=== PATIENT | male | born 1945 | race Caucasian/White ===

== ENCOUNTER 2020-11-03 07:19 | Inpatient (IN) | payer OTHER ==
[2020-11-03] MEDS ORDERED: METHYLPREDNISOLONE 125 MG INJ ONE (08:02)
[2020-11-03 08:14] LABS: Basophils % 0.7 % (0-1.3); Hematocrit 48.8 % (39.6-49.0); Lymphocytes % 7.2 % (15.3-44.8); MPV 7.4 fL (7.6-11.3); RBC Red Blood Cell Count 5.32 M/uL (4.33-5.43)
[2020-11-03 08:21] LABS: Protime INR 1.08
--- NOTE | 2020-11-03 08:34 | RAD REPORT ---
EXAM DESCRIPTION: RAD - Chest Single View - 11/03/2020 8:26 am CLINICAL HISTORY: DYSPNEA Chest pain. COMPARISON: <Comparisons> FINDINGS: Portable technique limits examination quality. Iale-cr-txctvodg bilateral interstitial lung opacities are present, greater on the right. These likel y are related viral infection/ bronchitis. The heart is normal in size. No displaced fractures.
[2020-11-03 08:37] LABS: ALT/SGPT 36 U/L (12-78); AST/SGOT 28 U/L (15-37); Albumin 2.9 g/dL (3.4-5.0); Alkaline Phosphatase 65 U/L (45-117); BUN Blood Urea Nitrogen 15 mg/dL (7-18); Bicarbonate 21 mmol/L (21-32); Bilirubin Direct 0.3 mg/dL (0-0.2); Bilirubin Total 1.2 mg/dL (0.2-1.0); C-Reactive Protein < 2.90 mg/L (<3.00); Ferritin 780.9 ng/mL (26-388); Glucose Level 136 mg/dL (74-106); Potassium 3.3 mmol/L (3.5-5.1); Protein, Total 7.1 g/dL (6.4-8.2); Sodium Level 134 mmol/L (136-145); Troponin (Emerg Dept Use Only) < 0.02 ng/mL (0.0-0.045)
[2020-11-03 08:55] LABS: SARS-COV-2 RT PCR POSITIVE (NEGATIVE)
[2020-11-03 09:35] LABS: Blood Morphology Comment NOT SEEN (NOT SEEN); Platelet Estimate ADEQ; White Blood Cell Scan OK (OK)
--- NOTE | 2020-11-03 09:35 | EDPHYS ---
Physician Documentation [facility] Name: Jonatan Yen Jr Age: 75 yrs Sex: Male : 1945 Arrival Date: 11/03/2020 Time: 07:21 Bed 17 Private MD: ED Physician Stefan Giang HPI: 11/03 08:24 This 75 yrs old Male presents to ER via EMS with complaints of Shortness Of jr8 Breath. 08:24 The patient has shortness of breath at rest. Onset: The symptoms/episode began/occurred jr8 gradually, 1 week(s) ago, and became worse and became persistent. Duration: The symptoms are continuous. The patient's shortness of breath is aggravated by light activity, walking. Associated signs and symptoms: Pertinent positives: non-productive cough. Severity of symptoms: At their worst the symptoms were moderate in the emergency department the symptoms are unchanged. The patient has not experienced similar symptoms in the past. The patient has not recently seen a physician. This is a 75-year-old male that came in via EMS for increased shortness of breath. Stated his granddaughter had tested positive for coronavirus a little over a week ago. Patient became symptomatic soon after that and has had increased shortness of breath since then. No official test for him by medical provider. Has been trying to treat symptomatically at home but has become too worse.. Historical: - Allergies: 07:25 PENICILLINS; iw - Home Meds: 07:26 telmisartan 80 mg oral tab 1 tab once daily [Active]; hydralazine 25 mg Oral tab three iw times a day [Active]; carvedilol 25 mg oral tab 1 tab 2 times per day [Active]; furosemide 20 mg Oral tab 1 tab once daily [Active]; - PMHx: 07:25 Hypertensive disorder; iw - Immunization history:: Client reports having NOT received the Covid vaccine. - Social history:: Smoking status: Patient denies any tobacco usage or history of. ROS: 08:24 Eyes: Negative for injury, pain, redness, and discharge, ENT: Negative for injury, jr8 pain, and discharge, Neck: Negative for injury, pain, and swelling, Cardiovascular: Negative for chest pain, palpitations, and edema, Abdomen/GI: Negative for abdominal pain, nausea, vomiting, diarrhea, and constipation, Back: Negative for injury and pain, MS/Extremity: Negative for injury and deformity, Skin: Negative for injury, rash, and discoloration, Neuro: Negative for headache, weakness, numbness, tingling, and seizure. 08:24 Respiratory: Positive for cough, dyspnea on exertion, shortness of breath. Exam: 08:24 Constitutional: This is a well developed, well nourished patient who is awake, alert, jr8 and in no acute distress. Eyes: Pupils equal round and reactive to light, extra-ocular motions intact. Lids and lashes normal. Conjunctiva and sclera are non-icteric and not injected. Cornea within normal limits. Periorbital areas with no swelling, redness, or edema. ENT: Nares patent. No nasal discharge, no septal abnormalities noted. Tympanic membranes are normal and external auditory canals are clear. Oropharynx with no redness, swelling, or masses, exudates, or evidence of obstruction, uvula midline. Mucous membranes moist. Neck: Trachea midline, no thyromegaly or masses palpated, and no cervical lymphadenopathy. Supple, full range of motion without nuchal rigidity, or vertebral point tenderness. No Meningismus. Cardiovascular: Regular rate and rhythm with a normal S1 and S2. No gallops, murmurs, or rubs. Normal PMI, no JVD. No pulse deficits. Abdomen/GI: Soft, non-tender, with normal bowel sounds. No distension or tympany. No guarding or rebound. No evidence of tenderness throughout. Back: No spinal tenderness. No costovertebral tenderness. Full range of motion. Skin: Warm, dry with normal turgor. Normal color with no rashes, no lesions, and no evidence of cellulitis. MS/ Extremity: Pulses equal, no cyanosis. Neurovascular intact. Full, normal range of motion. Neuro: Awake and alert, GCS 15, oriented to person, place, time, and situation. Cranial nerves II-XII grossly intact. Motor strength 5/5 in all extremities. Sensory grossly intact 08:24 Respiratory: the patient does not display signs of respiratory distress, Respirations: tachypnea, that is mild, Breath sounds: are clear throughout. Vital Signs: 07:21 BP 148 / 84; Pulse 73; Resp 24 S; Temp 97.7; Pulse Ox 86% on R/A; Weight 88.45 kg; iw Height 5 ft. 11 in. (180.34 cm); Pain 0/10; 08:02 BP 156 / 88; Pulse 72; Resp 25; Pulse Ox 92% ; Pain 0/10; jl7 09:19 BP 127 / 69; Pulse 74; Resp 23; Pulse Ox 90% on 6 lpm NC; jl7 10:15 BP 137 / 80; Pulse 72; Resp 22; Pulse Ox 92% on 11 lpm NC; jl7 11:00 BP 145 / 81; Pulse 73; Resp 22; Pulse Ox 91% ; jl7 11:45 BP 153 / 85; Pulse 75; Resp 21; Pulse Ox 93% on 11 lpm NC; jl7 12:30 BP 142 / 78; Pulse 73; Resp 15; Pulse Ox 95% on 11 lpm NC; jl7 13:15 BP 155 / 83; Pulse 76; Resp 20; Pulse Ox 95% 11 lpm ; jl7 14:45 BP 119 / 72; Pulse 86; Resp 18; Pulse Ox 94% on 11 lpm NC; jl7 07:21 Body Mass Index 27.20 (88.45 kg, 180.34 cm) iw 10:15 Bubbler jl7 MDM: 07:26 Patient medically screened. 8 09:34 Data reviewed: vital signs, nurses notes, lab test result(s), EKG, radiologic studies, [facility] CT scan, plain films. Data interpreted: Pulse oximetry: on room air is 85 %. Interpretation: hypoxia. Counseling: I had a detailed discussion with the patient and/or guardian regarding: the historical points, exam findings, and any diagnostic results supporting the discharge/admit diagnosis, lab results, radiology results, the need for further work-up and treatment in the hospital. 11/03 07:34 Order name: BMP 8 11/03 07:34 Order name: Blood Culture Adult (2) 11/03 07:34 Order name: C-Reactive Protein 11/03 07:34 Order name: CBC with Diff; Complete Time: 09:36 11/03 07:34 Order name: D-Dimer; Complete Time: 08:24 11/03 07:34 Order name: Ferritin; Complete Time: 08:39 11/03 07:34 Order name: LFT's; Complete Time: 08:39 11/03 07:34 Order name: Lactate; Complete Time: 14:35 8 11/03 07:34 Order name: PT-INR; Complete Time: 08:24 8 11/03 07:34 Order name: Procalcitonin; Complete Time: 10:03 8 11/03 07:34 Order name: Ptt, Activated; Complete Time: 08:24 8 11/03 07:34 Order name: Troponin (emerg Dept Use Only); Complete Time: 08:39 8 11/03 07:34 Order name: CXR XRAY; Complete Time: 08:39 8 11/03 07:35 Order name: Basic Metabolic Panel; Complete Time: 08:39 EDMS 11/03 07:35 Order name: Blood Culture EDMS 11/03 07:35 Order name: C-Reactive Protein; Complete Time: 08:39 EDMS 11/03 08:56 Order name: COVID-19/FLU A+B; Complete Time: 09:35 EDMS 11/03 09:35 Order name: CBC Smear Scan; Complete Time: 09:36 EDMS 11/03 12:22 Order name: C-Reactive Protein EDMS 11/03 12:22 Order name: C-Reactive Protein EDMS 11/03 12:22 Order name: CBC with Automated Diff EDMS 11/03 12:22 Order name: CBC with Automated Diff EDMS 11/03 12:22 Order name: Ferritin EDMS 11/03 12:22 Order name: Ferritin EDMS 11/03 14:44 Order name: Troponin I; Complete Time: 14:54 EDMS 11/03 14:44 Order name: NT PRO-BNP; Complete Time: 14:54 EDMS 11/03 14:44 Order name: T4 Free; Complete Time: 14:54 EDMS 11/03 14:44 Order name: Thyroid Stimulating Hormone; Complete Time: 14:54 EDMS 11/03 07:34 Order name: EKG; Complete Time: 07:35 8 11/03 07:34 Order name: Cardiac monitoring; Complete Time: 07:56 8 11/03 07:34 Order name: Droplet/Contact Precautions; Complete Time: 07:57 8 11/03 07:34 Order name: EKG - Nurse/Tech; Complete Time: 07:56 8 11/03 07:34 Order name: IV Start; Complete Time: 07:56 11/03 07:34 Order name: Labs collected and sent; Complete Time: 07:56 11/03 07:34 Order name: O2 Per Protocol; Complete Time: 07:56 11/03 07:34 Order name: O2 Sat Monitoring; Complete Time: 07:56 11/03 07:34 Order name: Urine Dipstick-Ancillary (obtain specimen); Complete Time: 16:19 11/03 08:39 Order name: CT Chest For PE Angio; Complete Time: 10:03 jr8 Administered Medications: 07:40 Drug: SOLU-Medrol (methylPrednisoLONE) 125 mg Route: IVP; Site: right antecubital; jl7 09:44 Follow up: Response: No adverse reaction jl7 10:41 Drug: Potassium Chloride 40 mEq Route: PO; jl7 10:41 Follow up: Response: No adverse reaction jl7 Disposition: 11/04 06:41 Co-signature as Attending Physician, Stefan Giang MD I agree with the assessment and bushra plan of care. Disposition Summary: 11/03/20 13:58 Transfer Ordered Transfer Location: [facility] jr8 Reason: Higher level of care jr8 Condition: Fair(11/03/20 13:58) jr8 Problem: new(11/03/20 13:58) jr8 Symptoms: have improved(11/03/20 13:58) jr8 Accepting Physician: Dr. Kebede(11/03/20 16:28) jl7 Diagnosis - SARS-associated coronavirus as the cause of diseases classified elsewhere(11/03/20 jr8 13:58) - Pneumonia due to SARS-associated coronavirus(11/03/20 13:58) jr8 - Acute respiratory failure with hypoxia(11/03/20 13:58) jr8 Forms: - Medication Reconciliation Form jr8 - SBAR form jr8 Signatures: Dispatcher [employer] Stefan Comer MD MD cha Williams, Irene, RN RN iw Roszak, Josh, PA PA jr8 Celso Rodrigues RN RN jl7 Corrections: (The following items were deleted from the chart) 11/03 08:03 07:35 CORONAVIRUS+MR.LAB.BRZ ordered. [facility] 08:04 07:35 Influenza Screen (A \T\ B)+BA.LAB.BRZ ordered. EDMS EDMS 13:44 09:35 Inpatient Admission jr8 jr8 13:44 09:35 MurrayJacob jr8 jr8 13:44 09:35 Telemetry/MedSurg (Inpatient) jr8 jr8 13:44 09:35 Fair jr8 jr8 13:44 09:35 new jr8 jr8 : 09:35 have improved jr8 jr8 : 09:35 Standard 8 jr8 13:44 09:35 jr8 jr8 13:44 09:35 Pneumonia due to SARS-associated coronavirus 8 jr8 :44 09:35 SARS-associated coronavirus as the cause of diseases classified elsewhere 8 jr8 09:35 Acute respiratory failure with hypoxia 8 8 15:18 13:58 [facility] jr8 jr8 16:28 15:18 Dr. Kebede jr8 jl7
--- NOTE | 2020-11-03 09:35 | ER ---
Nurse's Notes [facility] Name: Jonatan Yen Jr Age: 75 yrs Sex: Male : 1945 Arrival Date: 11/03/2020 Time: 07:21 Bed 17 Private MD: Diagnosis: SARS-associated coronavirus as the cause of diseases classified elsewhere;Pneumonia due to SARS-associated coronavirus;Acute respiratory failure with hypoxia Presentation: 11/03 07:21 Chief complaint: EMS states: was exposed to COVID a couple weeks ago, has had symptoms iw X 15 days, SOB has gotten worse over past 2 days, was 75% on RA, placed on 4L NC up to 92%, no fever, has been on Zpack , has had congestion. Coronavirus screen: difficulty breathing, fatigue. Ebola Screen: Patient negative for fever greater than or equal to 101.5 degrees Fahrenheit, and additional compatible Ebola Virus Disease symptoms Patient denies exposure to infectious person. Patient denies travel to an Ebola-affected area in the 21 days before illness onset. No symptoms or risks identified at this time. Initial Sepsis Screen: Does the patient meet any 2 criteria? Yes Does the patient have a suspected source of infection? No. Patient's initial sepsis screen is negative. Risk Assessment: Do you want to hurt yourself or someone else? Patient reports no desire to harm self or others. Onset of symptoms was November 03, 2020. 07:21 Method Of Arrival: EMS: [facility] iw 07:21 Acuity: TOÑO 3 iw Historical: - Allergies: 07:25 PENICILLINS; iw - Home Meds: 07:26 telmisartan 80 mg oral tab 1 tab once daily [Active]; hydralazine 25 mg Oral tab three iw times a day [Active]; carvedilol 25 mg oral tab 1 tab 2 times per day [Active]; furosemide 20 mg Oral tab 1 tab once daily [Active]; - PMHx: 07:25 Hypertensive disorder; iw - Immunization history:: Client reports having NOT received the Covid vaccine. - Social history:: Smoking status: Patient denies any tobacco usage or history of. Screenin:02 Abuse screen: Denies threats or abuse. Denies injuries from another. Nutritional jl7 screening: No deficits noted. Tuberculosis screening: No symptoms or risk factors identified. Fall Risk IV access (20 points). Total Acharya Fall Scale indicates No Risk (0-24 pts). Assessment: 08:02 General: Appears in no apparent distress. uncomfortable, Behavior is calm, cooperative, jl7 appropriate for age. Pain: Denies pain. Neuro: Level of Consciousness is awake, alert, obeys commands, Oriented to person, place, time, situation. Cardiovascular: Heart tones present Patient's skin is warm and dry. Rhythm is sinus rhythm Chest pain is denied. Respiratory: Airway is patent Respiratory effort is even, labored, Respiratory pattern is symmetrical, tachypnea Breath sounds are clear. Derm: Skin is pink, warm \T\ dry. 09:19 Reassessment: Patient appears in no apparent distress at this time. No changes from jl7 previously documented assessment. Patient and/or family updated on plan of care and expected duration. Pain level reassessed. Patient is alert, oriented x 3, equal unlabored respirations, skin warm/dry/pink. 10:00 Reassessment: Pt moved from stretcher to chair in room and desated to 77%, placed pt on jl7 non-rebreather and requested RT to bedside to assess. Pt placed on bubbler at 11 lpm via NC with good results, 95% on 11 lpm on bubbler. 11:00 Reassessment: Patient appears in no apparent distress at this time. No changes from jl7 previously documented assessment. Patient and/or family updated on plan of care and expected duration. Pain level reassessed. Patient is alert, oriented x 3, equal unlabored respirations, skin warm/dry/pink. 12:00 Reassessment: Patient appears in no apparent distress at this time. No changes from jl7 previously documented assessment. Patient and/or family updated on plan of care and expected duration. Pain level reassessed. Patient is alert, oriented x 3, equal unlabored respirations, skin warm/dry/pink. 13:00 Reassessment: Patient appears in no apparent distress at this time. No changes from jl7 previously documented assessment. Patient and/or family updated on plan of care and expected duration. Pain level reassessed. Patient is alert, oriented x 3, equal unlabored respirations, skin warm/dry/pink. 14:00 Reassessment: Patient appears in no apparent distress at this time. No changes from jl7 previously documented assessment. Patient and/or family updated on plan of care and expected duration. Pain level reassessed. Patient is alert, oriented x 3, equal unlabored respirations, skin warm/dry/pink. 15:00 Reassessment: Patient appears in no apparent distress at this time. No changes from jl7 previously documented assessment. Patient and/or family updated on plan of care and expected duration. Pain level reassessed. Patient is alert, oriented x 3, equal unlabored respirations, skin warm/dry/pink. 16:27 Reassessment: [facility] at bedside to transport pt. jl7 Vital Signs: 07:21 BP 148 / 84; Pulse 73; Resp 24 S; Temp 97.7; Pulse Ox 86% on R/A; Weight 88.45 kg; iw Height 5 ft. 11 in. (180.34 cm); Pain 0/10; 08:02 BP 156 / 88; Pulse 72; Resp 25; Pulse Ox 92% ; Pain 0/10; jl7 09:19 BP 127 / 69; Pulse 74; Resp 23; Pulse Ox 90% on 6 lpm NC; jl7 10:15 BP 137 / 80; Pulse 72; Resp 22; Pulse Ox 92% on 11 lpm NC; jl7 11:00 BP 145 / 81; Pulse 73; Resp 22; Pulse Ox 91% ; jl7 11:45 BP 153 / 85; Pulse 75; Resp 21; Pulse Ox 93% on 11 lpm NC; jl7 12:30 BP 142 / 78; Pulse 73; Resp 15; Pulse Ox 95% on 11 lpm NC; jl7 13:15 BP 155 / 83; Pulse 76; Resp 20; Pulse Ox 95% 11 lpm ; jl7 14:45 BP 119 / 72; Pulse 86; Resp 18; Pulse Ox 94% on 11 lpm NC; jl7 07:21 Body Mass Index 27.20 (88.45 kg, 180.34 cm) iw 10:15 Bubbler jl7 ED Course: 07:21 Patient arrived in ED. iw 07:25 Triage completed. iw 07:25 Jeff Berger PA is PHCP. jr8 07:26 Stefan Giang MD is Attending Physician. jr8 07:27 Celso Rodrigues RN is Primary Nurse. jl7 07:27 Arm band placed on. iw 07:30 Initial lab(s) drawn, by me, sent to lab. Inserted saline lock: 20 gauge in right kj1 antecubital area, using aseptic technique. Blood collected. 07:30 First set of blood cultures drawn by me. kj1 07:45 Second set of blood cultures drawn by me. kj1 08:02 Patient has correct armband on for positive identification. Placed in gown. Bed in low jl7 position. Call light in reach. Side rails up X 1. monitor tech on. Pulse ox on. NIBP on. 08:02 COVID swab sent to lab. Flu and/or RSV swab sent to lab. jl7 08:26 CXR XRAY In Process Unspecified. EDMS 09:05 CT Chest For PE Angio In Process Unspecified. EDMS 09:34 Jacob Gao is Hospitalizing Provider. jr8 10:38 initiated transfer to [facility]. bd 15:41 No provider procedures requiring assistance completed. Patient transferred, IV remains jl7 in place. intact, No redness/swelling at site. Administered Medications: 07:40 Drug: SOLU-Medrol (methylPrednisoLONE) 125 mg Route: IVP; Site: right antecubital; jl7 09:44 Follow up: Response: No adverse reaction jl7 10:41 Drug: Potassium Chloride 40 mEq Route: PO; jl7 10:41 Follow up: Response: No adverse reaction jl7 Outcome: 09:35 Decision to Hospitalize by Provider. jr8 13:58 ER care complete, transfer ordered by . jr8 16:27 Transferred by ground EMS to [facility], Transfer form completed. jl7 X-rays sent w/ patient. 16:27 Condition: stable 16:27 Discharge instructions given to patient, family, Instructed on the need for transfer, Demonstrated understanding of instructions. 16:28 Patient left the ED. jl7 Signatures: Dispatcher [employer] EDMS Ольга Nelson bd Sue Simons RN RN iw Jeff Berger PA PA jr8 Celso Rodrigues RN RN martina7 Aviva Yu kj1 Corrections: (The following items were deleted from the chart) 07:35 07:21 BP 148 / 84; Resp 24bpm; Spontaneous; Pulse Ox 86% RA; Temp 97.7F; 88.45 kg; iw Height 5 ft. 11 in.; BMI: 27.2; Pain 0/10; iw
--- NOTE | 2020-11-03 10:00 | RAD REPORT ---
EXAM DESCRIPTION: CT - Chest For Pe Angio - 11/03/2020 9:05 am CLINICAL HISTORY: Chest pain. DYSPNEA COMPARISON: CTANGIO CHEST FOR PE dated 03/25/2011 TECHNIQUE: CT angiogram of the pulmonary arteries was performed with MIP. All CT scans are performed using dose optimization technique as appropriate and may include automated exposure control or mA/KV adjustment according to patient size. FINDINGS: No evidence of pulmonary thromboembolism. No acute aortic finding demonstrated. Emphysema with moderate ground-glass opacities bilaterally compatible with COVID-19 infection. No significant pericardial or pleural fluid. No concerning bony finding. IMPRESSION: No evidence of pulmonary thromboembolism. Emphysema with moderate ground-glass lung opacities seen suggesting COVID-19 infection.
[2020-11-03] MEDS ORDERED: POTASSIUM CL SA 10 MEQ TAB PO ONE ×2 (10:10→14:44)
[2020-11-03] MEDS ORDERED: LABETALOL 20 MG/4ML SYRINGE IV PRN (12:15)
[2020-11-03] MEDS ORDERED: ACETAMINOPHEN 500 MG TAB PO PRN (12:25)
[2020-11-03] MEDS ORDERED: ONDANSETRON 4 MG/2 ML VIAL IV PRN (12:25)
[2020-11-03] MEDS ORDERED: GUAIFENESIN/CODEINE 5ML UCUP PO PRN (12:33)
--- NOTE | 2020-11-03 12:52 | P.HP ---
Certification for Inpatient Patient admitted to: Inpatient With expected LOS: >2 Midnights Patient will require the following post-hospital care: None Practitioner: I am a practitioner with admitting privileges, knowledge of patient current condition, hospital course, and medical plan of care. Services: Services provided to patient in accordance with Admission requirements found in Title 42 Section 412.3 of the Code of Federal Regulations <Nathan Loja - Last Filed: 11/03/20 14:47> Patient admitted to: Inpatient <Dangelo Watts - Last Filed: 11/03/20 15:06> Patient History Date of Service: 11/03/20 Reason for admission: SOB History of Present Illness: Patient is a 75-year-old male with a past medical history significant for hypertension who presents with complaint of shortness of breath that started 1 week ago but has become increasingly worse over time. Patient reports associated signs and symptoms of cough, loss of appetite\smell\taste, weakness, fatigue, chills, dizziness, chest tightness and generalized body pains. Patient denies any other signs and symptoms. Symptoms are aggravated or relieved by nothing. Patient decided to present to the hospital due to worsening symptoms. Home medications list reviewed: Yes - Past Medical/Surgical History Diabetic: No -: HTN Past Surgical History: Reviewed- Non-Contributory - Family History Father -: Heart disease Mother -: Heart disease - Social History Smoking Status: Unknown if ever smoked Alcohol use: No CD- Drugs: No Caffeine use: Yes Place of Residence: Home <Nathan Loja - Last Filed: 11/03/20 14:47> Date of Service: 11/03/20 Primary Care Provider: unknown - Past Medical/Surgical History Psychosocial/ Personal History: Patient lives at home <Dangelo Watts - Last Filed: 11/03/20 15:06> Allergies No Known Allergies Allergy (Unverified 03/25/11 06:16) Home Medications: Carvedilol [Coreg] 3.125 mg PO BID #0 tablet 03/29/11 Furosemide [Lasix] 40 mg PO DAILY #0 tablet 03/29/11 Lisinopril 10 mg PO DAILY #0 tablet 03/29/11 Potassium Chloride [Micro-K] 10 meq PO DAILY #0 capsule.er 03/29/11 Review of Systems General: Fever, Chills, Weakness, Malaise, As per HPI Eyes: Unremarkable ENT: Unremarkable Respiratory: Cough, Shortness of Breath, SOB with Excertion Cardiovascular: Unremarkable Gastrointestinal: Unremarkable Genitourinary: Unremarkable Musculoskeletal: Unremarkable Integumentary: Unremarkable Neurological: Unremarkable Lymphatics: Unremarkable <PurviShahidmichaeljoseluis E - Last Filed: 11/03/20 14:47> Physical Examination - Physical Exam General: Alert, In no apparent distress, Oriented x3, Mild distress HEENT: Atraumatic, PERRLA, Mucous membr. moist/pink, EOMI, Sclerae nonicteric Neck: Supple, 2+ carotid pulse no bruit, No LAD, Without JVD or thyroid abnormality Respiratory: Diminished Cardiovascular: Regular rate/rhythm, Normal S1 S2 Capillary refill: <2 Seconds Gastrointestinal: Normal bowel sounds, No tenderness Musculoskeletal: No clubbing, No tenderness Integumentary: No rashes, No significant lesion Neurological: Normal gait, Normal speech, Normal tone, Normal affect Lymphatics: No axilla or inguinal lymphadenopathy External genitalia: Deferred - Studies Laboratory Data (last 24 hrs) 11/03/20 07:28: PT 12.4, INR 1.08, APTT 24.0 L 11/03/20 07:28: WBC 13.80 H, Hgb 16.8, Hct 48.8, Plt Count 350 11/03/20 07:28: Sodium 134 L, Potassium 3.3 L, BUN 15, Creatinine 0.95, Glucose 136 H, Total Bilirubin 1.2 H, AST 28, ALT 36, Alkaline Phosphatase 65 <Nathan Loja E - Last Filed: 11/03/20 14:47> - Studies Laboratory Data (last 24 hrs) 11/03/20 07:28: PT 12.4, INR 1.08, APTT 24.0 L 11/03/20 07:28: WBC 13.80 H, Hgb 16.8, Hct 48.8, Plt Count 350 11/03/20 07:28: Sodium 134 L, Potassium 3.3 L, BUN 15, Creatinine 0.95, Glucose 136 H, Total Bilirubin 1.2 H, AST 28, ALT 36, Alkaline Phosphatase 65 <Dangelo Watts - Last Filed: 11/03/20 15:06> Assessment and Plan - Plan --COVID-19 pneumonia. Web Applications Administrator consulted. Patient placed on steroids, o2 therapy and oral supplements. Inflammatory markers elevated. Will await further recommendation from room service runner. --COVID-19 infection. Continue current treatment regimen. Continue contact and airborne precautions. --Hypertension. Poorly controlled. Continue home medications and labetalol. --Leukocytosis. Blood cultures pending. Web Applications Administrator wants to review this patient's profile before deciding on antibiotics. --Hypokalemia. Replete as needed. --Elevated D-dimer. CT angiogram negative for PE. Continue supportive care. --CKD 2. Stable. We will continue to monitor renal functions. --DVT prophylaxis with heparin subQ I have had discussion about advanced directives with the patient during this hospital admission. Addressed code status and goals of care. Spent more than 15 minutes. Case discussed withpatient and nurse. The following document was completed using voice recognition software. This can produce medical records director errors that can at times significantly distort words and phrases. Please interpret any aspect of the note that is nonsensical in light of this fact. Discharge Plan: Home Plan to discharge in: 48 Hours - Advance Directives Does patient have a Living Will: No Does patient have a Durable POA for Healthcare: No - Code Status/Comfort Care Code Status Assessed: Yes Code Status: Full Code Physician Review: Patient Assessed, Agree with Above Assessment and Plan Critical Care: No <Nathan Loja - Last Filed: 11/03/20 14:47> - Plan Patient seen and evaluated. Agree with evaluation and plan of care by nurse practitioner. Case discussed with ER physician. Patient was initially transferred due to lack of beds and support here. There were no beds available in [place]. ER physician updated me and reported that patient may be able to be transferred with now available bed to [place]. Patient agreeable for transfer. Patient stable for transfer. Currently on oxygen at this time. Continue with treatment for COVID-19 pneumonia. Await to see if patient is to be transferred if not patient will continue care here. Time Spent Managing Pts Care (In Minutes): 55 <Dangelo Watts - Last Filed: 11/03/20 15:06>
[2020-11-03 14:44] LABS: NT PRO-BNP 10217 pg/mL (<450); Thyroid Stimulating Hormone 0.357 uIU/mL (0.360-3.740); Troponin I < 0.02 ng/mL (0.0-0.045)
[2020-11-03 16:55] VITALS: TEMP 97.7
[2020-11-03] MEDS ORDERED: HEPARIN 5000 UNIT/ML 1 ML VIAL SQ SCH (17:00)
[2020-11-03 17:06] VITALS: BP 119/72; O2SAT 94
[2020-11-03] MEDS ORDERED: METHYLPREDNISOLONE 125 MG INJ IV SCH (21:00)
[2020-11-03] MEDS ORDERED: ASCORBIC ACID 500 MG TABLET PO SCH (21:00)
[2020-11-03] MEDS ORDERED: MELATONIN 5 MG TABLET PO SCH (21:00)
[2020-11-03] MEDS ORDERED: FAMOTIDINE 20 MG TAB PO SCH (21:00)
[2020-11-03] MEDS ORDERED: FAMOTIDINE 20 MG/2 ML VIAL IV SCH (21:00)
[2020-11-03] MEDS ORDERED: ZINC SULFATE 220 MG CAP PO SCH (21:00)
--- NOTE | 2020-11-04 08:17 | EKG ---
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: YVONNE MEASUREMENT RESULTS: Intervals: Rate: 80 NV: 146 QRSD: 128 QT: 438 QTc: 505 [place]: P: 23 NV: 146 QRS: -56 T: -8 INTERPRETIVE STATEMENTS: Sinus rhythm with occasional premature ventricular complexes Right bundle branch block Left anterior fascicular block Bifascicular block Abnormal ECG Compared to ECG 03/26/2011 07:03:58 Ventricular premature complex(es) now present Right bundle-branch block now present Left anterior fascicular block now present Bifascicular block now present Sinus tachycardia no longer present T-wave abnormality no longer present Electronically Signed On 11-04-20 08:14:27 CDT by Amanuel Toro
[2020-11-04] MEDS ORDERED: THIAMINE HCL 100 MG TABLET PO SCH (09:00)
[2020-11-04] MEDS ORDERED: ASPIRIN 81 MG CHEWABLE TABLET PO SCH (09:00)
[2020-11-04] MEDS ORDERED: VITAMIN D 5,000 UNIT CAP PO SCH (09:00)
== END 2020-11-03 16:30 | disposition short-term general hospital (02) | DRG 177 ==
LOC: ER 07:19 → ERHOLD 12:11
PROVIDERS: ADMIT Family Medicine; ATTEND Family Medicine
DX: U07.1 COVID-19 (principal); J12.82 Pneumonia due to coronavirus disease 2019; D72.829 Elevated white blood cell count, unspecified; E87.6 Hypokalemia; I12.9 Hypertensive chronic kidney disease with stage 1 through stage 4 chronic kidney disease, or unspecified chronic kidney disease; N18.2 Chronic kidney disease, stage 2 (mild); Z88.0 Allergy status to penicillin
CPT/HCPCS: 0240U; 36415; 71045; 71275; 80048; 80076; 82728; 83605; 83880; 84145; 84439; 84443; 84484; 85025; 85379; 85610; 85730; 86140; 87040; 93005; 94760; 96374; 99285; J2930; Q9967

== ENCOUNTER 2020-12-04 09:58 | Inpatient (IN) | payer OTHER ==
[2020-12-04 10:57] LABS: Absolute Lymphocytes (CBC) 1.5 K/uL (0.7-4.9); Basophils % 0.6 % (0-1.3); Hematocrit 42.1 % (39.6-49.0); Lymphocytes % 8.5 % (15.3-44.8); MPV 7.6 fL (7.6-11.3); RBC Red Blood Cell Count 4.44 M/uL (4.33-5.43)
[2020-12-04 11:01] LABS: Protime INR 1.76
[2020-12-04] MEDS ORDERED: MIDAZOLAM HCL 2 MG/2 ML INJ ONE (11:13)
[2020-12-04] MEDS ORDERED: NA CHLORIDE 0.9% 1,000 ML ONE ×2 (11:14→18:14)
[2020-12-04] MEDS ORDERED: FENTANYL CITR 100 MCG/2 ML ONE (11:14)
[2020-12-04 11:17] LABS: CKMB Creatine Kinase MB 2.6 ng/mL (1.0-3.6); Potassium 4.4 mmol/L (3.5-5.1); Troponin (Emerg Dept Use Only) 0.09 ng/mL (0.0-0.045)
[2020-12-04] MEDS ORDERED: AMIODARONE IN DEXTROSE,ISO-OSM 360 MG/200 ML BAG IV ONE (11:24)
[2020-12-04] MEDS ORDERED: AMIODARONE HCL 150 MG/3 ML INJ IV ONE (11:24)
[2020-12-04] MEDS ORDERED: NOREPINEPHRINE 4mg/D5W 250mL 4 MG/250 ML BAG IV ONE (11:53)
[2020-12-04] MEDS ORDERED: VANCOMYCIN/NS 1 gm 1 GM/250 ML BAG IV ONE (12:15)
[2020-12-04] MEDS ORDERED: CEFEPIME 1 GM/100 ML BAG IV ONE (12:15)
[2020-12-04] MEDS ORDERED: VANCOMYCIN 1 GM/VIAL ONE (12:17)
[2020-12-04] MEDS ORDERED: CEFEPIME 1 GM/VIAL ONE (12:17)
[2020-12-04] MEDS ORDERED: NA CHLORIDE 0.9% 0 ML ONE ×2 (12:18)
[2020-12-04] MEDS ORDERED: NA CHLORIDE 0.9% 500 ML ONE (12:26)
[2020-12-04 12:54] LABS: Urine Blood Negative (Negative); Urine Glucose Negative (Negative); Urine Protein 1+ (Negative); Urine Specific Gravity >=1.030 (1.005-1.030)
[2020-12-04 13:08] LABS: Arterial Blood Carboxyhemoglob 1.2 % (0-1.5); Blood Gas Oxyhemoglobin 96.6 % (94-97); Blood O2 Saturation 98.6 % (92-98.5)
[2020-12-04] MEDS ORDERED: LORazepam 2 MG/ML VIAL IV PRN (13:09)
--- NOTE | 2020-12-04 13:13 | P.HP ---
Certification for Inpatient Patient admitted to: Inpatient With expected LOS: >2 Midnights Patient will require the following post-hospital care: Home Health Services Practitioner: I am a practitioner with admitting privileges, knowledge of patient current condition, hospital course, and medical plan of care. Services: Services provided to patient in accordance with Admission requirements found in Title 42 Section 412.3 of the Code of Federal Regulations Patient History Date of Service: 12/04/20 Primary Care Provider: Dr. Torres Reason for admission: Atrial Fibrillation RVR and A. Flutter History of Present Illness: A 75-year-old white male who was released from [facility] on November 09 following Covid. Since his discharge he has been consistently short of breath. Over the past few weeks he is his appetite has declined and he is eating very little. Last night he was talking in his sleep and his was concerned that he looked poorly. He came to the emergency room this morning at approximately 10:00. At that time though the patient's vital signs were relatively stable he continued to be short of breath. Shortly after being admitted to the ER he developed a rapid heart rate and his blood pressure dropped. He was found to be in atrial fibrillation with RVR and then atrial flutter. He was cardioverted 3 times unsuccessfully. He was then placed on an amiodarone drip. Following that time his blood pressure dropped and he was also put on a norepinephrine drip. Since the initial event his heart rate has slowed to the high 120s low 130s. His blood pressure stabilized with a systolic in the area of 106. The patient is weak but states that he feels well. He will be admitted to the ICU due to his amiodarone and his norepinephrine drips. Cardiology has been consulted and is aware. Labs are remarkable for a sodium of 132, BUN of 34, and a creatinine of 2.02 which is markedly higher than the last labs he had in October. White blood count is 17.7 platelets are 532. Troponin was 0.09 his lactate was 5.5. Procalcitonin is pending. Allergies No Known Allergies Allergy (Unverified 03/25/11 06:16) Home medications list reviewed: Yes Home Medications: Carvedilol [Coreg] 3.125 mg PO BID #0 tablet 03/29/11 Furosemide [Lasix] 40 mg PO DAILY #0 tablet 03/29/11 Lisinopril 10 mg PO DAILY #0 tablet 03/29/11 Potassium Chloride [Micro-K] 10 meq PO DAILY #0 capsule.er 03/29/11 - Past Medical/Surgical History Diabetic: No -: HTN -: Small biopsy on neck "lum" Psychosocial/ Personal History: Retired. Patient lives at home with . - Family History Father -: Heart disease Mother -: Heart disease - Social History Smoking Status: Never smoker Alcohol use: No CD- Drugs: No Caffeine use: Yes Place of Residence: Home Review of Systems 10-point ROS is otherwise unremarkable General: Weakness Eyes: Unremarkable ENT: Unremarkable Respiratory: Shortness of Breath Cardiovascular: Unremarkable Gastrointestinal: Other (Complete loss of appetite. Barely eating) Genitourinary: Unremarkable Musculoskeletal: Unremarkable Integumentary: Unremarkable Neurological: Unremarkable Physical Examination - Physical Exam General: Alert, Oriented x3 HEENT: Normocephalic, PERRLA Neck: Supple, JVD not distended Respiratory: Normal air movement, Crackles/rales Cardiovascular: Other (Significant Tachycardia), Irregular heart rate/rhythm Capillary refill: <2 Seconds Gastrointestinal: Soft and benign, Non-distended Musculoskeletal: No swelling, No contractures, No erythema Integumentary: No breakdown, No significant lesion Neurological: Normal tone, Sensation intact, Normal affect Urinary: Martins catheter External genitalia: Deferred Rectal: Deferred - Studies Laboratory Data (last 24 hrs) 12/04/20 10:34: PT 20.4 H, INR 1.76, APTT 29.1 12/04/20 10:34: WBC 17.70 H, Hgb 14.2, Hct 42.1, Plt Count 532 H 12/04/20 10:34: Sodium 132 L, Potassium 4.4, BUN 34 H, Creatinine 2.02 H, Glucose 165 H, Amylase 58 Assessment and Plan - Plan Assessment: Atrial Fib/Flutter with RVR Dyspnea Hx Htn Plan: Atrial Fib/Flutter with RVR: Admit to ICU, monitor, O2 as needed, Amniodorone protocol, Norepinephrine protocol, Consulted Dr. Bates, full diet, nutritional consult. Monitor I&O. Martins Dyspnea: O2 as needed, Consulted Dr. Cisneros. CXR pending. Vancomycin and Cefipime for suspected infection. Check RA O2 Sat daily. Hx Htn: Non contributory. DVT PPX: Lovenox 40mg Code status:Full Code Discharge Plan: Home Plan to discharge in: Unknown - Advance Directives Does patient have a Living Will: No Does patient have a Durable POA for Healthcare: No - Code Status/Comfort Care Code Status Assessed: Yes Code Status: Full Code Critical Care: No Time Spent Managing Pts Care (In Minutes): 70
[2020-12-04] MEDS ORDERED: DIGOXIN 0.25 MG/ML AMP ONE ×2 (13:43→20:28)
--- NOTE | 2020-12-04 14:03 | RAD REPORT ---
EXAM DESCRIPTION: RAD - Chest Single View - 12/04/2020 1:54 pm CLINICAL HISTORY: DYSPNEA COMPARISON: Chest Pa And Lat (2 Views) dated 12/02/2020; Chest Single View dated 11/03/2020; CHEST SI NGLE VIEW dated 03/26/2011; CHEST SINGLE VIEW dated 03/25/2011; Chest For Pe Angio dated 11/03/2020 FINDINGS: Lines: None. Lungs: Moderate multifocal bilateral airspace disease which is similar to prior. Pleural: No effusions or pneumothorax . Cardiac: The heart size is within normal limits. Bones: No acute fractures. Other: IMPRESSION: Moderate multifocal bilateral airspace disease consistent with sequela of recent pneumon ia. The patient may be a candidate for annual low dose lung cancer screening CT.
[2020-12-04] MEDS ORDERED: NOREPINEPHRINE 4 MG in D5W 250 ML IV PRN ×2 (16:00→17:37)
--- NOTE | 2020-12-04 16:23 | EDPHYS ---
Physician Documentation [facility] Name: Jonatan Yen Jr Age: 75 yrs Sex: Male : 1945 Arrival Date: 12/04/2020 Time: 10:00 Bed 6 Private MD: ED Physician Dave Nicole HPI: 12/04 18:35 This 75 yrs old Male presents to ER via Wheelchair with complaints of kdr Shortness Of Breath. 18:35 Patient states he has been feeling short of breath for the past 3 to 4 weeks. He was kdr recently diagnosed with Covid. He was admitted for several weeks while ill. He was discharged on November 09 of this year. Patient is also reported by his to not be eating normally. Patient self states he feels tired but otherwise has no focal complaint. Historical: - Allergies: 10:14 PENICILLINS; jl7 12/06 19:05 Ciprofloxacin; tw2 19:05 Lotrel; tw2 19:05 Bactrim; tw2 19:05 Sulfa (Sulfonamide Antibiotics); tw2 - PMHx: 12/04 10:14 Hypertensive disorder; jl7 - Immunization history:: Client reports having NOT received the Covid vaccine. - Social history:: Smoking status: Patient denies any tobacco usage or history of. ROS: 19:41 Constitutional: Negative for fever, chills, and weight loss, Eyes: Negative for injury, kdr pain, redness, and discharge, ENT: Negative for injury, pain, and discharge, Neck: Negative for injury, pain, and swelling, Abdomen/GI: Negative for abdominal pain, nausea, vomiting, diarrhea, and constipation, Back: Negative for injury and pain, : Negative for injury, bleeding, discharge, and swelling, MS/Extremity: Negative for injury and deformity, Skin: Negative for injury, rash, and discoloration, Neuro: Negative for headache, weakness, numbness, tingling, and seizure activity. Psych: Negative for depression, anxiety, suicide ideation, homicidal ideation, and hallucinations, Allergy/Immunology: Negative for hives, rash, and allergies, Endocrine: Negative for neck swelling, polydipsia, polyuria, polyphagia, and marked weight changes, Hematologic/Lymphatic: Negative for swollen nodes, abnormal bleeding, and unusual bruising. 19:41 Cardiovascular: Positive for palpitations, Negative for chest pain, edema. Exam: 12:08 ECG was reviewed by the Attending Physician. kdr 19:42 Constitutional: This is a well developed, well nourished patient who is awake, alert, kdr and in no acute distress. Head/Face: Normocephalic, atraumatic. Eyes: Pupils equal round and reactive to light, extra-ocular motions intact. Lids and lashes normal. Conjunctiva and sclera are non-icteric and not injected. Cornea within normal limits. Periorbital areas with no swelling, redness, or edema. Neck: Trachea midline, no thyromegaly or masses palpated, and no cervical lymphadenopathy. Supple, full range of motion without nuchal rigidity, or vertebral point tenderness. No Meningismus. Chest/axilla: Normal chest wall appearance and motion. Nontender with no deformity. No lesions are appreciated. Respiratory: Lungs have equal breath sounds bilaterally, clear to auscultation and percussion. No rales, rhonchi or wheezes noted. No increased work of breathing, no retractions or nasal flaring. Abdomen/GI: Soft, non-tender, with normal bowel sounds. No distension or tympany. No guarding or rebound. No evidence of tenderness throughout. Back: No spinal tenderness. No costovertebral tenderness. Full range of motion. Skin: Warm, dry with normal turgor. Normal color with no rashes, no lesions, and no evidence of cellulitis. MS/ Extremity: Pulses equal, no cyanosis. Neurovascular intact. Full, normal range of motion. Neuro: Awake and alert, GCS 15, oriented to person, place, time, and situation. Cranial nerves II-XII grossly intact. Motor strength 5/5 in all extremities. Sensory grossly intact. Cerebellar exam normal. Normal gait. Psych: Awake, alert, with orientation to person, place and time. Behavior, mood, and affect are within normal limits. 19:42 Cardiovascular: Rate: tachycardic, actual rate is 190 bpm, Rhythm: irregularly irregular, Pulses: pulse deficits are appreciated, Edema: is not appreciated. Vital Signs: 10:09 BP 110 / 84; Pulse 96; Resp 23; Temp 96.7; Pulse Ox 100% on R/A; jl7 10:28 BP 121 / 84; Pulse 176; Resp 35; Temp 97.7; Pulse Ox 100% on R/A; Pain 0/10; tw5 11:16 BP 70 / 61; Pulse 137; Resp 14; Temp 97.7; Pulse Ox 98% on 15% Non-rebreather mask; tw5 12:25 BP 96 / 57; Pulse 133; Resp 27 S; Pulse Ox 94% on 4 lpm NC; tw5 12:50 BP 143 / 111; tw5 12:50 BP 143 / 111; tw5 13:03 BP 88 / 39; Pulse 138; Resp 28; Temp 97.1(O); Pulse Ox 92% on 5% Mask: Simple Mask; tw5 13:34 BP 123 / 100; Pulse 117; Resp 33; Pulse Ox 96% on Simple Mask; Pain 0/10; tw5 14:29 BP 114 / 95; Pulse 123; Resp 28; Pulse Ox 100% on 2 lpm NC; Pain 0/10; tw5 14:29 BP 114 / 95; tw5 11:16 Fluid bolus, Patient placed in trendelenburg tw5 12:25 Non rebreather removed. NC replaced tw5 Procedures: 19:42 Cardioversion: (synchronized) for treatment of A fib, with a rate of 190 beats/min, kdr with 150 joules X 3. Post procedure rhythm is unchanged, the patient tolerated the procedure well, Patient was given 300 mg low dose of amiodarone. Patient is rate responded well to that dosing. Heart rate dropped down to around 130. Patient was then started on amiodarone drip.. MDM: 10:15 Patient medically screened. kb 19:42 Data reviewed: vital signs, nurses notes, lab test result(s), EKG, radiologic studies. kdr Counseling: I had a detailed discussion with the patient and/or guardian regarding: the historical points, exam findings, and any diagnostic results supporting the discharge/admit diagnosis, lab results, radiology results, the need for further work-up and treatment in the hospital. ED course: After initially establishing better control the patient's rate with amiodarone. The patient became hypotensive. Patient was given fluid boluses and started on Levophed. Central line was placed in the right groin without complication. Patient steadily improved with those interventions.. 12/04 10:16 Order name: Amylase, Serum; Complete Time: 09:10 kb 12/04 10:16 Order name: Basic Metabolic Panel; Complete Time: 09:10 kb 12/04 10:16 Order name: CBC with Diff; Complete Time: 11:59 kb 12/04 10:16 Order name: CPK; Complete Time: 09:10 kb 12/04 10:16 Order name: Ckmb; Complete Time: 09:10 kb 12/04 10:16 Order name: Lactate; Complete Time: 11:59 kb 12/04 10:16 Order name: Procalcitonin; Complete Time: 09:10 kb 12/04 10:16 Order name: Protime (+inr); Complete Time: 11:59 kb 12/04 10:16 Order name: Ptt, Activated; Complete Time: 11:59 kb 12/04 10:16 Order name: Troponin (emerg Dept Use Only); Complete Time: 09:10 kb 12/04 10:16 Order name: Urine Microscopic Only 12/04 12:15 Order name: Blood Culture Adult (2) tw5 12/04 12:25 Order name: Urine Culture; Complete Time: 09:10 tw5 12/04 12:54 Order name: Urine Dipstick-Ancillary; Complete Time: 09:10 EDMS 12/04 13:04 Order name: ABG Arterial Blood Gas; Complete Time: 09:10 EDMS 12/04 14:24 Order name: Lactate Sepsis 2 HR Follow-up; Complete Time: 09:10 EDMS 12/04 14:30 Order name: COVID-19 (Coronavirus) Document "Date of Onset" if Symptomatic eb 12/04 16:38 Order name: CORONAVIRUS EDWA 12/04 17:31 Order name: SARS-COV-2 RT PCR; Complete Time: 09:10 EDMS 12/04 18:20 Order name: Troponin I; Complete Time: 09:10 EDMS 12/05 01:49 Order name: Troponin I; Complete Time: 09:10 EDMS 12/05 05:59 Order name: Lactate; Complete Time: 09:10 EDMS 12/05 06:00 Order name: CBC with Automated Diff; Complete Time: 09:10 EDMS 12/05 06:30 Order name: Comprehensive Metabolic Panel; Complete Time: 09:10 EDMS 12/05 06:30 Order name: NT PRO-BNP; Complete Time: 09:10 EDMS 12/05 06:30 Order name: Magnesium; Complete Time: 09:10 EDMS 12/05 06:49 Order name: Procalcitonin; Complete Time: 09:10 EDMS 12/05 07:53 Order name: Liver (Hepatic) Function; Complete Time: 09:10 EDMS 12/05 08:23 Order name: Protime (+INR); Complete Time: 09:10 EDMS 12/05 08:23 Order name: PTT, Activated Partial Thromb; Complete Time: 09:10 EDMS 12/04 10:16 Order name: Chest Single View XRAY kb 12/04 14:04 Order name: RAD; Complete Time: 09:10 EDMS 12/05 08:55 Order name: US; Complete Time: 09:10 EDMS 12/05 09:26 Order name: Manual Differential; Complete Time: 09:10 EDMS 12/06 05:50 Order name: Lactate; Complete Time: 09:10 EDMS 12/06 06:05 Order name: Comprehensive Metabolic Panel; Complete Time: 09:10 EDMS 12/06 06:05 Order name: Phosphorus; Complete Time: 09:10 EDMS 12/06 06:05 Order name: NT PRO-BNP; Complete Time: 09:10 EDMS 12/06 06:05 Order name: C-Reactive Protein; Complete Time: 09:10 EDMS 12/06 06:05 Order name: Magnesium; Complete Time: 09:10 EDMS 12/06 06:05 Order name: CBC with Automated Diff; Complete Time: 09:10 EDMS 12/06 06:50 Order name: Procalcitonin; Complete Time: 09:10 EDMS 12/06 07:25 Order name: CBC Smear Scan; Complete Time: 09:10 EDMS 12/06 08:57 Order name: RAD; Complete Time: 09:10 EDMS 12/07 04:48 Order name: CBC with Automated Diff; Complete Time: 09:10 EDMS 12/07 05:35 Order name: Manual Differential; Complete Time: 09:10 EDMS 12/07 05:44 Order name: Comprehensive Metabolic Panel; Complete Time: 09:10 EDMS 12/07 05:44 Order name: C-Reactive Protein; Complete Time: 09:10 EDMS 12/07 05:44 Order name: Magnesium; Complete Time: 09:10 EDMS 12/07 05:56 Order name: Procalcitonin; Complete Time: 09:10 EDMS 12/07 08:00 Order name: RAD; Complete Time: 09:10 EDMS 12/08 05:33 Order name: CBC with Automated Diff; Complete Time: 09:10 EDMS 12/08 05:55 Order name: Comprehensive Metabolic Panel; Complete Time: 09:10 EDMS 12/08 05:55 Order name: C-Reactive Protein; Complete Time: 09:10 EDMS 12/08 05:55 Order name: Magnesium; Complete Time: 09:10 EDMS 12/08 08:35 Order name: Vancomycin Level Trough; Complete Time: 09:10 EDMS 12/04 10:16 Order name: Cardiac monitoring; Complete Time: 10:45 kb 12/04 10:16 Order name: EKG - Nurse/Tech; Complete Time: 10:45 kb 12/04 10:16 Order name: IV Saline Lock - Large Bore; Complete Time: 10:45 kb 12/04 10:16 Order name: Labs collected and sent; Complete Time: 10:45 kb 12/04 10:16 Order name: O2 Per Protocol; Complete Time: 10:45 kb 12/04 10:16 Order name: O2 Sat Monitoring; Complete Time: 10:45 kb 12/04 10:16 Order name: Urine Dipstick-Ancillary (obtain specimen); Complete Time: 17:33 kb EC:08 Rate is 172 beats/min. Rhythm is irregularly irregular, A flutter with No ectopy, Right kdr bundle branch block. QRS [place] is Normal. CA interval is normal. QRS interval is normal. Clinical impression: Atrial Fibrillation and Sinus arrythmia. 12:08 Rate is 127 beats/min. Rhythm is irregularly irregular, A fib with No ectopy, Right kdr bundle branch block. QRS [place] is Normal. CA interval is normal. QRS interval is normal. QT interval is normal. Clinical impression: Atrial Fibrillation. Administered Medications: 10:52 Drug: Versed (midazolam) 4 mg Route: IVP; Site: left antecubital; tw5 11:15 Follow up: Response: No adverse reaction; RASS: Light sedation (-2) tw5 10:52 Drug: fentaNYL (PF) 50 mcg Route: IVP; Site: left antecubital; tw5 11:14 Follow up: Response: No adverse reaction; RASS: Light sedation (-2) tw5 10:59 Drug: NS 0.9% 1000 ml Route: IV; Rate: 1 bolus; Site: left antecubital; tw5 11:50 Follow up: Response: No adverse reaction; IV Status: Completed infusion tw5 11:02 Drug: amiodarone 300 mg Route: IVP; Site: left antecubital; tw5 11:49 Follow up: Response: No adverse reaction; Cardiac rhythm changed tw5 11:14 Drug: amiodarone 360 mg, D5W 200 ml Route: IVPB; Rate: 1 mg/min; Site: right tw5 antecubital; 11:30 Follow up: IV Status: IV converted to saline lock tw5 13:20 Follow up: IV Status: Infusion continued tw5 11:20 Drug: NS 0.9% 1000 ml Route: IV; Rate: 1 bolus; Site: right wrist; tw5 12:50 Follow up: BP 143 / 111; decreased to 15 mcg/min tw5 14:28 Follow up: IV Status: Completed infusion tw5 11:30 Drug: Norepinephrine (4 mg/250 mL D5W) 4 mcg/min {Note: started at 20 mcg/min 1130.} tw5 Route: IV; Rate: calculated rate; Site: left antecubital; 12:50 Follow up: BP 143 / 111; decreased to 15 mcg/min tw5 13:03 Follow up: BP 88 / 39; Pulse 138 bpm; Resp 28 bpm; Temp 97.1 Oral; Pulse Ox 92% 5% tw5 Mask: Simple Mask; increased to 20 mcg/ min 14:29 Follow up: BP 114 / 95; Rate change 18 mcg/min tw5 12:40 Drug: Cefepime 1 grams Route: IVPB; Rate: 200 ml/hr; Infused Over: 30 mins; Site: right tw5 antecubital; 13:22 Follow up: Response: No adverse reaction; IV Status: Completed infusion tw5 12:50 Drug: vancoMYCIN 1 grams Route: IVPB; Infused Over: 2 hrs; Site: left antecubital; tw5 14:28 Follow up: IV Status: Completed infusion tw5 13:22 Drug: Digoxin 0.5 mg Route: IVP; Site: right antecubital; tw5 14:27 Follow up: Response: No adverse reaction tw5 Disposition: 16:21 Critical Care:. kdr Disposition Summary: 12/04/20 16:22 Hospitalization Ordered Hospitalization Status: Inpatient Admission kdr Provider: Pk Schmidt Condition: Fair kdr Problem: new kdr Symptoms: have improved kdr Bed/Room Type: Standard kdr Location: [facility] ER HOLD(12/04/20 17:35) aa5 Room Assignment: ERHOLD-(12/04/20 17:35) aa5 Diagnosis - Persistent atrial fibrillation - Rapid ventricular response kdr - Hypotension, unspecified kdr - Weakness kdr - Altered mental status, unspecified kdr Forms: - Medication Reconciliation Form kdr - SBAR form kdr Critical care time excluding procedures: 16:21 Critical care time: Bedside Care: 30 minutes, Consultation: 10 minutes, Family kdr Intervention: 10 minutes. Total time: 50 minutes Signatures: Dispatcher [employer] EDMS Rachele Yu, TRADING FLOOR OPERATOR-C TRADING FLOOR OPERATOR-Dave Cervantes MD MD kdr Mickail, Joel, PA PA jmm Calderon, Audri RN RN aa5 Lila Correa RN RN tw2 Celso Rodrigues RN RN jl7 Johnie Yuen [facility] Vanita Pretty tw5 Corrections: (The following items were deleted from the chart) 17:35 16:22 Telemetry/MedSurg (Inpatient) kdr aa5 17:35 16:22 kdr aa5
--- NOTE | 2020-12-04 16:23 | ER ---
Nurse's Notes [facility] Name: Jonatan Yen Jr Age: 75 yrs Sex: Male : 1945 Arrival Date: 12/04/2020 Time: 10:00 Bed 6 Private MD: Diagnosis: Persistent atrial fibrillation-Rapid ventricular response;Hypotension, unspecified;Weakness;Altered mental status, unspecified Presentation: 12/04 10:09 Chief complaint: Patient states: Shortness of breath on exertion x 3-4 weeks post covid jl7 infection, discharged on 11-09-20, reports pt is not eating like normal. Coronavirus screen: shortness of breath, Client presents with at least one sign or symptom that may indicate coronavirus-19. Standard/surgical mask placed on the client. Provider contacted for isolation considerations. Ebola Screen: No symptoms or risks identified at this time. Initial Sepsis Screen: Does the patient meet any 2 criteria? No. Patient's initial sepsis screen is negative. Does the patient have a suspected source of infection? No. Patient's initial sepsis screen is negative. Risk Assessment: Do you want to hurt yourself or someone else? Patient reports no desire to harm self or others. Onset of symptoms is unknown. Care prior to arrival: None. 10:09 Method Of Arrival: Wheelchair jl7 10:09 Acuity: TOÑO 3 jl7 10:10 Acuity: TOÑO 2 jd3 Triage Assessment: 18:06 General: Appears in no apparent distress. comfortable, Behavior is calm, cooperative, jd3 appropriate for age. Respiratory: Onset: The symptoms/episode began/occurred gradually, the patient has mild shortness of breath. Historical: - Allergies: 10:14 PENICILLINS; jl7 12/06 19:05 Ciprofloxacin; tw2 19:05 Lotrel; tw2 19:05 Bactrim; tw2 19:05 Sulfa (Sulfonamide Antibiotics); tw2 - PMHx: 12/04 10:14 Hypertensive disorder; jl7 - Immunization history:: Client reports having NOT received the Covid vaccine. - Social history:: Smoking status: Patient denies any tobacco usage or history of. Screenin:28 Abuse screen: Denies threats or abuse. Denies injuries from another. Nutritional tw5 screening: No deficits noted. Tuberculosis screening: No symptoms or risk factors identified. Fall Risk None identified. No fall in past 12 months (0 pts). Assessment: 10:40 General: Appears in no apparent distress. Behavior is calm, cooperative, appropriate tw5 for age. Neuro: Level of Consciousness is awake, alert, obeys commands. Cardiovascular: Rhythm is Patient moved to treatment room. Respiratory: Airway is patent Trachea midline Respiratory effort is labored, with retractions, Respiratory pattern is tachypnea Breath sounds are coarse bilaterally. Breath sounds with crackles in left upper lobe and left lower lobe. GI: Reports lower abdominal pain, upper abdominal pain, cramping, intolerance of food. 12:23 General: Hospitalist at the bedside.. tw5 13:11 Pain: Denies pain. tw5 13:14 Neuro: Level of Consciousness is confused. Respiratory: Airway is patent Trachea tw5 midline Respiratory effort is labored, with retractions, Respiratory pattern is tachypnea. : Martins in place. 13:34 General: Hospitalist krystian at the bedside. Amiodarone started back up. . tw5 13:34 General: Dr. Wang at the bedside.. tw5 13:34 General: Patient reports that he has not been eating or drinking for the past three tw5 days.. 14:29 Reassessment: No changes from previously documented assessment. Patient and/or family tw5 updated on plan of care and expected duration. Pain level reassessed. Patient is alert, oriented x 3, equal unlabored respirations, skin warm/dry/pink. Patient states symptoms have improved. Cardiovascular: Rhythm is atrial fibrillation. 15:43 Reassessment: No changes from previously documented assessment. Patient and/or family tw5 updated on plan of care and expected duration. Pain level reassessed. Patient is alert, oriented x 3, equal unlabored respirations, skin warm/dry/pink. Patient states feeling better. Patient states symptoms have improved. GI: Reports increase in appetite. 18:07 Reassessment: Patient and/or family updated on plan of care and expected duration. Pain jd3 level reassessed. Patient is alert, oriented x 3, equal unlabored respirations, skin warm/dry/pink. [facility] Patient states feeling better. Vital Signs: 10:09 BP 110 / 84; Pulse 96; Resp 23; Temp 96.7; Pulse Ox 100% on R/A; jl7 10:28 BP 121 / 84; Pulse 176; Resp 35; Temp 97.7; Pulse Ox 100% on R/A; Pain 0/10; tw5 11:16 BP 70 / 61; Pulse 137; Resp 14; Temp 97.7; Pulse Ox 98% on 15% Non-rebreather mask; tw5 12:25 BP 96 / 57; Pulse 133; Resp 27 S; Pulse Ox 94% on 4 lpm NC; tw5 12:50 BP 143 / 111; tw5 12:50 BP 143 / 111; tw5 13:03 BP 88 / 39; Pulse 138; Resp 28; Temp 97.1(O); Pulse Ox 92% on 5% Mask: Simple Mask; tw5 13:34 BP 123 / 100; Pulse 117; Resp 33; Pulse Ox 96% on Simple Mask; Pain 0/10; tw5 14:29 BP 114 / 95; Pulse 123; Resp 28; Pulse Ox 100% on 2 lpm NC; Pain 0/10; tw5 14:29 BP 114 / 95; tw5 11:16 Fluid bolus, Patient placed in trendelenburg tw5 12:25 Non rebreather removed. NC replaced tw5 Vitals: 10:28 Cardiac Rhythm Assessment Atrial flutter. tw5 ED Course: 10:00 Patient arrived in ED. mr 10:08 Dave Nicole MD is Attending Physician. kdr 10:14 Triage completed. jl7 10:14 Arm band placed on right wrist. jl7 10:15 [facility]ache[facility]-C [facility] kb 10:18 Robert Hudson, RODRIGUEZ is Primary Nurse. bp 10:28 EKG done, by ED staff. tw5 10:34 Primary Nurse role handed off by Robert Hudson, RN tw5 10:34 Vanita Pretty is Primary Nurse. tw5 10:34 Patient has correct armband on for positive identification. cardiac monitor technician on. Pulse tw5 ox on. NIBP on. Door closed. Noise minimized. Lights dimmed. Verbal reassurance given. 10:35 Initial lab(s) drawn, by ED staff, by laborer prestressed concrete, sent to lab. First set of blood tw5 cultures drawn by ED staff. 10:35 Second set of blood cultures drawn by ED staff. Inserted saline lock: 20 gauge in right tw5 antecubital area, using aseptic technique. 10:35 Inserted saline lock: 20 gauge in left antecubital area, using aseptic technique. tw5 10:57 Assist provider with cardioversion (synchronized) for treatment of A fib with 100 tw5 joules X 1. 150 Joules x2. Set up for procedure. Performed by Dave Nicole MD Monitored with engine monitor, pulse ox, . Post procedure rhythm is unchanged. Patient tolerated well. 11:10 Inserted saline lock: 20 gauge in right forearm, using aseptic technique. tw5 11:10 Assisted provider with central line placement. Set up central line tray. Triple lumen tw5 line placed in right femoral. Line placed by Dave Nicole MD Placement verified by blood return, Dressed with Tegaderm, Patient tolerated well. Before procedure, did Practitioner(s) obtain informed consent? Patient \T\ family education about procedure, CLABSI prevention and S/S of infection? Yes. Time-out/Briefing performed prior to start of procedure? Yes. Was handwashing/sanitizing done immediately prior to procedure? Yes. Was patient positioned to in a way to prevent air embolism? Yes. Was procedure site sterilized? Yes, with Was the site allowed to dry? Yes. During the procedure, did the Practitioner(s) maintain a sterile field? Yes. Were unused ports clamped during insertion? Yes. Was blood aspirated from each lumen? Yes. After the procedure, did the Practitioner(s) clean the site and apply a sterile dressing? Yes. 11:10 Oxygen administration administration via face mask \T\ 10L/min. 11:15 Amylase, Serum Sent. 11:15 Basic Metabolic Panel Sent. 11:15 CPK Sent. 11:15 Ckmb Sent. 11:15 Lactate Sent. 11:15 Troponin (emerg Dept Use Only) Sent. 11:15 Urine Microscopic Only Sent. 11:15 Procalcitonin Sent. tw5 13:37 X-ray(s) taken. 14:29 No apparent distress. Resting quietly. Awaiting bed assignment. 14:29 Placed in gown. Bed in low position. Call light in reach. Side rails up X2. Adult w/ tw5 patient. Door closed. Noise minimized. Lights dimmed. Warm blanket given. Diet: Patient given snack. Patient given water. 16:21 Pk Schmidt MD is Hospitalizing Provider. kdr 18:06 Patient admitted, IV remains in place. jd3 18:21 Primary Nurse role handed off by Vanita Pretty jd3 18:23 Joe Myers, RN is Primary Nurse. jd3 12/06 07:39 Primary Nurse role handed off by Joe Myers, RN tw2 07:39 Lila Correa RN is Primary Nurse. tw2 12/07 10:13 EKG done, by staff nuclear medicine technologist. at1 Administered Medications: 12/04 10:52 Drug: Versed (midazolam) 4 mg Route: IVP; Site: left antecubital; tw5 11:15 Follow up: Response: No adverse reaction; RASS: Light sedation (-2) tw5 10:52 Drug: fentaNYL (PF) 50 mcg Route: IVP; Site: left antecubital; tw5 11:14 Follow up: Response: No adverse reaction; RASS: Light sedation (-2) tw5 10:59 Drug: NS 0.9% 1000 ml Route: IV; Rate: 1 bolus; Site: left antecubital; tw5 11:50 Follow up: Response: No adverse reaction; IV Status: Completed infusion tw5 11:02 Drug: amiodarone 300 mg Route: IVP; Site: left antecubital; tw5 11:49 Follow up: Response: No adverse reaction; Cardiac rhythm changed tw5 11:14 Drug: amiodarone 360 mg, D5W 200 ml Route: IVPB; Rate: 1 mg/min; Site: right tw5 antecubital; 11:30 Follow up: IV Status: IV converted to saline lock tw5 13:20 Follow up: IV Status: Infusion continued tw5 11:20 Drug: NS 0.9% 1000 ml Route: IV; Rate: 1 bolus; Site: right wrist; tw5 12:50 Follow up: BP 143 / 111; decreased to 15 mcg/min tw5 14:28 Follow up: IV Status: Completed infusion tw5 11:30 Drug: Norepinephrine (4 mg/250 mL D5W) 4 mcg/min {Note: started at 20 mcg/min 1130.} tw5 Route: IV; Rate: calculated rate; Site: left antecubital; 12:50 Follow up: BP 143 / 111; decreased to 15 mcg/min tw5 13:03 Follow up: BP 88 / 39; Pulse 138 bpm; Resp 28 bpm; Temp 97.1 Oral; Pulse Ox 92% 5% tw5 Mask: Simple Mask; increased to 20 mcg/ min 14:29 Follow up: BP 114 / 95; Rate change 18 mcg/min tw5 12:40 Drug: Cefepime 1 grams Route: IVPB; Rate: 200 ml/hr; Infused Over: 30 mins; Site: right tw5 antecubital; 13:22 Follow up: Response: No adverse reaction; IV Status: Completed infusion tw5 12:50 Drug: vancoMYCIN 1 grams Route: IVPB; Infused Over: 2 hrs; Site: left antecubital; tw5 14:28 Follow up: IV Status: Completed infusion tw5 13:22 Drug: Digoxin 0.5 mg Route: IVP; Site: right antecubital; tw5 14:27 Follow up: Response: No adverse reaction tw5 Intake: Outcome: 16:22 Decision to Hospitalize by Provider. kdr 18:06 Admitted to ER Hold. Please see [facility] for further documentation. jd3 18:06 Condition: stable 18:06 Instructed on the need for admit, Demonstrated understanding of instructions. 18:20 Patient left the ED. jd3 10 20:43 Patient left the ED. em Signatures: Rachele Yu, CORPORATE TRUST OFFICER-C CORPORATE TRUST OFFICER-Ckb Dave Nicole MD MD [facility] hernandez Edgar, RN RN em Pepper Escobedo, planer chain offbearer EKG Tat1 Lila Correa RN RN tw2 Celso Rodrigues RN RN jl7 Joe Myers RN RN jd3 Peltier, Brian, RN RN bp Wood, Tiffany tw5 Corrections: (The following items were deleted from the chart) 12/04 11:01 10:45 Assist provider with cardioversion (synchronized) 11:20 10:45 Assist provider with cardioversion (synchronized) tw
[2020-12-04] MEDS ORDERED: ONDANSETRON 4 MG/2 ML VIAL IV PRN (17:37)
[2020-12-04] MEDS ORDERED: ACETAMINOPHEN 500 MG TAB PO PRN (17:37)
[2020-12-04] MEDS: NA CHLORIDE 0.9% 1,000 ML IV SCH (17:52)
[2020-12-04] MEDS ORDERED: AMIODARONE HCL 900 MG in Dextrose 5%-Water 482 ML IV PRN (18:00)
[2020-12-04] MEDS ORDERED: DIGOXIN 0.25 MG/ML AMP IV ONE (19:00)
[2020-12-04] MEDS ORDERED: INFLUENZA VACCINE (for 6+ mo) 0.5 ML DOSE IMVAC ONE (20:00)
[2020-12-04] MEDS ORDERED: ENOXAPARIN 100 MG/ML SYR SQ ONE (20:28)
[2020-12-04] MEDS: ENOXAPARIN 100 MG/ML SYR SQ SCH (21:00)
[2020-12-04] MEDS ORDERED: LORazepam 2 MG/ML VIAL ONE (23:56)
[2020-12-05] MEDS: NA CHLORIDE 0.9% 1,000 ML IV SCH ×3 (01:48→18:02)
[2020-12-05] MEDS ORDERED: NA CHLORIDE 0.9% 1,000 ML ONE ×2 (02:08→15:02)
[2020-12-05] MEDS ORDERED: LORazepam 2 MG/ML VIAL IV PRN (04:41)
[2020-12-05] MEDS ORDERED: VANCOMYCIN/NS 1 gm 1 GM/250 ML BAG IVPB SCH (04:45)
--- NOTE | 2020-12-05 04:46 | P.INFCA ---
Sepsis Focused Assessment - Focused Assessment Complete? Sepsis Focused Assessment Completed?: Yes - Sepsis Screen Result Septic Shock: Positive - Evaluation Current stage of sepsis: Septic shock - Vital Signs Reviewed: Yes Temperature: 98.1 F Heart rate: 123 Blood Pressure: 112/85 Respiratory Rate: 25 O2 Sat by Pulse Oximetry: 98 - Examination Date exam was performed: 12/04/20 Time exam was performed: 18:00 Heart: Tachycardia, Irregularly irregular Lungs: Diminished air movement Peripheral pulses: 2+ Slightly diminished Peripheral pulse location: Radial Capillary refill: <2 Seconds Skin examination: Normal turgor
[2020-12-05] MEDS ORDERED: VANCOMYCIN 1 GM/VIAL ONE (05:36)
[2020-12-05] MEDS ORDERED: NA CHLORIDE 0.9% 250 ML ONE (05:36)
[2020-12-05 05:51] LABS: Basophils % 0.6 % (0-1.3); Lymphocytes % 11.5 % (15.3-44.8); MPV 7.2 fL (7.6-11.3); RBC Red Blood Cell Count 3.79 M/uL (4.33-5.43)
[2020-12-05] MEDS ORDERED: VANCOMYCIN 1.25 GM in NA CHLORIDE 0.9% 250 ML IVPB ONE (06:00)
[2020-12-05 06:25] LABS: Albumin 2.5 g/dL (3.4-5.0); Bilirubin Total 1.2 mg/dL (0.2-1.0); Magnesium 2.5 mg/dL (1.8-2.4); Potassium 4.3 mmol/L (3.5-5.1); Protein, Total 5.4 g/dL (6.4-8.2)
--- NOTE | 2020-12-05 06:27 | P.PN ---
Date of Service: 12/05/20 Subjective: Patient feeling much improved today, breathing much more comfortably, denies chest pain, denies palpitations Reports some slight abdominal discomfort and had some days, with decreased p.o. intake Off pressors since 2 AM Continues with leukocytosis, lactic acidosis resolved, remains tachycardic 120s in A. fib on amiodarone Severely elevated LFTs ROS: 10 point ROS as noted above, otherwise negative Physical exam GEN: Alert, oriented, NAD HEENT: Normal conjunctiva, sclera anicteric CV: Irregularly irregular rhythm, HR: 120s, trace pedal edema Pulm: Nonlabored respirations on 3L nasal cannula ABD: Soft, nontender, nondistended Integumentary: No rashes Problem List Acute shock, secondary to sepsis versus cardiogenic Pneumonia, recent COVID-19 pneumonia Atrial fibrillation with RVR, paroxysmal. Recent diagnosis Neurolysed weakness Elevated LFTs, likely shock liver MARYJANE, no history of CKD Mild hyponatremia -Unclear exact etiology of patient's severe hypotension/shock shortly after presentation to the ED. Possibly from infectious etiology, or cardiac, as patient underwent multiple attempts for cardioversion and initiation of amiodarone -Required Levophed for approximately 10 days 12 hours. Off since 12/05 2 AM -Continue amiodarone drip, continue digoxin, discussed with cardiology -Continue anticoagulation -Continue broad-spectrum antibiotics. Patient with leukocytosis, lactic acidosis, tachypnea, afebrile -Follow-up cultures -Pulmonology and nephrology consulted -started on Decadron on 12/05 -Suspect MARYJANE secondary to decreased p.o. intake/dehydration, and from hypoten anayeli -Significantly elevated AST and ALT, patient denies alcohol use. Alkaline phosphatase -Suspect elevated LFTs secondary to shock liver, will monitor. Right upper quadrant ultrasound ordered to evaluate -Check GGT, check coags. Had elevated INR on admission, not on anticoagulation VTE: Lovenox 1mg/kg BID Code: full Dispo: continue ICU level of care, anticipate hospitalization > 2-3 more days Time Spent Managing Pts Care (In Minutes): 35
[2020-12-05 07:53] LABS: Albumin 3.3 g/dL (3.4-5.0); Bilirubin Direct 0.4 mg/dL (0-0.2); Bilirubin Total 1.1 mg/dL (0.2-1.0)
[2020-12-05 08:20] LABS: Protime INR 2.07
[2020-12-05] MEDS: ENOXAPARIN 100 MG/ML SYR SQ SCH ×2 (08:49→21:00)
--- NOTE | 2020-12-05 08:54 | RAD REPORT ---
EXAM DESCRIPTION: US - Abdomen Exam Complete - 12/05/2020 8:36 am CLINICAL HISTORY: elevated LFTs COMPARISON: No comparisons FINDINGS: Gallbladder size is normal. No gallstones are confirmed. Trace amount of sludge is suspect ed. There is gallbladder wall thickening and a trace amount of pericholecystic fluid seen. Common satish e duct is normal with no common duct stone identified. Liver shows a coarsened, increased echogenicity with no focal lesion identifiable. No abnormality of the portal vein on Doppler evaluation. No capsule nodularity. Liver is 15 cm maximum dimension. Splee n is 10 cm with no focal suspicious lesion. Granulomatous type calcifications are seen. The pancreas is too obscured by bowel gas to allow adequate assessment. No hydronephrosis or suspicious mass in either kidney. Aorta and IVC are partially obscured as well. Aortic aneurysm is not suspected. No ascites or bulky lymphadenopathy. IMPRESSION: Gallbladder wall thickening with trace pericholecystic fluid seen. Trace amount of sludg e is suspected but no gallstones seen. Acalculous cholecystitis cannot be excluded if there are corresponding clinical or laboratory finding s. Chronic gallbladder disease can have a similar presentation. Mild diffuse fatty infiltration of a normal size liver. Pancreas, aorta and IVC are too obscured by bowel gas for assessment.
[2020-12-05] MEDS ORDERED: CEFEPIME 1 GM/VIAL IV SCH (09:00)
[2020-12-05] MEDS ORDERED: ENOXAPARIN 100 MG/ML SYR SQ ONE ×2 (09:01→22:08)
[2020-12-05 09:26] LABS: Blood Morphology Comment NOTED (NOT SEEN); Platelet Estimate ADEQ; Polychromasia 1+
[2020-12-05] MEDS: CEFEPIME 1 GM/100 ML BAG IV SCH ×2 (09:56→21:00)
--- NOTE | 2020-12-05 10:49 | P.CNS ---
Date of Consult: 12/05/20 Reason for Consult: MARYJANE/ CKD Requesting Physician: Pk Schmidt Primary Care Provider: Dr. Torres Chief Complaint: Atrial Fibrillation RVR and A. Flutter History of Present Illness: A 75-year-old white male who was released from [facility] in [place] on November 09 following Covid. Since his discharge he has been consistently short of breath. Over the past few weeks he is his appetite has declined and he is eating very little. Last night he was talking in his sleep and his was concerned that he looked poorly. He came to the emergency room this morning at approximately 10:00. At that time though the patient's vital signs were relatively stable he continued to be short of breath. Shortly after being admitted to the ER he developed a rapid heart rate and his blood pressure dropped. He was found to be in atrial fibrillation with RVR and then atrial flutter. He was cardioverted 3 times unsuccessfully. He was then placed on an amiodarone drip. Following that time his blood pressure dropped and he was also put on a norepinephrine drip. Since the initial event his heart rate has slowed to the high 120s low 130s. His blood pressure stabilized with a systolic in the area of 106. The patient is weak but states that he feels well. He will be admitted to the ICU due to his amiodarone and his norepinephrine drips. Allergies No Known Allergies Allergy (Verified 12/05/20 01:15) Home medications list reviewed: Yes Home Medications: Furosemide [Lasix] 20 mg PO DAILY 12/05/20 Hydralazine [Apresoline*] 1 tab BID 12/05/20 - Past Medical/Surgical History Diabetic: No -: HTN -: Small biopsy on neck "lum" Psychosocial/ Personal History: Retired. Patient lives at home with . - Family History Father Medical History: Heart disease Mother Medical History: Heart disease - Social History Smoking Status: Never smoker Alcohol use: No CD- Drugs: No Caffeine use: No Place of Residence: Home Review of Systems 10-point ROS is otherwise unremarkable General: Weakness, Malaise Respiratory: SOB with Excertion Neurological: Weakness Physical Examination Temp Pulse Resp BP Pulse Ox 97 F 139 H 29 H 110/88 93 12/05/20 08:00 12/05/20 09:55 12/05/20 09:55 12/05/20 09:55 12/05/20 09:55 General: In no apparent distress, Cooperative HEENT: Atraumatic Neck: Supple Respiratory: Diminished Cardiovascular: Edema, Irregular heart rate/rhythm Gastrointestinal: Hypoactive, Non-distended Musculoskeletal: No clubbing, No contractures Integumentary: No rashes, No cyanosis Neurological: Normal speech Laboratory Data (last 24 hrs) 12/04/20 10:34: PT 20.4 H, INR 1.76, APTT 29.1 12/04/20 10:34: WBC 17.70 H, Hgb 14.2, Hct 42.1, Plt Count 532 H 12/04/20 10:34: Sodium 132 L, Potassium 4.4, BUN 34 H, Creatinine 2.02 H, Gluc ose 165 H, Total Bilirubin 1.1 H, AST 4474 H*, ALT 2551 H*, Alkaline Phosphatase 98, Amylase 58 12/04/20 01:21: Troponin I 0.27 H Imagings Data: EXAM DESCRIPTION: US - Abdomen Exam Complete - 12/05/2020 8:36 am CLINICAL HISTORY: elevated LFTs COMPARISON: No comparisons FINDINGS: Gallbladder size is normal. No gallstones are confirmed. Trace amount of sludge is suspected. There is gallbladder wall thickening and a trace amount of pericholecystic fluid seen. Common bile duct is normal with no common duct stone identified. Liver shows a coarsened, increased echogenicity with no focal lesion identifiable. No abnormality of the portal vein on Doppler evaluation. No capsule nodularity. Liver is 15 cm maximum dimension. Spleen is 10 cm with no focal suspicious lesion. Granulomatous type calcifications are seen. The pancreas is too obscured by bowel gas to allow adequate assessment. No hydronephrosis or suspicious mass in either kidney. Aorta and IVC are partially obscured as well. Aortic aneurysm is not suspected. No ascites or bulky lymphadenopathy. IMPRESSION: Gallbladder wall thickening with trace pericholecystic fluid seen. Trace amount of sludge is suspected but no gallstones seen. Acalculous cholecystitis cannot be excluded if there are corresponding clinical or laboratory findings. Chronic gallbladder disease can have a similar presentation. Mild diffuse fatty infiltration of a normal size liver. Pancreas, aorta and IVC are too obscured by bowel gas for assessment. EXAM DESCRIPTION: RAD - Chest Single View - 12/04/2020 1:54 pm CLINICAL HISTORY: DYSPNEA COMPARISON: Chest Pa And Lat (2 Views) dated 12/02/2020; Chest Single View dated 11/03/2020; CHEST SINGLE VIEW dated 03/26/2011; CHEST SINGLE VIEW dated 03/25/2011; Chest For Pe Angio dated 11/03/2020 FINDINGS: Lines: None. Lungs: Moderate multifocal bilateral airspace disease which is similar to prior. Pleural: No effusions or pneumothorax . Cardiac: The heart size is within normal limits. Bones: No acute fractures. Other: IMPRESSION: Moderate multifocal bilateral airspace disease consistent with sequela of recent pneumonia. The patient may be a candidate for annual low dose lung cancer screening CT. Conclusions/Impression: MARYJANE in the setting of hypovolemia/ hypotension CKD III with proteinuria -No NSAIDs -Continue IVF -Continue schrader Hyponatemia -Contiue IVF with NS Hypocalcemia -Start Calcitriol HTN with CKD complicated by hypotension -Continue IVF -IVF bolus as needed -Vasopressor therapy as needed Acute hepatitis -Continue IVF Moderate malnutrition -Advance diet as tolerated Anemia in chronic illness -Monitor H&H PNA Septic shock -Continue abx -Continue Dexamethasone Critical Care: Yes (>30min)
--- NOTE | 2020-12-05 11:14 | P.CNS ---
Date of Consult: 12/04/20 Reason for Consult: Coronavirus pneumonia shock Primary Care Provider: Dr. Torres Chief Complaint: Atrial Fibrillation RVR and A. Flutter History of Present Illness: Patient is 75 years of age he was just recently discharged from [facility] in [place] with a diagnosis of Covid pneumonia became progressively worse declining appetite feeling very weak came here to the emergency room was found to have low blood pressure atrial fibrillation some interstitial changes patient was also cardioverted put on amiodarone drip is in shock the time of my evaluation the afternoon he was much more responsive at the bedside Allergies No Known Allergies Allergy (Verified 12/05/20 01:15) Home Medications: Furosemide [Lasix] 20 mg PO DAILY 12/05/20 Hydralazine [Apresoline*] 1 tab BID 12/05/20 - Past Medical/Surgical History Diabetic: No -: HTN -: Small biopsy on neck "lum" Psychosocial/ Personal History: Retired. Patient lives at home with . - Family History Father Medical History: Heart disease Mother Medical History: Heart disease - Social History Smoking Status: Never smoker Alcohol use: No CD- Drugs: No Caffeine use: No Place of Residence: Home Review of Systems General: Weakness Respiratory: Shortness of Breath Physical Examination Temp Pulse Resp BP Pulse Ox 97 F 139 H 29 H 110/88 93 12/05/20 08:00 12/05/20 09:55 12/05/20 09:55 12/05/20 09:55 12/05/20 09:55 General: Alert, Oriented x3, Mild distress Respiratory: Clear to auscultation bilaterally, Crackles/rales Cardiovascular: Regular rate/rhythm Laboratory Data (last 24 hrs) 12/04/20 10:34: Sodium 132 L, Potassium 4.4, BUN 34 H, Creatinine 2.02 H, Glucose 165 H, Total Bilirubin 1.1 H, AST 4474 H*, ALT 2551 H*, Alkaline Phosphatase 98, Amylase 58 12/04/20 01:21: Troponin I 0.27 H - Problems (1) Shock Current Visit: Yes Status: Acute Plan: Patient is 75 years of age recently diagnosed with coronavirus pneumonia really never recovered after discharge continue to feel weak came in with low blood pressure was successfully resuscitated does have interstitial changes on his chest x-ray consistent with coronavirus pneumonia he was prescribed a dose of steroid in addition he has very abnormal liver function tests currently with hydralazine and Lasix at home it could have caused secondary hypotension plan is to continue with steroids IV fluids empiric antibiotic oxygenation is stable he is alert
[2020-12-05] MEDS: dexAMETHasone 10 MG/ML VIAL IV SCH ×2 (11:21→21:00)
--- NOTE | 2020-12-05 11:21 | P.PN ---
Subjective Date of Service: 12/05/20 Primary Care Provider: Dr. Torres Chief Complaint: Atrial fibrillation shock liver Subjective: Improving (Patient is doing well is alert oriented responsive cooperative feeling much better) Review of Systems General: Weakness Respiratory: Shortness of Breath Physical Examination - Vital Signs Temperature: 97 F Blood Pressure: 110/88 Pulse: 139 Respirations: 29 Pulse Ox (%): 93 - Physical Exam General: Alert, In no apparent distress, Oriented x3 Respiratory: Clear to auscultation bilaterally - Studies Laboratory Data (last 24 hrs) 12/04/20 10:34: Sodium 132 L, Potassium 4.4, BUN 34 H, Creatinine 2.02 H, Glucose 165 H, Total Bilirubin 1.1 H, AST 4474 H*, ALT 2551 H*, Alkaline Phosphatase 98, Amylase 58 12/04/20 01:21: Troponin I 0.27 H Assessment & Plan - Problems (Diagnosis) (1) Shock Current Visit: Yes Status: Resolved Plan: Patient is 75 years of age recently diagnosed with coronavirus pneumonia really never recovered after discharge continue to feel weak came in with low blood pressure was successfully resuscitated does have interstitial changes on his chest x-ray consistent with coronavirus pneumonia he was prescribed a dose of steroid in addition he has very abnormal liver function tests currently with hydralazine and Lasix at home it could have caused secondary hypotension plan is to continue with steroids IV fluids empiric antibiotic oxygenation is stable he is alert (2) Abnormal liver function test Current Visit: Yes Status: Acute Plan: Suspect that he has shock liver however AST is more elevated than ALT renal function improving continue with IV fluids DC Martins catheter DC antibiotics once his cultures are back continue with steroid and is now eating and drinking suspect his got some fatty liver
[2020-12-05] MEDS ORDERED: CEFEPIME 1 GM/100 ML BAG IV SCH (12:00)
[2020-12-05] MEDS ORDERED: METOPROLOL TARTRATE 5 MG/5 ML INJ IV STA (12:15)
[2020-12-05] MEDS ORDERED: METOPROLOL TARTRATE 5 MG/5 ML INJ IV ONE (12:36)
[2020-12-05] MEDS ORDERED: DIGOXIN 0.25 MG TABLET PO ONE (12:50)
[2020-12-05] MEDS ORDERED: dexAMETHasone 4 MG/ML VIAL ONE ×2 (13:21→22:08)
[2020-12-05] MEDS ORDERED: AMIODARONE HCL 150 MG/3 ML INJ IV ONE (21:15)
[2020-12-05] MEDS ORDERED: NA CHLORIDE 0.9% 100 ML ONE (22:09)
[2020-12-05] MEDS ORDERED: CEFEPIME 1 GM/VIAL ONE (22:09)
[2020-12-05] MEDS ORDERED: LORazepam 2 MG/ML VIAL ONE (22:11)
[2020-12-06] MEDS ORDERED: LORazepam 2 MG/ML VIAL ONE (02:09)
[2020-12-06] MEDS ORDERED: NA CHLORIDE 0.9% 1,000 ML ONE ×2 (03:25→10:12)
[2020-12-06 06:00] LABS: Absolute Lymphocytes (CBC) 1.5 K/uL (0.7-4.9); Basophils % 0.2 % (0-1.3); Hematocrit 38.3 % (39.6-49.0); Lymphocytes % 9.8 % (15.3-44.8); MPV 7.3 fL (7.6-11.3); RBC Red Blood Cell Count 4.03 M/uL (4.33-5.43)
[2020-12-06 06:03] LABS: Albumin 2.2 g/dL (3.4-5.0); Bilirubin Total 0.9 mg/dL (0.2-1.0); C-Reactive Protein 78.3 mg/L (<3.00); Magnesium 2.3 mg/dL (1.8-2.4); Phosphorus 2.9 mg/dL (2.5-4.9); Potassium 4.5 mmol/L (3.5-5.1); Protein, Total 4.9 g/dL (6.4-8.2)
--- NOTE | 2020-12-06 06:05 | P.PN ---
Date of Service: 12/06/20 Subjective: Patient received dose of Ativan this morning unclear why Slightly slurring speech today, little bit more confused per Patient states he is feeling better, breathing a little bit more comfortably, denies pain No nausea/vomiting, Martins remains in place A. fib in 120s, blood pressure low [id number], afebrile Labs improving ROS: 10 point ROS as noted above, otherwise negative Physical exam GEN: Alert, oriented, NAD HEENT: Normal conjunctiva, sclera anicteric CV: Irregularly irregular rhythm, HR: 120s, trace pedal edema Pulm: Nonlabored respirations on 3L nasal cannula ABD: Soft, nontender, nondistended Integumentary: No rashes Neuro: Slightly slurred speech, moves all extremities Problem List Acute shock, secondary to sepsis versus cardiogenic, resolved Bacterial pneumonia suspected, recent COVID-19 pneumonia Atrial fibrillation with RVR, paroxysmal. Recent diagnosis Generalized weakness Elevated LFTs secondary to shock liver MARYJANE, no history of CKD Mild hyponatremia -Unclear exact etiology of patient's severe hypotension/shock shortly after presentation to the ED. Possibly from infectious etiology, or cardiac, as patient underwent multiple attempts for cardioversion and initiation of amiodarone -Required Levophed for approximately 10 - 12 hours. Off since 12/05 2 AM -Continue amiodarone drip, continue digoxin, discussed with cardiology -Continue anticoagulation -Plan for possible cardioversion on 12/07 if remains in atrial fibrillation -Continue broad-spectrum antibiotics. Patient with leukocytosis, lactic acidosis, tachypnea, remains afebrile -Concern for possible bacterial superinfection, patient recently had COVID-19 pneumonia -CT did note some mild changes around the gallbladder, however patient without tenderness -Follow-up cultures -Pulmonology and nephrology consulted -started on Decadron on 12/05 -Suspect MARYJANE secondary to decreased p.o. intake/dehydration, and from hypotension -improved with IV fluids overnight -Discontinue IV fluids on 12/06, do not want to overload patient -CXR 12/06 with worsening bilateral opacities -Significantly elevated AST and ALT, patient denies alcohol use. Alkaline phosphatase normal -Suspect elevated LFTs secondary to shock liver, improving, most consistent with shock liver -Check GGT, coags. Had elevated INR on admission, not on anticoagulation at home VTE: Lovenox 1mg/kg BID Code: full Dispo: continue ICU level of care, anticipate hospitalization > 2-3 more days Likely electrocardioversion tomorrow Time Spent Managing Pts Care (In Minutes): 35
[2020-12-06 07:24] LABS: Blood Morphology Comment NOT SEEN (NOT SEEN); Platelet Estimate ADEQ; White Blood Cell Scan OK (OK)
[2020-12-06] MEDS ORDERED: ENOXAPARIN 40 MG/0.4 ML SQ ONE (08:17)
[2020-12-06] MEDS ORDERED: dexAMETHasone 4 MG/ML VIAL ONE ×2 (08:17→21:09)
[2020-12-06] MEDS ORDERED: DIGOXIN 0.25 MG TABLET ONE (08:17)
[2020-12-06] MEDS ORDERED: CALCITROL 0.25 MCG CAP PO ONE (08:21)
[2020-12-06] MEDS: ENOXAPARIN 100 MG/ML SYR SQ SCH ×2 (08:34→21:00)
[2020-12-06] MEDS: CEFEPIME 1 GM/100 ML BAG IV SCH ×2 (08:34→21:00)
[2020-12-06] MEDS: DIGOXIN 0.25 MG TABLET PO SCH (08:34)
[2020-12-06] MEDS: dexAMETHasone 10 MG/ML VIAL IV SCH ×2 (08:34→21:00)
[2020-12-06] MEDS: VITAMIN D 5,000 UNIT CAP PO SCH (08:35)
[2020-12-06] MEDS: CALCITROL 0.25 MCG CAP PO SCH (08:35)
[2020-12-06] MEDS ORDERED: ENOXAPARIN 100 MG/ML SYR SQ ONE ×2 (08:40→21:09)
--- NOTE | 2020-12-06 08:56 | RAD REPORT ---
EXAM DESCRIPTION: Ankush Single View12/06/2020 7:30 am CLINICAL HISTORY: Shortness of breath COMPARISON: December 04, 2020 FINDINGS: Worsening in extensive bilateral pulmonary opacities. Heart remains enlarged IMPRESSION: Worsening in extensive bilateral pulmonary opacities probably pneumonia
[2020-12-06] MEDS: VANCOMYCIN 1.75 GM in NA CHLORIDE 0.9% 500 ML IVPB SCH (09:55)
--- NOTE | 2020-12-06 11:23 | PN ---
Date of Progress Note: 12/05/2020 Mr. Yen is 75, recent COVID, came in with rapid atrial fibrillation, renal insufficiency, hypoca lcemia, hyponatremia, hepatitis, and anemia. He is fairly asymptomatic today. Hepatitis panel is pe nding. Nephrology is following him. He remains in atrial fibrillation, on amiodarone IV, rate is 10 0. He is on digoxin as well. He is on Lovenox. We will continue to follow him. We will plan to sh ock him on Monday if he continues to be in atrial fibrillation. NICA/AJAY Voice ID: [id number] Report ID: [id number]
--- NOTE | 2020-12-06 11:29 | CON ---
Date of Consultation: 12/04/2020 Reason For Consultation: Atrial fibrillation. History Of Present Illness: Mr. Yen is a 75-year-old who is a patient of ours and recently had a positive COVID and discharge. He has a history of paroxysmal atrial fibrillation. Came in with ra pid AFib. Complained of PND, orthopnea, pedal edema, and shortness of breath. Denied any fever, chi lls, or cough. Denied any nausea, vomiting, or diaphoresis. The patient was shocked actually 3 time s and when he came in and that failed to cardiovert him. He received digoxin and he is now on IV ami odarone. He was hypotensive. He was placed on Levophed. He is on Lovenox. He is on antibiotics. Chest x-ray still showed pneumonia from his COVID. Past Medical History: Includes hypertension and chronic congestive heart failure. Medications: At home include Lasix and hydralazine. Review of Systems: Negative. Social History: Negative. Family History: Negative. Physical Examination: Vital Signs: He was in atrial fibrillation, rapid rate 139. Otherwise, his vital signs are stable. His blood pressure was 110/60 when I saw him off the Levophed. His pO2 was 159, pCO2 of 21, and pH of 7.31. HEENT: Negative. Neck: Supple with no bruit. Chest: Clear. Cardiac: Revealed atrial fibrillation. Abdomen: Benign. Extremities: Revealed no clubbing, cyanosis, or edema. Diagnostic Data: His creatinine was 1.62. He was on nasal cannula oxygen at 2 L. White count was 1 7000. INR is 2.07. BNP was 11,875. His liver functions enzyme was very elevated with ALT of 4000, AST of 2551. Troponin 0.17. Procalcitonin was elevated. He also had low sodium, low calcium, anemi a. Impression And Plan: Rapid atrial fibrillation. We will continue IV amiodarone. We will continue L ovenox. We will plan to shock him on Monday12/07/2020 if he stays in atrial fibrillation. Use digo sunita daily. Continue Lovenox. Continue antibiotics. Use Levophed p.r.n. blood pressure being low an d he needs to have hepatitis panel. He needs to have his calcium and sodium corrected, pneumonia nee ds to be treated. He is anemic. We will watch that. Nephrology consultation is on-board. We will continue to watch him. NICA/AJAY Voice ID: [id number] Report ID: [id number]
[2020-12-06] MEDS: NA CHLORIDE 0.9% 1,000 ML IV SCH (14:48)
[2020-12-06] MEDS ORDERED: AMIODARONE HCL 900 MG in Dextrose 5%-Water 482 ML IV PRN (15:30)
[2020-12-06] MEDS ORDERED: NA CHLORIDE 0.9% 1,000 ML IV SCH (17:00)
--- NOTE | 2020-12-06 17:14 | P.PN ---
Date of Service: 12/06/20 Vital Signs Temp Pulse Resp BP Pulse Ox 97.7 F 137 H 28 H 123/96 H 95 12/06/20 05:58 12/06/20 16:00 12/06/20 16:00 12/06/20 16:00 12/06/20 16:00 Medications Acetaminophen (Acetaminophen 500 Mg Tab) 500 mg PO Q4HP PRN PRN Reason: TEMP > 101' F Calcitriol (Calcitrol 0.25 Mcg Cap) 0.5 mcg PO DAILY [facility] Last Admin: 12/06/20 08:35 Dose: 0.5 mcg Documented by: Cholecalciferol (Vitamin D 5,000 Unit Cap) 5,000 unit PO DAILY [facility] Last Admin: 12/06/20 08:35 Dose: 5,000 unit Documented by: Dexamethasone (Dexamethasone 10 Mg/Ml Vial) 4 mg IV BID [facility] Last Admin: 12/06/20 08:34 Dose: 4 mg Documented by: Digoxin (Digoxin 0.25 Mg Tablet) 0.25 mg PO DAILY [facility] Last Admin: 12/06/20 08:34 Dose: 0.25 mg Documented by: Enoxaparin Sodium (Enoxaparin 100 Mg/Ml Syr) 90 mg 1 mg/kg (90 mg) SQ Q12HR [facility] Last Admin: 12/06/20 08:34 Dose: 90 mg Documented by: Cefepime HCl (Maxipime 1 Gm/100 Ml Ivpb) 1 gm in 100 mls @ 200 mls/hr IV Q12HR [facility] Last Admin: 12/06/20 08:34 Dose: 100 mls Documented by: Vancomycin HCl 1.75 gm/ Sodium (Chloride) 500 mls @ 250 mls/hr IVPB Q24H [facility] Last Admin: 12/06/20 09:55 Dose: 500 mls Documented by: Amiodarone HCl 900 mg/ (Dextrose) 500 mls @ 33.33 mls/hr IV CONT PRN; Protocol PRN Reason: AMIODARONE PROTOCOL Sodium Chloride (Ns 1000 Ml Ivbag) 1,000 mls @ 30 mls/hr IV .[id number] [facility] Last Admin: 12/06/20 16:46 Dose: 1,000 mls Documented by: Ondansetron HCl (Ondansetron 4 Mg/2 Ml Vial) 4 mg IV Q6HP PRN PRN Reason: NAUSEA / VOMITING Sodium Chloride (Flush Normal Saline 10 Ml) 10 ml IV BID [facility] Last Admin: 12/06/20 08:35 Dose: 10 ml Documented by: Microbiology Results 12/04/20 12:33 Blood - Blood Aerobic Blood Culture - Preliminary No growth in 24 hours. 12/04/20 12:33 Blood - Blood Anaerobic Blood Culture - Preliminary No growth in 24 hours. 12/04/20 12:15 Blood - Blood Aerobic Blood Culture - Preliminary No growth in 24 hours. 12/04/20 12:15 Blood - Blood Anaerobic Blood Culture - Preliminary No growth in 24 hours. Assessment/ Plan: Nephrology Progress Note Feeling better No chest pain or dyspnea No acute events overnight Vitals, medications blood work and imaging reviewed in the chart General: In no apparent distress, Cooperative HEENT: Atraumatic Neck: Supple Respiratory: Diminished Cardiovascular: Edema, Irregular heart rate/rhythm Gastrointestinal: Hypoactive, Non-distended Musculoskeletal: No clubbing, No contractures Integumentary: No rashes, No cyanosis Neurological: Normal speech Laboratory Data (last 24 hrs) 12/04/20 10:34: PT 20.4 H, INR 1.76, APTT 29.1 12/04/20 10:34: WBC 17.70 H, Hgb 14.2, Hct 42.1, Plt Count 532 H 12/04/20 10:34: Sodium 132 L, Potassium 4.4, BUN 34 H, Creatinine 2.02 H, Glucose 165 H, Total Bilirubin 1.1 H, AST 4474 H*, ALT 2551 H*, Alkaline Phosphatase 98, Amylase 58 12/04/20 01:21: Troponin I 0.27 H Imagings Data: EXAM DESCRIPTION: US - Abdomen Exam Complete - 12/05/2020 8:36 am CLINICAL HISTORY: elevated LFTs COMPARISON: No comparisons FINDINGS: Gallbladder size is normal. No gallstones are confirmed. Trace amount of sludge is suspected. There is gallbladder wall thickening and a trace amount of pericholecystic fluid seen. Common bile duct is normal with no common duct stone identified. Liver shows a coarsened, increased echogenicity with no focal lesion identifiable. No abnormality of the portal vein on Doppler evaluation. No capsule nodularity. Liver is 15 cm maximum dimension. Spleen is 10 cm with no focal suspicious lesion. Granulomatous type calcifications are seen. The pancreas is too obscured by bowel gas to allow adequate assessment. No hydronephrosis or suspicious mass in either kidney. Aorta and IVC are partially obscured as well. Aortic aneurysm is not suspected. No ascites or bulky lymphadenopathy. IMPRESSION: Gallbladder wall thickening with trace pericholecystic fluid seen. Trace amount of sludge is suspected but no gallstones seen. Acalculous cholecystitis cannot be excluded if there are corresponding clinical or laboratory findings. Chronic gallbladder disease can have a similar presentation. Mild diffuse fatty infiltration of a normal size liver. Pancreas, aorta and IVC are too obscured by bowel gas for assessment. EXAM DESCRIPTION: RAD - Chest Single View - 12/04/2020 1:54 pm CLINICAL HISTORY: DYSPNEA COMPARISON: Chest Pa And Lat (2 Views) dated 12/02/2020; Chest Single View dated 11/03/2020; CHEST SINGLE VIEW dated 03/26/2011; CHEST SINGLE VIEW dated 03/25/2011; Chest For Pe Angio dated 11/03/2020 FINDINGS: Lines: None. Lungs: Moderate multifocal bilateral airspace disease which is similar to prior. Pleural: No effusions or pneumothorax . Cardiac: The heart size is within normal limits. Bones: No acute fractures. Other: IMPRESSION: Moderate multifocal bilateral airspace disease consistent with sequela of recent pneumonia. The patient may be a candidate for annual low dose lung cancer screening CT. Conclusions/Impression: MARYJANE in the setting of hypovolemia/ hypotension CKD III with proteinuria -No NSAIDs -Reduce IVF -Continue cshrader Hyponatemia -Reduce IVF with NS Hypocalcemia -Continue Calcitriol HTN with CKD complicated by hypotension -Reduce IVF -IVF bolus as needed -Vasopressor therapy as needed Acute hepatitis likely ischemic hepatitis -Continue IVF Moderate malnutrition -Advance diet as tolerated Anemia in chronic illness -Monitor H&H PNA Septic shock -Continue abx -Continue Dexamethasone
[2020-12-06] MEDS ORDERED: VANCOMYCIN 1.75 GM in NA CHLORIDE 0.9% 500 ML IVPB SCH (18:00)
[2020-12-06] MEDS ORDERED: CEFEPIME 1 GM/VIAL ONE (21:09)
[2020-12-06] MEDS ORDERED: NA CHLORIDE 0.9% 100 ML ONE (21:09)
[2020-12-07 04:40] LABS: Absolute Lymphocytes (CBC) 2.1 K/uL (0.7-4.9); Basophils % 0.3 % (0-1.3); MPV 7.1 fL (7.6-11.3)
[2020-12-07 05:31] LABS: Albumin 2.3 g/dL (3.4-5.0); Bilirubin Total 0.9 mg/dL (0.2-1.0); C-Reactive Protein 51.7 mg/L (<3.00); Magnesium 2.2 mg/dL (1.8-2.4); Potassium 4.3 mmol/L (3.5-5.1); Protein, Total 5.2 g/dL (6.4-8.2)
[2020-12-07 05:34] LABS: Blood Morphology Comment NOT SEEN (NOT SEEN); Platelet Estimate ADEQ
--- NOTE | 2020-12-07 06:33 | P.PN ---
Date of Service: 12/07/20 Subjective: Feels like he is improving, breathing more comfortably. Still remains in A. fib with heart rate in 130s Denies any new complaints, feeling okay No nausea/vomiting, no abdominal pain Remains on amiodarone and digoxin. Cardiology plans for electrical cardioversion to ROS: 10 point ROS as noted above, otherwise negative Physical exam GEN: Alert, oriented, NAD HEENT: Normal conjunctiva, sclera anicteric CV: Irregularly irregular rhythm, HR: 130s, trace pedal edema Pulm: Nonlabored respirations on 3L nasal cannula ABD: Soft, nontender, nondistended Integumentary: No rashes Neuro: Normal affect, normal speech, moves all extremities Problem List Acute shock, secondary to sepsis versus cardiogenic, resolved Bacterial pneumonia suspected, recent COVID-19 pneumonia Atrial fibrillation with RVR, paroxysmal. Recent diagnosis Generalized weakness Elevated LFTs secondary to shock liver MARYJANE, no history of CKD Mild hyponatremia -Unclear exact etiology of patient's severe hypotension/shock shortly after presentation to the ED. Possibly from infectious etiology, or cardiac, as patient underwent multiple attempts for cardioversion and initiation of amiodarone -Required Levophed for approximately 10 - 12 hours. Off since 12/05 2 AM -Continue amiodarone drip, continue digoxin, discussed with cardiology -plan for transition to p.o. amiodarone after electrical cardioversion -Continue anticoagulation with Lovenox until cardioversion, then can transition to p.o. DOAC -Plan for electrical cardioversion today per cardiology -Continue broad-spectrum antibiotics. Patient with leukocytosis, lactic acidosis, tachypnea, however remains afebrile. Can likely DC once final cultures negative -Concern for possible bacterial superinfection, patient recently had COVID-19 pneumonia -CT did note some mild changes around the gallbladder, however patient without tenderness/symptoms -Pulmonology and nephrology consulted -started on Decadron on 12/05 -Suspect MARYJANE secondary to decreased p.o. intake/dehydration, and from hypotension -improved with IV fluids -Discontinue IV fluids on 12/06, do not want to overload patient -CXR 12/06 with worsening bilateral opacities -Significantly elevated AST and ALT, patient denies alcohol use. Alkaline phosphatase normal -Suspect elevated LFTs secondary to shock liver, improving, most consistent with shock liver -Check GGT, coags. Had elevated INR on admission, not on anticoagulation at home VTE: Lovenox 1mg/kg BID Code: full Dispo: continue ICU level of care, anticipate hospitalization ~2 more days For electrocardioversion today Time Spent Managing Pts Care (In Minutes): 35
--- NOTE | 2020-12-07 07:59 | RAD REPORT ---
EXAM DESCRIPTION: RAD - Chest Single View - 12/07/2020 6:00 am CLINICAL HISTORY: Follow-up opacities COMPARISON: Chest Single View dated 12/06/2020; Chest Single View dated 12/04/2020; Chest Pa And Lat (2 Views) dated 12/02/2020; Chest Single View dated 11/03/2020 FINDINGS: Lines: None. Lungs: Widespread bilateral airspace disease without significant interval change compared with 2020 . Pleural: Small effusions suspected. Cardiac: Cardiomegaly. Bones: No acute fractures. Other: IMPRESSION: Widespread airspace disease without significant interval change compared with 12/06/2020 and consistent with sequela of pneumonia.
[2020-12-07] MEDS: dexAMETHasone 10 MG/ML VIAL IV SCH ×2 (10:15→20:28)
[2020-12-07] MEDS: VITAMIN D 5,000 UNIT CAP PO SCH (10:15)
[2020-12-07] MEDS: CALCITROL 0.25 MCG CAP PO SCH (10:15)
[2020-12-07] MEDS: DIGOXIN 0.25 MG TABLET PO SCH (10:15)
[2020-12-07] MEDS: CEFEPIME 1 GM/100 ML BAG IV SCH (10:15)
[2020-12-07] MEDS: VANCOMYCIN 1.75 GM in NA CHLORIDE 0.9% 500 ML IVPB SCH (10:15)
[2020-12-07] MEDS: ENOXAPARIN 100 MG/ML SYR SQ SCH (10:15)
[2020-12-07] MEDS ORDERED: DIGOXIN 0.25 MG TABLET ONE (10:27)
[2020-12-07] MEDS ORDERED: dexAMETHasone 4 MG/ML VIAL ONE ×2 (10:27→20:41)
[2020-12-07] MEDS ORDERED: ENOXAPARIN 100 MG/ML SYR SQ ONE (10:29)
[2020-12-07] MEDS ORDERED: CEFEPIME 1 GM/VIAL ONE (10:34)
[2020-12-07] MEDS ORDERED: NA CHLORIDE 0.9% 100 ML ONE (10:35)
[2020-12-07] MEDS ORDERED: MIDAZOLAM HCL 10 ML ONE (11:52)
[2020-12-07] MEDS ORDERED: FLUMAZENIL 0.1 MG/ML (5 mL VIAL) IV ONE (11:53)
[2020-12-07] MEDS ORDERED: ATROPINE SULF 1 MG/10 ML SYR IV ONE (11:53)
--- NOTE | 2020-12-07 12:17 | P.PN ---
Subjective Date of Service: 12/07/20 Primary Care Provider: Dr. Torres Chief Complaint: Atrial Fibrillation RVR and A. Flutter Subjective: Improving (Patient is doing much better respiratory mack saturation satisfactory main problem seems to be his A. fib his cardioverted x3) Review of Systems General: Weakness Respiratory: Shortness of Breath Physical Examination - Vital Signs Temperature: 98.6 F Blood Pressure: 128/93 Pulse: 138 Respirations: 20 Pulse Ox (%): 94 - Physical Exam General: Alert, Oriented x3 Respiratory: Clear to auscultation bilaterally, Diminished Assessment & Plan - Problems (Diagnosis) (1) Abnormal liver function test Current Visit: Yes Status: Acute Plan: Liver function tests are improving (2) Pneumonia due to coronavirus disease 2019 Current Visit: Yes Status: Acute Plan: Patient is doing well improving his cardioverted x3 oxygenation satisfactory reduce the dose of steroids to Decadron 2 mg twice a day vital signs remained stable ulcers are negative DC antibiotics white count is probably elevated from his steroids is being changed to p.o. amiodarone continue with low-dose Decadron at home I recommend 2 mg a day for at least a couple of weeks until his much better
--- NOTE | 2020-12-07 20:24 | P.PN ---
Date of Service: 12/07/20 Vital Signs Temp Pulse Resp BP Pulse Ox 98.0 F 125 H 20 125/86 97 12/07/20 18:00 12/07/20 19:00 12/07/20 19:00 12/07/20 19:00 12/07/20 19:00 Medications Acetaminophen (Acetaminophen 500 Mg Tab) 500 mg PO Q4HP PRN PRN Reason: TEMP > 101' F Amiodarone HCl (Amiodarone Hcl 200 Mg Tab) 200 mg PO BID [facility] Apixaban (Apixaban 5 Mg Tablet) 5 mg PO BID [facility] Calcitriol (Calcitrol 0.25 Mcg Cap) 0.5 mcg PO DAILY [facility] Last Admin: 12/07/20 10:15 Dose: 0.5 mcg Documented by: Cholecalciferol (Vitamin D 5,000 Unit Cap) 5,000 unit PO DAILY [facility] Last Admin: 12/07/20 10:15 Dose: 5,000 unit Documented by: Dexamethasone (Dexamethasone 10 Mg/Ml Vial) 2 mg IV BID [facility] Digoxin (Digoxin 0.25 Mg Tablet) 0.25 mg PO DAILY [facility] Last Admin: 12/07/20 10:15 Dose: 0.25 mg Documented by: Amiodarone HCl 900 mg/ (Dextrose) 500 mls @ 33.33 mls/hr IV CONT PRN; Protocol PRN Reason: AMIODARONE PROTOCOL Ondansetron HCl (Ondansetron 4 Mg/2 Ml Vial) 4 mg IV Q6HP PRN PRN Reason: NAUSEA / VOMITING Sodium Chloride (Flush Normal Saline 10 Ml) 10 ml IV BID [facility] Last Admin: 12/07/20 09:00 Dose: 10 ml Documented by: Microbiology Results 12/04/20 12:33 Blood - Blood Aerobic Blood Culture - Preliminary No growth in 24 hours. 12/04/20 12:33 Blood - Blood Anaerobic Blood Culture - Preliminary No growth in 24 hours. 12/04/20 12:15 Blood - Blood Aerobic Blood Culture - Preliminary No growth in 24 hours. 12/04/20 12:15 Blood - Blood Anaerobic Blood Culture - Preliminary No growth in 24 hours. Assessment/ Plan: Nephrology Progress Note Doing well. Cardioversion this morning. No chest pain or dyspnea No acute events overnight Vitals, medications blood work and imaging reviewed in the chart General: In no apparent distress, Cooperative HEENT: Atraumatic Neck: Supple Respiratory: Diminished Cardiovascular: Edema, Irregular heart rate/rhythm Gastrointestinal: Hypoactive, Non-distended Musculoskeletal: No clubbing, No contractures Integumentary: No rashes, No cyanosis Neurological: Normal speech Laboratory Data (last 24 hrs) 12/04/20 10:34: PT 20.4 H, INR 1.76, APTT 29.1 12/04/20 10:34: WBC 17.70 H, Hgb 14.2, Hct 42.1, Plt Count 532 H 12/04/20 10:34: Sodium 132 L, Potassium 4.4, BUN 34 H, Creatinine 2.02 H, Glucose 165 H, Total Bilirubin 1.1 H, AST 4474 H*, ALT 2551 H*, Alkaline Phosphatase 98, Amylase 58 12/04/20 01:21: Troponin I 0.27 H Imagings Data: EXAM DESCRIPTION: US - Abdomen Exam Complete - 12/05/2020 8:36 am CLINICAL HISTORY: elevated LFTs COMPARISON: No comparisons FINDINGS: Gallbladder size is normal. No gallstones are confirmed. Trace amount of sludge is suspected. There is gallbladder wall thickening and a trace amount of pericholecystic fluid seen. Common bile duct is normal with no common duct stone identified. Liver shows a coarsened, increased echogenicity with no focal lesion identifiable. No abnormality of the portal vein on Doppler evaluation. No capsule nodularity. Liver is 15 cm maximum dimension. Spleen is 10 cm with no focal suspicious lesion. Granulomatous type calcifications are seen. The pancreas is too obscured by bowel gas to allow adequate assessment. No hydronephrosis or suspicious mass in either kidney. Aorta and IVC are partially obscured as well. Aortic aneurysm is not suspected. No ascites or bulky lymphadenopathy. IMPRESSION: Gallbladder wall thickening with trace pericholecystic fluid seen. Trace amount of sludge is suspected but no gallstones seen. Acalculous cholecystitis cannot be excluded if there are corresponding clinical or laboratory findings. Chronic gallbladder disease can have a similar presentation. Mild diffuse fatty infiltration of a normal size liver. Pancreas, aorta and IVC are too obscured by bowel gas for assessment. EXAM DESCRIPTION: RAD - Chest Single View - 12/04/2020 1:54 pm CLINICAL HISTORY: DYSPNEA COMPARISON: Chest Pa And Lat (2 Views) dated 12/02/2020; Chest Single View dated 11/03/2020; CHEST SINGLE VIEW dated 03/26/2011; CHEST SINGLE VIEW dated 03/25/2011; Chest For Pe Angio dated 11/03/2020 FINDINGS: Lines: None. Lungs: Moderate multifocal bilateral airspace disease which is similar to prior. Pleural: No effusions or pneumothorax . Cardiac: The heart size is within normal limits. Bones: No acute fractures. Other: IMPRESSION: Moderate multifocal bilateral airspace disease consistent with sequela of recent pneumonia. The patient may be a candidate for annual low dose lung cancer screening CT. Conclusions/Impression: MARYJANE in the setting of hypovolemia/ hypotension CKD III with proteinuria -No NSAIDs Hyponatemia Hypocalcemia -Continue Calcitriol HTN with CKD complicated by hypotension -IVF bolus as needed -Vasopressor therapy as needed Acute hepatitis likely ischemic hepatitis -Continue IVF Moderate malnutrition -Advance diet as tolerated Anemia in chronic illness -Monitor H&H PNA Septic shock -Continue abx -Continue Dexamethasone
[2020-12-07] MEDS: AMIODARONE HCL 200 MG TAB PO SCH (20:27)
[2020-12-07] MEDS: APIXABAN 5 MG TABLET PO SCH (20:28)
[2020-12-07] MEDS ORDERED: AMIODARONE HCL 200 MG TAB ONE (20:41)
[2020-12-07] MEDS ORDERED: APIXABAN 5 MG TABLET ONE (20:41)
[2020-12-08] MEDS ORDERED: MELATONIN 5 MG TABLET PO ONE ×2 (00:03→01:13)
[2020-12-08 01:08] VITALS: BMI 28.5
[2020-12-08] MEDS ORDERED: AMIODARONE HCL 450 MG in D5W 241 ML IV SCH (04:00)
[2020-12-08] MEDS ORDERED: HYDRALAZINE HCL 20 MG/ML VIAL IV ONE (05:06)
[2020-12-08 05:28] LABS: Absolute Lymphocytes (CBC) 1.8 K/uL (0.7-4.9); Basophils % 0.4 % (0-1.3); Hematocrit 40.9 % (39.6-49.0); MPV 7.2 fL (7.6-11.3)
[2020-12-08 05:54] LABS: Albumin 2.4 g/dL (3.4-5.0); Magnesium 2.4 mg/dL (1.8-2.4); Potassium 4.7 mmol/L (3.5-5.1); Protein, Total 5.4 g/dL (6.4-8.2)
[2020-12-08] MEDS: CALCITROL 0.25 MCG CAP PO SCH (09:00)
[2020-12-08] MEDS: dexAMETHasone 10 MG/ML VIAL IV SCH (09:00)
[2020-12-08] MEDS: VITAMIN D 5,000 UNIT CAP PO SCH (09:00)
[2020-12-08] MEDS: AMIODARONE HCL 200 MG TAB PO SCH (09:00)
[2020-12-08] MEDS: DIGOXIN 0.25 MG TABLET PO SCH (09:00)
[2020-12-08] MEDS: APIXABAN 5 MG TABLET PO SCH (09:00)
[2020-12-08] MEDS ORDERED: APIXABAN 5 MG TABLET ONE (09:21)
[2020-12-08] MEDS ORDERED: AMIODARONE HCL 200 MG TAB ONE (09:21)
[2020-12-08] MEDS ORDERED: DIGOXIN 0.25 MG TABLET ONE (09:21)
[2020-12-08] MEDS ORDERED: dexAMETHasone 4 MG/ML VIAL ONE (09:22)
[2020-12-08] MEDS ORDERED: AMIODARONE HCL 200 MG TAB PO ONE (11:08)
--- NOTE | 2020-12-08 12:53 | OP ---
Date of Procedure: 12/07/2020 Surgeon: Amanuel Toro MD Mark Up Designer: Ms. Silvia Monroe. Procedure: Direct current cardioversion for atrial fibrillation that is unresponsive to IV amiodaron e, beta-blockers, and digoxin. Indication: Mr. Yen is 75, was admitted on 12/06/2020 with rapid ventricular response, atrial f ibrillation, congestive heart failure. Has had recent COVID. Procedure In Detail: We brought him from the emergency room to the recovery room for the cardioversi on. He received a total of 7 mg of Versed IV push. He received 1 shock of 200 joules and he convert ed to sinus rhythm without any complication. There was no blood loss. Final Diagnosis: Successful cardioversion from atrial fibrillation to sinus rhythm with 200 joules. We will switch him to p.o. amiodarone 400 b.i.d. for a week and then 200 mg p.o. b.i.d. after that. If he remains in sinus rhythm in the morning, we should consider discharging him. I would like to se e the patient in about a week or 2 after discharge. NICA/AJAY Voice ID: [id number] Report ID: [id number]
[2020-12-08] MEDS ORDERED: METOPROLOL TAR 25 MG TAB PO SCH (14:35)
--- NOTE | 2020-12-08 15:04 | P.PN ---
Subjective Date of Service: 12/08/20 Primary Care Provider: Dr. Torres Chief Complaint: Atrial Fibrillation RVR and A. Flutter I am told by the nurse patient reverted to AFib with RVR when he transferred from PACU back to the ED hold and has been in atrial fibrillation since then. Heart rate ranging from 120-130 at rest. Blood pressure is stable. Physical Examination - Vital Signs Temperature: 97.6 F Blood Pressure: 139/85 Pulse: 129 Respirations: 19 Pulse Ox (%): 98 Assessment And Plan - Plan Physical exam GEN: Alert, oriented, NAD HEENT: Normal conjunctiva, sclera anicteric CV: Irregularly irregular rhythm, HR: 130s, trace pedal edema Pulm: Nonlabored respirations. No rales or crackles or wheezes. ABD: Soft, nontender, nondistended Integumentary: No rashes Neuro: Normal affect, normal speech, moves all extremities Problem List Acute shock, secondary to sepsis versus cardiogenic, resolved Bacterial pneumonia suspected, recent COVID-19 pneumonia Atrial fibrillation with RVR, paroxysmal. Recent diagnosis Generalized weakness Elevated LFTs secondary to shock liver MARYJANE, no history of CKD Mild hyponatremia -Unclear exact etiology of patient's severe hypotension/shock. Possibly from infectious etiology, or cardiac, as patient underwent multiple attempts for cardioversion and started on amiodarone. -hypotension/shock resolved -he was on Levophed briefly. -patient transition to oral amiodarone after another attempt at cardioversion. -patient converted to sinus rhythm after cardioversion but reverted back to afib. -increase amiodarone to 400 mg b.i.d. today. Added metoprolol 25 mg b.i.d. -cardiology to follow. -spouse requesting for patient to be transferred to [facility] where his cardiology is. -patient with worsening leukocytosis. Steroid could be contributing to the josefa kocytosis. -blood cultures and urine culture have yielded no growth. -Continue broad-spectrum antibiotics. -recent history of COVID-19 pneumonia -Pulmonology and nephrology are following. -Suspect MARYJANE secondary to decreased p.o. intake/dehydration, and from hypotension -MARYJANE improved with IV fluids -CXR 12/06 with worsening bilateral opacities. Patient with sequela of COVID pneumonia. -Significantly elevated AST and ALT, patient denies alcohol use. Patient also has coagulopathy. Patient is off anticoagulation -Elevated LFTs and coagulopathy secondary to shock liver and sepsis. LFT is improving. -check coagulation profile and start full anticoagulation once INR is less than 1.5. VTE: SCD, patient has coagulopathy. 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
--- NOTE | 2020-12-08 16:46 | EKG ---
Test Date: 2020-12-04 Test Time: 11:52:58 Mat Maker: CARROL MEASUREMENT RESULTS: Intervals: Rate: 127 [place]: QRSD: 140 QT: 388 QTc: 563 [place]: P: OH: QRS: 4 T: 79 INTERPRETIVE STATEMENTS: Atrial fibrillation with rapid ventricular response with premature ventricular or aberrantly conducted complexes Right bundle branch block Abnormal ECG Compared to ECG 12/04/2020 10:26:12 Atrial flutter no longer present Electronically Signed On 12-08-20 16:41:29 CDT by Amanuel Toro
[2020-12-08 18:06] VITALS: TEMP 97.5
[2020-12-08 19:21] VITALS: BP 133/80
--- NOTE | 2020-12-08 19:26 | P.DS ---
Admission Date: 12/04/20 Discharge Date: 12/08/20 Primary Care Provider: Dr. Torres Disposition: TRANSFER TO [facility] Reason for Admission: Atrial Fibrillation RVR and A. Flutter - Problems (1) Atrial fibrillation with RVR Status: Acute Brief History of Present Illness: A 75-year-old white male who was released from [facility] in [place] on November 09 following Covid. Since his discharge he has been consistently short of breath. Over the past few weeks he is his appetite has declined and he is eating very little. Last night he was talking in his sleep and his was concerned that he looked poorly. He came to the emergency room this morning at approximately 10:00. At that time though the patient's vital signs were relatively stable he continued to be short of breath. Shortly after being admitted to the ER he developed a rapid heart rate and his blood pressure dropped. He was found to be in atrial fibrillation with RVR and then atrial flutter. He was cardioverted 3 times unsuccessfully. He was then placed on an amiodarone drip. Following that time his blood pressure dropped and he was also put on a norepinephrine drip. Since the initial event his heart rate has slowed to the high 120s low 130s. His blood pressure stabilized with a systolic in the area of 106. The patient is weak but states that he feels well. He will be admitted to the ICU due to his amiodarone and his norepinephrine drips. Cardiology has been consulted and is aware. Labs are remarkable for a sodium of 132, BUN of 34, and a creatinine of 2.02 which is markedly higher than the last labs he had in October. White blood count is 17.7 platelets are 532. Troponin was 0.09 his lactate was 5.5. Procalcitonin is pending. Hospital Course: Diagnosis Shock, secondary to sepsis versus cardiogenic, resolved Bacterial pneumonia suspected, recent COVID-19 pneumonia Atrial fibrillation with RVR. Generalized weakness Elevated LFTs secondary to shock liver MARYJANE. Hyponatremia -Unclear exact etiology of patient's severe hypotension/shock. Secondary to sepsis from pneumonia and cardiogenic shock. -status post multiple cardioversion and started on amiodarone. Patient old revert back to atrial fibrillation after each cardioversion. -hypotension/shock resolved -he was on Levophed briefly. -patient transition to oral amiodarone after another attempt at cardioversion. Cardioversion x4. -patient converted to sinus rhythm after cardioversion but reverted back to afib and remained in AFib with heart rate 120 to 140. -Added metoprolol 25 mg b.i.d. -cardiology recommended transfer to tertiary center for further management due to multiple failed attempt at cardioversion. -spouse requesting for patient to be transferred to [facility] where his cardiology is. -Patient with worsening leukocytosis. Steroid could be contributing to the leukocytosis. -blood cultures and urine culture yielded no growth. -patient treated with broad-spectrum antibiotics-IV cefepime and vancomycin. -recent history of COVID-19 pneumonia -Pulmonology and nephrology saw patient and assisted with management. -Suspect MARYJANE secondary to decreased p.o. intake/dehydration, and from hypotension -MARYJANE improved with IV fluids -CXR 12/06 with worsening bilateral opacities. Patient with sequela of COVID pneumonia. -Significantly elevated AST and ALT, patient denied alcohol use. Patient also has coagulopathy. Anticoagulation held. -Elevated LFTs and coagulopathy secondary to shock liver and sepsis. LFT is improving. -patient accepted for transfer to [facility]. Blood pressure is stable. He is stable for transfer. Vital Signs/Physical Exam: Temp Pulse Resp BP Pulse Ox 97.5 F 133 H 22 H 133/80 96 12/08/20 18:00 12/08/20 19:00 12/08/20 19:00 12/08/20 19:00 12/08/20 19:00 General: Alert, In no apparent distress, Oriented x3 HEENT: Mucous membr. moist/pink Neck: JVD not distended Respiratory: Crackles/rales (Bibasilar) Cardiovascular: Irregular heart rate/rhythm Gastrointestinal: Normal bowel sounds, Soft and benign, Non-distended, No tenderness Musculoskeletal: No swelling Neurological: Other (No focal motor deficit.) Laboratory Data at Discharge: WBC 22.40 K/uL (4.3-10.9) H* D 12/08/20 04:55 Hgb 13.6 g/dL (13.6-17.9) 12/08/20 04:55 Hct 40.9 % (39.6-49.0) 12/08/20 04:55 Plt Count 487 K/uL (152-406) H 12/08/20 04:55 PT 24.0 SECONDS (9.5-12.5) H 12/05/20 07:57 INR 2.07 12/05/20 07:57 APTT 32.2 SECONDS (24.3-36.9) 12/05/20 07:57 Sodium 138 mmol/L (136-145) 12/08/20 04:55 Potassium 4.7 mmol/L (3.5-5.1) 12/08/20 04:55 BUN 36 mg/dL (7-18) H 12/08/20 04:55 Creatinine 1.26 mg/dL (0.55-1.3) 12/08/20 04:55 Glucose 161 mg/dL (74-106) H 12/08/20 04:55 Phosphorus 2.9 mg/dL (2.5-4.9) 12/06/20 05:00 Magnesium 2.4 mg/dL (1.8-2.4) 12/08/20 04:55 Total Bilirubin 1.0 mg/dL (0.2-1.0) 12/08/20 04:55 AST 124 U/L (15-37) H D 12/08/20 04:55 ALT 1026 U/L (12-78) H* D 12/08/20 04:55 Alkaline Phosphatase 99 U/L (45-117) 12/08/20 04:55 Troponin I 0.17 ng/mL (0.0-0.045) H 12/04/20 17:51 Amylase 58 U/L (25-115) 12/04/20 10:34 Home Medications: Furosemide [Lasix] 20 mg PO DAILY 12/05/20 Hydralazine [Apresoline*] 1 tab BID 12/05/20 Followup: Kayden Torres MD [Primary Care Provider] - Time spent managing pt's care (in minutes): 45
[2020-12-08 20:37] VITALS: O2SAT 100
--- NOTE | 2020-12-08 20:42 | P.PN ---
Date of Service: 12/08/20 Vital Signs Temp Pulse Resp BP Pulse Ox 97.5 F 133 H 22 H 133/80 96 12/08/20 18:00 12/08/20 19:00 12/08/20 19:00 12/08/20 19:00 12/08/20 19:00 Medications Acetaminophen (Acetaminophen 500 Mg Tab) 500 mg PO Q4HP PRN PRN Reason: TEMP > 101' F Amiodarone HCl (Amiodarone Hcl 200 Mg Tab) 400 mg PO BID [facility] Apixaban (Apixaban 5 Mg Tablet) 5 mg PO BID [facility] Last Admin: 12/08/20 09:00 Dose: 5 mg Documented by: Calcitriol (Calcitrol 0.25 Mcg Cap) 0.5 mcg PO DAILY [facility] Last Admin: 12/08/20 09:00 Dose: 0.5 mcg Documented by: Cholecalciferol (Vitamin D 5,000 Unit Cap) 5,000 unit PO DAILY [facility] Last Admin: 12/08/20 09:00 Dose: 5,000 unit Documented by: Dexamethasone (Dexamethasone 10 Mg/Ml Vial) 2 mg IV BID [facility] Last Admin: 12/08/20 09:00 Dose: 2 mg Documented by: Digoxin (Digoxin 0.25 Mg Tablet) 0.25 mg PO DAILY [facility] Last Admin: 12/08/20 09:00 Dose: 0.25 mg Documented by: Ondansetron HCl (Ondansetron 4 Mg/2 Ml Vial) 4 mg IV Q6HP PRN PRN Reason: NAUSEA / VOMITING Sodium Chloride (Flush Normal Saline 10 Ml) 10 ml IV BID [facility] Last Admin: 12/08/20 09:00 Dose: 10 ml Documented by: Microbiology Results 12/04/20 12:33 Blood - Blood Aerobic Blood Culture - Preliminary No growth in 24 hours. 12/04/20 12:33 Blood - Blood Anaerobic Blood Culture - Preliminary No growth in 24 hours. 12/04/20 12:15 Blood - Blood Aerobic Blood Culture - Preliminary No growth in 24 hours. 12/04/20 12:15 Blood - Blood Anaerobic Blood Culture - Preliminary No growth in 24 hours. Assessment/ Plan: Nephrology Progress Note Persistent tachycardia No chest pain or dyspnea No acute events overnight Vitals, medications blood work and imaging reviewed in the chart General: In no apparent distress, Cooperative HEENT: Atraumatic Neck: Supple Respiratory: Diminished Cardiovascular: Edema, Irregular heart rate/rhythm Gastrointestinal: Hypoactive, Non-distended Musculoskeletal: No clubbing, No contractures Integumentary: No rashes, No cyanosis Neurological: Normal speech Laboratory Data (last 24 hrs) 12/04/20 10:34: PT 20.4 H, INR 1.76, APTT 29.1 12/04/20 10:34: WBC 17.70 H, Hgb 14.2, Hct 42.1, Plt Count 532 H 12/04/20 10:34: Sodium 132 L, Potassium 4.4, BUN 34 H, Creatinine 2.02 H, Glucose 165 H, Total Bilirubin 1.1 H, AST 4474 H*, ALT 2551 H*, Alkaline Phosphatase 98, Amylase 58 12/04/20 01:21: Troponin I 0.27 H Imagings Data: EXAM DESCRIPTION: US - Abdomen Exam Complete - 12/05/2020 8:36 am CLINICAL HISTORY: elevated LFTs COMPARISON: No comparisons FINDINGS: Gallbladder size is normal. No gallstones are confirmed. Trace amount of sludge is suspected. There is gallbladder wall thickening and a trace amount of pericholecystic fluid seen. Common bile duct is normal with no common duct stone identified. Liver shows a coarsened, increased echogenicity with no focal lesion identifiable. No abnormality of the portal vein on Doppler evaluation. No capsule nodularity. Liver is 15 cm maximum dimension. Spleen is 10 cm with no focal suspicious lesion. Granulomatous type calcifications are seen. The pancreas is too obscured by bowel gas to allow adequate assessment. No hydronephrosis or suspicious mass in either kidney. Aorta and IVC are partially obscured as well. Aortic aneurysm is not suspected. No ascites or bulky lymphadenopathy. IMPRESSION: Gallbladder wall thickening with trace pericholecystic fluid seen. Trace amount of sludge is suspected but no gallstones seen. Acalculous cholecystitis cannot be excluded if there are corresponding clinical or laboratory findings. Chronic gallbladder disease can have a similar presentation. Mild diffuse fatty infiltration of a normal size liver. Pancreas, aorta and IVC are too obscured by bowel gas for assessment. EXAM DESCRIPTION: RAD - Chest Single View - 12/04/2020 1:54 pm CLINICAL HISTORY: DYSPNEA COMPARISON: Chest Pa And Lat (2 Views) dated 12/02/2020; Chest Single View dated 11/03/2020; CHEST SINGLE VIEW dated 03/26/2011; CHEST SINGLE VIEW dated 03/25/2011; Chest For Pe Angio dated 11/03/2020 FINDINGS: Lines: None. Lungs: Moderate multifocal bilateral airspace disease which is similar to prior. Pleural: No effusions or pneumothorax . Cardiac: The heart size is within normal limits. Bones: No acute fractures. Other: IMPRESSION: Moderate multifocal bilateral airspace disease consistent with sequela of recent pneumonia. The patient may be a candidate for annual low dose lung cancer screening CT. Conclusions/Impression: MARYJANE in the setting of hypovolemia/ hypotension CKD III with proteinuria -No NSAIDs Hyponatemia Hypocalcemia -Continue Calcitriol HTN with CKD complicated by hypotension -IVF bolus as needed -Vasopressor therapy as needed Acute hepatitis likely ischemic hepatitis -Continue IVF Moderate malnutrition -Advance diet as tolerated Anemia in chronic illness -Monitor H&H PNA Septic shock -Continue abx -Continue Dexamethasone Case reviewed with Dr. Gao Plan to transfer for electrophysiology evaluation.
[2020-12-08] MEDS ORDERED: AMIODARONE HCL 200 MG TAB PO SCH (21:00)
--- NOTE | 2020-12-09 15:05 | PN ---
Date of Progress Note: 12/06/2020 Mr. Yen had came in with rapid atrial fibrillation and received 3 shocks in the emergency room b sharon Nicole and remained in atrial fibrillation. Was given digoxin, metoprolol, placed on IV amiod arone. He remained in atrial fibrillation with rapid ventricular response with dyspnea on exertion. He has a normal ejection fraction, aortic sclerosis. I discussed the case with him and his , an d we will plan a cardioversion on 12/07/2020 electively. NICA/AJAY Voice ID: [id number] Report ID: [id number]
--- NOTE | 2020-12-09 15:05 | PN ---
Date of Progress Note: 12/08/2020 Mr. Yen had come in with atrial fibrillation that had failed every therapy including 3 cardiover sions when he came in. He was placed on IV amiodarone, was given beta mirza, was given digoxin. R emained in atrial fibrillation. I shocked him and did another shock on amiodarone 12/07/2020 and he converted to sinus rhythm, but he went back into atrial fibrillation. The case was discussed with [facility] family in details. I think Mr. Yen needs to go to [place] to have a possible ablation, maybe AV maddy ablation and maybe pacemaker, but he needs to be seen by event staff as he failed am iodarone, cardioversion, metoprolol, digoxin. He remains short of breath upon exertion. He has had a recent COVID. Has a normal ejection fraction. I will contact Dr. Miguelito Joshi, his previous car diologist and see if we can get him transferred to [place] for Electrophysiology consultation. Today , the case was discussed with Dr. Gao and the case was discussed with the family in detail. Nasima haro the IV amiodarone for now. NICA/AJAY Voice ID: [id number] Report ID: [id number]
[2020-12-09 17:24] LABS: HBsAG Nonreactive (Nonreactive)
--- OUTSIDE RECORDS SUMMARY | 2020-12-31 20:22 | XMS REPORT | Continuity of Care Document ---
:1945 Author Organization [facility] t Address [address] [place] [address] Care Team Providers Name Role Phone RAHUL FISCHER Attending Clinician Unavailable ROMEO Attending Clinician Unavailable MD Bala WALTERS Attending Clinician Unavailable Mary FISCHER Admitting Clinician Unavailable ROMEO Admitting Clinician Unavailable MD Bala WALTERS Admitting Clinician Unavailable Payers Payer Name Policy Type Policy Number Effective Date Expiration Date S ource MEDICARE A B [id number] 2008 00:00:00 [facility] [id number] 2020 00:00:00 Problems This patient has no known problems. Allergies, Adverse Reactions, Alerts Allergy Allergy Status Severity Reaction(s) Onset Inactive Treating Comm ents Source Name Type Date Date Clinician PENICILL Allergy Active Other [facility] [place] 11-03 Lu - 00:00: Medical 00 Center NO KNOWN Allergy Active [facility] ALLERGIE S Medications This patient has no known medications. Vital Signs Vital Name Observation Time Observation Value Comments Source WEIGHT 2020-11-06 03:00:00 79.1 kg WEIGHT 2020-11-05 07:00:00 79.2 kg WEIGHT 2020-11-03 18:45:00 79.2 kg HEIGHT 2020-11-03 18:45:00 180.3 cm WEIGHT 2020-11-06 03:00:00 79.1 kg WEIGHT 2020-11-05 07:00:00 79.2 kg WEIGHT 2020-11-03 18:45:00 79.2 kg HEIGHT 2020-11-03 18:45:00 180.3 cm Procedures This patient has no known procedures. Encounters Start End Encounter Admission Attending Care Care Encounter Source Date/Time Date/Time Type Type Clinicians Facility Department ID 2020-11-29 [id number] [facility] 12:26:40 Med 2020-12-08 2020-12-25 [id number] [place] 00:00:00 00:00:00 ISSA [address] Results Test Description Test Time Test Comments Results Result Comments Source SARS-CoV-2 (COVID-19) RNA [Presence] in Respiratory sp ecimen by 2020-12-25 10:36:06 LON with probe detection Test Item Value Reference Range Interpretation Comme nts SARS-CoV-2 (COVID-19) RNA [Presence] in Respiratory Not detected No t-Detected specimen by LON with probe detection (test code = 20249-6) Whether patient is employed in a healthcare setting (test code = 52356-0) Whether the patient has symptoms related to condition of interest (test code = 06977-1) Patient was hospitalized because of this condition (test code = 93858-3) Whether the patient was admitted to intensive care unit (ICU) for condition of interest (test code = 08972-9) Whether patient resides in a congregate care setting (test code = 72507-2) SARS-CoV-2 (COVID-19) RNA [Presence] in Respiratory specimen by LON with probe [id number] 01:01:33 Test Item Value Reference Range Interpretation Comments SARS-CoV-2 (COVID-19) RNA Not detected Not-Detected [Presence] in Respiratory specimen by LON with probe detection (test code = 38439-0) Whether patient is employed in a healthcare setting (test code = 66578-2) Whether the patient has symptoms related to condition of interest (test code = 28009-6) Patient was hospitalized because of this condition (test code = 47408-3) Whether the patient was admitted to intensive care unit (ICU) for condition of interest (test code = 26395-8) Whether patient resides in a congregate care setting (test code = 59989-3) POCT-GLUCOSE [id number] 08:57:40 Test Item Value Reference Range Interpretation Comments POC-GLUCOSE METER 103 mg/dL 70-110 : TESTED A T [facility] 6720 (BEAKER) (test code = [place], 1538) 54273: Construction Project Manager/Techni chitra ID = [id number] for ESA GILES [id number] 07:07:38 Test Item Value Reference Range Interpretation Comments MAGNESIUM (BEAKER) (test code = 2.1 mg/dL 1.6-2.6 627) Construction Project Manager ID - ALFONSO FBASIC METABOLIC [id number] 07:07:37 Test Item Value Reference Range Interpretation Comments SODIUM (BEAKER) 133 meq/L 136-145 L (test code = 381) POTASSIUM (BEAKER) 4.3 meq/L 3.5-5.1 (test code = 379) CHLORIDE (BEAKER) 104 meq/L 98-107 (test code = 382) CO2 (BEAKER) (test 22 meq/L 22-29 code = 355) BLOOD UREA NITROGEN 23 mg/dL 7-21 H (BEAKER) (test code = 354) CREATININE (BEAKER) 0.85 mg/dL 0.57-1.25 (test code = 358) GLUCOSE RANDOM 106 mg/dL 70-105 H (BEAKER) (test code = 652) CALCIUM (BEAKER) 8.8 mg/dL 8.4-10.2 (test code = 697) EGFR (BEAKER) (test 87 mL/min/1.73 ESTIMA JASPAL GFR IS code = 1092) sq m NOT ACCURATE CREATININE CLEARANCE IN PREDICTING GLOMERULAR FILTRATION RATE . ESTIMATED GFR I S NOT APPLICABLE FOR DIALYSIS PATIEN TS. Construction Project Manager ID - ALFONSO FCBC W/PLT COUNT & AUTO [id number] 06:45:56 Test Item Value Reference Range Interpretation Comments WHITE BLOOD CELL COUNT (BEAKER) 14.8 K/ L 3.5-10.5 H (test code = 775) RED BLOOD CELL COUNT (BEAKER) 4.98 M/ L 4.63-6.08 (test code = 761) HEMOGLOBIN (BEAKER) (test code = 15.5 GM/DL 13.7-17.5 410) HEMATOCRIT (BEAKER) (test code = 45.5 % 40.1-51.0 411) MEAN CORPUSCULAR VOLUME (BEAKER) 91.4 fL 79.0-92.2 (test code = 753) MEAN CORPUSCULAR HEMOGLOBIN 31.1 pg 25.7-32.2 (BEAKER) (test code = 751) MEAN CORPUSCULAR HEMOGLOBIN CONC 34.1 GM/DL 32.3-36.5 (BEAKER) (test code = 752) RED CELL DISTRIBUTION WIDTH 12.9 % 11.6-14.4 (BEAKER) (test code = 412) PLATELET COUNT (BEAKER) (test 443 K/CU MM 150-450 code = 756) MEAN PLATELET VOLUME (BEAKER) 8.6 fL 9.4-12.4 L (test code = 754) NUCLEATED RED BLOOD CELLS 0 /100 WBC 0-0 (BEAKER) (test code = 413) NEUTROPHILS RELATIVE PERCENT 83 % (BEAKER) (test code = 429) LYMPHOCYTES RELATIVE PERCENT 10 % (BEAKER) (test code = 430) MONOCYTES RELATIVE PERCENT 5 % (BEAKER) (test code = 431) EOSINOPHILS RELATIVE PERCENT 0 % (BEAKER) (test code = 432) BASOPHILS RELATIVE PERCENT 0 % (BEAKER) (test code = 437) NEUTROPHILS ABSOLUTE COUNT 12.28 K/ L 1.78-5.38 H (BEAKER) (test code = 670) LYMPHOCYTES ABSOLUTE COUNT 1.53 K/ L 1.32-3.57 (BEAKER) (test code = 414) MONOCYTES ABSOLUTE COUNT (BEAKER) 0.76 K/ L 0.30-0.82 (test code = 415) EOSINOPHILS ABSOLUTE COUNT 0.00 K/ L 0.04-0.54 L (BEAKER) (test code = 416) BASOPHILS ABSOLUTE COUNT (BEAKER) 0.03 K/ L 0.01-0.08 (test code = 417) IMMATURE GRANULOCYTES-RELATIVE 1 % 0-1 PERCENT (BEAKER) (test code = 2801) CBC W/PLT COUNT & AUTO [id number] 06:42:34 Test Item Value Reference Range Interpretation Comments WHITE BLOOD CELL COUNT (BEAKER) 12.8 K/ L 3.5-10.5 H (test code = 775) RED BLOOD CELL COUNT (BEAKER) 4.53 M/ L 4.63-6.08 L (test code = 761) HEMOGLOBIN (BEAKER) (test code = 14.3 GM/DL 13.7-17.5 410) HEMATOCRIT (BEAKER) (test code = 41.5 % 40.1-51.0 411) MEAN CORPUSCULAR VOLUME (BEAKER) 91.6 fL 79.0-92.2 (test code = 753) MEAN CORPUSCULAR HEMOGLOBIN 31.6 pg 25.7-32.2 (BEAKER) (test code = 751) MEAN CORPUSCULAR HEMOGLOBIN CONC 34.5 GM/DL 32.3-36.5 (BEAKER) (test code = 752) RED CELL DISTRIBUTION WIDTH 13.1 % 11.6-14.4 (BEAKER) (test code = 412) PLATELET COUNT (BEAKER) (test 416 K/CU MM 150-450 code = 756) MEAN PLATELET VOLUME (BEAKER) 8.6 fL 9.4-12.4 L (test code = 754) NUCLEATED RED BLOOD CELLS 0 /100 WBC 0-0 (BEAKER) (test code = 413) NEUTROPHILS RELATIVE PERCENT 82 % (BEAKER) (test code = 429) LYMPHOCYTES RELATIVE PERCENT 12 % (BEAKER) (test code = 430) MONOCYTES RELATIVE PERCENT 5 % (BEAKER) (test code = 431) EOSINOPHILS RELATIVE PERCENT 0 % (BEAKER) (test code = 432) BASOPHILS RELATIVE PERCENT 0 % (BEAKER) (test code = 437) NEUTROPHILS ABSOLUTE COUNT 10.39 K/ L 1.78-5.38 H (BEAKER) (test code = 670) LYMPHOCYTES ABSOLUTE COUNT 1.52 K/ L 1.32-3.57 (BEAKER) (test code = 414) MONOCYTES ABSOLUTE COUNT (BEAKER) 0.65 K/ L 0.30-0.82 (test code = 415) EOSINOPHILS ABSOLUTE COUNT 0.00 K/ L 0.04-0.54 L (BEAKER) (test code = 416) BASOPHILS ABSOLUTE COUNT (BEAKER) 0.02 K/ L 0.01-0.08 (test code = 417) IMMATURE GRANULOCYTES-RELATIVE 1 % 0-1 PERCENT (BEAKER) (test code = 2801) BASIC METABOLIC [id number] 06:06:50 Test Item Value Reference Range Interpretation Comments SODIUM (BEAKER) 136 meq/L 136-145 (test code = 381) POTASSIUM (BEAKER) 4.6 meq/L 3.5-5.1 (test code = 379) CHLORIDE (BEAKER) 106 meq/L 98-107 (test code = 382) CO2 (BEAKER) (test 22 meq/L 22-29 code = 355) BLOOD UREA NITROGEN 23 mg/dL 7-21 H (BEAKER) (test code = 354) CREATININE (BEAKER) 0.86 mg/dL 0.57-1.25 (test code = 358) GLUCOSE RANDOM 139 mg/dL 70-105 H (BEAKER) (test code = 652) CALCIUM (BEAKER) 8.6 mg/dL 8.4-10.2 (test code = 697) EGFR (BEAKER) (test 86 mL/min/1.73 ESTIMA JASPAL GFR IS code = 1092) sq m NOT ACCURATE CREATININE CLEARANCE IN PREDICTING GLOMERULAR FILTRATION RATE . ESTIMATED GFR I S NOT APPLICABLE FOR DIALYSIS PATIEN TS. Construction Project Manager ID - LORIE [id number] 06:06:50 Test Item Value Reference Range Interpretation Comments MAGNESIUM (BEAKER) (test code = 2.2 mg/dL 1.6-2.6 627) Construction Project Manager ID - LORIE GPOCT-GLUCOSE [id number] 16:57:17 Test Item Value Reference Range Interpretation Comments POC-GLUCOSE METER 140 mg/dL 70-110 H : TESTED A T [facility] 6720 (BEAKER) (test code = [facility], 1538) 95615: Construction Project Manager/Techni chitra ID = [id number] for Chad nicolas (contract), Kathy eulalio POCT-GLUCOSE [id number] 11:05:54 Test Item Value Reference Range Interpretation Comments POC-GLUCOSE METER 125 mg/dL 70-110 H : TESTED A T [facility] 6720 (BEAKER) (test code = [facility], 1538) 36565: Construction Project Manager/Techni chitra ID = [id number] for Juan moreno (agency)Juju ra POCT-GLUCOSE [id number] 08:26:43 Test Item Value Reference Range Interpretation Comments POC-GLUCOSE METER 123 mg/dL 70-110 H : TESTED A T [facility] 6720 (BEAKER) (test code = [facility], 1538) 47848: Construction Project Manager/Techni chitra ID = [id number] for Chad nicolas (contract), Kathy eulalio CALCIUM, [id number] 06:33:03 Test Item Value Reference Range Interpretation Comments CALCIUM IONIZED (BEAKER) (test 1.22 mmol/L 1.12-1.27 code = 698) PH, BLOOD (BEAKER) (test code = 7.42 1810) [id number] 05:35:29 Test Item Value Reference Range Interpretation Comments MAGNESIUM (BEAKER) (test code = 2.3 mg/dL 1.6-2.6 627) Construction Project Manager ID - LORIE GCOMPREHENSIVE METABOLIC [id number] 05:35:28 Test Item Value Reference Range Interpretation Comments TOTAL PROTEIN 5.7 gm/dL 6.0-8.3 L (BEAKER) (test code = 770) ALBUMIN (BEAKER) 3.2 g/dL 3.5-5.0 L (test code = 1145) ALKALINE PHOSPHATASE 44 U/L 40-150 (BEAKER) (test code = 346) BILIRUBIN TOTAL 0.8 mg/dL 0.2-1.2 (BEAKER) (test code = 377) SODIUM (BEAKER) (test 137 meq/L 136-145 code = 381) POTASSIUM (BEAKER) 4.6 meq/L 3.5-5.1 (test code = 379) CHLORIDE (BEAKER) 107 meq/L 98-107 (test code = 382) CO2 (BEAKER) (test 21 meq/L 22-29 L code = 355) BLOOD UREA NITROGEN 31 mg/dL 7-21 H (BEAKER) (test code = 354) CREATININE (BEAKER) 0.97 mg/dL 0.57-1.25 (test code = 358) GLUCOSE RANDOM 123 mg/dL 70-105 H (BEAKER) (test code = 652) CALCIUM (BEAKER) 9.0 mg/dL 8.4-10.2 (test code = 697) AST (SGOT) (BEAKER) 19 U/L 5-34 (test code = 353) ALT (SGPT) (BEAKER) 54 U/L 6-55 (test code = 347) EGFR (BEAKER) (test 75 mL/min/1.73 ESTIMA JASPAL GFR IS code = 1092) sq m NOT ACCURATE CREATININE CLEARANCE IN PREDICTING GLOMERULAR FILTRATION RATE . ESTIMATED GFR I S NOT APPLICABLE FOR DIALYSIS PATIEN TS. Construction Project Manager ID - LORIE GCBC W/PLT COUNT & AUTO [id number] 05:04:55 Test Item Value Reference Range Interpretation Comments WHITE BLOOD CELL COUNT (BEAKER) 16.6 K/ L 3.5-10.5 H (test code = 775) RED BLOOD CELL COUNT (BEAKER) 4.71 M/ L 4.63-6.08 (test code = 761) HEMOGLOBIN (BEAKER) (test code = 14.7 GM/DL 13.7-17.5 410) HEMATOCRIT (BEAKER) (test code = 43.0 % 40.1-51.0 411) MEAN CORPUSCULAR VOLUME (BEAKER) 91.3 fL 79.0-92.2 (test code = 753) MEAN CORPUSCULAR HEMOGLOBIN 31.2 pg 25.7-32.2 (BEAKER) (test code = 751) MEAN CORPUSCULAR HEMOGLOBIN CONC 34.2 GM/DL 32.3-36.5 (BEAKER) (test code = 752) RED CELL DISTRIBUTION WIDTH 13.0 % 11.6-14.4 (BEAKER) (test code = 412) PLATELET COUNT (BEAKER) (test 479 K/CU MM 150-450 H code = 756) MEAN PLATELET VOLUME (BEAKER) 8.7 fL 9.4-12.4 L (test code = 754) NUCLEATED RED BLOOD CELLS 0 /100 WBC 0-0 (BEAKER) (test code = 413) NEUTROPHILS RELATIVE PERCENT 82 % (BEAKER) (test code = 429) LYMPHOCYTES RELATIVE PERCENT 11 % (BEAKER) (test code = 430) MONOCYTES RELATIVE PERCENT 5 % (BEAKER) (test code = 431) EOSINOPHILS RELATIVE PERCENT 0 % (BEAKER) (test code = 432) BASOPHILS RELATIVE PERCENT 0 % (BEAKER) (test code = 437) NEUTROPHILS ABSOLUTE COUNT 13.66 K/ L 1.78-5.38 H (BEAKER) (test code = 670) LYMPHOCYTES ABSOLUTE COUNT 1.90 K/ L 1.32-3.57 (BEAKER) (test code = 414) MONOCYTES ABSOLUTE COUNT (BEAKER) 0.86 K/ L 0.30-0.82 H (test code = 415) EOSINOPHILS ABSOLUTE COUNT 0.00 K/ L 0.04-0.54 L (BEAKER) (test code = 416) BASOPHILS ABSOLUTE COUNT (BEAKER) 0.03 K/ L 0.01-0.08 (test code = 417) IMMATURE GRANULOCYTES-RELATIVE 1 % 0-1 PERCENT (BEAKER) (test code = 2801) SODIUM, RANDOM [id number] 22:03:04 Test Item Value Reference Range Interpretation Comments SODIUM URINE (BEAKER) (test code = 55 meq/L 243) Reference Range: No NormalsOperator ID - BSPOCT-GLUCOSE [id number] 20:55:06 Test Item Value Reference Range Interpretation Comments POC-GLUCOSE METER 141 mg/dL 70-110 H : TESTED A T [facility] 6720 (BEAKER) (test code = [facility], 1538) 24413: Construction Project Manager/Techni chitra ID = [id number] for Ray soto (contract), Arleen rin POCT-GLUCOSE [id number] 17:10:12 Test Item Value Reference Range Interpretation Comments POC-GLUCOSE METER 148 mg/dL 70-110 H : TESTED A T [facility] 6720 (BEAKER) (test code = [facility], 1538) 29271: Construction Project Manager/Techni chitra ID = [id number] for Batool jamal (contract)Familia EOSINOPHIL SMEAR, [id number] 13:18:39 Test Item Value Reference Range Interpretation Comments EOSINOPHIL SMEAR, URINE (BEAKER) No EOS seen No EOS seen (test code = 1851) OSMOLALITY, [id number] 11:37:51 Test Item Value Reference Range Interpretation Comments OSMOLALITY URINE 523 mOsm/kg See_Comment [Automated message] (BEAKER) (test code = The sy stem which 614) generated this result transmitted ref erence range: 50-1,200 mOsm/kg. The reference range was not used to int erpret this result as normal/abnormal . URINALYSIS W/ [id number] 10:53:25 Test Item Value Reference Range Interpretation Comments COLOR (BEAKER) (test code = 470) Light Yellow CLARITY (BEAKER) (test code = Clear 469) SPECIFIC GRAVITY UA (BEAKER) 1.016 1.001-1.035 (test code = 468) PH UA (BEAKER) (test code = 467) 6.5 5.0-8.0 PROTEIN UA (BEAKER) (test code = Negative Negative 464) GLUCOSE UA (BEAKER) (test code = Negative Negative 365) KETONES UA (BEAKER) (test code = Negative Negative 371) BILIRUBIN UA (BEAKER) (test code Negative Negative = 462) BLOOD UA (BEAKER) (test code = Negative Negative 461) NITRITE UA (BEAKER) (test code = Negative Negative 465) LEUKOCYTE ESTERASE UA (BEAKER) Negative Negative (test code = 466) UROBILINOGEN UA (BEAKER) (test 0.2 mg/dL 0.2-1.0 code = 463) RBC UA (BEAKER) (test code = 1 /HPF 519) WBC UA (BEAKER) (test code = 1 /HPF 520) BACTERIA (BEAKER) (test code = None Seen 517) MUCUS (BEAKER) (test code = Rare 1574) CRYSTALS, URINE (BEAKER) (test None Seen code = 1521) SOURCE(BEAKER) (test code = 0185) Construction Project Manager ID - [auto]Construction Project Manager ID - techUREA NITROGEN, RANDOM [id number] 10:49:41 Test Item Value Reference Range Interpretation Comments UREA NITROGEN URINE (BEAKER) (test 923 mg/dL code = 538) Reference Range: No NormalsOperator ID - FEB CCREATININE, RANDOM [id number] 10:49:40 Test Item Value Reference Range Interpretation Comments CREATININE URINE (BEAKER) (test 73.8 mg/dL code = 375) Reference Range: No NormalsOperator ID - FEB CPOCT-GLUCOSE [id number] 07:38:12 Test Item Value Reference Range Interpretation Comments POC-GLUCOSE METER 126 mg/dL 70-110 H : [facility] (BEAKER) (test code = [facility] [place], 1538) 91695: Construction Project Manager/Techni chitra ID = [id number] for Batool berry (contract)Familia [id number] 03:54:57 Test Item Value Reference Range Interpretation Comments MAGNESIUM (BEAKER) (test code = 2.4 mg/dL 1.6-2.6 627) Construction Project Manager ID - [id number] 03:54:57 Test Item Value Reference Range Interpretation Comments PHOSPHORUS (BEAKER) (test code = 3.0 mg/dL 2.3-4.7 604) Construction Project Manager ID - DBCOMPREHENSIVE METABOLIC [id number] 03:54:56 Test Item Value Reference Range Interpretation Comments TOTAL PROTEIN 5.6 gm/dL 6.0-8.3 L (BEAKER) (test code = 770) ALBUMIN (BEAKER) 3.0 g/dL 3.5-5.0 L (test code = 1145) ALKALINE PHOSPHATASE 43 U/L 40-150 (BEAKER) (test code = 346) BILIRUBIN TOTAL 0.7 mg/dL 0.2-1.2 (BEAKER) (test code = 377) SODIUM (BEAKER) (test 136 meq/L 136-145 code = 381) POTASSIUM (BEAKER) 4.3 meq/L 3.5-5.1 (test code = 379) CHLORIDE (BEAKER) 106 meq/L 98-107 (test code = 382) CO2 (BEAKER) (test 23 meq/L 22-29 code = 355) BLOOD UREA NITROGEN 37 mg/dL 7-21 H (BEAKER) (test code = 354) CREATININE (BEAKER) 1.32 mg/dL 0.57-1.25 H (test code = 358) GLUCOSE RANDOM 152 mg/dL 70-105 H (BEAKER) (test code = 652) CALCIUM (BEAKER) 8.7 mg/dL 8.4-10.2 (test code = 697) AST (SGOT) (BEAKER) 20 U/L 5-34 (test code = 353) ALT (SGPT) (BEAKER) 54 U/L 6-55 (test code = 347) EGFR (BEAKER) (test 53 mL/min/1.73 ESTIMA JASPAL GFR IS code = 1092) sq m NOT ACCURATE CREATININE CLEARANCE IN PREDICTING GLOMERULAR FILTRATION RATE . ESTIMATED GFR I S NOT APPLICABLE FOR DIALYSIS PATIEN TS. Construction Project Manager ID - DBCBC W/PLT COUNT & AUTO [id number] 03:25:06 Test Item Value Reference Range Interpretation Comments WHITE BLOOD CELL COUNT (BEAKER) 17.1 K/ L 3.5-10.5 H (test code = 775) RED BLOOD CELL COUNT (BEAKER) 4.59 M/ L 4.63-6.08 L (test code = 761) HEMOGLOBIN (BEAKER) (test code = 14.5 GM/DL 13.7-17.5 410) HEMATOCRIT (BEAKER) (test code = 42.2 % 40.1-51.0 411) MEAN CORPUSCULAR VOLUME (BEAKER) 91.9 fL 79.0-92.2 (test code = 753) MEAN CORPUSCULAR HEMOGLOBIN 31.6 pg 25.7-32.2 (BEAKER) (test code = 751) MEAN CORPUSCULAR HEMOGLOBIN CONC 34.4 GM/DL 32.3-36.5 (BEAKER) (test code = 752) RED CELL DISTRIBUTION WIDTH 13.2 % 11.6-14.4 (BEAKER) (test code = 412) PLATELET COUNT (BEAKER) (test 434 K/CU MM 150-450 code = 756) MEAN PLATELET VOLUME (BEAKER) 8.9 fL 9.4-12.4 L (test code = 754) NUCLEATED RED BLOOD CELLS 0 /100 WBC 0-0 (BEAKER) (test code = 413) NEUTROPHILS RELATIVE PERCENT 83 % (BEAKER) (test code = 429) LYMPHOCYTES RELATIVE PERCENT 11 % (BEAKER) (test code = 430) MONOCYTES RELATIVE PERCENT 5 % (BEAKER) (test code = 431) EOSINOPHILS RELATIVE PERCENT 0 % (BEAKER) (test code = 432) BASOPHILS RELATIVE PERCENT 0 % (BEAKER) (test code = 437) NEUTROPHILS ABSOLUTE COUNT 14.18 K/ L 1.78-5.38 H (BEAKER) (test code = 670) LYMPHOCYTES ABSOLUTE COUNT 1.81 K/ L 1.32-3.57 (BEAKER) (test code = 414) MONOCYTES ABSOLUTE COUNT (BEAKER) 0.88 K/ L 0.30-0.82 H (test code = 415) EOSINOPHILS ABSOLUTE COUNT 0.00 K/ L 0.04-0.54 L (BEAKER) (test code = 416) BASOPHILS ABSOLUTE COUNT (BEAKER) 0.02 K/ L 0.01-0.08 (test code = 417) IMMATURE GRANULOCYTES-RELATIVE 1 % 0-1 PERCENT (BEAKER) (test code = 2801) CALCIUM, [id number] 03:23:27 Test Item Value Reference Range Interpretation Comments CALCIUM IONIZED (BEAKER) (test 1.21 mmol/L 1.12-1.27 code = 698) PH, BLOOD (BEAKER) (test code = 7.44 1810) POCT-GLUCOSE [id number] 21:02:31 Test Item Value Reference Range Interpretation Comments POC-GLUCOSE METER 163 mg/dL 70-110 H : TESTED A T [facility] 6720 (BEAKER) (test code = [facility], 1538) 99460: Construction Project Manager/Techni chitra ID = [id number] for CRUZ BAY POCT-GLUCOSE [id number] 17:01:31 Test Item Value Reference Range Interpretation Comments POC-GLUCOSE METER 176 mg/dL 70-110 H : TESTED A T [facility] 6720 (BEAKER) (test code = [facility], 1538) 87689: Construction Project Manager/Techni chitra ID = [id number] for BLADIMIR GRANADOS POCT-GLUCOSE [id number] 12:59:25 Test Item Value Reference Range Interpretation Comments POC-GLUCOSE METER 195 mg/dL 70-110 H : TESTED A T [facility] 6720 (BEAKER) (test code = [facility], 153) 81226: Construction Project Manager/Techni chitra ID = [id number] for Juan championabimbola (contract), Ainsley foreman CBC W/PLT COUNT & AUTO [id number] 06:34:35 Test Item Value Reference Range Interpretation Comments WHITE BLOOD CELL COUNT (BEAKER) 15.3 K/ L 3.5-10.5 H (test code = 775) RED BLOOD CELL COUNT (BEAKER) 4.84 M/ L 4.63-6.08 (test code = 761) HEMOGLOBIN (BEAKER) (test code = 15.2 GM/DL 13.7-17.5 410) HEMATOCRIT (BEAKER) (test code = 44.6 % 40.1-51.0 411) MEAN CORPUSCULAR VOLUME (BEAKER) 92.1 fL 79.0-92.2 (test code = 753) MEAN CORPUSCULAR HEMOGLOBIN 31.4 pg 25.7-32.2 (BEAKER) (test code = 751) MEAN CORPUSCULAR HEMOGLOBIN CONC 34.1 GM/DL 32.3-36.5 (BEAKER) (test code = 752) RED CELL DISTRIBUTION WIDTH 13.2 % 11.6-14.4 (BEAKER) (test code = 412) PLATELET COUNT (BEAKER) (test 404 K/CU MM 150-450 code = 756) MEAN PLATELET VOLUME (BEAKER) 9.0 fL 9.4-12.4 L (test code = 754) NUCLEATED RED BLOOD CELLS 0 /100 WBC 0-0 (BEAKER) (test code = 413) NEUTROPHILS RELATIVE PERCENT 81 % (BEAKER) (test code = 429) LYMPHOCYTES RELATIVE PERCENT 13 % (BEAKER) (test code = 430) MONOCYTES RELATIVE PERCENT 5 % (BEAKER) (test code = 431) EOSINOPHILS RELATIVE PERCENT 0 % (BEAKER) (test code = 432) BASOPHILS RELATIVE PERCENT 0 % (BEAKER) (test code = 437) NEUTROPHILS ABSOLUTE COUNT 12.30 K/ L 1.78-5.38 H (BEAKER) (test code = 670) LYMPHOCYTES ABSOLUTE COUNT 1.91 K/ L 1.32-3.57 (BEAKER) (test code = 414) MONOCYTES ABSOLUTE COUNT (BEAKER) 0.71 K/ L 0.30-0.82 (test code = 415) EOSINOPHILS ABSOLUTE COUNT 0.00 K/ L 0.04-0.54 L (BEAKER) (test code = 416) BASOPHILS ABSOLUTE COUNT (BEAKER) 0.05 K/ L 0.01-0.08 (test code = 417) IMMATURE GRANULOCYTES-RELATIVE 2 % 0-1 H PERCENT (BEAKER) (test code = 2801) POCT-GLUCOSE [id number] 06:09:48 Test Item Value Reference Range Interpretation Comments POC-GLUCOSE METER 142 mg/dL 70-110 H : TESTED A T [facility] 6720 (BEAKER) (test code [facility], = 1538) [id number]: Construction Project Manager/Techni chitra ID = [id number] for SUGU , SHEENAMOL BLOOD GAS, [id number] 05:13:54 Test Item Value Reference Range Interpretation Comments PH VENOUS (BEAKER) (test code = 7.40 7.32-7.42 701) PCO2 VENOUS (BEAKER) (test code = 43 mm Hg 41-51 755) PO2 VENOUS (BEAKER) (test code = 125 mm Hg 25-40 H 702) O2 SATURATION VENOUS (BEAKER) 98.5 % 40.0-70.0 H (test code = 703) HCO3 VENOUS (BEAKER) (test code = 26 mmol/L 21-29 705) BASE EXCESS VENOUS (BEAKER) (test 1.0 mmol/L -2.0-3.0 code = 704) PATIENT TEMPERATURE (BEAKER) (test 37.0 code = 1818) FIO2 (BEAKER) (test code = 1819) 21.0 CALCIUM, [id number] 05:13:39 Test Item Value Reference Range Interpretation Comments CALCIUM IONIZED (BEAKER) (test 1.14 mmol/L 1.12-1.27 code = 698) PH, BLOOD (BEAKER) (test code = 7.40 1810) [id number] 05:07:30 Test Item Value Reference Range Interpretation Comments PHOSPHORUS (BEAKER) 3.4 mg/dL 2.3-4.7 Specimen slightly (test code = 604) hemolyzed Construction Project Manager ID - LORIE GCOMPREHENSIVE METABOLIC [id number] 05:07:30 Test Item Value Reference Range Interpretation Comments TOTAL PROTEIN 6.0 gm/dL 6.0-8.3 Specimen sligh tly (BEAKER) (test code = hemoly zed 770) ALBUMIN (BEAKER) 3.1 g/dL 3.5-5.0 L Specimen sl ightly (test code = 1145) hemolyzed ALKALINE PHOSPHATASE 46 U/L 40-150 (BEAKER) (test code = 346) BILIRUBIN TOTAL 0.9 mg/dL 0.2-1.2 Specimen sli ghtly (BEAKER) (test code = hemoly zed 377) SODIUM (BEAKER) (test 138 meq/L 136-145 code = 381) POTASSIUM (BEAKER) 4.7 meq/L 3.5-5.1 Specimen slightly (test code = 379) hemolyzed CHLORIDE (BEAKER) 106 meq/L 98-107 (test code = 382) CO2 (BEAKER) (test 23 meq/L 22-29 code = 355) BLOOD UREA NITROGEN 25 mg/dL 7-21 H (BEAKER) (test code = 354) CREATININE (BEAKER) 0.87 mg/dL 0.57-1.25 Specimen slightly (test code = 358) hemolyzed GLUCOSE RANDOM 140 mg/dL 70-105 H (BEAKER) (test code = 652) CALCIUM (BEAKER) 8.7 mg/dL 8.4-10.2 (test code = 697) AST (SGOT) (BEAKER) 36 U/L 5-34 H Specimen slightly (test code = 353) hemolyzed ALT (SGPT) (BEAKER) 57 U/L 6-55 H Specimen slightly (test code = 347) hemolyzed EGFR ([employer]) (test 85 mL/min/1.73 ESTIMA JASPAL GFR IS code = 1092) sq m NOT ACCURATE CREATININE CLEARANCE IN PREDICTING GLOMERULAR FILTRATION RATE . ESTIMATED GFR I S NOT APPLICABLE FOR DIALYSIS PATIEN TS. Construction Project Manager ID - LORIE GC-REACTIVE [id number] 05:07:30 Test Item Value Reference Range Interpretation Comments C-REACTIVE PROTEIN ([employer]) (test 7.77 mg/dL 0.00-0.50 H code = 676) Construction Project Manager ID - LORIE [id number] 05:07:29 Test Item Value Reference Range Interpretation Comments MAGNESIUM ([employer]ER) 2.4 mg/dL 1.6-2.6 Specimen slightly (test code = 627) hemolyzed Construction Project Manager ID - LORIE GPOCT-GLUCOSE [id number] 16:42:01 Test Item Value Reference Range Interpretation Comments POC-GLUCOSE METER 206 mg/dL 70-110 H : [facility] ([facility]) (test code = [facility], 153) [address]: Construction Project Manager/Techni chitra ID = [id number] for Cinthya stro (agency), [place] POCT-GLUCOSE [id number] 11:51:38 Test Item Value Reference Range Interpretation Comments POC-GLUCOSE METER 190 mg/dL 70-110 H : TESTED [facility] T [facility] ([facility]) (test code = [facility], 1538) [address]: Construction Project Manager/Techni chitra ID = [id number] for Ba josh (agency), [place] POCT-GLUCOSE [id number] 07:36:06 Test Item Value Reference Range Interpretation Comments POC-GLUCOSE METER 151 mg/dL 70-110 H : Notified RN/MD: ([facility]) (test code = TESTED AT [facility] 67[address] 1538) [facility], [id number]: Construction Project Manager/Techni chitra ID = [id number] for Gerardo edwards (contract), [place] HEMOGLOBIN [id number] 07:12:22 Test Item Value Reference Range Interpretation Comments HEMOGLOBIN A1C ([facility]) (test code = 6.3 % 4.3-6.1 H 368) RAD, CHEST, 1 VIEW, NON [id number] 07:12:00Reason for exam:->[facility]B - [facility] : 1945 Sex: MFINAL REPORT RAD, CHEST, 1 VIEW, NON DEPT INDICATION: SOB - COVID COMPARISON: Prior day's exam FINDINGS: Portable frontal view of the chest. IMPRESSION: Support Lines: None Lungs and pleura: Stable air spaces. No new consolidation or effusion. No pneumothorax.Heart and mediastinum: Stable contours. Additional findings: None. Signed: JR Ness Robert MDReport Verified Date/Time: 11/04/2020 07:12:21 Reading Location: [facility] Radiology Reading Room POCT-GLUCOSE [id number] 06:29:06 Test Item Value Reference Range Interpretation Comments POC-GLUCOSE METER 168 mg/dL 70-110 H : TESTED A T [facility] 67[address] (BEAKER) (test code [facility], = 1538) [id number]: Construction Project Manager/Techni chitra ID = [id number] for SUGU , SHEENAMOL [id number] 04:21:34 Test Item Value Reference Range Interpretation Comments PHOSPHORUS (BEAKER) (test code = 3.0 mg/dL 2.3-4.7 604) Construction Project Manager ID - JITENDRA MC-REACTIVE [id number] 04:21:34 Test Item Value Reference Range Interpretation Comments C-REACTIVE PROTEIN (BEAKER) (test 18.07 mg/dL 0.00-0.50 H code = 676) Construction Project Manager ID - JITENDRA MCOMPREHENSIVE METABOLIC [id number] 04:21:33 Test Item Value Reference Range Interpretation Comments TOTAL PROTEIN 5.8 gm/dL 6.0-8.3 L (BEAKER) (test code = 770) ALBUMIN (BEAKER) 3.1 g/dL 3.5-5.0 L (test code = 1145) ALKALINE PHOSPHATASE 51 U/L 40-150 (BEAKER) (test code = 346) BILIRUBIN TOTAL 0.6 mg/dL 0.2-1.2 (BEAKER) (test code = 377) SODIUM (BEAKER) (test 135 meq/L 136-145 L code = 381) POTASSIUM (BEAKER) 4.4 meq/L 3.5-5.1 (test code = 379) CHLORIDE (BEAKER) 103 meq/L 98-107 (test code = 382) CO2 (BEAKER) (test 23 meq/L 22-29 code = 355) BLOOD UREA NITROGEN 20 mg/dL 7-21 (BEAKER) (test code = 354) CREATININE (BEAKER) 0.96 mg/dL 0.57-1.25 (test code = 358) GLUCOSE RANDOM 168 mg/dL 70-105 H (BEAKER) (test code = 652) CALCIUM (BEAKER) 8.6 mg/dL 8.4-10.2 (test code = 697) AST (SGOT) (BEAKER) 21 U/L 5-34 (test code = 353) ALT (SGPT) (BEAKER) 31 U/L 6-55 (test code = 347) EGFR (BEAKER) (test 76 mL/min/1.73 ESTIMA JASPAL GFR IS code = 1092) sq m NOT ACCURATE CREATININE CLEARANCE IN PREDICTING GLOMERULAR FILTRATION RATE . ESTIMATED GFR I S NOT APPLICABLE FOR DIALYSIS PATIEN TS. Construction Project Manager ID - JITENDRA [id number] 04:21:33 Test Item Value Reference Range Interpretation Comments MAGNESIUM (BEAKER) (test code = 2.2 mg/dL 1.6-2.6 627) Construction Project Manager DEEPAK - JITENDRA [id number] 04:12:53 Test Item Value Reference Range Interpretation Comments D-DIMER QUANTITATIVE (BEAKER) 0.89 MG/L FEU <0.50 H (test code = 671) Intended Use: The D-Dimer Assay can be used to aid in the diagnosis of Deep Vein Thrombosis (DVT) and Pulmonary Embolism Disease (PED).In patients with low pre- test probability, various studies concerning STA Liatest D-dimer test have reported that with a cutoff value of 0.50 MG/L FEU, the Negative Predictive Value (NPV) regarding the exclusion of thrombosis is within 95-100% range. PROTHROMBIN [id number] 04:10:13 Test Item Value Reference Range Interpretation Comments PROTIME (BEAKER) 15.2 seconds 11.9-14.2 H (test code = 759) INR (BEAKER) (test 1.22 See_Comment [Automat ed message] code = 370) The system [employer] generated this result transmitted ref erence range: <=5.90. The reference range was not used to int erpret this result as normal/abnormal . RECOMMENDED COUMADIN/WARFARIN INR THERAPY RANGESSTANDARD DOSE: 2.0 - 3.0 Includes: PROPHYLAXIS forvenous thrombosis, systemic embolization; TREATMENT for venous thrombosis and/or pulmonary embolus.HIGH RISK: Target INR is 2.5-3.5 for patients with mechanical heart valves.BLOOD GAS, [id number] 04:07:03 Test Item Value Reference Range Interpretation Comments PH VENOUS (BEAKER) (test code = 7.40 7.32-7.42 701) PCO2 VENOUS (BEAKER) (test code = 41 mm Hg 41-51 755) PO2 VENOUS (BEAKER) (test code = 40 mm Hg 25-40 702) O2 SATURATION VENOUS (BEAKER) 75.2 % 40.0-70.0 H (test code = 703) HCO3 VENOUS (BEAKER) (test code = 25 mmol/L 21-29 705) BASE EXCESS VENOUS (BEAKER) (test 0.1 mmol/L -2.0-3.0 code = 704) PATIENT TEMPERATURE (BEAKER) (test 37.0 code = 1818) CBC W/PLT COUNT & AUTO [id number] 04:02:18 Test Item Value Reference Range Interpretation Comments WHITE BLOOD CELL COUNT (BEAKER) 12.6 K/ L 3.5-10.5 H (test code = 775) RED BLOOD CELL COUNT (BEAKER) 4.75 M/ L 4.63-6.08 (test code = 761) HEMOGLOBIN (BEAKER) (test code = 15.1 GM/DL 13.7-17.5 410) HEMATOCRIT (BEAKER) (test code = 42.8 % 40.1-51.0 411) MEAN CORPUSCULAR VOLUME (BEAKER) 90.1 fL 79.0-92.2 (test code = 753) MEAN CORPUSCULAR HEMOGLOBIN 31.8 pg 25.7-32.2 (BEAKER) (test code = 751) MEAN CORPUSCULAR HEMOGLOBIN CONC 35.3 GM/DL 32.3-36.5 (BEAKER) (test code = 752) RED CELL DISTRIBUTION WIDTH 13.1 % 11.6-14.4 (BEAKER) (test code = 412) PLATELET COUNT (BEAKER) (test 320 K/CU MM 150-450 code = 756) MEAN PLATELET VOLUME (BEAKER) 9.1 fL 9.4-12.4 L (test code = 754) NUCLEATED RED BLOOD CELLS 0 /100 WBC 0-0 (BEAKER) (test code = 413) NEUTROPHILS RELATIVE PERCENT 84 % (BEAKER) (test code = 429) LYMPHOCYTES RELATIVE PERCENT 11 % (BEAKER) (test code = 430) MONOCYTES RELATIVE PERCENT 4 % (BEAKER) (test code = 431) EOSINOPHILS RELATIVE PERCENT 0 % (BEAKER) (test code = 432) BASOPHILS RELATIVE PERCENT 0 % (BEAKER) (test code = 437) NEUTROPHILS ABSOLUTE COUNT 10.49 K/ L 1.78-5.38 H (BEAKER) (test code = 670) LYMPHOCYTES ABSOLUTE COUNT 1.40 K/ L 1.32-3.57 (BEAKER) (test code = 414) MONOCYTES ABSOLUTE COUNT (BEAKER) 0.48 K/ L 0.30-0.82 (test code = 415) EOSINOPHILS ABSOLUTE COUNT 0.00 K/ L 0.04-0.54 L (BEAKER) (test code = 416) BASOPHILS ABSOLUTE COUNT (BEAKER) 0.02 K/ L 0.01-0.08 (test code = 417) IMMATURE GRANULOCYTES-RELATIVE 1 % 0-1 PERCENT (BEAKER) (test code = 2801) CALCIUM, [id number] 04:00:26 Test Item Value Reference Range Interpretation Comments CALCIUM IONIZED (BEAKER) (test 1.16 mmol/L 1.12-1.27 code = 698) PH, BLOOD (BEAKER) (test code = 7.40 1810) [id number] 20:26:13 Test Item Value Reference Range Interpretation Comments FERRITIN (BEAKER) (test code = 970.79 ng/mL 5.00-275.00 H 361) Construction Project Manager ID - BSB-TYPE NATRIURETIC FACTOR (BNP)2020-11-03 20:13:54 Test Item Value Reference Range Interpretation Comments B-TYPE NATRIURETIC PEPTIDE (BEAKER) 498 pg/mL 0-100 H (test code = 700) Construction Project Manager ID - BSC-REACTIVE [id number] 20:08:08 Test Item Value Reference Range Interpretation Comments C-REACTIVE PROTEIN (BEAKER) (test 23.69 mg/dL 0.00-0.50 H code = 676) Construction Project Manager ID - BSCOMPREHENSIVE METABOLIC [id number] 20:08:07 Test Item Value Reference Range Interpretation Comments TOTAL PROTEIN 6.5 gm/dL 6.0-8.3 Specimen sligh tly (BEAKER) (test code = hemoly zed 770) ALBUMIN (BEAKER) 3.4 g/dL 3.5-5.0 L Specimen sl ightly (test code = 1145) hemolyzed ALKALINE PHOSPHATASE 53 U/L 40-150 (BEAKER) (test code = 346) BILIRUBIN TOTAL 0.8 mg/dL 0.2-1.2 Specimen sli ghtly (BEAKER) (test code = hemoly zed 377) SODIUM (BEAKER) (test 135 meq/L 136-145 L code = 381) POTASSIUM (BEAKER) 4.5 meq/L 3.5-5.1 Specimen slightly (test code = 379) hemolyzed CHLORIDE (BEAKER) 102 meq/L 98-107 (test code = 382) CO2 (BEAKER) (test 22 meq/L 22-29 code = 355) BLOOD UREA NITROGEN 19 mg/dL 7-21 (BEAKER) (test code = 354) CREATININE (BEAKER) 1.08 mg/dL 0.57-1.25 Specimen slightly (test code = 358) hemolyzed GLUCOSE RANDOM 149 mg/dL 70-105 H (BEAKER) (test code = 652) CALCIUM (BEAKER) 8.9 mg/dL 8.4-10.2 (test code = 697) AST (SGOT) (BEAKER) 22 U/L 5-34 Specimen slightly (test code = 353) hemolyzed ALT (SGPT) (BEAKER) 32 U/L 6-55 Specimen slightly (test code = 347) hemolyzed EGFR (BEAKER) (test 66 mL/min/1.73 ESTIMA JASPAL GFR IS code = 1092) sq m NOT ACCURATE CREATININE CLEARANCE IN PREDICTING GLOMERULAR FILTRATION RATE . ESTIMATED GFR I S NOT APPLICABLE FOR DIALYSIS PATIEN TS. Construction Project Manager ID - [id number] 20:04:10 Test Item Value Reference Range Interpretation Comments D-DIMER QUANTITATIVE (BEAKER) 1.12 MG/L FEU <0.50 H (test code = 671) Intended Use: The D-Dimer Assay can be used to aid in the diagnosis of Deep Vein Thrombosis (DVT) and Pulmonary Embolism Disease (PED).In patients with low pre- test probability, various studies concerning STA Liatest D-dimer test have reported that with a cutoff value of 0.50 MG/L FEU, the Negative Predictive Value (NPV) regarding the exclusion of thrombosis is within 95-100% range.LACTIC ACID, [id number] 20:03:46 Test Item Value Reference Range Interpretation Comments LACTATE BLOOD VENOUS 1.90 mmol/L 0.50-2.20 Specime n slightly (2) (BEAKER) (test hemolyzed code = 2872) Construction Project Manager ID - BSPROTHROMBIN [id number] 20:01:29 Test Item Value Reference Range Interpretation Comments PROTIME (BEAKER) 14.8 seconds 11.9-14.2 H (test code = 759) INR (BEAKER) (test 1.18 See_Comment [Automat ed message] code = 370) The system [employer] generated this result transmitted ref erence range: <=5.90. The reference range was not used to int erpret this result as normal/abnormal . RECOMMENDED COUMADIN/WARFARIN INR THERAPY RANGESSTANDARD DOSE: 2.0 - 3.0 Includes: PROPHYLAXIS forvenous thrombosis, systemic embolization; TREATMENT for venous thrombosis and/or pulmonary embolus.HIGH RISK: Target INR is 2.5-3.5 for patients with mechanical heart valves.CBC (HEMOGRAM ONLY)2020-11-03 19:50:06 Test Item Value Reference Range Interpretation Comments WHITE BLOOD CELL COUNT (BEAKER) 10.1 K/ L 3.5-10.5 (test code = 775) RED BLOOD CELL COUNT (BEAKER) 5.03 M/ L 4.63-6.08 (test code = 761) HEMOGLOBIN (BEAKER) (test code = 15.9 GM/DL 13.7-17.5 410) HEMATOCRIT (BEAKER) (test code = 45.9 % 40.1-51.0 411) MEAN CORPUSCULAR VOLUME (BEAKER) 91.3 fL 79.0-92.2 (test code = 753) MEAN CORPUSCULAR HEMOGLOBIN 31.6 pg 25.7-32.2 (BEAKER) (test code = 751) MEAN CORPUSCULAR HEMOGLOBIN CONC 34.6 GM/DL 32.3-36.5 (BEAKER) (test code = 752) RED CELL DISTRIBUTION WIDTH 13.1 % 11.6-14.4 (BEAKER) (test code = 412) PLATELET COUNT (BEAKER) (test 362 K/CU MM 150-450 code = 756) MEAN PLATELET VOLUME (BEAKER) 9.2 fL 9.4-12.4 L (test code = 754) NUCLEATED RED BLOOD CELLS 0 /100 WBC 0-0 (BEAKER) (test code = 413) BLOOD GAS, [id number] 19:50:01 Test Item Value Reference Range Interpretation Comments PH VENOUS (BEAKER) (test code = 7.42 7.32-7.42 701) PCO2 VENOUS (BEAKER) (test code = 39 mm Hg 41-51 L 755) PO2 VENOUS (BEAKER) (test code = 27 mm Hg 25-40 702) O2 SATURATION VENOUS (BEAKER) 50.5 % 40.0-70.0 (test code = 703) HCO3 VENOUS (BEAKER) (test code = 25 mmol/L 21-29 705) BASE EXCESS VENOUS (BEAKER) (test 0.4 mmol/L -2.0-3.0 code = 704) PATIENT TEMPERATURE (BEAKER) (test 37.0 code = 1818) FIO2 (BEAKER) (test code = 1819) 100.0 RAD, CHEST, 1 VIEW, NON [id number] 19:04:00Reason for exam:->acute hypoxemic respiratory failureShould this be performed at the bedside?->Yes [facility] 1945 Sex: MFINAL REPORT AP view of the chest dated 11/03/2020 CLINICAL INFOR MATION: acute hypoxemic respiratory failure Comment: Heart is normal in size. Pulmonary vasculatureis unremarkable. Lungs are clear. No pulmonary infiltrate or pleural effusion is present. Impression: No active cardiopulmonary disease. Signed: Estephania Valadez Verified Date/Time: 11/03/2020 19:04:46 Reading Location: [address] Consult Reading Room POCT-GLUCOSE [id number] 18:31:16 Test Item Value Reference Range Interpretation Comments POC-GLUCOSE METER 164 mg/dL 70-110 H : TESTED A T [facility] 6720 (BRIANBHARATHI) (test code = [place], 1538) [address]: Construction Project Manager/Techni chitra ID = [id number] for Joanie Garces
== END 2020-12-08 16:30 | disposition short-term general hospital (02) | DRG 871 ==
LOC: ER 09:58 → ERHOLD 12:44 → UNDOADMIN 12:44
PROVIDERS: ADMIT Hospitalist; ATTEND Hospitalist
PROC: 5A2204Z Restoration of Cardiac Rhythm, Single (ICD-10-PCS; 2020-12-04)
PROC: 5A2204Z Restoration of Cardiac Rhythm, Single (ICD-10-PCS; principal; 2020-12-07)
DX: A41.9 Sepsis, unspecified organism (principal); J15.9 Unspecified bacterial pneumonia; R65.21 Severe sepsis with septic shock; R57.0 Cardiogenic shock; K72.00 Acute and subacute hepatic failure without coma; N17.9 Acute kidney failure, unspecified; E87.1 Hypo-osmolality and hyponatremia; E44.0 Moderate protein-calorie malnutrition; I12.9 Hypertensive chronic kidney disease with stage 1 through stage 4 chronic kidney disease, or unspecified chronic kidney disease; N18.30 Chronic kidney disease, stage 3 unspecified; E83.51 Hypocalcemia; I95.9 Hypotension, unspecified; Z68.28 Body mass index [BMI] 28.0-28.9, adult; D63.8 Anemia in other chronic diseases classified elsewhere; I48.0 Paroxysmal atrial fibrillation; Z86.16 Personal history of COVID-19; Z20.822 Contact with and (suspected) exposure to COVID-19
CPT/HCPCS: 36415; 71045; 71046; 76700; 80048; 80053; 80074; 80076; 80202; 81003; 82150; 82550; 82553; 82805; 82977; 83605; 83735; 83880; 84100; 84145; 84484; 85025; 85610; 85730; 86140; 87040; 87086; 87088; 92960; 93005; 99291; 99292; J0282; J0360; J0692; J1100; J1160; J1650; J2250; J3010; J3370; J7030; J7040; J7050; J7060; U0003

== ENCOUNTER 2022-04-29 13:16 | Emergency (ER) | payer OTHER ==
--- OUTSIDE RECORDS SUMMARY | 2022-04-29 13:28 | XMS REPORT | Continuity of Care Document ---
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 ospita 40 MG EC 00 :00 by mouth 2 l tablet (two) times a day for 30 days. predniSONE 2020-02- No 10mg Take 10 mg [facility] (DELTASONE) 0-[address] 10 mg 00:00: 00:00 See Admin [facility] a tablet 00 :00 Instructchago berkowitz ns. Take 2 tablets by mouth for 3 Days, then 1 tablet by mouth daily. predniSONE 2020-02- No 10mg Take 10 mg [facility] (DELTASONE) 0-13 -[address] 10 mg 00:00: 00:00 See Admin [facility] a tablet 00 :00 Waqas tran. Take 2 tablets by mouth for 3 Days, then 1 tablet by mouth daily. dexAMETHaso 2020- No 6mg QD Take [address] [facility] 11-[facility] tablet ([facility] (DECADRON) 00:00: 23:59 mg total) M edical 6 MG tablet 00 :00 by mouth Cent er daily for 4 days. dexAMETHaso 2020- No 6mg QD Take [address] [facility] ne 11-10-25 tablet ([facility] (DECADRON) 00:00: 23:59 mg total) M edical 6 MG tablet 00 :00 by mouth Cent er daily for 4 days. telmisartan Yes 80mg QD Take [address] [facility] (MICARDIS) 9-20 by [facility] 80 MG 18:33: daily. Medical tablet 06 [place] telmisartan Yes 80mg QD Take [address] [facility] (MICARDIS) 9-20 by mouth [facility] 80 MG 18:33: daily. Medical tablet [address] [place] [address] telmisartan Yes 80mg QD Take [address] [facility] [address] (MICARDIS) 9-20 by mouth [facility] 80 MG 18:33: daily. Medical tablet 06 [place] carvediloL 2020- No 25mg Take [address] [facility] (COREG) 25 -09 11-20 by mouth 2 Bhavna kes MG tablet 11:41: 00:00 (two) Medica l 28 :00 times Center daily with breakfast and dinner. hydrALAZINE No 25mg Q.[id number] Take [address] [facility] (APRESOLINE -09 11- [id number] by mouth 3 [facility] ) 25 MG 11:41: 00:00 3D (three) Medica l tablet 28 :00 times Center daily. furosemide 2020- No 20mg QD Take [address] [facility] (LASIX) 20 -09 11-20 by mouth Luke s MG tablet 11:41: 00:00 daily. Medic al 28 :00 [place] carvediloL 2020- No 25mg Take [address] [facility] (COREG) 25 9-20 09-20 by mouth 2 Bhavna kes MG tablet 11:41: 00:00 (two) Medica l 28 :00 times Center daily with breakfast and dinner. hydrALAZINE 2020- No 25mg Q.[id number] Take [address] [facility] (APRESOLINE 11-09 [id number] by mouth 3 [facility] ) 25 MG 11:41: 00:00 3D (three) Medica l tablet 28 :00 times Center daily. furosemide 2020- No 20mg QD Take [address] [facility] (LASIX) 20 11-09 by mouth Luke s MG tablet 11:41: 00:00 daily. Medic al 28 :00 Center hydrALAZINE Yes 100mg Q.[id number] Take [address] [facility] (APRESOLINE - [id number] tablet [facility] ) 100 MG 00:00: 3D (100 mg Medica l tablet 00 total) by Center mouth 3 (three) times daily. furosemide 2020-0 Yes 20mg [facility] 9-20 tablet (20 Jennifer es MG tablet 00:00: mg total) Med ical 00 by mouth Center daily as needed (swelling or a weight gain of > 2 pounds in one day). amLODIPine 2020-0 Yes 5mg QD [facility] 5 9-20 tablet (5 Jennifer es MG tablet 00:00: mg total) Med ical 00 by mouth Center daily. hydrALAZINE 0 Yes 100mg Q.[id number] Take [address] [facility] (APRESOLINE - [id number] tablet [facility] ) 100 MG 00:00: 3D (100 mg Medica l tablet 00 total) by Center mouth 3 (three) times daily. furosemide 2020-0 Yes 20mg Take [facility] 20 9-20 tablet (20 Jennifer es MG tablet 00:00: mg total) Med ical 00 by mouth Center daily as needed (swelling or a weight gain of > 2 pounds in one day). amLODIPine 2020-0 Yes 5mg QD Take [facility] 5 9-20 tablet (5 Jennifer es MG tablet 00:00: mg total) Med ical 00 by mouth Center daily. hydrALAZINE 0 Yes 100mg Q.[id number] Take [address] [facility] [address] (APRESOLINE 9-20 [id number] tablet [facility] ) 100 MG 00:00: 3D (100 mg Medica l tablet 00 total) by Center mouth 3 (three) times daily. furosemide Yes 20mg Take [facility] 20 9-20 tablet (20 Jennifer es MG tablet 00:00: mg total) Med ical 00 by mouth Center daily as needed (swelling or a weight gain of > 2 pounds in one day). amLODIPine Yes 5mg QD Take [facility] 5 9-20 tablet (5 Jennifer es MG tablet 00:00: mg total) Med ical 00 by mouth Center daily. amLODIPine 2020- No 10mg QD Take [address] [facility] [address] (NORVASC) 9-20 09-20 tablet (10 Jennifer es 10 MG 00:00: 00:00 mg total) Medica l tablet 00 :00 by mouth Center daily. amLODIPine 2020- No 10mg QD Take [address] [facility] (NORVASC) 9-20 09-20 tablet (10 Jennifer es 10 MG 00:00: 00:00 mg total) Medica l tablet 00 :00 by mouth Center daily. furosemide 2020-0 2020- No 20mg Q24H Take 20 mg [facility] (LASIX) 20 8-19 11-[address] mg tablet 00:00: 00:[address] 00 :00 needed. l unknown dose, read transfer paper work from previous hospital. Pt stated, "My knows everything . She will be back in the morning". furosemide 2020-0 2020- No 20mg Q24H Take 20 mg [facility] (LASIX) 20 8-19 11-[address] mg tablet 00:00: 00:[address] 00 :00 needed. l unknown dose, read transfer paper work from previous hospital. Pt stated, "My knows everything . She will be back in the morning". hydrALAZINE 2020-2020- No 25mg Q.[id number] Take 25 mg [facility] (APRESOLINE 7-20 11-05 [id number] mouth 3 st ) 25 MG 00:00: 00:00 3D (three) Hospit a tablet 00 :00 times a l day. unknown dose, read transfer paper work from previous hospital. Pt stated, "My knows everything . She will be back in the morning". hydrALAZINE 2020- No 25mg Q.[id number] Take 25 mg [facility] (APRESOLINE 7-20 11-[id number] mouth 3 st ) 25 MG 00:00: 00:00 3D (three) Hospit a tablet 00 :00 times a l day. unknown dose, read transfer paper work from previous hospital. Pt stated, "My knows everything . She will be back in the morning". furosemide Yes DAILY [facility] (Lasix) 40 2-07 st mg tablet 00:00: Hospita 00 l furosemide Yes DAILY [facility] (Lasix) 40 2-07 st mg tablet 00:00: Hospita 00 l furosemide 2021- No 40mg Q.5D Take 40 mg [facility] (LASIX) 40 2-[address] mg tablet 00:00: 00:00 (two) Hospit a 00 :00 times a l day. Vital Signs Vital Name Observation Time Observation Value Comments Source WEIGHT 2020-11-06 03:00:00 79.1 kg WEIGHT 2020-11-05 07:00:00 79.2 kg WEIGHT 2020-11-03 18:45:00 79.2 kg HEIGHT 2020-11-03 18:45:00 180.3 cm Respiratory rate 2022-03-26 04:30:00 23 /min [facility] Oxygen saturation in 2022-03-26 04:30:00 97 /min [facility] Arterial blood by [facility] Pulse oximetry Branch Systolic blood 2022-03-26 04:30:00 109 mm[Hg[facility] 2022-03-26 04:30:00 74 mm[Hg] [facility] Heart rate 2022-03-26 04:30:00 80 /min [facility] Body temperature 2022-03-25 19:51:00 35 [facility] Body height 2022-03-25 19:51:00 180.3 cm [facility] Body weight 2022-03-25 19:51:00 71.215 kg [facility] BMI 2022-03-25 19:51:00 21.90 kg/m2 [facility] WEIGHT 2020-11-06 03:00:00 79.1 kg WEIGHT 2020-11-05 07:00:00 79.2 kg WEIGHT 2020-11-03 18:45:00 79.2 kg HEIGHT 2020-11-03 18:45:00 180.3 cm Systolic blood 2022-04-27 12:00:00 102 mm[Hg] [facility] pt [facility] pressure Diastolic blood 2022-04-27 12:00:00 76 mm[Hg] Per pt [facility] pressure Heart rate 2022-04-27 12:00:00 78 /min Per pt [facility] Body weight 2022-04-27 12:00:[address] [facility] BMI 2022-04-27 12:00:00 20.36 kg/m2 [facility] Body temperature 2022-03-31 18:18:04 37.06 [facility] Respiratory rate 2022-03-31 18:18:04 17 /min [facility] Oxygen saturation in 2022-03-31 18:18:04 99 /min [facility] Arterial blood by Pulse oximetry Body height 2021-12-10 16:48:[address] [facility] Systolic blood 2021-01-29 14:35:00 143 mm[Hg] [facility] pressure Diastolic blood 2021-01-29 14:35:00 76 mm[Hg] [facility] pressure Heart rate 2021-01-29 14:35:00 79 /min [facility] Body height 2021-01-29 14:35:[address] [facility] Body weight 2021-01-29 14:35:[address] [facility] BMI 2021-01-29 14:35:00 23.10 kg/m2 [facility] Oxygen saturation in 2021-01-29 14:35:00 97 /min [facility] Arterial blood by Pulse oximetry Respiratory rate 2021-01-27 16:07:00 17 /min [facility] Body temperature 2020-12-26 00:33:52 36 [facility] Systolic blood 2020-11-09 16:00:00 121 mm[Hg] [facility] Diastolic blood 2020-11-09 16:00:00 61 mm[Hg] [facility] Heart rate 2020-11-09 16:00:00 78 /min [facility] Body temperature 2020-11-09 16:00:00 35.83 Erendira [facility] Respiratory rate 2020-11-09 16:00:00 20 /min [facility] Oxygen saturation in 2020-11-09 16:00:00 93 /min [facility] Arterial blood by [facility]ter Pulse oximetry Body weight 2020-11-06 03:00:00 79.1 kg [facility] BMI 2020-11-06 03:00:00 24.32 kg/m2 [facility] Body height 2020-11-03 18:45:00 180.3 cm [facility] Procedures Procedure Date / Time Performing Source Performed Clinician POC GLUCOSE 2022-03-31 Issa Walters 18:16:00 O. Hospital POC GLUCOSE 2022-03-31 Issa Walters 13:28:00 O. Hospital PROTHROMBIN TIME WITH INR 2022-03-31 Miguelito Joshi ist 11:19:00 Hospital CBC WITH PLATELET AND DIFFERENTIAL 2022-03-31 Sepideh Joshi ed 11:19:00 Hospital SMEAR REVIEW 2022-03-31 Miguelito Joshi 11:19:00 Hospital POC GLUCOSE 2022-03-31 Issa Walters 03:23:00 O. Hospital POC GLUCOSE 2022-03-30 Issa Walters 23:50:00 O. Hospital XR CHEST 1 VW 2022-03-30 Renny Panchal 19:41:02 [facility] US THORACENTESIS WITH IMAGING 2022-03-30 Issa Walters ethodist 19:20:00 O. Hospital AFB STAIN 2022-03-30 Issa Walters 19:15:00 O. Hospital AFB CULTURE 2022-03-30 Issa Walters 19:15:00 O. Hospital AEROBIC CULTURE 2022-03-30 Issa Walters 19:15:00 O. Hospital ANAEROBIC CULTURE 2022-03-30 Issa Walters 19:15:00 O. Hospital FUNGUS CULTURE 2022-03-30 Issa Walters 19:15:00 O. Hospital GRAM STAIN 2022-03-30 Issa Walters 19:15:00 O. Hospital AMYLASE LEVEL, [place] FLUID 2022-03-30 Issa Walters [facility] dist 19:15:00 O. Hospital GLUCOSE LEVEL, [place] FLUID 2022-03-30 Issa Walters Metho dist 19:15:00 O. Hospital LDH, [place] FLUID 2022-03-30 Issa Walters 19:15:00 O. Hospital PROTEIN, [place] FLUID 2022-03-30 Issa Walters 19:15:00 O. Hospital CELL COUNT AND DIFFERENTIAL, BODY 2022-03-30 [address] [facility] FLUID 19:15:00 O. Hospital ALBUMIN, [place] FLUID 2022-03-30 Issa Walters 19:15:00 O. Hospital CREATININE LEVEL, [place] FLUID 2022-03-30 Issa Walters Me thodist 19:15:00 O. Hospital TRIGLYCERIDES, [place] FLUID 2022-03-30 Issa Walterso dist 19:15:00 O. Hospital BILIRUBIN TOTAL, [place] FLUID 2022-03-30 Issa Walters hodist 19:15:00 O. Hospital PH, [place] FLUID 2022-03-30 Issa Walters 19:15:00 O. Hospital LIPASE LEVEL, [place] FLUID 2022-03-30 Issa Walters ist 19:15:00 O. Hospital BASIC METABOLIC PANEL 2022-03-30 Miguelito Joshi 13:21:00 Hospital ESTIMATED GFR 2022-03-30 Miguelito Joshi 13:21:00 Hospital PROTHROMBIN TIME WITH INR 2022-03-30 Nya Frye odist 11:26:00 [facility] POC GLUCOSE 2022-03-30 Issa Walters 03:34:00 O. Hospital POC GLUCOSE 2022-03-29 Issa Walters 18:10:00 O. Hospital POC GLUCOSE 2022-03-29 Issa Walters 15:18:00 O. Hospital CBC WITH PLATELET AND DIFFERENTIAL 2022-03-29 Sepideh Joshi ed 11:40:00 Hospital SMEAR REVIEW 2022-03-29 Miguelito Joshiist 11:40:00 Hospital COMPREHENSIVE METABOLIC PANEL 2022-03-29 Berto Barrios Mo thodist 11:37:00 Hospital PROTHROMBIN TIME WITH INR 2022-03-29 Miguelito Joshi ist 11:37:00 Hospital MAGNESIUM LEVEL 2022-03-29 Miguelito Joshiist 11:37:00 Hospital ESTIMATED GFR 2022-03-29 Berto Barriosist 11:37:00 Hospital POC GLUCOSE 2022-03-29 Issa Walters 03:06:00 O. Hospital POC GLUCOSE 2022-03-28 Issa Walters 17:34:00 O. Hospital US CHEST 2022-03-28 Issa Walters 14:22:00 O. Hospital POC GLUCOSE 2022-03-28 Issa Walters 13:41:00 O. Hospital CBC WITH PLATELET AND DIFFERENTIAL 2022-03-28 Homa Walters 11:28:00 O. Hospital COMPREHENSIVE METABOLIC PANEL 2022-03-28 Berto Barrios Mo thodist 11:28:00 Hospital ACUTE VIRAL HEPATITIS PANEL (HAV, 2022-03-28 Esthela Walters [facility] HBV, HCV) 11:28:00 O. Hospital ESTIMATED GFR 2022-03-28 Berto Barrios 11:28:00 Hospital SMEAR REVIEW 2022-03-28 Issa Walters 11:28:00 O. Hospital POC GLUCOSE 2022-03-28 Issa Walters 03:19:00 O. Hospital POC GLUCOSE 2022-03-27 Issa Walters 22:05:00 O. Hospital POC GLUCOSE 2022-03-27 Issa Walters 18:12:00 O. Hospital POC GLUCOSE 2022-03-27 Issa Walters 13:21:00 O. Hospital POC GLUCOSE 2022-03-27 Issa Walters 12:56:00 O. Hospital CBC WITH PLATELET AND DIFFERENTIAL 2022-03-27 Romeo, [facility] 07:41:00 O. Hospital B NATRIURETIC PEPTIDE 2022-03-27 Lc Wilder 07:41:00 [facility] SMEAR REVIEW 2022-03-27 Issa Walters 07:41:00 O. Hospital TROPONIN T 2022-03-27 Issa Walters 07:40:00 O. Hospital PROTHROMBIN TIME WITH INR 2022-03-27 Berto Barrios Method ist 07:40:00 Hospital MAGNESIUM LEVEL 2022-03-27 Berto Barrios [facility] 07:40:00 Hospital COMPREHENSIVE METABOLIC PANEL 2022-03-27 Berto Barrios Me thodist 07:40:00 Hospital ESTIMATED GFR 2022-03-27 Berto Barriosist 07:40:00 Hospital ESTIMATED GFR 2022-03-27 Lc Wilder 05:17:00 [facility] POC GLUCOSE 2022-03-27 Issa Walters 03:14:00 O. Hospital PROTHROMBIN TIME WITH INR 2022-03-27 Lc Wilder Method ist 01:30:00 [facility] B NATRIURETIC PEPTIDE 2022-03-27 Lc Wilder 01:29:00 [facility] TROPONIN T 2022-03-27 Issa Walters 01:29:00 O. Hospital POC GLUCOSE 2022-03-27 Issa Walters 00:28:00 O. Hospital POC GLUCOSE 2022-03-26 Issa Walters 22:57:00 O. Hospital TROPONIN T 2022-03-26 Issa Walters 19:31:00 O. Hospital POC GLUCOSE 2022-03-26 Issa Walters 18:09:00 O. Hospital TTE COMPLETE, W CONTRAST, W 2022-03-26 Issa Walters Met hodist DOPPLER ([id number]) 17:00:00 O. Hospital XR CHEST 2 VW 2022-03-26 Issa Walters 14:24:00 O. Hospital POC GLUCOSE 2022-03-26 Issa Walters 13:53:00 O. Hospital MAGNESIUM LEVEL 2022-03-26 Issa Walters 10:12:00 O. Hospital PROTHROMBIN TIME WITH INR 2022-03-26 Issa Walters Metho dist 10:12:00 O. Hospital CBC WITH PLATELET AND DIFFERENTIAL 2022-03-26 Homa Walters 10:12:00 O. Hospital COMPREHENSIVE METABOLIC PANEL 2022-03-26 Issa Walters ethodist 10:12:00 O. Hospital BASIC METABOLIC PANEL 2022-03-26 Issa Walters 10:12:00 O. Hospital HEMOGLOBIN A1C 2022-03-26 Issa Walters 10:12:00 O. Hospital LIPID PANEL 2022-03-26 Issa Walters 10:12:00 O. Hospital THYROID STIMULATING HORMONE 2022-03-26 Issa Walters hodist 10:12:00 O. Hospital T4, FREE 2022-03-26 Issa Walters 10:12:00 O. Hospital TROPONIN T 2022-03-26 Issa Walters 10:12:00 O. Hospital ESTIMATED GFR 2022-03-26 Issa Walters 10:12:00 O. Hospital SMEAR REVIEW 2022-03-26 Issa Walters 10:12:00 O. Hospital ECG 12-LEAD 2022-03-26 Issa Walters 10:01:48 O. Hospital POC GLUCOSE 2022-03-26 Issa Walters 06:20:00 O. Hospital US ABDOMEN LIMITED 2022-03-26 Annamaria Walters o f 00:40:18 [facility] CT ABDOMEN PELVIS WO CONTRAST 2022-03-25 Annamaria Walters [facility] of 22:18:24 [facility] HB ECG ROUTINE & RHYTHM STRIP 2022-03-25 Annamaria Walters [facility] of 20:34:21 [facility] MAGNESIUM 2022-03-25 Annamaria Walters of 20:31:00 [facility] TROPONIN I 2022-03-25 Annamaria Walters of 20:31:00 [facility] COMP. METABOLIC PANEL ([id number]) 2022-03-25 Annamaria Walters nivpatity of 20:31:00 [facility] CBC WITH DIFF 2022-03-25 Annamaria Walters of 20:31:00 [facility] PROTHROMBIN TIME / INR 2022-03-25 Annamaria Waltersi ty of 20:31:00 [facility] URINALYSIS 2022-03-25 [facility] of 20:31:00 [facility] RAPID INFLUENZA A/B 2022-03-25 [facility] of 20:31:00 [facility] N-TERMINAL PRO-BNP 2022-03-25 [facility] o f 20:31:00 [facility] COVID-19 (ID NOW RAPID TESTING) 2022-03-25 [facility] of 20:31:00 [facility] NOTICE OF PRIVACY PRACTICES 2022-03-25 [facility] ersity of 19:44:24 Unassigned, No [facility] CONSENT/REFUSAL FOR DIAGNOSIS AND 2022-03-25 [facility] of TREATMENT 19:42:20 Unassigned, No [facility] NOTICE OF PRIVACY PRACTICES 2022-01-25 [facility] ersity of 21:44:03 Unassigned, No [facility] CONSENT/REFUSAL FOR DIAGNOSIS AND 2022-01-25 [facility] of TREATMENT 21:43:45 Unassigned, No [facility] ASSIGNMENT OF BENEFITS 2022-01-25 [facility] of 21:43:25 Unassigned, No [facility] CV PACEMAKER DEFIB ILR 2021-12-27 Gilberto Mercedes INTERROGATION 00:00:00 [facility] BASIC METABOLIC PANEL 2021-12-10 Eric Pineda 17:36:00 [facility] CBC WITH PLATELET AND DIFFERENTIAL 2021-12-10 Eric Pineda 17:36:00 [facility] ESTIMATED GFR 2021-12-10 Eric Pineda 17:36:00 [facility] TTE COMPLETE, W CONTRAST, W 2021-12-10 Eric Pineda odist DOPPLER ([id number]) 17:10:00 [facility] ECG 12-LEAD 2021-12-10 Edison Pinedahikevin Lawson 16:56:53 [facility] CBC WITH PLATELET AND DIFFERENTIAL 2021-11-22 Robert Lawrence 15:53:00 [facility] COMPREHENSIVE METABOLIC PANEL 2021-11-22 Robert Lawrence thodist 15:53:00 [facility] PHOSPHORUS LEVEL 2021-11-22 Robert Lawrence 15:53:00 [facility] URIC ACID LEVEL 2021-11-22 Robert Lawrence 15:53:00 [facility] PARATHYROID HORMONE 2021-11-22 Robert Lawrence 15:53:00 [facility] POC GLUCOSE 2021-11-12 Issa Walters 16:41:00 O. Hospital POC GLUCOSE 2021-11-12 Issa Walters 13:11:00 O. Hospital XR CHEST 1 VW PORTABLE 2021-11-12 Maurizio Dee 12:10:00 [facility] PROTHROMBIN TIME WITH INR 2021-11-12 Okunrintemi, Method ist 10:36:00 [facility] LACTIC ACID LEVEL 2021-11-12 Ruth Fontaine 10:36:00 Hospital CBC WITH PLATELET AND DIFFERENTIAL 2021-11-12 Alvaro Dee 10:36:00 [facility] BASIC METABOLIC PANEL 2021-11-12 Maurizio Dee 10:36:00 [facility] MAGNESIUM LEVEL 2021-11-12 Maurizio Dee 10:36:00 [facility] B NATRIURETIC PEPTIDE 2021-11-12 Maurizio Dee 10:36:00 [facility] THYROID STIMULATING HORMONE 2021-11-12 Maurizio Dee 10:36:00 [facility] T4, FREE 2021-11-12 Maurizio Dee 10:36:00 [facility] TOTAL IRON BINDING CAPACITY 2021-11-12 Maurizio Dee 10:36:00 [facility] FERRITIN LEVEL 2021-11-12 Maurizio Dee 10:36:00 [facility] ESTIMATED GFR 2021-11-12 Maurizio Dee 10:36:00 [facility] B NATRIURETIC PEPTIDE 2021-11-11 Kavya Manciniist 10:16:00 Hospital COMPREHENSIVE METABOLIC PANEL 2021-11-11 Kavya Mancini Mo thodist 10:16:00 Hospital PROTHROMBIN TIME WITH INR 2021-11-11 Okunrintemi, Method ist 10:16:00 [facility] ESTIMATED GFR 2021-11-11 Issa Walters 10:16:00 O. Hospital XR CHEST 1 VW PORTABLE 2021-11-10 Shayla Draper 16:10:00 Hospital TTE COMPLETE, W CONTRAST, W 2021-11-10 James Licona Meth odist DOPPLER ([id number]) 15:00:00 Hospital B NATRIURETIC PEPTIDE 2021-11-10 Kavya Mancini 06:23:00 Hospital COMPREHENSIVE METABOLIC PANEL 2021-11-10 Kavya Mancini Me thodist 06:22:00 Hospital PARTIAL THROMBOPLASTIN TIME (PTT) 2021-11-10 Evita Mancini 06:22:00 Hospital ESTIMATED GFR 2021-11-10 Issa Walters 06:22:00 O. Hospital POC GLUCOSE 2021-11-10 Issa Walters 02:14:00 O. Hospital POC GLUCOSE 2021-11-09 Issa Walters 21:58:00 O. Hospital POC GLUCOSE 2021-11-09 Issa Walters 17:57:00 O. Hospital CV MITRAL CLIP 2021-11-09 Eric Pineda 17:17:53 [facility] ARTERIAL LINE 2021-11-09 Usha Oswald 15:29:31 Hospital MA AN ELECTIVE ENDOTRACHEAL AIRWAY 2021-11-09 Usha Oswald 15:29:00 Hospital ECHOCARDIOGRAM TRANSESOPHAGEAL 2021-11-09 Ronny Balbuena INTRAPROCEDURE 14:22:00 H. Hospital XR CHEST 1 VW PORTABLE 2021-11-09 James Licona 13:35:00 Hospital PARTIAL THROMBOPLASTIN TIME (PTT) 2021-11-09 Esthela Walters 13:19:00 O. Hospital POC GLUCOSE 2021-11-09 Issa Walters 13:07:00 O. Hospital PROTHROMBIN TIME WITH INR 2021-11-09 Issa Walterso dist 07:00:00 O. Hospital PARTIAL THROMBOPLASTIN TIME (PTT) 2021-11-09 Esthela Walters 07:00:00 O. Hospital CBC WITH PLATELET AND DIFFERENTIAL 2021-11-09 Homa Walters 07:00:00 O. Hospital B NATRIURETIC PEPTIDE 2021-11-09 Issa Walters 07:00:00 O. Hospital COMPREHENSIVE METABOLIC PANEL 2021-11-09 Romeo, Issa M ethodist 07:00:00 O. Hospital MAGNESIUM LEVEL 2021-11-09 Issa Walters 07:00:00 O. Hospital PHOSPHORUS LEVEL 2021-11-09 Issa Walters 07:00:00 O. Hospital ESTIMATED GFR 2021-11-09 Issa Walters 07:00:00 O. Hospital POC GLUCOSE 2021-11-09 Issa Walters 02:02:00 O. Hospital POC GLUCOSE 2021-11-08 Issa Walters 23:07:00 O. Hospital TYPE AND SCREEN 2021-11-08 Eric Pineda [facility] 21:26:00 [facility] PARTIAL THROMBOPLASTIN TIME (PTT) 2021-11-08 Esthela Walters 21:26:00 O. Hospital ECG 12-LEAD 2021-11-08 Shayla Draperist 18:35:24 Hospital POC GLUCOSE 2021-11-08 Issa Walters 17:46:00 O. Hospital COMPREHENSIVE METABOLIC PANEL 2021-11-08 Kavya Mancini Me thodist 15:49:00 Hospital B NATRIURETIC PEPTIDE 2021-11-08 Kavya Mancini 15:49:00 Hospital MAGNESIUM LEVEL 2021-11-08 Kavya Mancini 15:49:00 Hospital LACTIC ACID LEVEL 2021-11-08 Kavya Mancini 15:49:00 Hospital ESTIMATED GFR 2021-11-08 Issa Walters 15:49:00 O. Hospital PARTIAL THROMBOPLASTIN TIME (PTT) 2021-11-08 Evita Mancini 13:56:00 Hospital POC GLUCOSE 2021-11-08 Issa Walters 13:00:00 O. Hospital PROTHROMBIN TIME WITH INR 2021-11-08 Evita Mancini ist 06:07:00 Hospital MAGNESIUM LEVEL 2021-11-08 Kavya Mancini 06:07:00 Hospital PARTIAL THROMBOPLASTIN TIME (PTT) 2021-11-08 Evita Mancini 06:07:00 Hospital B NATRIURETIC PEPTIDE 2021-11-08 Kavya Mancini 06:06:00 Hospital POC GLUCOSE 2021-11-08 Issa Walters 01:15:00 O. Hospital POC GLUCOSE 2021-11-07 Issa Walters 22:39:00 O. Hospital PARTIAL THROMBOPLASTIN TIME (PTT) 2021-11-07 GiaPratibha 21:14:00 Hospital POC GLUCOSE 2021-11-07 Issa Walters 17:37:00 O. Hospital POC GLUCOSE 2021-11-07 Issa Walters 12:19:00 O. Hospital CBC WITH PLATELET AND DIFFERENTIAL 2021-11-07 Makenzie Mancini 09:36:00 Hospital COMPREHENSIVE METABOLIC PANEL 2021-11-07 Evita Mancini Mo thodist 09:36:00 Hospital PROTHROMBIN TIME WITH INR 2021-11-07 Evita Mancini Method ist 09:36:00 Hospital B NATRIURETIC PEPTIDE 2021-11-07 Kavya Mancini 09:36:00 Hospital MAGNESIUM LEVEL 2021-11-07 Kavya Mancini 09:36:00 Hospital ESTIMATED GFR 2021-11-07 Evita Mancini 09:36:00 Hospital POC GLUCOSE 2021-11-06 Issa Walters 23:02:00 O. Hospital POC GLUCOSE 2021-11-06 Issa Walters 17:40:00 O[facility] POC GLUCOSE 2021-11-06 Issa Walters 13:01:00 O[facility] CBC WITH PLATELET AND DIFFERENTIAL 2021-11-06 Makenzie Mancini 09:28:00 Hospital COMPREHENSIVE METABOLIC PANEL 2021-11-06 Evita Mancini [facility] 09:28:00 Hospital PROTHROMBIN TIME WITH INR 2021-11-06 Evita Mancini Method ist 09:28:00 Hospital B NATRIURETIC PEPTIDE 2021-11-06 Kavya Mancini 09:28:00 Hospital MAGNESIUM LEVEL 2021-11-06 Kavya Manciniist 09:28:00 Hospital ESTIMATED GFR 2021-11-06 Evita Mancini 09:28:00 Hospital POC GLUCOSE 2021-11-05 Issa Walters 23:41:00 O[facility] VENIPUNC NEED PHYS SKILL,DX OR RX 2021-11-05 Michael Alvarez 22:51:45 Hospital XR CHEST 1 VW PORTABLE 2021-11-05 Shayla Draper 17:06:18 Hospital POC GLUCOSE 2021-11-05 Issa Waltersist 15:54:00 [facility] CV RIGHT HEART CATH 2021-11-05 Evita Mancini 15:38:38 Hospital CBC WITH PLATELET AND DIFFERENTIAL 2021-11-05 Makenzie Manciniist 10:35:00 Hospital COMPREHENSIVE METABOLIC PANEL 2021-11-05 Evita Mancini thodist 10:35:00 Hospital PROTHROMBIN TIME WITH INR 2021-11-05 Kavya Mancini ist 10:35:00 Hospital ANTI XA, UNFRACTIONATED 2021-11-05 Kavya Manciniis t 10:35:00 Hospital PARTIAL THROMBOPLASTIN TIME (PTT) 2021-11-05 Kavya Mancini 10:35:00 Hospital ESTIMATED GFR 2021-11-05 Evita Mancini 10:35:00 Hospital B NATRIURETIC PEPTIDE 2021-11-05 Evita Mancini 10:21:00 Hospital ESTIMATED GFR 2021-11-05 Evita Mancini 10:21:00 Hospital COVID-19 QUALITATIVE RT-PCR 2021-11-05 Evita Mancini Meth odist 02:12:00 Hospital PROTHROMBIN TIME WITH INR 2021-11-04 Kavya Mancini ist 23:29:00 Hospital PARTIAL THROMBOPLASTIN TIME (PTT) 2021-11-04 Kavya Mancini [facility] 23:29:00 Hospital CBC HEMOGRAM 2021-11-04 Kavya Manciniist 23:29:00 Hospital ANTI XA, UNFRACTIONATED 2021-11-04 Kavya Mancini Methodis t 23:29:00 Hospital MAGNESIUM LEVEL 2021-11-01 Roebrt Lawrence 16:30:00 [facility] CBC WITH PLATELET AND DIFFERENTIAL 2021-11-01 Robert Lawrence 16:30:00 [facility] BASIC METABOLIC PANEL 2021-11-01 Robert Lawrence 16:30:00 [facility] B NATRIURETIC PEPTIDE 2021-11-01 Renny Bryan 16:30:00 [facility] PHOSPHORUS LEVEL 2021-11-01 Robert Lawrence 16:30:00 [facility] ECG 12-LEAD 2021-11-01 Renny Bryan 15:08:51 [facility] TTE COMPLETE, W CONTRAST, W 2021-11-01 Marti Bryan DOPPLER ([id number]) 15:05:04 [facility] ECG 12-LEAD 2021-10-15 Miriam Eric [facility] 16:01:57 [facility] CBC WITH PLATELET AND DIFFERENTIAL 2021-10-08 Homa Walters 08:07:00 [facility] PROTHROMBIN TIME WITH INR 2021-10-08 Issa Walterso dist 08:07:00 [facility] XR CHEST 1 VW PORTABLE 2021-10-08 Renny Barajas 02:11:22 [facility] ECG PRE/POST OP 2021-10-08 GomezRenny Fernando 01:31:45 [facility] EP PACEMAKER INSERTION NEW OR 2021-10-08 Gilberto Mercedes. Me thodist REPLACEMENT 01:20:24 Hospital ECG PRE/POST OP 2021-10-07 Shayla Draper 11:37:17 Hospital CBC WITH PLATELET AND DIFFERENTIAL 2021-10-07 Homa Walters 09:49:00 [facility] PROTHROMBIN TIME WITH INR 2021-10-07 Issa Walterso dist 09:49:00 [facility] BASIC METABOLIC PANEL 2021-10-07 Mercy Gonzalez 09:49:00 Hospital MAGNESIUM LEVEL 2021-10-07 Mercy Gonzalez 09:49:00 Hospital ESTIMATED GFR 2021-10-07 Mercy Gonzalez 09:49:00 Hospital CONSULT TO WOUND AND CONTINENCE 2021-10-06 Issa Walters NURSE 22:11:54 [facility] DURABLE MEDICAL EQUIPMENT 2021-10-06 Issa Walters Metho dist 17:09:42 [facility] DURABLE MEDICAL EQUIPMENT 2021-10-06 Issa Walters Metho dist 16:41:28 [facility] XR CHEST 1 VW PORTABLE 2021-10-06 Shayla Draper 14:50:00 Hospital TTE COMPLETE, W CONTRAST, W 2021-10-06 Issa Walters hodist DOPPLER ([id number]) 11:00:00 [facility] ECG PRE/POST OP 2021-10-06 James Liocna 10:22:10 Hospital ANTI XA, UNFRACTIONATED 2021-10-[address] 08:06:00 [facility] PROTHROMBIN TIME WITH INR 2021-10-06 Issa Walters Metho dist 08:06:00 [facility] BASIC METABOLIC PANEL 2021-10-06 James Licona [facility] 08:06:00 Hospital CBC WITH PLATELET AND DIFFERENTIAL 2021-10-06 James Licona [facility] 08:06:00 Hospital ESTIMATED GFR 2021-10-06 Issa Walters 08:06:00 [facility] ARTERIAL BLOOD GAS 2021-10-06 James Pacheco 02:51:00 [facility] LACTIC ACID, SYRINGE 2021-10-06 Issa Walters 02:51:00 [facility] XR CHEST 1 VW PORTABLE 2021-10-05 Kimmy Arroyo t 22:09:59 [facility] TTE COMPLETE, WO CONTRAST, W 2021-10-05 Issa Walters Me thodist DOPPLER ([id number]) 21:48:00 [facility] POC GLUCOSE 2021-10-05 Issa Walters 21:31:00 [facility] EP TEMPORARY LEAD INSERTION 2021-10-05 [facility] Marti odist 21:20:51 [facility] CV [facility]ARD[facility] 21:20:51 [facility] CV AORTOGRAM ABDOMINAL AORTA 2021-10-05 [facility] Met hodist 21:20:51 [facility] PV TRANS DOPPLER INTRACRANIAL 2021-10-05 Kimmy Arroyo ethodi ARTERIES EMBOLI DETECTION WO 20:38:00 [facility] pital INJECTION POC ARTERIAL BLOOD GAS, CORRECTED 2021-10-05 Esthela Walters in [facility] AND DORI 20:36:00 [facility] ACTIVATED CLOTTING TIME 2021-10-[address] 20:34:00 [facility] ACTIVATED CLOTTING TIME 2021-10-[address] 20:03:00 [facility] POC ARTERIAL BLOOD GAS, CORRECTED 2021-10-05 Esthela Walters in [facility] AND LYTES 19:46:00 [facility] ARTERIAL LINE 2021-10-05 Tawanna Hou 19:22:59 Hospital TAVR FOR SURGERY 2021-10-05 Kimmy Arroyo 18:57:00 [facility] POC GLUCOSE 2021-10-05 Issa Walters 17:05:00 [facility] TYPE AND SCREEN 2021-10-05 Kimmy Arroyo 16:29:00 [facility] PREPARE RBC 2021-10-05 Kimmy Arroyo 16:29:00 [facility] ANTI XA, UNFRACTIONATED 2021-10-[address] 13:43:00 [facility] PROTHROMBIN TIME WITH INR 2021-10-05 Issa Walters Metho dist 13:43:00 [facility] BASIC METABOLIC PANEL 2021-10-05 Linda Hilton 11:20:00 [facility] PROTHROMBIN TIME WITH INR 2021-10-05 Shayla Draper ist 11:20:00 Hospital PARTIAL THROMBOPLASTIN TIME (PTT) 2021-10-05 Shayla Draper 11:20:00 Hospital CBC WITH PLATELET AND DIFFERENTIAL 2021-10-05 Shayla Draper 11:20:00 Hospital B NATRIURETIC PEPTIDE 2021-10-05 Shayla Draper 11:20:00 Hospital ANTI XA, UNFRACTIONATED 2021-10-[address] 11:20:00 [facility] ESTIMATED GFR 2021-10-05 Linda Hilton 11:20:00 [facility] COVID-19 QUALITATIVE RT-PCR 2021-10-04 Kimmy Arroyo 22:10:00 [facility] ECG 12-LEAD 2021-10-04 Shayla Draper 15:14:24 Hospital XR CHEST 1 VW PORTABLE 2021-10-04 Shayla Draper 13:15:00 Hospital BASIC METABOLIC PANEL 2021-10-04 Linda Hilton 10:24:00 [facility] ANTI XA, UNFRACTIONATED 2021-10-[address] 10:24:00 [facility] CBC WITH PLATELET AND DIFFERENTIAL 2021-10-04 Homa Walters 10:24:00 [facility] ESTIMATED GFR 2021-10-04 Linda Hilton 10:24:00 [facility] MAGNESIUM LEVEL 2021-10-04 Linda Hilton 10:24:00 [facility] PHOSPHORUS LEVEL 2021-10-04 Linda Hilton 10:24:00 [facility] ANTI XA, UNFRACTIONATED 2021-10-[address] 04:05:00 [facility] ANTI XA, UNFRACTIONATED 2021-10-03 Madelyn Miguelito Methodis t 20:47:00 Hospital XR CHEST 1 VW PORTABLE 2021-10-03 Linda Hilton 19:43:47 [facility] PROTHROMBIN TIME WITH INR 2021-10-03 Issa Walters Metho dist 14:16:00 [facility] CBC HEMOGRAM 2021-10-03 Issa Walters 14:15:00 [facility] BASIC METABOLIC PANEL 2021-10-03 Issa Walters 14:15:00 [facility] MAGNESIUM LEVEL 2021-10-03 Issa Walters 14:15:00 [facility] PHOSPHORUS LEVEL 2021-10-03 Issa Walters 14:15:00 [facility] ANTI XA, UNFRACTIONATED 2021-10-[address] 14:15:00 [facility] ESTIMATED GFR 2021-10-03 Issa Walters 14:15:00 [facility] ANTI XA, UNFRACTIONATED 2021-10-03 Narda Walls t 04:43:00 [facility] ANTI XA, UNFRACTIONATED 2021-10-[address] 21:04:00 [facility] PROTHROMBIN TIME WITH INR 2021-10-02 Issa Walterso dist 11:29:00 [facility] BASIC METABOLIC PANEL 2021-10-02 Issa Walters 11:29:00 [facility] MAGNESIUM LEVEL 2021-10-02 Issa Walters 11:29:00 [facility] PHOSPHORUS LEVEL 2021-10-02 Issa Walters 11:29:00 [facility] CBC WITH PLATELET AND DIFFERENTIAL 2021-10-02 Homa Walters 11:29:00 [facility] ESTIMATED GFR 2021-10-02 Issa Walters 11:29:00 [facility] PARTIAL THROMBOPLASTIN TIME (PTT) 2021-10-02 Esthela Waltersist 11:29:00 [facility] ANTI XA, UNFRACTIONATED 2021-10-[address] 11:29:00 [facility] PROTHROMBIN TIME WITH INR 2021-10-01 Shayla Draper Method ist 10:58:00 Hospital PARTIAL THROMBOPLASTIN TIME (PTT) 2021-10-01 Shayla Draperist 10:58:00 Hospital CBC WITH PLATELET AND DIFFERENTIAL 2021-09-30 Homa Walters [facility] 10:19:00 [facility] BASIC METABOLIC PANEL 2021-09-30 Issa Walters 10:19:00 [facility] ESTIMATED GFR 2021-09-30 Issa Walters 10:19:00 [facility] BEDSIDE SPIROMETRY 2021-09-30 Shayla Draper 01:49:04 Hospital US RENAL 2021-09-29 Linda Hilton 20:14:18 [facility] PROTHROMBIN TIME WITH INR 2021-09-29 Shayla Draper Method ist 12:49:00 Hospital PARTIAL THROMBOPLASTIN TIME (PTT) 2021-09-29 Shayla Draper [facility] 12:49:00 Hospital LACTIC ACID LEVEL 2021-09-29 Shayla Draper 12:49:00 Hospital CBC WITH PLATELET AND DIFFERENTIAL 2021-09-29 Homa Walters 08:45:00 [facility] BASIC METABOLIC PANEL 2021-09-29 Issa Walters 08:45:00 [facility] PARATHYROID HORMONE 2021-09-29 Linda Hilton 08:45:00 [facility] ESTIMATED GFR 2021-09-29 Issa Walters 08:45:00 [facility] URINE CULTURE 2021-09-29 Linda Hilton 08:32:00 [facility] URINALYSIS SCREEN AND MICROSCOPY, 2021-09-29 Taylor Hilton WITH REFLEX TO CULTURE 08:32:00 [facility] URINE PROTEIN ELECTROPHORESIS, 2021-09-29 Linda Hilton ethodist RANDOM 08:30:00 [facility] CREATININE LEVEL, URINE, RANDOM 2021-09-29 Linda Hilton 08:30:00 [facility] ECG 12-LEAD 2021-09-28 Shayla Draper 20:18:21 Hospital LACTIC ACID LEVEL 2021-09-28 Shayla Draper [facility] 19:20:00 Hospital HEPATIC FUNCTION PANEL 2021-09-28 Shayla Draper 19:20:00 Hospital TYPE AND SCREEN 2021-09-28 Shayla Draper [facility] 19:20:00 Hospital PROTHROMBIN TIME WITH INR 2021-09-28 Shayla Draper Method ist 19:20:00 Hospital PARTIAL THROMBOPLASTIN TIME (PTT) 2021-09-28 Shayla Draperist 19:20:00 Hospital TTE COMPLETE, W CONTRAST, W 2021-09-28 Issa Walters Met hodist DOPPLER ([id number]) 14:30:00 [facility] CBC WITH PLATELET AND DIFFERENTIAL 2021-09-28 Homa Walters [facility] 07:59:00 [facility] BASIC METABOLIC PANEL 2021-09-28 Issa Waltersist 07:59:00 [facility] HEMOGLOBIN A1C 2021-09-28 Issa Walters [facility] 07:59:00 [facility] LIPID PANEL 2021-09-28 Issa Walters 07:59:00 [facility] THYROID STIMULATING HORMONE 2021-09-28 Issa Walters Met hodist 07:59:00 [facility] T4, FREE 2021-09-28 Issa Walters 07:59:00 [facility] TROPONIN T 2021-09-28 Issa Walters 07:59:00 [facility] ESTIMATED GFR 2021-09-28 Issa Walters [facility] 07:59:00 [facility] LACTIC ACID LEVEL, SEPSIS - NOW 2021-09-28 Eliazar Grant AND REPEAT 2X EVERY 3 HOURS 03:48:00 [facility] COVID-19 QUALITATIVE RT-PCR 2021-09-28 Zulay Albarado-Poppy Met hodist 03:38:00 [facility] Hospital ECG ED PRELIMINARY INTERPRETATION 2021-09-28 Edgardo Albarado [facility] 03:22:32 [facility] Hospital CBC WITH PLATELET AND DIFFERENTIAL 2021-09-28 Rene Grant [facility] 00:09:00 [facility] PROTHROMBIN TIME WITH INR 2021-09-28 Eliazar Grant ist 00:09:00 [facility] PARTIAL THROMBOPLASTIN TIME (PTT) 2021-09-28 Vasu Grant 00:09:00 [facility] COMPREHENSIVE METABOLIC PANEL 2021-09-28 Eliazar Grant thodist 00:09:00 [facility] LACTIC ACID LEVEL, SEPSIS - NOW 2021-09-28 Eliazar Grant AND REPEAT 2X EVERY 3 HOURS 00:09:00 [facility] TROPONIN T 2021-09-28 Issa Walters 00:09:00 [facility] B NATRIURETIC PEPTIDE 2021-09-28 Eliazar Grant 00:09:00 [facility] ESTIMATED GFR 2021-09-28 Eliazar Grant 00:09:00 [facility] XR CHEST 1 VW PORTABLE 2021-09-27 Eliazar Grant 22:57:00 [facility] ECG 12-LEAD 2021-09-27 Eliazar Grant 22:04:29 B. [facility] ECHOCARDIOGRAM TRANSESOPHAGEAL W 2021-09-24 Eric Pineda DOPPLER COLORFLOW 17:23:36 [facility] PROTHROMBIN TIME WITH INR 2021-09-24 Eric Pineda Method ist 13:24:00 [facility] XR CHEST 2 VW 2021-09-10 MiriamEdisnoErickevin Lawson 18:24:21 [facility] PROTHROMBIN TIME WITH INR 2021-09-10 Eric Pineda Method ist 17:22:00 [facility] COMPREHENSIVE METABOLIC PANEL 2021-09-10 Eric Pineda thodist 17:22:00 [facility] CBC WITH PLATELET AND DIFFERENTIAL 2021-09-10 Eric Pineda 17:22:00 [facility] THYROID STIMULATING HORMONE 2021-09-10 Eric Pineda Meth odist 17:22:00 [facility] ESTIMATED GFR 2021-09-10 MiriamEric 17:22:00 [facility] ECG 12-LEAD 2021-09-10 Edison Pinedahikevin MiAnglican 13:43:45 [facility] TTE COMPLETE, WO CONTRAST, W 2021-09-10 Eric Pineda Met hodist DOPPLER ([id number]) 13:33:00 [facility] ECG 12-LEAD 2021-01-29 Eric Pineda [facility] 14:44:30 [facility] CV STRESS TEST 2021-01-27 Edison Pinedahin [facility] 17:33:00 [facility] TTE STRESS TEST DOBUTAMINE W 2021-01-27 Eric Pineda Met hodist CONTRAST 17:33:00 [facility] POC GLUCOSE 2020-12-25 Issa Walters 19:31:00 [facility] COVID-19 QUALITATIVE RT-PCR 2020-12-25 Issa Walters Met hodist 10:44:00 [facility] HC COMPLETE BLD COUNT W/AUTO DIFF 2020-12-25 Homa Walterst in [facility] 10:38:00 [facility] POC GLUCOSE 2020-12-25 Issa Walters 02:01:00 [facility] HC COMPLETE BLD COUNT W/AUTO DIFF 2020-12-25 Helen Nichole [facility] 01:44:00 Hospital POC GLUCOSE 2020-12-24 Issa Walters 23:39:00 [facility] POC GLUCOSE 2020-12-24 Issa Walters 18:16:00 [facility] POC GLUCOSE 2020-12-24 Issa Walters 13:53:00 [facility] BASIC METABOLIC PANEL 2020-12-24 Issa Walters 10:14:00 [facility] HC COMPLETE BLD COUNT W/AUTO DIFF 2020-12-24 Esthela Walters in [facility] 10:14:00 [facility] ESTIMATED GFR 2020-12-24 Issa Walters 10:14:00 [facility] POC GLUCOSE 2020-12-24 Issa Walters 09:34:00 [facility] POC GLUCOSE 2020-12-24 Issa Walters 06:44:00 [facility] POC GLUCOSE 2020-12-23 Issa Walters 22:58:00 [facility] POC GLUCOSE 2020-12-23 Issa Walters 18:13:00 O[facility] ECG 12-LEAD 2020-12-23 Miguelito Joshi 15:05:25 Hospital BASIC METABOLIC PANEL 2020-12-23 Issa Walters 14:52:00 O[facility] ESTIMATED GFR 2020-12-23 Issa Walters 14:52:00 [facility] POC GLUCOSE 2020-12-23 Issa Walters 09:24:00 [facility] PARTIAL THROMBOPLASTIN TIME (PTT) 2020-12-23 Esthela Walters 09:13:00 [facility] POC GLUCOSE 2020-12-23 Issa Walters 06:20:00 [facility] POC GLUCOSE 2020-12-23 Issa Walters 00:42:00 [facility] POC GLUCOSE 2020-12-22 Issa Walters 23:00:00 [facility] POC GLUCOSE 2020-12-22 Issa Walters 17:37:00 [facility] POC GLUCOSE 2020-12-22 Issa Walters 14:06:00 [facility] HC COMPLETE BLD COUNT W/AUTO DIFF 2020-12-22 Tricia Joshi 13:59:00 Hospital B NATRIURETIC PEPTIDE 2020-12-22 Miguelito Joshi 13:59:00 Hospital BASIC METABOLIC PANEL 2020-12-22 Miguelito Joshi 13:59:00 Hospital ESTIMATED GFR 2020-12-22 Miguelito Joshi 13:59:00 Hospital POC GLUCOSE 2020-12-22 Issa Walters 09:52:00 O[facility] PARTIAL THROMBOPLASTIN TIME (PTT) 2020-12-22 Esthela Walters 09:39:00 O[facility] POC GLUCOSE 2020-12-22 Issa Walters 05:23:00 [facility] POC GLUCOSE 2020-12-22 Issa Walters 01:28:00 [facility] POC GLUCOSE 2020-12-21 Issa Walters 23:06:00 [facility] POC GLUCOSE 2020-12-21 Issa Walters 17:56:00 [facility] POC GLUCOSE 2020-12-21 Issa Walters 14:21:00 [facility] POC GLUCOSE 2020-12-21 Issa Walters 11:14:00 [facility] PARTIAL THROMBOPLASTIN TIME (PTT) 2020-12-21 El Hinojosa 09:26:00 Hospital POC GLUCOSE 2020-12-21 Issa Walters 07:08:00 [facility] POC GLUCOSE 2020-12-21 Issa Walters 03:04:00 [facility] POC GLUCOSE 2020-12-20 Issa Walters 22:47:00 [facility] PARTIAL THROMBOPLASTIN TIME (PTT) 2020-12-20 Esthela Waltersist 22:26:00 O[facility] POC GLUCOSE 2020-12-20 Issa Walters 17:45:00 [facility] POC GLUCOSE 2020-12-20 Issa Walters 14:50:00 [facility] PARTIAL THROMBOPLASTIN TIME (PTT) 2020-12-20 El Hinojosa [facility] 13:54:00 Hospital BASIC METABOLIC PANEL 2020-12-20 El Hinojosa t 06:32:00 Hospital CBC HEMOGRAM 2020-12-20 El Hinojosa 06:32:00 Hospital MAGNESIUM LEVEL 2020-12-20 El Hinojosa 06:32:00 Hospital IONIZED CALCIUM 2020-12-20 El Hinojosa 06:32:00 Hospital PHOSPHORUS LEVEL 2020-12-20 El Hinojosaist 06:32:00 Hospital ESTIMATED GFR 2020-12-20 El Hinojosa 06:32:00 Hospital PARTIAL THROMBOPLASTIN TIME (PTT) 2020-12-20 Te Angel Anglican 06:20:00 [facility] POC GLUCOSE 2020-12-19 Issa Walters 21:11:00 O. Hospital ECG 12-LEAD 2020-12-19 Miguelito Joshi [facility] 21:05:37 Hospital PARTIAL THROMBOPLASTIN TIME (PTT) 2020-12-19 Inés Mayist 18:19:00 Hospital POTASSIUM LEVEL 2020-12-19 El Hinojosa 18:19:00 Hospital POC GLUCOSE 2020-12-19 Issa Walters 16:42:00 O[facility] Hospital HEMOGLOBIN & HEMATOCRIT 2020-12-19 Alex Biggs t 14:13:00 [facility] Hospital POC GLUCOSE 2020-12-19 Issa Walters 12:31:00 O. Hospital XR CHEST 1 VW PORTABLE 2020-12-19 Sarina Beard t 10:43:00 [facility] PARTIAL THROMBOPLASTIN TIME (PTT) 2020-12-19 Inés Mayist 10:22:00 Hospital POC GLUCOSE 2020-12-19 Romeo, Issa [facility] 08:48:00 O[facility] Hospital MISCELLANEOUS REFERRAL TEST 2020-12-19 Issa Walters hodist 08:34:00 [facility] HC COMPLETE BLD COUNT W/AUTO DIFF 2020-12-19 Clarke Beard 08:00:00 [facility] HEPATIC FUNCTION PANEL 2020-12-19 Pepe Mayelizabeth Do t 07:34:00 [facility] BASIC METABOLIC PANEL 2020-12-19 Sarina Beard 07:34:00 [facility] IONIZED CALCIUM 2020-12-19 [facility], Sarina Lawson 07:34:00 [facility] MAGNESIUM LEVEL 2020-12-19 [facility], Sarina Lawson 07:34:00 [facility] PHOSPHORUS LEVEL 2020-12-19 [facility], Sarina Lawson 07:34:00 [facility] ESTIMATED GFR 2020-12-19 [facility], Sarina Lawson 07:34:00 [facility] POC GLUCOSE 2020-12-19 Issa Walters 04:44:00 O[facility] Hospital PARTIAL THROMBOPLASTIN TIME (PTT) 2020-12-19 Esthela Walters 03:44:00 [facility] Hospital HEMOGLOBIN & HEMATOCRIT 2020-12-19 Te Angel t 01:30:00 [facility] POC GLUCOSE 2020-12-19 Issa Walters 00:27:00 [facility] TOTAL IRON BINDING CAPACITY 2020-12-18 Marti Pastrana 21:45:00 [facility] FERRITIN LEVEL 2020-12-18 Renny Pastrana 21:45:00 [facility] POC GLUCOSE 2020-12-18 Issa Walters 19:59:00 [facility] HEMOGLOBIN & HEMATOCRIT 2020-12-18 Kalyan Dar Methodangel t 19:09:00 [facility] PARTIAL THROMBOPLASTIN TIME (PTT) 2020-12-18 Te Angel 19:09:00 [facility] PROTHROMBIN TIME WITH INR 2020-12-18 Te Angel ist 19:09:00 [facility] FIBRINOGEN 2020-12-18 Te Angel 19:09:00 [facility] FOLATE LEVEL 2020-12-18 Renny Pastrana 19:03:00 [facility] VITAMIN B12 LEVEL 2020-12-18 Renny Pastrana 19:03:00 [facility] POC GLUCOSE 2020-12-18 Issa Walters 16:38:00 [facility] POC GLUCOSE 2020-12-18 Issa Walters 12:39:00 [facility] HEMOGLOBIN & HEMATOCRIT 2020-12-18 Alex Biggs t 10:40:00 [facility] XR CHEST 1 VW PORTABLE 2020-12-18 Sarina Beard 10:03:00 [facility] POC GLUCOSE 2020-12-18 Issa Walters 09:12:00 [facility] Hospital TYPE AND SCREEN 2020-12-18 Sarina Beard 06:19:00 [facility] HEPATIC FUNCTION PANEL 2020-12-18 Marquez May 05:15:00 [facility] BASIC METABOLIC PANEL 2020-12-18 Sarina Beard 05:15:00 [facility] HC COMPLETE BLD COUNT W/AUTO DIFF 2020-12-18 Clarke Beard 05:15:00 [facility] IONIZED CALCIUM 2020-12-18 Sarina Beard 05:15:00 [facility] MAGNESIUM LEVEL 2020-12-18 Sarina Beard 05:15:00 [facility] PHOSPHORUS LEVEL 2020-12-18 Sarina Beard 05:15:00 [facility] PARTIAL THROMBOPLASTIN TIME (PTT) 2020-12-18 Te Angel 05:15:00 [facility] PROTHROMBIN TIME WITH INR 2020-12-18 Te Angel ist 05:15:00 [facility] ESTIMATED GFR 2020-12-18 Sarina Beard 05:15:00 [facility] PERIPHERAL SMEAR 2020-12-18 Marquez May 05:15:00 [facility] POC GLUCOSE 2020-12-18 Issa Walters 04:49:00 O[facility] Hospital POC GLUCOSE 2020-12-18 Issa Walters 01:13:00 [facility] POC GLUCOSE 2020-12-17 Issa Walters 21:05:00 [facility] Hospital HEMOGLOBIN & HEMATOCRIT 2020-12-17 Alex Biggs t 17:50:00 [facility] POC GLUCOSE 2020-12-17 Issa Walters 16:40:00 [facility] POC GLUCOSE 2020-12-17 Issa Walters 12:42:00 [facility] XR CHEST 1 VW PORTABLE 2020-12-17 Sarina Beard t 08:33:00 [facility] BASIC METABOLIC PANEL 2020-12-17 Sarina Beard 08:27:00 [facility] HC COMPLETE BLD COUNT W/AUTO DIFF 2020-12-17 Clarke Beard 08:27:00 [facility] HEPATIC FUNCTION PANEL 2020-12-17 Sarina Beard t 08:27:00 [facility] IONIZED CALCIUM 2020-12-17 Sarina Beard 08:27:00 [facility]RINOGEN 2020[facility]12-[facility] PARTIAL THROMBOPLASTIN TIME (PTT) 2020-12-17 [facility] 08:27[facility]00 [facility] PROTHROMBIN TIME WITH INR 2020-12-17 Sarina Beard Metho dist 08:27:00 [facility] LACTIC ACID LEVEL 2020-12-17 [facility] 08:27[facility]00 [facility] MAGNESIUM LEVEL 2020-12-17 [facility] 08:27[facility]00 [facility] PHOSPHORUS LEVEL 2020-12-17 [facility] 08:27[facility]00 [facility] ESTIMATED GFR 2020-12-17 Sarina Beard 08:27:00 [facility] POC GLUCOSE 2020-12-17 Issa Walters 08:26:00 O[facility] Hospital POC GLUCOSE 2020-12-17 Issa Walters 05:36:00 [facility] HC COMPLETE BLD COUNT W/AUTO DIFF 2020-12-17 [facility] 03:[facility]00 [facility] PARTIAL THROMBOPLASTIN TIME (PTT) 2020-12-17 [facility] 03:49:00 [facility] PROTHROMBIN TIME WITH INR 2020-12-17 [facility]o [facility] 03:49:00 [facility] TRANSFUSE FRESH FROZEN PLASMA 2020-12-17 Marquez May 02:49:00 Hospital TRANSFUSE PLATELET PHERESIS 2020-12-17 Marquez May 01:32:00 Hospital URINE CULTURE 2020-12-17 Nnamdi Mccarthy 01:18:00 Hospital URINALYSIS SCREEN AND MICROSCOPY, 2020-12-17 Nnamdi Mccarthy WITH REFLEX TO CULTURE 01:18:00 Hospital POC GLUCOSE 2020-12-17 Issa Walters 00:58:00 O[facility] Hospital TRANSFUSE RED BLOOD CELLS 2020-12-17 El Hinojosa Meth odist 00:44:00 Hospital POTASSIUM LEVEL 2020-12-17 Bere, Asma [facility] 00:39:00 Hospital MAGNESIUM LEVEL 2020-12-17 Bere, Asma [facility] 00:39:00 Hospital PHOSPHORUS LEVEL 2020-12-17 Bere, Asma [facility] 00:39:00 Hospital IONIZED CALCIUM 2020-12-17 Bere, Asma [facility] 00:39:00 Hospital BLOOD CULTURE, AEROBIC & ANAEROBIC 2020-12-16 Nnamdi Mccarthy 23:44:00 Hospital BLOOD CULTURE, AEROBIC & ANAEROBIC 2020-12-16 Nnamdi Mccarthy [facility] 23:36:00 Hospital TRANSFUSE RED BLOOD CELLS 2020-12-16 El Hinojosa Meth odist 23:11:00 Hospital HEMOGLOBIN & HEMATOCRIT 2020-12-16 El Hinojosa Method ist 22:29:00 Hospital HC COMPLETE BLD COUNT W/AUTO DIFF 2020-12-16 El Hinojosa [facility] 21:41:00 Hospital PARTIAL THROMBOPLASTIN TIME (PTT) 2020-12-16 Inés May 21:41:00 Hospital SMEAR REVIEW 2020-12-16 [facility] 21:41[facility]00 [facility] POC GLUCOSE 2020-12-16 Issa Walters 21:19:00 O[facility] POC GLUCOSE 2020-12-16 Issa Walters 16:38:00 O[facility] HEPATIC FUNCTION PANEL 2020-12-16 Marquez May t 14:12:00 Hospital PROCALCITONIN 2020-12-16 Marquez May 14:12:00 Hospital PARTIAL THROMBOPLASTIN TIME (PTT) 2020-12-16 Inés May 14:12:00 Hospital PROTHROMBIN TIME WITH INR 2020-12-16 Marquez May [facility] 14:12:00 Hospital FIBRINOGEN 2020-12-16 Marquez May 14:12:00 Hospital HC COMPLETE BLD COUNT W/AUTO DIFF 2020-12-16 Ashish El Lawson 14:12:00 Hospital ECG 12-LEAD 2020-12-16 Marquez May 13:05:35 Hospital POC GLUCOSE 2020-12-16 Issa Walters 12:40:00 O[facility] XR CHEST 1 VW PORTABLE 2020-12-16 Nevin Conner 09:07:00 Hospital POC GLUCOSE 2020-12-16 Issa Walters 05:41:00 O[facility] DIGOXIN LEVEL 2020-12-16 Marquez May 05:11:00 Hospital HC COMPLETE BLD COUNT W/AUTO DIFF 2020-12-16 Nevin Conner 05:11:00 Hospital BASIC METABOLIC PANEL 2020-12-16 Nevin Conner 05:11:00 Hospital MAGNESIUM LEVEL 2020-12-16 DoNevin 05:11:00 Hospital PHOSPHORUS LEVEL 2020-12-16 DoNevin 05:11:00 Hospital ESTIMATED GFR 2020-12-16 Nevin Conner 05:11:00 Hospital POC GLUCOSE 2020-12-16 Issa Walters 01:49:00 O. Hospital HEMOGLOBIN & HEMATOCRIT 2020-12-[address] 23:15:00 Hospital POC GLUCOSE 2020-12-15 Issa Walters 20:56:00 O. Hospital TRANSFUSE RED BLOOD CELLS 2020-12-15 Marquez Mayo dist 20:46:00 Hospital HEMOGLOBIN & HEMATOCRIT 2020-12-[address] 18:56:00 Hospital POTASSIUM LEVEL 2020-12-15 El Hinojosa 18:56:00 Hospital MAGNESIUM LEVEL 2020-12-15 El Hinojosa 18:56:00 Hospital IONIZED CALCIUM 2020-12-15 El Hinojosa 18:56:00 Hospital PHOSPHORUS LEVEL 2020-12-15 El Hinojosaist 18:56:00 Hospital TRANSFUSE RED BLOOD CELLS 2020-12-15 Marquez May Metho dist 17:29:00 Hospital POC GLUCOSE 2020-12-15 Issa Waltersist 16:43:00 O. Hospital HEMOGLOBIN & HEMATOCRIT 2020-12-15 El Hinojosa Method ist 16:14:00 Hospital POC GLUCOSE 2020-12-15 Issa Waltersist 12:48:00 O. Hospital XR CHEST 1 VW PORTABLE 2020-12-15 DoNevinist 09:17:00 Hospital POC GLUCOSE 2020-12-15 Issa Waltersist 08:47:00 O. Hospital DIGOXIN LEVEL 2020-12-15 Sarina Beard 05:26:00 [facility] BASIC METABOLIC PANEL 2020-12-15 DoNevinist 05:26:00 Hospital HC COMPLETE BLD COUNT W/AUTO DIFF 2020-12-15 DoNevinist 05:26:00 Hospital MAGNESIUM LEVEL 2020-12-15 DoNevinist 05:26:00 Hospital PHOSPHORUS LEVEL 2020-12-15 DoNevinist 05:26:00 Hospital IONIZED CALCIUM 2020-12-15 DoNevinist 05:26:00 Hospital PARTIAL THROMBOPLASTIN TIME (PTT) 2020-12-15 DoNevinist 05:26:00 Hospital FIBRINOGEN 2020-12-15 DoNevinist 05:26:00 Hospital PROTHROMBIN TIME WITH INR 2020-12-15 DoNevin ist 05:26:00 Hospital ESTIMATED GFR 2020-12-15 DoNevinist 05:26:00 Hospital POC GLUCOSE 2020-12-15 Issa Walters [facility] 04:39:00 O. Hospital HC COMPLETE BLD COUNT W/AUTO DIFF 2020-12-15 Inés May 01:30:00 Hospital BASIC METABOLIC PANEL 2020-12-15 Marquez May 01:30:00 Hospital MAGNESIUM LEVEL 2020-12-15 Marquez May 01:30:00 Hospital PHOSPHORUS LEVEL 2020-12-15 Marquez May 01:30:00 Hospital ESTIMATED GFR 2020-12-15 Marquez May 01:30:00 Hospital POC GLUCOSE 2020-12-15 Issa Walters 01:03:00 O. Hospital TRANSFUSE PLATELET PHERESIS 2020-12-15 Marquez May 00:32:00 Hospital HC CVL NON-TUNNELED INSERT 5YRS OR 2020-12-14 Jenn May > 23:29:14 Hospital ARTERIAL BLOOD GAS 2020-12-14 Marquez May 23:21:00 Hospital LACTIC ACID, SYRINGE 2020-12-14 Marquez May 23:21:00 Hospital TRANSFUSE RED BLOOD CELLS 2020-12-14 Marquez May Metho dist 23:00:00 Hospital XR CHEST 1 VW PORTABLE 2020-12-14 Marquez May t 22:59:49 Hospital TRANSFUSE RED BLOOD CELLS 2020-12-14 Marquez May Metho dist 22:45:00 Hospital HC COMPLETE BLD COUNT W/AUTO DIFF 2020-12-14 Sen Bui 21:50:00 Hospital SMEAR REVIEW 2020-12-14 Sen Bui 21:50:00 [facility] POC GLUCOSE 2020-12-14 Issa Walters 21:49:00 O. Hospital ESOPHAGOGASTRODUODENOSCOPY (EGD) 2020-12-14 Cullen Austin 17:38:00 [facility] POC GLUCOSE 2020-12-14 Isas Walters 17:09:00 O. Hospital MRSA PCR 2020-12-14 Issa Walters 15:54:00 O. Hospital COMPREHENSIVE METABOLIC PANEL 2020-12-14 Marquez May ethodist 15:51:00 Hospital LACTIC ACID LEVEL 2020-12-14 Marquez May 15:51:00 Hospital ESTIMATED GFR 2020-12-14 Marquez May 15:51:00 Hospital TRANSFUSE FRESH FROZEN PLASMA 2020-12-14 Me Travis thodist 15:34:00 [facility] XR CHEST 1 VW PORTABLE 2020-12-14 Do Nevin Lawson 13:40:00 Hospital ECG 12-LEAD 2020-12-14 Do, Nevin Miist 13:39:34 Hospital POC GLUCOSE 2020-12-14 Issa Walters [facility] 12:53:00 O. Hospital HC COMPLETE BLD COUNT W/AUTO DIFF 2020-12-14 Do, Nevin Ware [facility] 11:51:00 Hospital PROTHROMBIN TIME WITH INR 2020-12-14 Do, Nevin Ware Method ist 11:51:00 Hospital PARTIAL THROMBOPLASTIN TIME (PTT) 2020-12-14 Do, Nevin Miist 11:51:00 Hospital FIBRINOGEN 2020-12-14 Do, Nevin Miist 11:51:00 Hospital MA INSERT 2020-12-14 Amada Singh [facility] CATH,ART,PERCUT,SHORTTERM 09:25:03 [facility] LACTIC ACID LEVEL 2020-12-14 Do, Nevin Miist 08:41:00 Hospital DIGOXIN LEVEL 2020-12-14 Do, Nevin Lawson 08:41:00 Hospital TRANSFUSE RED BLOOD CELLS 2020-12-14 Do, Nevin Ware Method ist 06:40:00 Hospital XR CHEST 1 VW PORTABLE 2020-12-14 Do, Nevin Lawson 05:26:23 Hospital POC GLUCOSE 2020-12-14 Issa Walters 05:25:00 O. Hospital DIGOXIN LEVEL 2020-12-14 Do, Neivn Ware [facility] 05:00:00 Hospital PROCALCITONIN 2020-12-14 Do, Nevin Miist 05:00:00 Hospital BASIC METABOLIC PANEL 2020-12-14 Do, Nevin Miist 05:00:00 Hospital HC COMPLETE BLD COUNT W/AUTO DIFF 2020-12-14 Do, Nevin Lawson 05:00:00 Hospital IONIZED CALCIUM 2020-12-14 Do, Nevin Lawson 05:00:00 Hospital HEPATIC FUNCTION PANEL 2020-12-14 Do, Nevin Wrae [facility] 05:00:00 Hospital B NATRIURETIC PEPTIDE 2020-12-14 DoNevin [facility] 05:00:00 Hospital MAGNESIUM LEVEL 2020-12-14 Do, Nevin A [facility] 05:00:00 Hospital PHOSPHORUS LEVEL 2020-12-14 Do, Nevin Ware [facility] 05:00:00 Hospital PROTHROMBIN TIME WITH INR 2020-12-14 Do, Nevin Ware Method ist 05:00:00 Hospital PARTIAL THROMBOPLASTIN TIME (PTT) 2020-12-14 Do, Nevin Ware [facility] 05:00:00 Hospital LACTIC ACID LEVEL 2020-12-14 Do, Nevin Miist 05:00:00 Hospital ESTIMATED GFR 2020-12-14 Do, Nevin Miist 05:00:00 Hospital FIBRINOGEN 2020-12-14 Do, Nevin Ware [facility] 05:00:00 Hospital ANTI XA APIXABAN 2020-12-14 Do, Nevin Miist 05:00:00 Hospital ECG 12-LEAD 2020-12-14 Do, Nevin Miist 04:57:48 Hospital TRANSFUSE RED BLOOD CELLS 2020-12-14 Do, Nevin Mi ist 04:40:00 Hospital ABO AND RH CONFIRMATION 2020-12-[address] 03:38:00 [facility] LACTIC ACID LEVEL, SEPSIS - NOW 2020-12-14 Eliazar Elliott AND REPEAT 2X EVERY 3 HOURS 01:30:00 [facility] COMPLETE BLD COUNT W/AUTO DIFF 2020-12-14 Eliazar Elliott 01:30:00 [facility] LACTIC ACID LEVEL, SEPSIS - NOW 2020-12-13 Eliazar Elliott AND REPEAT 2X EVERY 3 HOURS 21:29:00 [facility] HC COMPLETE BLD COUNT W/AUTO DIFF 2020-12-13 Eliazar Elliott 18:34:00 [facility] LACTIC ACID LEVEL, SEPSIS - NOW 2020-12-13 Eliazar Elliott AND REPEAT 2X EVERY 3 HOURS 18:34:00 [facility] PROCALCITONIN 2020-12-13 Issa Walters 18:34:00 O. Hospital AMMONIA LEVEL 2020-12-13 Issa Walters 18:29:00 O. Hospital B NATRIURETIC PEPTIDE 2020-12-13 Issa Walters 18:29:00 O. Hospital XR ABDOMEN 1 VW PORTABLE 2020-12-13 Lo Titus ist 16:12:20 K. Hospital XR CHEST 1 VW PORTABLE 2020-12-13 Lo Titus t 16:12:09 K. Hospital PREPARE RBC 2020-12-13 El Hinojosa [facility] 15:05:00 Hospital PREPARE FRESH FROZEN PLASMA 2020-12-13 Yadira Alexyveda Tapia hodist 15:05:00 Hospital PREPARE PLATELET PHERESIS 2020-12-13 Trevineligio Faizamadison Metho dist 15:05:00 Hospital HC COMPLETE BLD COUNT W/AUTO DIFF 2020-12-13 Bryan Titus [facility] 15:03:00 K. Hospital COMPREHENSIVE METABOLIC PANEL 2020-12-13 Lo Titus ethodist 15:03:00 K. Hospital TROPONIN 2020-12-13 Lo Titus 15:03:00 K. Hospital LACTIC ACID LEVEL 2020-12-13 Lo Titus 15:03:00 K. Hospital PROTHROMBIN TIME WITH INR 2020-12-13 Lo Titus Metho dist 15:03:00 K. Hospital ESTIMATED GFR 2020-12-13 Lo Titus 15:03:00 K. Hospital MAGNESIUM LEVEL 2020-12-13 Lo Titus 15:03:00 K. Hospital PHOSPHORUS LEVEL 2020-12-13 Lo Titus 15:03:00 K. Hospital LIPASE LEVEL 2020-12-13 Lo Titus 15:03:00 K. Hospital AMYLASE LEVEL 2020-12-13 Lo Titus 15:03:00 K. Hospital POC BLOOD GAS, ARTERIAL AND LACTIC 2020-12-13 Homa Walters ACID 15:01:00 O. Hospital ECG 12-LEAD 2020-12-13 Lo Titus 14:49:21 K. Hospital POC GLUCOSE 2020-12-13 Issa Walters 14:42:00 O. Hospital HC COMPLETE BLD COUNT W/AUTO DIFF 2020-12-13 Tricia Joshi 10:00:00 Hospital BASIC METABOLIC PANEL 2020-12-13 Miguelito Joshi 09:00:00 Hospital ESTIMATED GFR 2020-12-13 Miguelito Joshi 09:00:00 Hospital ECG 12-LEAD 2020-12-13 Issa Walters 01:20:00 O. Hospital BASIC METABOLIC PANEL 2020-12-12 Miguelito Joshi 10:00:00 Hospital ESTIMATED GFR 2020-12-12 Miguelito Joshi 10:00:00 Hospital MAGNESIUM LEVEL 2020-12-12 Miguelito Joshi 10:00:00 Hospital HC COMPLETE BLD COUNT W/AUTO DIFF 2020-12-12 Tricia Joshi 10:00:00 Hospital PHOSPHORUS LEVEL 2020-12-12 Miguelito Joshi 10:00:00 Hospital HEPATIC FUNCTION PANEL 2020-12-12 Miguelito Joshi 10:00:00 Hospital URINE CULTURE 2020-12-11 Miguelito Joshi 21:00:00 Hospital URINALYSIS SCREEN AND MICROSCOPY, 2020-12-11 Tricia Joshi WITH REFLEX TO CULTURE 21:00:00 Hospital CV CTA TAVR WORKUP (CTA 2020-12-11 Miguelito Joshi CORONARY,CTA THORACIC AORTA,CTA 12:37:20 Hospital ABDOMEN PELVIS) W CONTRAST HC COMPLETE BLD COUNT W/AUTO DIFF 2020-12-11 Esthela Waltersist 08:44:00 O. Hospital BASIC METABOLIC PANEL 2020-12-11 Issa Walters 08:44:00 O. Hospital MAGNESIUM LEVEL 2020-12-11 John Theodore 08:44:00 Hospital B NATRIURETIC PEPTIDE 2020-12-11 Miguelito Joshi 08:44:00 Hospital ESTIMATED GFR 2020-12-11 Issa Walters 08:44:00 O. Hospital HEPATIC FUNCTION PANEL 2020-12-11 Issa Walters t 08:44:00 O. Hospital COVID-19 QUALITATIVE RT-PCR 2020-12-10 John Theodore 22:55:00 Hospital ECG 12-LEAD 2020-12-10 Issa Walters 19:04:51 O. Hospital TTE COMPLETE, W CONTRAST, W 2020-12-10 Issa Walters Met hodist DOPPLER ([id number]) 13:56:00 O. Hospital PROTHROMBIN TIME WITH INR 2020-12-10 Romeo, Issa Metho dist 12:44:00 O. Hospital PARTIAL THROMBOPLASTIN TIME (PTT) 2020-12-10 Romeo, Aust in Anglican 12:44:00 O. Hospital HC COMPLETE BLD COUNT W/AUTO DIFF 2020-12-10 Romeo, Aust in [facility] 08:34:00 O. Hospital BASIC METABOLIC PANEL 2020-12-10 Issa Walters 08:34:00 O. Hospital PROTHROMBIN TIME WITH INR 2020-12-10 Issa Walterso dist 08:34:00 O. Hospital PARTIAL THROMBOPLASTIN TIME (PTT) 2020-12-10 Romeo Aust in [facility] 08:34:00 O. Hospital MAGNESIUM LEVEL 2020-12-10 John Theodore 08:34:00 Hospital HEPATIC FUNCTION PANEL 2020-12-10 John Theodore 08:34:00 Hospital ESTIMATED GFR 2020-12-10 Issa Walters 08:34:00 O. Hospital PROCALCITONIN 2020-12-10 Issa Walters 08:34:00 O. Hospital LDH 2020-12-10 Issa Walters 08:34:00 O. Hospital C-REACTIVE PROTEIN 2020-12-10 Issa Walters 08:34:00 O. Hospital ECG 12-LEAD 2020-12-10 Issa Walters 04:02:13 O. Hospital ECG 12-LEAD 2020-12-10 John Theodore 00:28:50 Hospital BLOOD CULTURE, AEROBIC & ANAEROBIC 2020-12-09 John Theodore 23:18:00 Hospital BASIC METABOLIC PANEL 2020-12-09 John Theodore 23:17:00 Hospital MAGNESIUM LEVEL 2020-12-09 John Theodore 23:17:00 Hospital ESTIMATED GFR 2020-12-09 John Theodore 23:17:00 Hospital XR CHEST 2 VW 2020-12-09 Issa Walters 15:56:[address] CHEST WO CONTRAST 2020-12-09 Issa Walters 15:35:01 O. Hospital MAGNESIUM LEVEL 2020-12-09 Lore Cooper 08:52:00 Hospital PHOSPHORUS LEVEL 2020-12-09 Lore Cooper 08:52:00 Hospital ECG 12-LEAD 2020-12-09 Issa Walters 08:35:49 O. Hospital HC COMPLETE BLD COUNT W/AUTO DIFF 2020-12-09 Esthela Walters in [facility] 06:12:00 O. Hospital TROPONIN 2020-12-09 Issa Walters 06:12:00 O. Hospital COVID-19 ANTI-SPIKE IGG ANTIBODY 2020-12-09 Abelardo Walters n [facility] TITER 06:06:00 O. Hospital COVID-19 SEROLOGY PATIENT 2020-12-09 Issa Walters Metho dist SURVEILLANCE 06:06:00 O. Hospital COMPREHENSIVE METABOLIC PANEL 2020-12-09 Issa Walters ethodist 06:06:00 O. Hospital THYROID STIMULATING HORMONE 2020-12-09 Issa Walters hodama 06:06:00 O. Hospital T4, FREE 2020-12-09 Issa Walters 06:06:00 O. Hospital LIPID PANEL 2020-12-09 Issa Walters 06:06:00 O. Hospital ESTIMATED GFR 2020-12-09 Issa Walters 06:06:00 O. Hospital MAGNESIUM 2020-11-[address] [facility] 06:40:00 [facility] BASIC METABOLIC PANEL (7) 2020-11-09 Joanie [facility]astava [facility] 06:40:00 [facility] CBC W/PLT COUNT & AUTO 2020-11-[address] [facility] DIFFERENTIAL 05:43:00 [facility] CBC W/PLT COUNT & AUTO 2020-11-[address] [facility] DIFFERENTIAL 05:43:00 [facility] POCT-GLUCOSE METER 2020-11-[address] [facility] 05:31:00 [facility] CBC W/PLT COUNT & AUTO 2020-11-[address] [facility] DIFFERENTIAL 05:29:00 [facility] MAGNESIUM 2020-11-[address] [facility] 05:29:00 [facility] BASIC METABOLIC PANEL (7) 2020-11-08 Joanie [facility]rivastava [facility] 05:29:00 [facility] CBC W/PLT COUNT & AUTO 2020-11-[address] [facility] DIFFERENTIAL 05:29:00 [facility] POCT-GLUCOSE METER 2020-11-07 Jorgeандрей Joanie [facility] 16:44:00 [facility] POCT-GLUCOSE METER 2020-11-07 Atif, Joanie [facility] 10:49:00 [facility] POCT-GLUCOSE METER 2020-11-07 Atif, Joanie [facility] 08:14:00 [facility] CBC W/PLT COUNT & AUTO 2020-11-[address] [facility] DIFFERENTIAL 04:12:00 [facility] COMPREHENSIVE METABOLIC PANEL 2020-11-[address] [facility] 04:12:00 [facility] MAGNESIUM 2020-11-[address] [facility] 04:12:00 [facility] CALCIUM, IONIZED 2020-11-[address] [facility] 04:12:00 [facility] CBC W/PLT COUNT & AUTO 2020-11-[address] [facility] DIFFERENTIAL 04:12:00 [facility] SODIUM, RANDOM URINE 2020-11-[address] [facility] 20:42:00 [facility] POCT-GLUCOSE METER 2020-11-[address] [facility] 20:42:00 [facility] POCT-GLUCOSE METER 2020-11-06 Atif, Joanie [facility] 16:58:00 [facility] UREA NITROGEN, RANDOM URINE 2020-11-[address] [facility] 09:50:00 [facility] CREATININE, RANDOM URINE 2020-11-[address] [facility] 09:50:00 [facility] OSMOLALITY, URINE 2020-11-06 Atif, Joanie [facility] 09:50:00 [facility] URINALYSIS W/ MICROSCOPIC 2020-11-06 Joanie [facility]astava [facility] 09:50:00 [facility] EOSINOPHIL SMEAR, URINE 2020-11-[address] [facility] 09:50:00 [facility] POCT-GLUCOSE METER 2020-11-[address] [facility] 07:26:00 [facility] CBC W/PLT COUNT & AUTO 2020-11-[address] [facility] DIFFERENTIAL 03:04:00 [facility] COMPREHENSIVE METABOLIC PANEL 2020-11-06 [address] Man[address] [facility] 03:04:00 [facility] MAGNESIUM 2020-11-[address] [facility] 03:04:00 [facility] PHOSPHORUS 2020-11-06 Mann, Lee [facility] 03:04:00 [facility] CALCIUM, IONIZED 2020-11-06 Mann, Lee [facility] 03:04:00 [facility] CBC W/PLT COUNT & AUTO 2020-11-[address] [facility] DIFFERENTIAL 03:04:00 [facility] POCT-GLUCOSE METER 2020-11-05 Jerson, Devonte [facility] 20:51:00 [facility] POCT-GLUCOSE METER 2020-11-05 Jerson, Dveonte [facility] 16:49:00 [facility] POCT-GLUCOSE METER 2020-11-05 Jerson, Devonte [facility] 12:46:00 [facility] POCT-GLUCOSE METER 2020-11-[address] [facility] 05:57:00 [facility] CBC W/PLT COUNT & AUTO 2020-11-[address] [facility] DIFFERENTIAL 05:36:00 [facility] CBC W/PLT COUNT & AUTO 2020-11-[address] [facility] DIFFERENTIAL 05:36:00 [facility] COMPREHENSIVE METABOLIC PANEL 2020-11-[address] [facility] 04:19:00 [facility] MAGNESIUM 2020-11-[address] [facility] 04:19:00 [facility] PHOSPHORUS 2020-11-05 Mann, Lee [facility] 04:19:00 [facility] CALCIUM, IONIZED 2020-11-05 Mann, Lee [facility] 04:19:00 [facility] C-REACTIVE PROTEIN 2020-11-05 Serenio, Abel [facility] 04:19:00 [facility] BLOOD GAS, VENOUS 2020-11-05 Serenio, Abel [facility] 04:19:00 [facility] POCT-GLUCOSE METER 2020-11-[address] [facility] 16:29:00 [facility] POCT-GLUCOSE METER 2020-11-[address] [facility] 11:39:00 [facility] 2D ECHO W/ DOPPLER (CW/PW/COLOR) 2020-11-[address]ño [facility] 09:11:05 [facility] POCT-GLUCOSE METER 2020-11-04 Yandy Agustín ReynoldsAlisha [facility] 07:24:00 [facility] POCT-GLUCOSE METER 2020-11-04 Yandy Agustín AshleyAlisha [facility] 06:14:00 [facility] CBC W/PLT COUNT & AUTO 2020-11-[address] [facility] [facility] DIFFERENTIAL 03:53:00 [facility] COMPREHENSIVE METABOLIC PANEL 2020-11-[address] [facility] 03:53:00 [facility] MAGNESIUM 2020-11-[address] [facility] 03:53:00 [facility] PHOSPHORUS 2020-11-[address] [facility] 03:53:00 [facility] CALCIUM, IONIZED 2020-11-04 Danya, Martha [facility] 03:53:00 [facility] C-REACTIVE PROTEIN 2020-11-[address] [facility] 03:53:00 [facility] BLOOD GAS, VENOUS 2020-11-[address] [facility] 03:53:00 [facility] D-DIMER 2020-11-04 Danya, Tankte [facility] 03:53:00 [facility] HEMOGLOBIN A1C 2020-11-[address] [facility] 03:53:00 [facility] PROTHROMBIN TIME/INR 2020-11-[address] [facility] 03:53:00 [facility] CBC W/PLT COUNT & AUTO 2020-11-[address] [facility] DIFFERENTIAL 03:53:00 [facility] XR CHEST 1 VIEW PORTABLE / BEDSIDE 2020-11-[address] [facility] 02:06:00 [facility] COMPREHENSIVE METABOLIC PANEL 2020-11-[address] [facility] 19:38:00 [facility] C-REACTIVE PROTEIN 2020-11-[address] [facility] 19:38:00 [facility] FERRITIN 2020-11-[address] [facility] 19:38:00 [facility] D-DIMER 2020-11-[address] [facility] 19:38:00 [facility] PROTHROMBIN TIME/INR 2020-11-[address] [facility] 19:38:00 [facility] B-TYPE NATRIURETIC FACTOR (BNP) 2020-11-[address] [facility] 19:38:00 [facility] LACTIC ACID, VENOUS 2020-11-[address] [facility] 19:38:00 [facility] BLOOD GAS, VENOUS 2020-11-[address] [facility] 19:38:00 [facility] CBC (HEMOGRAM ONLY) 2020-11-[address] [facility] 19:38:00 [facility] POCT-GLUCOSE METER 2020-11-03 Agustín Fischer [facility] 18:20:00 [facility] XR CHEST 1 VIEW PORTABLE / BEDSIDE 2020-11-[address] [facility] 18:16:00 [facility] PERMANENT LAB REPORT - SCAN 2020-11-03 Provider, Default [facility] 00:[facility]00 [facility] Plan of Care Planned Activity Planned Date Details Comments Source Future Scheduled 2022-04-27 COVID-19 VACCINE (#1) [facility] Test 02:31:21 [code = COVID-19 VACCINE (#1)] Future Scheduled 2022-04-27 65[facility] 02:31:21 VACCINE (1 - PCV) [code = 65+ PNEUMOCOCCAL VACCINE (1 - PCV)] Future Scheduled 2022-04-27 DIABETIC FOOT EXAM [facility] Test 02:31:21 [code = DIABETIC FOOT EXAM] Future Scheduled 2022-04-27 SHINGLES VACCINES (1 [facility] Test 02:31:21 of 2) [code = SHINGLES VACCINES (1 of 2)] Future Scheduled 2022-04-27 DIABETES: RETINAL EYE [facility] Test 02:31:21 EXAM [code = DIABETES: RETINAL EYE EXAM] Future Scheduled 2022-02-[address] [facility] Test 00:00:00 (12+) [code = Medical Center DEPRESSION SCREENING (12+)] Future Scheduled 2022-02-20 FALLS RISK SCREENING [facility] Test 00:00:00 [code = FALLS RISK Medical C enter SCREENING] Future Scheduled 2021-10-21 INFLUENZA VACCINE (#1) [facility] 00:00:00 [code = INFLUENZA Medical Ce nter VACCINE (#1)] Future Scheduled 2021-03-30 COVID-19 VACCINE (1) [facility] Test 11:09:22 [code = COVID-19 VACCINE (1)] Future Scheduled 2021-03-30 65+ P[facility]UMOCOCCAL [facility] Test 11:09:22 VACCINE (1 of 2 - PPSV23) [code = 65+ PNEUMOCOCCAL VACCINE (1 of 2 - PPSV23)] Future Scheduled 2021-03-30 Hepatitis C screening [facility] Test 11:09:22 (procedure) [code = [id number]] Future Scheduled 2021-03-30 SHINGLES VACCINES (#1) [facility] Test 11:09:22 [code = SHINGLES VACCINES (#1)] Future Scheduled 2021-03-30 INFLUENZA VACCINE Method ist Hospital Test 11:09:22 [code = INFLUENZA VACCINE] Future Scheduled 2021-03-23 COVID-19 VACCINE (1) [facility] Test 14:18:58 [code = COVID-19 VACCINE (1)] Future Scheduled 2021-03-23 65+ PNEUMOCOCCAL [facility] Test 14:18:58 VACCINE (1 of 2 - PPSV23) [code = 65+ PNEUMOCOCCAL VACCINE (1 of 2 - PPSV23)] Future Scheduled 2021-03-23 Hepatitis C screening [facility] Test 14:18:58 (procedure) [code = [id number]] Future Scheduled 2021-03-23 SHINGLES VACCINES (#1) [facility] Test 14:18:58 [code = SHINGLES VACCINES (#1)] Future Scheduled 2021-03-23 INFLUENZA VACCINE Method ist Hospital Test 14:18:58 [code = INFLUENZA VACCINE] Future Scheduled 2020-10-21 INFLUENZA VACCINE (#1) [facility] 00:00:00 [code = INFLUENZA Medical Ce nter VACCINE (#1)] Future Scheduled 2020-10-21 INFLUENZA VACCINE (#1) [facility] 00:00:00 [code = INFLUENZA Medical Ce nter VACCINE (#1)] Future Scheduled 2020-02-[address] [facility] Test 00:00:00 (12+) [code = Medical Center DEPRESSION SCREENING (12+)] Future Scheduled 2020-02-21 FALLS RISK SCREENING [facility] Test 00:00:00 [code = FALLS RISK Medical C enter SCREENING] Future Scheduled 2020-02-[address] [facility] Test 00:00:00 (12+) [code = Medical Center DEPRESSION SCREENING (12+)] Future Scheduled 2020-02-21 FALLS RISK SCREENING [facility] Test 00:00:00 [code = FALLS RISK Medical C enter SCREENING] Future Scheduled 2009-01-[address] [facility] 00:00:00 WELLNESS (YEAR 2 or Medical Center FIRST YEAR if no IPPE) [code = MEDICARE ANNUAL WELLNESS (YEAR 2 or FIRST YEAR if no IPPE)] Future Scheduled 2009-01-[address] [facility] 00:00:00 WELLNESS (YEAR 2 or Medical Center FIRST YEAR if no IPPE) [code = MEDICARE ANNUAL WELLNESS (YEAR 2 or FIRST YEAR if no IPPE)] Future Scheduled 2009-01-[address] [facility] 00:00:00 WELLNESS (YEAR 2 or Medical Center FIRST YEAR if no IPPE) [code = MEDICARE ANNUAL WELLNESS (YEAR 2 or FIRST YEAR if no IPPE)] Future Scheduled 2008-02-19 PNEUMOCOCCAL 65+ [facility] Test 00:00:00 (1 of 1 - [facility] [id number] PCV13) [code = PNEUMOCOCCAL 65+ YRS (1 of 1 - [id number] PCV13)] Future Scheduled 2008-02-19 PNEUMOCOCCAL 65+ YRS [facility] 00:00:00 (1 of 1 - [facility] [id number]) [code = PNEUMOCOCCAL 65+ YRS (1 of 1 - [id number])] Future Scheduled 1993 SHINGLES VACCINES ([address] [facility] 00:00:00 of 2) [code = SHINGLES [facility] Center VACCINES (1 of 2)] Future Scheduled 1993 SHINGLES VACCINES ([address] [facility] 00:00:00 of 2) [code = [facility]LES [facility] VACCINES (1 of 2)] Future Scheduled 1993 SHINGLES VACCINES ([address] [facility] 00:00:00 of 2) [code = [facility]LES [facility] VACCINES (1 of 2)] Future Scheduled 1962 DTAP/TDAP/TD VACCINES [facility] 00:00:00 (1 - Tdap) [code = Medical C enter DTAP/TDAP/TD VACCINES (1 - Tdap)] Future Scheduled 1962 DTAP/TDAP/TD VACCINES [facility] 00:00:00 (1 - Tdap) [code = Medical C enter DTAP/TDAP/TD VACCINES (1 - Tdap)] Future Scheduled 1962 DTAP/TDAP/TD VACCINES [facility] 00:00:00 (1 - Tdap) [code = Medical C enter DTAP/TDAP/TD VACCINES (1 - Tdap)] Future Scheduled 1961 HE[facility]ITIS C [facility]CRE[facility]:00 [code = HEPATITIS C Medical Center SCREENING] Future Scheduled 1961 [facility] Test 00:00:00 [facility]code [facility] Future Scheduled 1961 HEPATITIS C [facility] Test 00:00:00 [code [facility]] Future Scheduled [address] [facility] Test 00:00:00 Counseling and Medical Cente r Screening (12+) [code = Tobacco Cessation Counseling and Screening (12+)] Future Scheduled 1955 COVID-19 VACCINE (1) [facility] Test 00:00:00 [code = COVID-[address] VACCINE (1)] Future Scheduled 1955 COVID-19 VACCINE (1) [facility] Test 00:00:00 [code = COVID-[address] VACCINE (1)] Future Scheduled 1949 PNEUMOCOCCAL 65+ YRS [facility] Test 00:00:00 (1 - PCV) [code = Medical Ce nter PNEUMOCOCCAL 65+ YRS (1 - PCV)] Future Scheduled 1943 COVID-19 VACCINE (#1) [facility] Test 00:00:00 [code = COVID-[address] VACCINE (#1)] Encounters Start End Encounter Admission Attending Care Care Encounter Source Date/Time Date/Time Type Type Clinicians Facility Department ID 2020-11-29 Inpatient ER [facility] [id number] [facility] 12:26:40 Med 2022-04-27 2022-04-27 Patient Kahlil, 1.2.840.1 [id number] Methodi 00:00:00 00:00:00 Outreach Sara 04155.1.[address] 3.430.2.7 Hospit a .3.830422 l .8 2022-04-22 2022-04-22 Orders Martha Gutierrez 1.2.840.3 [id number] 21 [id number] Methodi 00:00:00 00:00:00 Only C 97546.1.[address] 3.430.2.7 Hospit a .3.462046 l .8 2022-04-21 2022-04-21 Patient Kahlil, 1.2.840.1 [id number] 2935 Methodi 00:00:00 00:00:00 Outreach Sara 01962.1.[address] 3.430.2.7 Hospit a .3.063977 l .8 2022-04-14 2022-04-14 Patient Kahlil, 1.2.840.1 [id number] 8337 Methodi 00:00:00 00:00:00 Outreach Sara 75132.1.[address] 3.430.2.7 Hospit a .3.422439 l .8 2022-04-12 2022-04-12 Patient Andrew, 1.2.840.1 [id number] 1074 Methodi 00:00:00 00:00:00 Outreach [place] 91841.1.[address] 3.430.2.7 Hospit a .3.483452 l .8 2022-04-07 2022-04-07 Patient Ramiro, 1.2.840.1 [id number] 00136 Methodi 00:00:00 00:00:00 Outreach Stefanie 74541.1.[address] 3.430.2.7 Hospit a .3.516834 l .8 2022-04-06 2022-04-06 Telemedici Issa Walters Alisha 1.2.840.1 1 [id number] Methodi 09:00:00 09:30:00 [facility], Elaina 85530.1.[address] 3.430.2.7 Hospit a .3.774235 l .8 2022-04-06 2022-04-06 Telephone [facility] 1.2.840.1 [id number] Methodi 00:00:00 00:00:00 ntaeulalio, 90228.1.[address] Elaina 3.430.2.7 Hospit a .3.768705 l .8 2022-04-06 2022-04-06 Patient Kahlil, 1.2.840.1 [id number] 2518 Methodi 00:00:00 00:00:00 Outreach Sara 02896.1.[address] 3.430.2.7 Hospit a .3.505638 l .8 2022-04-06 2022-04-06 [facility] [id number] [id number] Heron 00:00:00 00:00:00 ISSA [address] 2022-04-05 2022-04-05 Patient Kahlil, 1.2.840.1 [id number] 6831 Methodi 00:00:00 00:00:00 Outreach Sara 86726.1.[address] 3.430.2.7 Hospit a .3.128891 l .8 2022-04-01 2022-04-01 Patient Jin Felder 1.2.840.1 [id number] 21 [id number] Methodi 00:00:00 00:00:[address] 3.430.2.7 Hospit a .3.620189 l .8 2022-03-25 2022-03-31 Hospital Romeo, 1.2.840.1 [id number] 661 [id number] Methodi 23:59:00 14:48:00 Encounter Issa Mckenna 23027.1.[address] 3.430.2.7 Hospit a .3.003103 l .8 2022-03-25 2022-03-31 [facility]patient [facility] 012 [id number] 8476 Heron 00:00:00 00:00:00 ISSA [address] 2022-03-25 2022-03-25 Emergency X [facility] E[facility] [id number] [facility] 13:55:00 22:59:00 ANNAMARIA itsharon of [facility] 2022-03-25 2022-03-25 Emergency [facility] 1.2.840.114 10 [id number] Univers 13:55:00 22:59:00 Annamaria MENG 350.1.13.10 ity of [place] 4.2.7.2.686 [facility] [id number] [facility] [address] Branch 2022-01-25 2022-01-25 [facility] Radiology [facility] 1.2.840.114 988 68761 Univers 15:43:34 23:59:00 Encounter [place] 350.1.13.10 ity of [place] 4.2.7.2.686 [facility] [id number] [facility] 8[address] Branch 2022-01-25 2022-01-25 Outpatient R RADIOLOGY [facility] [id number] 40288 Univers 15:38:14 15:42:00 ity of [facility] 2022-01-25 2022-01-25 [facility] Radiology [facility] 1.2.840.114 988 [id number] Univers 15:38:14 15:42:00 Encounter [place] 350.1.13.10 ity of [place] 4.2.7.2.686 [facility] [id number] [facility] 8[address] 2022-01-25 2022-01-25 [facility] Radiology [facility] 1.2.840.114 988 [id number] Univers 15:30:00 15:37:00 Encounter [place] 350.1.13.10 ity of [place] 4.2.7.2.686 [facility] [id number] [facility] pedro 807 Branch 2021-12-27 2021-12-27 Maria Eugenia Gilberto Mercedes 1.2.840.1 [id number] 21 [id number] Methodi 00:00:00 00:00:[address] 82055[address]1.[address] 3.430.2.7 Hospit a .3.484058 l .8 2021-12-10 2021-12-10 Lab Miriam, 1.2.840.1 [id number] 5503 Methodi 13:30:00 13:35:[address] Jaquan 3.430.2.7 Hospit a Bravo .3.069724 l .8 2021-12-10 2021-12-10 Multidisci [facility], 1.2.840.1 [id number] 398 [id number] Methodi 11:30:00 12:04:59 [address]45.1.[address] Visit Jaquan 3.430.2.7 Hospit a Bravo .3.270580 l .8 2021-12-10 2021-12-10 Travel 1.2.840.1 1.2.761.432 0609 396693 Methodi 00:00:00 00:00:[address] 3.430.2.7 0.2.7.3.698 Ho spita .3.769133 084.8 l .8 2021-12-10 2021-12-10 Outpatient [facility] [id number] 363 Heron 00:00:00 00:00:00 ERIC [address] 2021-12-10 2021-12-10 Outpatient [facility] [id number] 364 Heron 00:00:00 00:00:00 ERIC [address] 2021-12-10 2021-12-10 Outpatient [facility] [id number] 089 Heron 00:00:00 00:00:00 ERIC [address] 2021-12-08 2021-12-08 Travel 1.2.840.1 1.2.907.459 5744 792552 Methodi 00:00:00 00:00:[address] 3.430.2.7 0.2.7.3.698 Ho spita .3.906244 084.8 l .8 2021-11-29 2021-11-29 Telephone Agustin, 1.2.840.1 [id number] 739 [id number] Methodi 00:00:00 00:00:[address] Jodie 3.430.2.7 Hospit a .3.826527 l .8 2021-11-19 2021-11-19 Travel 1.2.840.1 1.2.176.809 5971 944767 Methodi 00:00:00 00:00:[address] 3.430.2.7 0.2.7.3.698 Ho spita .3.624275 084.8 l .8 2021-11-18 2021-11-18 Telemedici [facility], Eamon 1.2.840.1 1040 07149 [id number] Methodi 09:00:00 09:30:00 te Modestobenjamin Saritha 24677.1.[address] 3.430.2.7 Hospit a .3.554111 l .8 2021-11-18 2021-11-18 [facility] 83870 48696 Heron 00:00:00 00:00:00 EAMON [address] 2021-11-17 2021-11-17 Office Howard, 1.2.840.9 [id number] 2099 577266 Methodi 12:00:00 17:25:53 Visit Robert Wilson 48366.1.1 183 s t 3.430.2.7 Hospit a .3.359444 l .8 2021-11-17 2021-11-17 Orders Diana, 1.2.840.1 [id number] 16760 66872 Methodi 00:00:00 00:00:00 Only Lilliana 54055.1.[address] 3.430.2.7 Hospit a .3.607124 l .8 2021-11-17 2021-11-17 Outpatient HOWARD [facility] [id number] 6371 Heron 00:00:00 00:00:00 ROBERT [address] 2021-11-15 2021-11-15 Travel 1.2.840.1 1.2.212.947 9568 163731 Methodi 00:00:00 00:00:[address] 3.430.2.7 0.2.7.3.698 Ho spita .3.531942 084.8 l .8 2021-11-04 2021-11-12 [facility] Evita Mancini 1.2.840.1 [id number] 1 [id number] Methodi 15:15:00 15:05:00 Encounter Issa Walters 72334.1.[address] 3.430.2.7 Hospit a .3.847161 l .8 2021-11-04 2021-11-12 Inpatient [facility] 060 [id number] 2957 Heron 00:00:00 00:00:00 ISSA [address] 2021-11-09 2021-11-09 Anesthesia Domenic Palomares 1.2.840.1 [id number] Methodi 09:49:00 12:44:00 Event Avi Monreal 77301.1.[address] 3.430.2.7 Hospit a .3.559105 l .8 2021-11-09 2021-11-09 Surgery Miriam 1.2.840.1 [id number] 094024 2849 Methodi 09:30:00 11:35:[address] Jaquan 3.430.2.7 Hospit a Bravo .3.309207 l .8 2021-11-05 2021-11-05 Surgery Ruth Fontaine 1.2.840.1 [id number] 723759 3205 Methodi 08:35:00 09:30:[address] 3.430.2.7 Hospit a .3.006192 l .8 2021-11-04 2021-11-04 [facility], 1.2.840.1 [id number] 599 9601173 Methodi 13:00:00 13:59:21 plinary Eric 47347.1.[address] Visit Jaquan 3.430.2.7 Hospit a Bravo .3.159149 l .8 2021-11-04 2021-11-04 Travel 1.2.840.1 1.2.970.896 8846 259400 Methodi 00:00:00 00:00:[address] 3.430.2.7 0.2.7.3.698 Ho spita .3.238254 084.8 l .8 2021-11-04 2021-11-04 [facility] [id number] 456 Heron 00:00:00 00:00:00 ERIC [address] 2021-11-03 2021-11-03 [facility], 1.2.840.1 [id number] 2099 707112 Methodi 00:00:00 00:00:[address] Jaquan 3.430.2.7 Hospit a Bravo .3.964362 l .8 2021-11-03 2021-11-03 Travel 1.2.840.1 1.2.402.192 5238 842535 Methodi 00:00:00 00:00:[address] 3.430.2.7 0.2.7.3.698 Ho spita .3.884833 084.8 l .8 2021-11-03 2021-11-03 [facility], 1.2.840.1 [id number] 9625 Methodi 00:00:00 00:00:00 Only Eric 22485.1.[address] Jaquan 3.430.2.7 Hospit a Bravo .3.940762 l .8 2021-11-01 2021-11-01 Lab Howard, 1.2.840.1 [id number] 30772 01161 Methodi 12:15:00 12:20:00 Robert Wilson 92839.1.1 828 s t 3.430.2.7 Hospit a .3.230470 l .8 2021-11-01 2021-11-01 Multidisci Stevenson, 1.2.840.1 [id number] 2 [id number] Methodi 10:15:00 11:02:15 plinary Stefanie 96576.1.[address] Visit Denisner 3.430.2.7 Hospit a .3.462574 l .8 2021-11-01 2021-11-01 Travel 1.2.840.1 1.2.532.959 6250 596896 Methodi 00:00:00 00:00:[address] 3.430.2.7 0.2.7.3.698 Ho spita .3.692039 084.8 l .8 2021-11-01 2021-11-01 Outpatient [facility] [id number] 003 Heron 00:00:00 00:00:[address] 2021-11-01 2021-11-01 Outpatient [facility] [id number] 003 Heron 00:00:00 00:00:[address] 2021-11-01 2021-11-01 Outpatient HOWARD, [facility] [id number] 6605 Heron 00:00:00 00:00:00 ROBERT [address] 2021-10-29 2021-10-29 Travel 1.2.840.1 1.2.400.396 9831 075293 Methodi 00:00:00 00:00:[address] 3.430.2.7 0.2.7.3.698 Ho spita .3.602814 084.8 l .8 2021-10-26 2021-10-26 Orders Mar, Martha 1.2.840.1 [id number] 21 [id number] Methodi 00:00:00 00:00:00 Only C [address]66.1.[address] 3.430.2.7 Hospit a .3.699908 l .8 2021-10-15 2021-10-15 Multidisci Miriam, 1.2.840.1 [id number] 596 [id number] Methodi 10:30:00 11:43:40 plinary Eric 96072.1.[address] Visit Jaquan 3.430.2.7 Hospit a Bravo .3.199039 l .8 2021-10-15 2021-10-15 Travel 1.2.840.1 1.2.001.867 4886 492107 Methodi 00:00:00 00:00:[address] 3.430.2.7 0.2.7.3.698 Ho spita .3.628501 084.8 l .8 2021-10-15 2021-10-15 [facility] [id number] 112 Heron 00:00:00 00:00:00 ERIC [address] 2021-10-13 2021-10-13 Orders Diana, 1.2.840.1 [id number] 38947 41391 Methodi 00:00:00 00:00:00 Only Lilliana 50233.1.[address] 3.430.2.7 Hospit a .3.725410 l .8 2021-10-12 2021-10-12 Telephone Flores, 1.2.840.1 [id number] 2099 615329 Methodi 00:00:00 00:00:[address] 3.430.2.7 Hospit a .3.378035 l .8 2021-10-11 2021-10-11 Patient Ismaelo, 1.2.840.1 [id number] 44777 28027 Methodi 00:00:00 00:00:00 Outreach Priscilla Sheltoncia 85978.1.[address] 3.430.2.7 Hospit a .3.075309 l .8 2021-10-11 2021-10-11 Telephone Gilberto Mercedes 1.2.840.1 [id number] Methodi 00:00:00 00:00:[address] 3.430.2.7 Hospit a .3.887992 l .8 2021-09-27 2021-10-08 [facility] 1.2.840.1 10 [id number] Methodi 16:56:00 14:46:00 Encounter Issa Walters Bala 06436.1.[address] 3.430.2.7 Hospit a .3.497128 l .8 2021-09-27 2021-10-08 Inpatient [facility] 027 [id number] 6482 Heron 00:00:00 00:00:00 ISSA [address] 2021-10-07 2021-10-07 Surgery Gilberto Mercedes 1.2.840.1 [id number] 21 [id number] Methodi 16:05:00 18:25:[address] 3.430.2.7 Hospit a .3.996970 l .8 2021-10-05 2021-10-05 Anesthesia Moo You 1.2.840.1 [id number] Methodi 13:57:00 16:31:00 Event Elizabeth Cope 21798.1.[address] 3.430.2.7 Hospit a .3.104173 l .8 2021-10-05 2021-10-05 Surgery Dina, 1.2.840.1 [id number] 48361 01004 Methodi 13:35:00 15:55:[address] Jacob 3.430.2.7 Hospit a .3.324045 l .8 2021-09-28 2021-09-28 Orders Skip, 1.2.840.1 [id number] 2099 003413 Methodi 00:00:00 00:00:00 Only Latoya 06798.1.[address] 3.430.2.7 Hospit a .3.222371 l .8 2021-09-27 2021-09-27 Travel 1.2.840.1 1.2.937.529 6301 003482 Methodi 00:00:00 00:00:[address] 3.430.2.7 0.2.7.3.698 Ho spita .3.706860 084.8 l .8 2021-09-27 2021-09-27 Telephone Sanjay, 1.2.840.1 [id number] 502 [id number] Methodi 00:00:00 00:00:[address] 3.430.2.7 Hospit a .3.866385 l .8 2021-09-24 2021-09-24 [facility], 1.2.840.1 [id number] 77195 01778 Methodi 06:31:00 12:25:00 Encounter Eric 82618.1.[address] Jaquan 3.430.2.7 Hospit a Bravo .3.645297 l .8 2021-09-24 2021-09-24 Anesthesia Pal Mcmanus 1.2.840.1 [id number] Methodi 10:30:00 11:33:00 Event Dione Carr 95361.1.[address] 3.430.2.7 Hospit a .3.946906 l .8 2021-09-24 2021-09-24 Outpatient LOLA ANDUJAR [facility] 10 [id number] [facility] 11:00:00 11:00:00 LOLA CABRERA i [facility] 2021-09-24 2021-09-24 Outpatient [facility] 273 [id number] 070 Heron 00:00:00 00:00:00 ERIC [address] 2021-09-21 2021-09-21 Travel 1.2.840.1 1.2.618.839 1570 369167 Methodi 00:00:00 00:00:[address] 3.430.2.7 0.2.7.3.698 Ho spita .3.110449 084.8 l .8 2021-09-20 2021-09-20 Outpatient Carrie MARROQUIN [facility] 95162 [address] [facility] 15:15:00 15:15:00 KIMMY de la o of [facility] 2021-09-15 2021-09-15 Travel 1.2.840.1 1.2.165.185 3915 431779 Methodi 00:00:00 00:00:[address] 3.430.2.7 0.2.7.3.698 Ho spita .3.641877 084.8 l .8 2021-09-15 2021-09-15 Orders Grace, 1.2.840.1 [id number] 22604 Methodi 00:00:00 00:00:00 Only Susan 49863.1.[address] 3.430.2.7 Hospit a .3.947167 l .8 2021-09-14 2021-09-14 Orders Grace, 1.2.840.1 [id number] 42371 Methodi 00:00:00 00:00:00 Only Susan 92106.1.[address] 3.430.2.7 Hospit a .3.864742 l .8 2021-09-10 2021-09-10 [facility], 1.2.840.1 [id number] 53431 01589 Methodi 12:56:34 23:59:00 Encounter Eric 76880.1.[address] Jaquan 3.430.2.7 Hospit a Bravo .3.983729 l .8 2021-09-10 2021-09-10 [facility], 1.2.840.1 [id number] 375773 3027 Methodi 12:20:00 12:25:[address] Jaquan 3.430.2.7 Hospit a Bravo .3.526786 l .8 2021-09-10 2021-09-10 [facility], 1.2.840.1 [id number] 812 6453838 Methodi 09:30:00 11:50:20 plinary Eric 14238.1.[address] Visit Jaquan 3.430.2.7 Hospit a Bravo .3.542767 l .8 2021-09-10 2021-09-10 Outpatient MIRIAM, [facility] [id number] 942 Heron 00:00:00 00:00:00 ERIC [address] 2021-09-10 2021-09-10 Outpatient MIRIAM, [facility] [id number] 941 Heron 00:00:00 00:00:00 ERIC [address] 2021-09-10 2021-09-10 Outpatient MIRIAM, [facility] [id number] 772 Heron 00:00:00 00:00:00 ERIC [address] 2021-09-10 2021-09-10 Outpatient MIRIAM, [facility] [id number] 776 Heron 00:00:00 00:00:00 ERIC [address] 2021-09-09 2021-09-09 Travel 1.2.840.1 1.2.148.943 7051 063813 Methodi 00:00:00 00:00:[address] 3.430.2.7 0.2.7.3.698 spita .3.810449 084.8 l .8 2021-08-30 2021-08-30 Telephone Tru, 1.2.840.1 [id number] 2099 137278 Methodi 00:00:00 00:00:[address] 3.430.2.7 Hospit a .3.599497 l .8 2021-05-25 2021-05-25 Telephone Sanjay, 1.2.840.1 [id number] 916 [id number] Methodi 00:00:00 00:00:[address] 3.430.2.7 Hospit a .3.400936 l .8 2021-01-29 2021-01-29 [facility] Miriam, 1.2.840.1 [id number] 154 3354230 Methodi 08:15:08 09:15:09 plinary Eric 84807.1.[address] Visit Jaquan 3.430.2.7 Hospit a Bravo .3.454731 l .8 2021-01-29 2021-01-29 Travel 1.2.840.1 1.2.069.441 7095 280173 Methodi 00:00:00 00:00:[address] 3.430.2.7 0.2.7.3.698 Ho spita .3.342925 084.8 l .8 2021-01-27 2021-01-27 [facility] 1.2.840.1 [id number] 83760 Methodi 09:27:49 23:59:00 Encounter Eric 96601.1.[address] Jaquan 3.430.2.7 Hospit a Bravo .3.854422 l .8 2021-01-27 2021-01-27 [facility], 1.2.840.1 [id number] 2099 004271 Methodi 00:00:00 00:00:[address] 3.430.2.7 Hospit a .3.254624 l .8 2021-01-27 2021-01-27 Travel 1.2.840.1 1.2.412.089 8445 398804 Methodi 00:00:00 00:00:[address] 3.430.2.7 0.2.7.3.698 Ho spita .3.321249 084.8 l .8 2021-01-25 2021-01-25 [facility] 1.2.840.1 [id number] 26356 Methodi 09:21:06 23:59:00 Encounter Eric 12027.1.[address] Jaquan 3.430.2.7 Hospit a Bravo .3.354633 l .8 2021-01-25 2021-01-25 Travel 1.2.840.1 1.2.878.191 4147 087888 Methodi 00:00:00 00:00:[address] 3.430.2.7 0.2.7.3.698 Ho spita .3.192866 084.8 l .8 2021-01-22 2021-01-22 Travel 1.2.840.1 1.2.885.954 4873 675460 Methodi 00:00:00 00:00:[address] 3.430.2.7 0.2.7.3.698 Ho spita .3.943183 084.8 l .8 2021-01-20 2021-01-20 Telephone Miriam, 1.2.840.1 [id number] 2099 766734 Methodi 00:00:00 00:00:[address] Jaquan 3.430.2.7 Hospit a Bravo .3.264131 l .8 2021-01-20 2021-01-20 Travel 1.2.840.1 1.2.381.793 8650 958859 Methodi 00:00:00 00:00:[address] 3.430.2.7 0.2.7.3.698 Ho spita .3.025995 084.8 l .8 2020-12-28 2020-12-28 Patient Angelthang Jin 1.2.840.1 [id number] 21 [id number] Methodi 00:00:00 00:00:[address] 3.430.2.7 Hospit a .3.920879 l .8 2020-12-08 2020-12-25 Hospital Romeo 1.2.840.1 [id number] 971 [id number] Methodi 21:49:00 20:02:00 Encounter Issa Mckenna 88879.1.[address] 3.430.2.7 Hospit a .3.004455 l .8 2020-12-25 2020-12-25 Maria Eugenia Matthews 1.2.840.1 [id number] 758245 7927 Methodi 00:00:00 00:00:00 Only Onelia Martinez 04631.1.[address] 3.430.2.7 Hospit a .3.859796 l .8 2020-12-142020-12-14 Surgery Norman, 1.2.840.1 [id number] 45200 52316 Methodi 12:45:00 14:15:[address] Dylan 3.430.2.7 Hospi ta .3.476386 l .8 2020-12-14 2020-12-14 Anesthesia Christal Muller 1.2.840.1 [id number] Methodi 12:45:00 13:26:00 Event Avi Abrams 89523.1.[address] 3.430.2.7 Hospit a .3.945673 l .8 2020-12-11 2020-12-11 Surgery John Theodore 1.2.840.1 [id number] 557 [id number] Methodi 12:35:00 14:00:[address] 3.430.2.7 Hospit a .3.387366 l .8 2020-12-11 2020-12-11 Anesthesia Estrada, 1.2.840.1 [id number] 2 [id number] Methodi 12:35:00 12:35:00 Event Tawanna 37476.1.[address] 3.430.2.7 Hospit a .3.723016 l .8 2020-11-03 2020-11-09 [facility] Fischer Agustín Mary [facility] [id number] [facility] 17:50:00 18:33:00 Encounter Nick Mcnally, [facility] Elijah Arias 2020-11-03 2020-11-03 Travel [facility] [id number] [facility] 00:[facility] 00[facility]00 [facility] Results Test Description Test Time Test Comments Results Result Comments Source POC glucose 2022-03-31 18:18:00 Test Item Value Reference Range Interpretation Comme nts POC glucose (test code = 143 mg/dL 65-99 H Ope rator Name: Tru Scales [id number] ID: [id number] hartable: [facility] Notified RNChar table: No Action Needed Lab Interpretation (test code = Abnormal 95803-7) [facility] 12 [id number] 16:43:34 Test Item Value Reference Range Interpretation Comments Ventricular rate (test 80 code = 253) Atrial rate (test code 80 = 255) MA interval (test code 216 = 266) QRSD interval (test 114 code = 260) QT interval (test code 434 = 264) QTC interval (test code 500 = 265) P axis 1 (test code = 76 267) QRS axis 1 (test code = -37 268) T wave axis (test code 110 = 270) EKG impression (test Atrial-sensed code = 273) ventricular-paced rhythm with prolonged AV conduction-Abnormal ECG-In automated comparison with ECG of 10-DEC-2021 11:56,-Vent. rate has increased BY 4 BPM- [facility] WITH [id number] 21:54:57 Test Item Value Reference Range Interpretation Comments WBC (test code = 9.66 See_Comment [Automated 2390-2) message] The sy stem which generated this result transmitted reference range : 4.20 - 10.70 10*3/?L. The reference range was not used to interpret this result as normal/abnormal . RBC (test code = 5.93 See_Comment H [Automated 199-8) message] The sy stem which generated this result transmitted reference range : 4.26 - 5.52 10*6/?L. The reference range was not used to interpret this result as normal/abnormal . HGB (test code = 16.8 g/dL 12.2-16.4 H 718-7) HCT (test code = 51.9 % 38.4-49.3 H 4544-3) MCV (test code = 87.5 fL 81.7-95.6 787-2) MCH (test code = 28.3 pg 26.1-32.7 785-6) MCHC (test code = 32.4 g/dL 31.2-35.0 786-4) RDW-SD (test code = Not Gaurav ured 19068-4) RDW-CV (test code = Not Gaurav ured 788-0) PLT (test code = 308 See_Comment [Automated 777-3) message] The sy stem which generated this result transmitted reference range : 150 - 328 10*3/ ?L. The reference r fausto was not used to interpret this result as normal/abnormal . MPV (test code = 8.6 fL 9.8-13.0 L 73736-3) NRBC/100 WBC (test 0.2 See_Comment [Automat ed code = [id number]) message] The system which generated this result transmitted reference range : 0.0 - 10.0 /100 WBCs. The refer ence range was not u sed to interpret th is result as normal/abnormal . NRBC x10^3 (test code 0.02 See_Comment [Auto mated = [id number]) message] The s ystem which generated this result transmitted reference range : 10*3/?L. The reference range was not used to interpret this result as normal/abnormal . GRAN MAT (NEUT) % 71.2 % (test code = 770-8) IMM GRAN % (test code 0.60 % = [id number]) LYMPH % (test code = 19.3 % 736-9) MONO % (test code = 8.5 % 5905-5) EOS % (test code = 0.1 % 713-8) BASO % (test code = 0.3 % 706-2) GRAN MAT x10^3(ANC) 6.88 10*3/uL 1.99-6.95 (test code = [id number]) IMM GRAN x10^3 (test 0.06 10*3/uL 0.00-0.06 code = [id number]) LYMPH x10^3 (test code 1.86 10*3/uL 1.09-3.23 = 731-0) MONO x10^3 (test code 0.82 10*3/uL 0.36-1.02 = 742-7) EOS x10^3 (test code = 0.06-0.53 L 711-2) BASO x10^3 (test code 0.03 10*3/uL 0.01-0.09 = 704-7) BASO STIPPLING (test Present A code = 703-9) POLYCHROMASIA (test 2+ See_Comment [Automa alejandra code = 56913-0) message] The system which generated this result transmitted reference range : 2+. The referen ce range was not u sed to interpret th is result as normal/abnormal . SPHEROCYTES (test code 1+ A = 802-9) PLT ESTIMATE (test Normal Normal code = 9317-9) GIANT PLATELETS (test Present See_Comment A [Auto mated code = 5908-9) message] The system which generated this result transmitted reference range : (none). The reference range was not used to interpret this result as normal/abnormal . Lab Interpretation Abnormal (test code = 28543-7) [id number] 21:27:00 Test Item Value Reference Range Interpretation Comments TROPONIN I (test code = 0.026 ng/mL <=0.034 [id number]) PROSPER (test code = PROSPER) Reference (Normal) Range (defined by the 99th percentile reference limit): <= 0.034 ng/mL Note: Cardiac troponin begins to rise 3-4 hours after the onset of ischemia. Repeat in 4-6 hours if the sample was drawn within 3-4 hours of the onset of the symptom and found normal. Diagnosis of myocardial injury is made with acute changes in cTn concentrations with at least one serial sample above the 99th percentile upper reference limit (URL), taken together with the patient's clinical presentation. Biotin has been reported to cause a negative bias, interpret results relative to patient's use of biotin. Lab Interpretation Normal (test code = 83733-7) [id number] 21:24:00 Test Item Value Reference Range Interpretation Comments NT-proBNP (test code = 96322 pg/mL <=450 H [id number]) PROSPER (test code = PROSPER) Biotin has been reported to cause a negative bias, interpret results relative to patient's use of biotin. Lab Interpretation (test Abnormal code = 24140-1) [facility] (42285)2022-03-25 21:17:37 Test Item Value Reference Range Interpretation Comments NA (test code = 134 mmol/L 135-145 L 6258260894) K (test code = 5.3 mmol/L 3.5-5.0 H 4636379886) CL (test code = 97 mmol/L 98-108 L 0975340496) CO2 TOTAL (test code = 25 mmol/L 23-31 1695393120) AGAP (test code = 12 2-16 7720760945) BUN (test code = 44 mg/dL 7-23 H 3490489344) GLUCOSE (test code = 136 mg/dL 70-110 H 7326012015) CREATININE (test code = 2.29 mg/dL 0.60-1.25 H 1157223256) TOTAL BILI (test code = 2.1 mg/dL 0.1-1.1 H 9508064591) CALCIUM (test code = 9.2 mg/dL 8.6-10.6 3260051871) T PROTEIN (test code = 6.7 g/dL 6.3-8.2 1806134248) ALBUMIN (test code = 4.1 g/dL 3.5-5.0 8660025230) ALK PHOS (test code = 171 U/L 34-122 H 6264652036) ALTv (test code = 327 U/L 5-50 H 1742-6) AST(SGOT) (test code = 611 U/L 13-40 H 2888269633) eGFR (test code = 27.7 mL/min/1.73m2 8179929401) PROSPER (test code = PROSPER) Association of Glomerular Filtration Rate (GFR) and Staging of Kidney Disease* + --+ --+ ------+| GFR (mL/min/1.73 m2) ?| With Kidney Damage ?| ?Without Kidney Damage+ --------+ --------+ +| ?>90 ?| ?Stage one ?| ? Normal ?+ ---+ ---+ -------+| ?60-89 ?| ?Stage two ?| ? Decreased GFR ? + --+ --+ ------+| ?30-59 ?| ?Stage three ?| ? Stage three ? + --+ --+ ------+| ?15-29 ?| ?Stage four ? | ? Stage four ?+ ---+ ---+ -------+| ?<15 (or dialysis) ? ?| ?Stage five ? | ? Stage five ?+ ---+ ---+ -------+ *Each stage assumes the associated GFR level has been in effect for at least three months. ?Stages 1 to 5, with or without kidney disease, indicate chronic kidney disease. Notes: Determination of stages one and two (with eGFR >59mL/min/1.73 m2) requires estimation of kidney damage for at least three months as defined by structural or functional abnormalities of the kidney, manifested by either:Pathological abnormalities or Markers of kidney damage (including abnormalities in the composition of the blood or urine or abnormalities in imaging tests). Lab Interpretation Abnormal (test code = 54320-2) [facility]37 Test Item Value Reference Range Interpretation Comments MAGNESIUM (test code = 6651563548) 2.2 mg/dL 1.7-2.4 Lab Interpretation (test code = Normal 73805-8) [facility] / [id number] 21:17:01 Test Item Value Reference Range Interpretation Comments PROTIME PATIENT (test 33.8 See_Comment H [Auto mated message] code = 5964-2) The system [employer] generated this result transmitted ref erence range: 12.0 - 1 4.7 Seconds. The reference range was not used to int erpret this result as normal/abnormal . INR (test code = 6301-6) 3.5 Nor mal INR <1.1; Warfarin Therap eutic range 2.0 to 3. 0 or 2.5 to 3.5, dep ending upon the indica tions. Lab Interpretation (test Abnormal code = 20613-1) [facility]athy[facility] [id number] 16:56:00 Test Item Value Reference Interpretation Comments Range PTH (test code = 93 pg/mL 16-77 H Interpreti ve Guide Intact 2731-8) PTH Calcium-------- ---- ---Normal Parathyroid Nor mal NormalHypoparat hyroidism Low or Low Norm al LowHyperparathy roidism Primary Normal or High High Secondary High Normal or Low Tertiary High HighNon-Parathy roid Hypercalcemia L ow or Low Normal High PROSPER (test code = FASTING:UNKNOWN PROSPER) FASTING: UNKNOWN RAC (test code = Performing RAC) Organization Information: Site ID: [facility] Name: [facility] Address: [address] [place] [phone] Director: Eliazar Strange Lab Abnormal Interpretation (test code = 30534-3) [facility] [id number] 16:56:00 Test Item Value Reference Range Interpretation Comments Phosphorus (test code 3.3 mg/dL 2.1-4.3 = 2777-1) PROSPER (test code = PROSPER) FASTING:UNKNOWN FASTING: UNKNOWN RAC (test code = RAC) Performing Organization Information: Site ID: A [facility] Address: [address] [place] [phone] Director: Eliazar Strange [facility] [id number] 16:56:00 Test Item Value Reference Range Interpretation Comments Uric acid 8.0 mg/dL 4.0-8.0 Therapeutic tar get (test code = for gout patien ts: 3084-1) <6.0 mg/dL PROSPER (test FASTING:UNKNOWN code = PROSPER) FASTING: UNKNOWN RAC (test Performing code = RAC) Organization Information: Site ID: A [facility] Address: [address] [place] [phone] Director: Eliazar Lawson BgaryuzeDUNF-KmT-7 (COVID-19) RNA [Presence] in Respiratory specimen by LON with probe [id number] 01:10:17 Test Item Value Reference Range Interpretation Comments SARS-CoV-2 (COVID-19) RNA Not detected [Presence] in Respiratory specimen by LON with probe detection (test code = 13305-2) Whether patient is employed in a Unknown healthcare setting (test code = 00408-5) Whether the patient has symptoms Unknown related to condition of interest (test code = 77968-5) Whether the patient was Unknown hospitalized for condition of interest (test code = 64836-6) Whether the patient was admitted Unknown to intensive care unit (ICU) for condition of interest (test code = 25643-9) Whether patient resides in a Unknown congregate care setting (test code = 47148-1) status (test code = Unknown 93153-2) Date and time of symptom onset Unknown (test code = 51812-9) [facility] Con[facility] - POC [id number] 23:01:07 Test Item Value Reference Interpretation Comments Range SUPPLIER NAME [facility] (test code = 6415) SUPPLIER PHONE (test code = 6418) ORDER STATUS Delivery (test code = Successful 6417) DELIVERY NOTE (test code = 6419) REQUESTED DELIVEY 10/06/2021 DATE (test code = 6420) ITEM DESCRIPTION POC with Qty: 1Instr uctions: (test code = Conserving Device Patient turner s already 6423) / Pulse Dose been titrated/evalua alejandra to a specific settingConservi ng Device Settin EXPECTED DELIVERY 10/08/2021 DATE (test code = 6421) ACTUAL DELIVERY 10/08/2021 DATE (test code = 6422) [facility]/Post [id number] 13:28:21 Test Item Value Reference Range Interpretation Comments Ventricular rate (test 77 code = 253) Atrial rate (test code = 77 255) MA interval (test code = 230 266) QRSD interval (test code 104 = 260) QT interval (test code = 420 264) QTC interval (test code 475 = 265) P axis 1 (test code = 76 267) QRS axis 1 (test code = -30 268) T wave axis (test code = 200 270) EKG impression (test Atrial-sensed code = 273) ventricular-paced rhythm with prolonged AV conduction-Electronic ally Signed By Ariel Panchal MD ([id number]) on 10/08/2021 8:28:19 AM [facility] CenterPrepare [id number] 22:05:00 Test Item Value Reference Range Interpretation Comments Product name (test code Red Blood Cells -1, = 25) Leukored Unit number (test code [id number] = 0924537) Product code (test code [id number] = 3092) Dispense status (test Returned to not code = 24) transfused Blood expiration date (test code = 302) Blood type code (test 1700 code = 308) Blood type (test code = B NEGATIVE 1314) Compatibility (test Compatible code = 6400) [facility] CenterActivated clotting [id number] 20:39:00 Test Item Value Reference Range Interpretation Comments Activated clotting 116 See_Comment Field Service Consultant Name: Estrada time (test code = Luciano Valera ID: [id number]) [id number] [Autom ated message] The sy stem which generated this result transmitted ref erence range: 96 - 152 sec. The reference range was not used to interpr et this result as stan l/abnormal. [facility] arterial blood gas, corrected and [id number] 20:38:00 Test Item Value Reference Range Interpretation Comments pH, arterial (test 7.36 7.35-7.45 code = 2744-1) pCO2, arterial (test 47 See_Comment H [Autom ated code = 2018-) message] The system which generated this result transmitted reference range : 35 - 45 mmHg. The reference range was not used to interpret this result as normal/abnormal . pO2, arterial (test 65 See_Comment L [Automa alejandra code = 2703-7) message] The system which generated this result transmitted reference range : 80 - 90 mmHg. The reference range was not used to interpret this result as normal/abnormal . Temperature, Celsius 36.0 Degrees C (test code = 8310-5) O2 saturation, 91 % 95-100 L arterial (test code = 2708-6) pH, arterial 7.37 corrected (test code = 20465-4) pCO2, arterial 45 mmHg corrected (test code = 52638-7) pO2, arterial Unable to mmHg Field Service Consultant ID: corrected (test code alex reyes = 57300-7) [place] D: [id number] Base excess, arterial 0 See_Comment [Auto mated (test code = 1925-7) message ] The system which generated this result transmitted reference range : -2 - 2 mEq/L. The reference range was not used to interpret this result as normal/abnormal . Hemoglobin, syringe 10.3 g/dL 14.0-18.0 L (test code = 718-7) Potassium, syringe 3.9 See_Comment [Automat ed (test code = 2007) message] The system which generated this result transmitted reference range : 3.5 - 5.0 mEq/L . The reference r fausto was not used to interpret this result as normal/abnormal . Sodium, syringe (test 136 See_Comment [Auto mated code = 2947-0) message] The system which generated this result transmitted reference range : 135 - 148 mEq/L . The reference r fausto was not used to interpret this result as normal/abnormal . Ionized calcium, 1.23 mmol/L 1.11-1.32 arterial (test code = 09456-0) Glucose, syringe 134 mg/dL 65-99 H (test code = 2345-7) Lactic acid, syringe 1.3 mmol/L 0.5-2.2 (test code = 26711-3) Lab Interpretation Abnormal (test code = 48667-7) [facility] VgcmrytpFXBS-MsJ-8 (COVID-19) RNA [Presence] in Respiratory specimen by LON with probe [id number] 22:42:44 Test Item Value Reference Range Interpretation Comments SARS-CoV-2 (COVID-19) RNA Not detected [Presence] in Respiratory specimen by LON with probe detection (test code = 53832-7) Whether patient is employed in a Unknown healthcare setting (test code = 01459-4) Whether the patient has symptoms Unknown related to condition of interest (test code = 39861-2) Whether the patient was Unknown hospitalized for condition of interest (test code = 93095-0) Whether the patient was admitted Unknown to intensive care unit (ICU) for condition of interest (test code = 19108-5) Whether patient resides in a Unknown congregate care setting (test code = 58977-0) status (test code = Unknown 14901-4) Date and time of symptom onset Unknown (test code = 35177-7) [facility] [id number] 01:49:04 Test Item Value Reference Range Interpretation Comments FEV1 Pre (test code = 5348) 2.2 L 2.27-3.89 FEV1 Predicted (test code = 5302) 3.08 FEV1 LLN (test code = 5347) 2.27 FEV1 % Pre of Predicted (test code = 71.4 % 5308) FVC Pre (test code = 5354) 3.27 L 3.32-5.24 FVC Predicted (test code = 5307) 4.28 FVC LLN (test code = 5353) 3.32 FVC % Pre of Predicted (test code = 76.3 % 5355) FEV1/FVC % Pre (test code = 5361) 67.2 % 62.27-81.63 FEV1/FVC % Predicted (test code = 72 5359) FEV1/FVC % LLN (test code = 5360) 62 FEV1/FVC % Pre of Predicted (test 93.4 % code = 5362) FEF 25-75% Pre (test code = 5547) 1.2 L/s 0.53-3.81 FEF 25-75% Predicted (test code = 2.17 5546) FEF 25-75% LLN (test code = 5545) 0.53 FEF 25-75% % Pre of Predicted (test 55.2 % code = 5548) PEF Pre (test code = 5367) 6.61 L/s 5.32-10.09 PEF Predicted (test code = 5310) 7.71 PEF LLN (test code = 5366) 5.32 PEF % Pre of Predicted (test code = 85.8 % 5368) [facility] CenterUrine [id number] 09:30:00 Test Item Value Reference Range Interpretation Comments Urine culture (test SEE COMMENT Bacteriu rossana screen code = 1845466) negative. [facility] ED Preliminary Interpretation - Not an [id number] 03:22:32 Test Item Value Reference Range Interpretation Comments PROSPER (test code = PROSPER) Mariela Albarado MD 10/01/2021 6:37 [facility] [place] Preliminary Interpretation - Not an OrderPerformed by: Mariela Albarado MDAuthorized by: Mariela Albarado MD ECG reviewed by ED Physician in the absence of a edge banding machine offbearer: yes Interpretation: Interpretation: abnormal Rate: ECG rate: 97 ECG rate assessment: normal Rhythm: Rhythm: sinus rhythm Ectopy: Ectopy: none QRS: QRS axis: Normal QRS intervals: NormalST segments: ST segments: NormalT waves: T waves: normal Other findings: Other findings: prolonged qTc interval Comments: Prolonged qTC interval 502 Lab Interpretation Abnormal (test code = 61990-1) [facility] RNA [Presence] in Respiratory specimen by LON with probe [id number] 01:56:53 Test Item Value Reference Range Interpretation Comments SARS-CoV-2 (COVID-19) RNA Not detected [Presence] in Respiratory specimen by LON with probe detection (test code = 04296-4) Whether patient is employed in a Unknown healthcare setting (test code = 31944-8) Whether the patient has symptoms Unknown related to condition of interest (test code = 14975-0) Whether the patient was Unknown hospitalized for condition of interest (test code = 74916-9) Whether the patient was admitted Unknown to intensive care unit (ICU) for condition of interest (test code = 06646-2) Whether patient resides in a Unknown congregate care setting (test code = 92112-4) status (test code = Unknown 34924-1) Date and time of symptom onset Unknown (test code = 02039-1) [address]2021-12-11 01:16:20 Test Item Value Reference Range Interpretation Comments Ventricular rate (test code = 253) Atrial rate (test code = 255) MA interval (test code = 266) QRSD interval (test code = 260) QT interval (test code = 264) QTC interval (test code = 265) P axis 1 (test code = 267) QRS axis 1 (test code = 268) T wave axis (test code = 270) EKG impression (test Sinus rhythm with code = 273) occasional premature ventricular complexes-Left axis deviation-Incomplete right bundle branch block- [address]2021-12-11 01:16:20 Test Item Value Reference Range Interpretation Comments Ventricular rate (test code = 253) Atrial rate (test code = 255) MA interval (test code = 266) QRSD interval (test code = 260) QT interval (test code = 264) QTC interval (test code = 265) P axis 1 (test code = 267) QRS axis 1 (test code = 268) T wave axis (test code = 270) EKG impression (test Sinus rhythm with code = 273) occasional premature ventricular complexes-Left axis deviation-Incomplete right bundle branch block- [facility] CenterC[facility] stress [id number] 11:50:28 Test Item Value Reference Range Interpretation Comments Resting HR (test code = 4815059409) Resting BP (test code 174&81 = 5609723970) Peak MET Achieved (test code = 1414702003) Protocol Name (test DOBUTAM/ECHO code = 0608018076) Time in Exercise 00:15:00 Phase (test code = 2756838824) Max Systolic BP (test code = 6603696128) Max Diastolic BP (test code = 4110923996) Max Heart Rate (test code = 1403374420) Max Predicted Heart Rate (test code = 2057542600) Target HR Formula (220 - Age)*100% (test code = 3129809316) Test Indication (test code = 3137515566) Arrhy During Ex (test code = 8311232558) ECG Interp Before EX (test code = 4880772174) ECG Interp During Ex (test code = 0857769992) Ex Summary Comment (test code = 5118731867) Overall HR Response to Exercise (test code = 3007863151) Overall BP Response To Exercise (test code = 1630172255) Reason for Protocol Complete Termination (test code = 2560309195) Stress Test -Waveform interpreted in Impression (test code report associated with = 8303930865) image study. No interpretation is provided as part of this Stress ECG report.-Electronically Signed By Kerry WONG, Javier Beltran ([id number]), map editor Huyen Ramos ([id number]) on 01/29/2021 5:50:[address] [facility] [place] [place] stress [id number] 11:50:28 Test Item Value Reference Range Interpretation Comments Resting HR (test code = 0644110419) Resting BP (test code 174&81 = 0406150444) Peak MET Achieved (test code = 4498720085) Protocol Name (test DOBUTAM/ECHO code = 0004151385) Time in Exercise 00:15:00 Phase (test code = 9492858434) Max Systolic BP (test code = 3077954699) Max Diastolic BP (test code = 3288155250) Max Heart Rate (test code = 1535006806) Max Predicted Heart Rate (test code = 3345916091) Target HR Formula (220 - Age)*100% (test code = 0591078073) Test Indication (test code = 3397804286) Arrhy During Ex (test code = 6558609983) ECG Interp Before EX (test code = 2518099299) ECG Interp During Ex (test code = 1315947230) Ex Summary Comment (test code = 8168850105) Overall HR Response to Exercise (test code = 1223365902) Overall BP Response To Exercise (test code = 3583544105) Reason for Protocol Complete Termination (test code = 9089653950) Stress Test -Waveform interpreted in Impression (test code report associated with = 4853595098) image study. No interpretation is provided as part of this Stress ECG report.-Electronically Signed By Kerry WONG, Javier Beltran ([id number]), map editor Huyen Ramos ([id number]) on 01/29/2021 5:50:23 AM [facility] [id number] 22:14:17 Test Item Value Reference Range Interpretation Comments Misc test BCR-ABL1, name (test Qualitative with code = 2566) Reflex to BCR Misc test see comment BCR-ABL1, Quali tative result (test with Reflex to code = 1730) BCR-ABL1 Quanti tative [facility] test code 1342021 BCR-ABL1 Source Whole Blood - - - - - - - - - - - - - - - - - - - - - - - - - - - - - -BCR-ABL1, t(9; 22) Qual by RT-PCR Not Detected This r esult has been review ed and approved by Clive Alvarez M.D. There is n o evidence of aye or (p210, e13a2 or e14a2), minor ( p190, e1a2), or micro (e19a2) BCR-ABL 1 fusion transcri pts by RT-PCR analysis . This result does not entirely exclud e the possibility of BCR-ABL1 fusion transcripts oth er than e1a2, e13a2, e1 4a2, and e19a2 or transcripts bel ow the limit of detection.INTER PRETIVE INFORMATION: BC R-ABL1, t(9;22) Qual by RT-PCR This assay is d esigned to detect the p resence of BCR-ABL1 translocations with breakpoints in the major breakpoin t cluster region (p210 fusion), minor breakpoint clus ter region (p190 fu anayeli), or the micro breakpoint clus ter region (p230 fu anayeli). METHODOLOGY:Rar e BCR-ABL1 fusion s with alternative breakpoints are not detected by thi s test. RNA is isolated from whole blood or bone marrow and reve rse transcribed. Th e resulting cDNA is subjected to mu ltiplex PCR amplificati on with primers designe d to amplify p190, p 210 or p230 BCR-ABL1 f usion transcripts. Th e ABL1 reference gene is also amplified for s pecimen quality assurance manager and to ensure the inte grity of RNA. The PCR products are re solved by capillary electrophoresis and evaluated for t he presence of amp licons that indicate a positive result.LIMITATI ONS:The limit of detect ion for this assay is 1 BCR-ABL1 positi ve cell in 100,000 norm al cells. Results of this test must alway s be interpreted wit hin the clinical contex t and other relevant data, and should not be used alone for a mariza gnosis of malignancy. This test is not int ended to detect minim al residual diseas e.This test was develo ped and its performance characteristics determined by [facility] [[email or web address]] Laboratories. I t has not been cleare d or approved by the [place] Food and Drug Administration. This test was perfor med in a CLIA certifie d laboratory and is intended for cl inical purposes.Test performed by:[employer] [place] [address] 8 PROSPER (test BCR-ABL1, code = PROSPER) Qualitative with Reflex to BCR-ABL1 Quantitative [facility] specimen: peripheral whole blood in [facility] referral [id number] 22:14:17 Test Item Value Reference Range Interpretation Comments [facility] [place] BCR-ABL1, name (test Qualitative with code = 2566) Reflex to BCR [facility] test see comment BCR-ABL1, Quali tative result (test with Reflex to code = 1730) BCR-ABL1 Quanti tative [facility] test code 3517909 BCR-ABL1 Source Whole Blood - - - - - - - - - - - - - - - - - - - - - - - - - - - - - -BCR-ABL1, t(9; 22) Qual by RT-PCR Not Detected This r esult has been review ed and approved by Clive Alvarez M.D. There is n o evidence of aye or (p210, e13a2 or e14a2), minor ( p190, e1a2), or micro (e19a2) BCR-ABL 1 fusion transcri pts by RT-PCR analysis . This result does not entirely exclud e the possibility of BCR-ABL1 fusion transcripts oth er than e1a2, e13a2, e1 4a2, and e19a2 or transcripts bel ow the limit of detection.INTER PRETIVE INFORMATION: BC R-ABL1, t(9;22) Qual by RT-PCR This assay is d esigned to detect the p resence of BCR-ABL1 translocations with breakpoints in the major breakpoin t cluster region (p210 fusion), minor breakpoint clus ter region (p190 fu anayeli), or the micro breakpoint clus ter region (p230 fu anayeli). METHODOLOGY:Rar e BCR-ABL1 fusion s with alternative breakpoints are not detected by thi s test. RNA is isolated from whole blood or bone marrow and reve rse transcribed. Th e resulting cDNA is subjected to mu ltiplex PCR amplificati on with primers designe d to amplify p190, p 210 or p230 BCR-ABL1 f usion transcripts. e ABL1 reference gene is also amplified for s pecimen quality assurance manager and to ensure the inte grity of RNA. The PCR products are re solved by capillary electrophoresis and evaluated for t he presence of amp licons that indicate a positive result.LIMITATI ONS:The limit of detect ion for this assay is 1 BCR-ABL1 positi ve cell in 100,000 norm al cells. Results of this test must alway s be interpreted wit hin the clinical contex t and other relevant data, and should not be used alone for a mariza gnosis of malignancy. This test is not int ended to detect minim al residual diseas e.This test was develo ped and its performance characteristics determined by [facility] [[email or web address] Laboratories. I t has not been cleare d or approved by the [place] Food and Drug Administration. This test was perfor med in a CLIA certifie d laboratory and is intended for cl inical purposes.Test performed by:[facility] [address] [place] [address] 84 8 PROSPER (test BCR-ABL1, code = PROSPER) Qualitative with Reflex to BCR-ABL1 Quantitative [facility] specimen: peripheral whole blood in [facility] [id number] 19:31:58 Test Item Value Reference Range Interpretation Comments POC glucose (test 92 mg/dL 65-99 Field Service Consultant N juwan: Guila code = 18990-5) TeresaDevice ID: [id number] able: [facility] Notified RN [facility] [id number] 19:31:58 Test Item Value Reference Range Interpretation Comments POC glucose (test 92 mg/dL 65-99 Field Service Consultant N juwan: Pastora code = 82145-9) Dianne ID: [id number] able: [facility] Notified RN [facility] MaopqcysJZAV-TsC-1 (COVID-19) RNA [Presence] in Respiratory specimen by LON with probe [id number] 10:36:06 Test Item Value Reference Range Interpretation Comments SARS-CoV-2 (COVID-19) RNA Not detected Not-Detected [Presence] in Respiratory specimen by LON with probe detection (test code = 18159-7) Whether patient is employed in a healthcare setting (test code = 68645-0) Whether the patient has symptoms related to condition of interest (test code = 00454-4) Patient was hospitalized because of this condition (test code = 85758-3) Whether the patient was admitted to intensive care unit (ICU) for condition of interest (test code = 77207-1) Whether patient resides in a congregate care setting (test code = 12840-0) [facility] vwntid4785-92-15 07:19:00 Test Item Value Reference Range Interpretation Comments ABO grouping (test code = 883-9) AB Rh type (test code = 27899-0) NEG Antibody screen (gel) (test code = NEG 890-4) [facility] [id number] 07:19:00 Test Item Value Reference Range Interpretation Comments ABO grouping (test code = 883-9) AB Rh type (test code = 21035-0) NEG Antibody screen (gel) (test code = NEG 890-4) [facility], 1 [id number] 01:08:00 Test Item Value Reference Range Interpretation Comments Product name (test code Thawed Plasma = 25) Pheresis Pt 3 Unit number (test code = [id number]) Product code (test code X2482I53 = 3092) Dispense status (test Transfused code = 24) Blood expiration date (test code = 302) Blood type code (test code = 308) Blood type (test code = AB POSITIVE 1314) Compatibility (test code Not required = 6400) [facility], 1 [id number] 01:08:00 Test Item Value Reference Range Interpretation Comments Product name (test code Platelets, Aph LR IRR = 25) BM cont1 Unit number (test code = [id number]) Product code (test code W9662C01 = 3092) Dispense status (test Transfused code = 24) Blood expiration date (test code = 302) Blood type code (test code = 308) Blood type (test code = O POSITIVE 1314) Compatibility (test code Not required = 6400) [facility], 1 Xplxd7731-31-17 01:08:00 Test Item Value Reference Range Interpretation Comments Product name (test code Thawed Plasma = 25) Pheresis Pt 3 Unit number (test code = [id number]) Product code (test code J6833U34 = 3092) Dispense status (test Transfused code = 24) Blood expiration date (test code = 302) Blood type code (test code = 308) Blood type (test code = AB POSITIVE 1314) Compatibility (test code Not required = 6400) [facility], 1 Lavcs2357-05-09 01:08:00 Test Item Value Reference Range Interpretation Comments Product name (test code Platelets, Aph LR IRR = 25) BM cont1 Unit number (test code = [id number]) Product code (test code G1415R82 = 3092) Dispense status (test Transfused code = 24) Blood expiration date (test code = 302) Blood type code (test code = 308) Blood type (test code = O POSITIVE 1314) Compatibility (test code Not required = 6400) [facility] RBC, 1 [id number] 00:16:00 Test Item Value Reference Range Interpretation Comments Product name (test code Red Blood Cells -1, = 25) Leukored Unit number (test code = [id number]) Product code (test code G4633F33 = 3092) Dispense status (test Transfused code = 24) Blood expiration date (test code = 302) Blood type code (test code = 308) Blood type (test code = A NEGATIVE 1314) Compatibility (test code Compatible = 6400) [facility] RBC, 1 [id number] 00:16:00 Test Item Value Reference Range Interpretation Comments Product name (test code Red Blood Cells -1, = 25) Leukored Unit number (test code = [id number]) Product code (test code X4806L62 = 3092) Dispense status (test Transfused code = 24) Blood expiration date (test code = 302) Blood type code (test code = 308) Blood type (test code = A NEGATIVE 1314) Compatibility (test code Compatible = 6400) [facility] and Rh gzwmpecsyryr7658-61-62 04:27:00 Test Item Value Reference Range Interpretation Comments ABO grouping (test code = 883-9) AB Rh type (test code = 32949-2) NEG [facility] and Rh jpdrlnsdesxc7052-17-54 04:27:00 Test Item Value Reference Range Interpretation Comments ABO grouping (test code = 883-9) AB Rh type (test code = 28054-4) NEG [facility] blood gas, arterial and lactic fibs9809-71-09 15:08:42 Test Item Value Reference Range Interpretation Comments pH, arterial, POC (test 7.35-7.45 H code = 2744-1) pCO2, arterial, POC See_Comment L [Automa alejandra (test code = 2018-) message ] The system which generated this result transmitted reference range : 35 - 45 mm Hg. The reference range was not used to interpret this result as normal/abnormal . pO2, arterial, POC See_Comment L [Automat ed (test code = 2703-7) message ] The system which generated this result transmitted reference range : 80 - 90 mm Hg. The reference range was not used to interpret this result as normal/abnormal . Base excess, arterial, 3 mmol/L -2-2 H POC (test code = 1925-7) Bicarbonate, arterial, 24.8 mmol/L 21.0-28.0 POC (test code = 1960-4) CO2 calculated, 26 mmol/L 24-31 arterial, POC (test code = 2025-3) O2 saturation, 97 % 95-100 arterial, POC (test code = 2708-6) Lactic acid, I-Stat, 5.77 mmol/L 0.36-1.25 Operato r Name: arterial (test code = Nataliia in [facility] 71459-1) ID: [id number] Lab Interpretation Abnormal (test code = 55228-7) [facility] blood gas, arterial and lactic oeyw9909-59-65 15:08:42 Test Item Value Reference Range Interpretation Comments pH, arterial, POC (test 7.35-7.45 H code = 2744-1) pCO2, arterial, POC See_Comment L [Automa alejandra (test code = 2018-09) message ] The system which generated this result transmitted reference range : 35 - 45 mm Hg. The reference range was not used to interpret this result as normal/abnormal . pO2, arterial, POC See_Comment L [Automat ed (test code = 2703-7) message ] The system which generated this result transmitted reference range : 80 - 90 mm Hg. The reference range was not used to interpret this result as normal/abnormal . Base excess, arterial, 3 mmol/L -2-2 H POC (test code = 1925-7) Bicarbonate, arterial, 24.8 mmol/L 21.0-28.0 POC (test code = 1960-4) CO2 calculated, 26 mmol/L 24-31 arterial, POC (test code = 2025-3) O2 saturation, 97 % 95-100 arterial, POC (test code = 2708-6) Lactic acid, I-Stat, 5.77 mmol/L 0.36-1.25 Operato r Name: arterial (test code = Nataliia in [facility] 76232-3) ID: [id number] Lab Interpretation Abnormal (test code = 03999-1) [facility] [Presence] in Respiratory specimen by LON with probe rwzhfcake3208-03-09 01:01:33 Test Item Value Reference Range Interpretation Comments SARS-CoV-2 (COVID-19) RNA Not detected Not-Detected [Presence] in Respiratory specimen by LON with probe detection (test code = 78528-8) Whether patient is employed in a healthcare setting (test code = 11932-0) Whether the patient has symptoms related to condition of interest (test code = 06693-9) Patient was hospitalized because of this condition (test code = 17799-0) Whether the patient was admitted to intensive care unit (ICU) for condition of interest (test code = 15334-0) Whether patient resides in a congregate care setting (test code = 52158-5) [facility] eritv5025-60-70 08:57:40 Test Item Value Reference Range Interpretation Comments POC-Glucose Meter (test 103 mg/dL 70-110 : TE STED AT [facility] code = 1538) [address] [facility], 770 30: Field Service Consultant/Techni chitra ID = [id number] for JAZMINE SALAMANCA A Lab Interpretation (test Normal code = 23796-3) [facility] cywch0989-81-34 08:57:40 Test Item Value Reference Range Interpretation Comments POC-Glucose Meter (test 103 mg/dL 70-110 : TE STED AT [facility] code = 1538) [address] [facility], 770 30: Field Service Consultant/Techni chitra ID = [id number] for ANITA SALAMANCANIC A Lab Interpretation (test Normal code = 17748-2) [facility] MIJLK3218-96-54 08:57:40 Test Item Value Reference Range Interpretation Comments POC-GLUCOSE METER 103 mg/dL 70-110 : TESTED A T [facility] 6720 (BEAKER) (test code = MANDEEPTE Butler [facility], 1538) [address]: Field Service Consultant/Techni chitra ID = [id number] for ESA GILES Xiaihwirj5882-64-85 07:07:38 Test Item Value Reference Range Interpretation Comments Magnesium (test code = 2.1 mg/dL 1.6-2.6 00524-2) PROSPER (test code = PROSPER) Field Service Consultant ID - ALFONSO Beltran Lab Interpretation (test Normal code = 80613-6) [facility]2021-[facility] 07:07:38 Test Item Value Reference Range Interpretation Comments Magnesium (test code = 2.1 mg/dL 1.6-2.6 18107-3) PROSPER (test code = PROSPER) Field Service Consultant ID - ALFONSO F Lab Interpretation (test Normal code = 69725-8) [facility]21-[facility] 07:07:38 Test Item Value Reference Range Interpretation Comments MAGNESIUM (BEAKER) (test code = 2.1 mg/dL 1.6-2.6 627) Field Service Consultant DEEPAK HAMILTON FBasic Metabolic Bnjyo6482-36-10 07:07:37 Test Item Value Reference Range Interpretation Comments Sodium (test code = 133 meq/L 136-145 L 2951-2) Potassium (test code = 4.3 meq/L 3.5-5.1 2823-3) Chloride (test code = 104 meq/L 98-107 2075-0) CO2 (test code = 22 meq/L -2027-9) BUN (test code = 23 mg/dL 7-21 H 3094-0) Creatinine (test code 0.85 mg/dL 0.57-1.25 = 2160-0) Glucose (test code = 106 mg/dL 70-105 H 2345-7) Calcium (test code = 8.8 mg/dL 8.4-10.2 37017-8) EGFR (test code = 87 mL/min/1.73 [place] [address]-6) NOT ACCURATE CREATININE CLEARANCE IN PREDICTING GLOMERULAR FILTRATION RATE . ESTIMATED GFR I S NOT APPLICABLE FOR DIALYSIS PATIENTS. PROSPER (test code = PROSPER) Field Service Consultant ID Neal HAMILTON F Lab Interpretation Abnormal (test code = 45118-3) [facility] Metabolic Ljwkj1321-38-58 07:07:37 Test Item Value Reference Range Interpretation Comments Sodium (test code = 133 meq/L 136-145 L 2951-2) Potassium (test code = 4.3 meq/L 3.5-5.1 2823-3) Chloride (test code = 104 meq/L 98-107 2075-0) CO2 (test code = 22 meq/L -29 2027-9) BUN (test code = 23 mg/dL 7-21 H 3094-0) Creatinine (test code 0.85 mg/dL 0.57-1.25 = 2160-0) Glucose (test code = 106 mg/dL 70-105 H 2345-7) Calcium (test code = 8.8 mg/dL 8.4-10.2 76278-7) EGFR (test code = 87 mL/min/1.73 [place] [address]-3) NOT ACCURATE CREATININE CLEARANCE IN PREDICTING GLOMERULAR FILTRATION RATE . ESTIMATED GFR I S NOT APPLICABLE FOR DIALYSIS PATIENTS. PROSPER (test code = PROSPER) Field Service Consultant ID - ALFONSO F Lab Interpretation Abnormal (test code = 77865-4) [facility]OLIC [id number] 07:07:37 Test Item Value Reference Range Interpretation [...] 697) EGFR (BEAKER) (test 87 mL/min/1.73 ESTIMA ALEJANDRA GFR IS code = 1092) sq m NOT ACCURATE CREATININE CLEARANCE IN PREDICTING GLOMERULAR FILTRATION RATE . ESTIMATED GFR I S NOT APPLICABLE FOR DIALYSIS PATIEN TS. Field Service Consultant ID - ALFONSO FCBC with platelet count + automated pyvt2749-89-34 06:45:56 Test Item Value Reference Range Interpretation Comments WBC (test code = 6690-2) 14.8 See_Comment H [A utomated message] The system GoGuide generated this result transmitted ref erence range: 3.5 - 10 .5 K/L. The refe rence range was not u sed to interpret this result as normal/abnor mal. RBC (test code = 789-8) 4.98 See_Comment [Au tomated message] The system GoGuide generated this result transmitted ref erence range: 4.63 - 6 .08 M/L. The refe rence range was not u sed to interpret this result as normal/abnor mal. MCHC (test code = 786-4) 34.1 See_Comment [A utomated message] The system GoGuide generated this result transmitted ref erence range: 32.3 - 3 6.5 GM/DL. The refe rence range was not u sed to interpret this result as normal/abnor mal. Hematocrit (test code = 45.5 % 40.1-51.0 4544-3) MCV (test code = 787-2) 91.4 fL 79.0-92.2 MCH (test code = 785-6) 31.1 pg 25.7-32.2 RDW (test code = 788-0) 12.9 % 11.6-14.4 Platelets (test code = 443 See_Comment [Aut omated message] 777-3) The system GoGuide generated this result transmitted ref erence range: 150 - 45 0 K/CU MM. The referen ce range was not u sed to interpret this result as normal/abnor mal. MPV (test code = 8.6 fL 9.4-12.4 L 15444-0) nRBC (test code = 413) 0 See_Comment [Aut omated message] The system GoGuide generated this result transmitted ref erence range: 0 - 0 /1 00 WBC. The refere nce range was not u sed to interpret this result as normal/abnor mal. % Neutros (test code = 83 % 429) % Lymphs (test code = 10 % 430) % Monos (test code = 5 % 431) % Eos (test code = 432) 0 % % Baso (test code = 437) 0 % # Neutros (test code = 12.28 See_Comment H [Aut omated message] 670) The system GoGuide generated this result transmitted ref erence range: 1.78 - 5 .38 K/L. The refe rence range was not u sed to interpret this result as normal/abnor mal. # Lymphs (test code = 1.53 See_Comment [Auto mated message] 414) The system GoGuide generated this result transmitted ref erence range: 1.32 - 3 .57 K/L. The refe rence range was not u sed to interpret this result as normal/abnor mal. # Monos (test code = 0.76 See_Comment [Autom ated message] 415) The system GoGuide generated this result transmitted ref erence range: 0.30 - 0 .82 K/L. The refe rence range was not u sed to interpret this result as normal/abnor mal. # Eos (test code = 416) 0.00 See_Comment L [Au tomated message] The system GoGuide generated this result transmitted ref erence range: 0.04 - 0 .54 K/L. The refe rence range was not u sed to interpret this result as normal/abnor mal. # Baso (test code = 417) 0.03 See_Comment [A utomated message] The system GoGuide generated this result transmitted ref erence range: 0.01 - 0 .08 K/L. The refe rence range was not u sed to interpret this result as normal/abnor mal. Immature 1 % 0-1 Granulocytes-Relative (test code = 2801) Lab Interpretation (test Abnormal code = 34587-7) [facility] with platelet count + automated tmvt7900-02-44 06:45:56 Test Item Value Reference Range Interpretation Comments WBC (test code = 6690-2) 14.8 See_Comment H [A utomated message] The system GoGuide generated this result transmitted ref erence range: 3.5 - 10 .5 K/L. The refe rence range was not u sed to interpret this result as normal/abnor mal. RBC (test code = 789-8) 4.98 See_Comment [Au tomated message] The system GoGuide generated this result transmitted ref erence range: 4.63 - 6 .08 M/L. The refe rence range was not u sed to interpret this result as normal/abnor mal. MCHC (test code = 786-4) 34.1 See_Comment [A utomated message] The system GoGuide generated this result transmitted ref erence range: 32.3 - 3 6.5 GM/DL. The refe rence range was not u sed to interpret this result as normal/abnor mal. Hematocrit (test code = 45.5 % 40.1-51.0 4544-3) MCV (test code = 787-2) 91.4 fL 79.0-92.2 MCH (test code = 785-6) 31.1 pg 25.7-32.2 RDW (test code = 788-0) 12.9 % 11.6-14.4 Platelets (test code = 443 See_Comment [Aut omated message] 777-3) The system GoGuide generated this result transmitted ref erence range: 150 - 45 0 K/CU MM. The referen ce range was not u sed to interpret this result as normal/abnor mal. MPV (test code = 8.6 fL 9.4-12.4 L 33929-0) nRBC (test code = 413) 0 See_Comment [Aut omated message] The system GoGuide generated this result transmitted ref erence range: 0 - 0 /1 00 WBC. The refere nce range was not u sed to interpret this result as normal/abnor mal. % Neutros (test code = 83 % 429) % Lymphs (test code = 10 % 430) % Monos (test code = 5 % 431) % Eos (test code = 432) 0 % % Baso (test code = 437) 0 % # Neutros (test code = 12.28 See_Comment H [Aut omated message] 670) The system GoGuide generated this result transmitted ref erence range: 1.78 - 5 .38 K/L. The refe rence range was not u sed to interpret this result as normal/abnor mal. # Lymphs (test code = 1.53 See_Comment [Auto mated message] 414) The system GoGuide generated this result transmitted ref erence range: 1.32 - 3 .57 K/L. The refe rence range was not u sed to interpret this result as normal/abnor mal. # Monos (test code = 0.76 See_Comment [Autom ated message] 415) The system GoGuide generated this result transmitted ref erence range: 0.30 - 0 .82 K/L. The refe rence range was not u sed to interpret this result as normal/abnor mal. # Eos (test code = 416) 0.00 See_Comment L [Au tomated message] The system GoGuide generated this result transmitted ref erence range: 0.04 - 0 .54 K/L. The refe rence range was not u sed to interpret this result as normal/abnor mal. # Baso (test code = 417) 0.03 See_Comment [A utomated message] The system whic h generated this result transmitted ref erence range: 0.01 - 0 .08 K/L. The refe rence range was not u sed to interpret this result as normal/abnor mal. Immature 1 % 0-1 Granulocytes-Relative (test code = 2801) Lab Interpretation (test Abnormal code = 51687-9) [facility] W/PLT COUNT & AUTO AYSGEAYEWSER9968-80-88 06:45:56 Test Item Value Reference Range Interpretation [...] = 2801) CBC W/PLT COUNT & AUTO HNQJRSUBBDOH2436-90-11 06:42:34 Test Item Value Reference Range Interpretation [...] (BEAKER) (test code = 2801) BASIC METABOLIC [id number] 06:06:50 Test Item Value Reference Range Interpretation [...] 697) EGFR (BEAKER) (test 86 mL/min/1.73 ESTIMA ALEJANDRA GFR IS code = 1092) sq m NOT ACCURATE CREATININE CLEARANCE IN PREDICTING GLOMERULAR FILTRATION RATE . ESTIMATED GFR I S NOT APPLICABLE FOR DIALYSIS PATIEN TS. Field Service Consultant ID - LORIE UOGRPUZPSH9477-74-19 06:06:50 Test Item Value Reference Range Interpretation Comments MAGNESIUM (BEAKER) (test code = 2.2 mg/dL 1.6-2.6 627) Field Service Consultant ID - LORIE GPOCT-GLUCOSE COQXB1773-03-94 16:57:17 Test Item Value Reference Range Interpretation Comments POC-GLUCOSE METER 140 mg/dL 70-110 H : TESTED A T [facility] [address] (BEAKER) (test code = [facility], 1538) [address]: Field Service Consultant/Techni chitra ID = [id number] for Chad nicolas (contract), Kathy eulalio POCT-GLUCOSE WYLFI2118-79-81 11:05:54 Test Item Value Reference Range Interpretation Comments POC-GLUCOSE METER 125 mg/dL 70-110 H : TESTED A T [facility] 6720 (BEAKER) (test code = [facility], 1538) [address]: Field Service Consultant/Techni chitra ID = [id number] for Juan moreno (agency)Juju ra POCT-GLUCOSE [id number] 08:26:43 Test Item Value Reference Range Interpretation Comments POC-GLUCOSE METER 123 mg/dL 70-110 H : TESTED A T [facility] 6720 (BEAKER) (test code = [facility], 1538) 8[address]: Field Service Consultant/Techni chitra ID = [id number] for Chad nicolas (contract), Kathy eulalio Calcium, Vqxgsqx8445-41-73 06:33:03 Test Item Value Reference Range Interpretation Comments Calcium, Ion (test code = 1993-04) 1.22 mmol/L 1.12-1.27 pH, Blood (test code = 27718-9) 7.42 [facility], Rnoxzbp8679-68-82 06:33:03 Test Item Value Reference Range Interpretation Comments Calcium, Ion (test code = 1993-04) 1.22 mmol/L 1.12-1.27 pH, Blood (test code = 60270-3) 7.42 [facility], IQAZFQF3674-08-26 06:33:03 Test Item Value Reference Range Interpretation Comments CALCIUM IONIZED (BEAKER) (test 1.22 mmol/L 1.12-1.27 code = 698) PH, BLOOD (BEAKER) (test code = 7.42 1810) [id number] 05:35:29 Test Item Value Reference Range Interpretation Comments MAGNESIUM (BEAKER) (test code = 2.3 mg/dL 1.6-2.6 627) Field Service Consultant ID - LORIE GComprehensive metabolic aexin3726-65-64 05:35:28 Test Item Value Reference Range Interpretation Comments Protein, Total (test 5.7 See_Comment L [Autom ated code = 2885-2) message] The system which generated this result transmit alejandra reference range : 6.0 - 8.3 gm/dL . The reference range was not u sed to interpret th is result as normal/abnormal . Albumin (test code = 3.2 g/dL 3.5-5.0 L 27905-1) Alkaline Phosphatase 44 U/L 40-150 (test code = 6768-6) Total Bilirubin (test 0.8 mg/dL 0.2-1.2 code = 1974-2) Sodium (test code = 137 meq/L 384-643 6921-2) Potassium (test code 4.6 meq/L 3.5-5.1 = 2823-3) Chloride (test code = 107 meq/L 98-107 2075-0) CO2 (test code = 21 meq/L 22-29 L 8-9) BUN (test code = 31 mg/dL 7-21 H 3094-0) Creatinine (test code 0.97 mg/dL 0.57-1.25 = 2160-0) Glucose (test code = 123 mg/dL 70-105 H 2345-7) Calcium (test code = 9.0 mg/dL 8.4-10.2 98850-6) AST (test code = 19 U/L 5-34 1920-8) ALT (test code = 54 U/L 6-55 1742-6) EGFR (test code = 75 mL/min/1.73 sq m ESTIMA [facility] [place] [address]-3) NOT ACCURATE CREATININE CLEARANCE IN PREDICTING GLOMERULAR FILTRATION RATE . ESTIMATED GFR I S NOT APPLICABLE FOR DIALYSIS PATIEN TSAlisha PROSPER (test code = PROSPER) Field Service Consultant ID - LORIE Sommers Lab Interpretation Abnormal (test code = 89944-2) [facility] jdbet3879-02-29 05:35:28 Test Item Value Reference Range Interpretation Comments Protein, Total (test 5.7 See_Comment L [Autom ated code = 2885-2) message] The system which generated this result transmit alejandra reference range : 6.0 - 8.3 gm/dL . The reference range was not u sed to interpret th is result as normal/abnormal . Albumin (test code = 3.2 g/dL 3.5-5.0 L 79436-2) Alkaline Phosphatase 44 U/L 40-150 (test code = 6768-6) Total Bilirubin (test 0.8 mg/dL 0.2-1.2 code = 1974-2) Sodium (test code = 137 meq/L 101-917 6873-2) Potassium (test code 4.6 meq/L 3.5-5.1 = 2823-3) Chloride (test code = 107 meq/L 98-107 2075-0) CO2 (test code = 21 meq/L 22-29 L 8-9) BUN (test code = 31 mg/dL 7-21 H 3094-0) Creatinine (test code 0.97 mg/dL 0.57-1.25 = 2160-0) Glucose (test code = 123 mg/dL 70-105 H 2345-7) Calcium (test code = 9.0 mg/dL 8.4-10.2 25759-1) AST (test code = 19 U/L 5-34 1920-8) ALT (test code = 54 U/L 6-55 1742-6) EGFR (test code = 75 mL/min/1.73 [place] [address]-0) NOT ACCURATE CREATININE CLEARANCE IN PREDICTING GLOMERULAR FILTRATION RATE . ESTIMATED GFR I S NOT APPLICABLE FOR DIALYSIS PATIEN TSAlisha PROSPER (test code = PROSPER) Field Service Consultant ID - LORIE Sommers Lab Interpretation Abnormal (test code = 62299-2) [facility] MET[facility]OLIC [id number] 05:35:28 Test Item Value Reference Range Interpretation [...] 347) EGFR (BEAKER) (test 75 mL/min/1.73 ESTIMA ALEJANDRA GFR IS code = 1092) sq m NOT ACCURATE CREATININE CLEARANCE IN PREDICTING GLOMERULAR FILTRATION RATE . ESTIMATED GFR I S NOT APPLICABLE FOR DIALYSIS PATIEN TS. Field Service Consultant ID - LORIE GCBC W/PLT COUNT & AUTO YQXTKZPPJBZQ4629-04-35 05:04:55 Test Item Value Reference Range Interpretation [...] 0-1 PERCENT (BEAKER) (test code = 2801) Sodium, random [id number] 22:03:04 Test Item Value Reference Range Interpretation Comments Sodium Urine (test 55 meq/L code = 2955-3) PROSPER (test code = Reference Range: No PROSPER) NormalsOperator ID - [facility] tskka2514-65-83 22:03:04 Test Item Value Reference Range Interpretation Comments Sodium Urine (test 55 meq/L code = 2955-3) PROSPER (test code = Reference Range: No PROSPER) NormalsOperator ID - BS [facility] HospitalODIUM, RANDOM [id number] 22:03:04 Test Item Value Reference Range Interpretation Comments SODIUM URINE (BEAKER) (test code = 55 meq/L 243) Reference Range: No NormalsOperator ID - BSPOCT-GLUCOSE [id number] 20:55:06 Test Item Value Reference Range Interpretation Comments POC-GLUCOSE METER 141 mg/dL 70-110 H : TESTED A T [facility] (BEAKER) (test code = [facility] WINN [facility], 1538) [address]: Field Service Consultant/Techni chitra ID = [id number] for Of brittany (contract), Eld rin POCT-GLUCOSE [id number] 17:10:12 Test Item Value Reference Range Interpretation Comments POC-GLUCOSE METER 148 mg/dL 70-110 H : TESTED A T [facility] [address] (BEAKER) (test code = [facility], 1538) [address]: Field Service Consultant/Techni chitra ID = [id number] for Batool berry (contract), Familia craig Eosinophil nklvz0342-88-57 13:18:39 Test Item Value Reference Range Interpretation Comments Eosinophil Smear (test code = No EOS seen No EOS seen 94036-6) Lab Interpretation (test code = Normal 98259-2) [facility] HospitalEosinophil wqvcg3773-30-12 13:18:39 Test Item Value Reference Range Interpretation Comments Eosinophil Smear (test code = No EOS seen No EOS seen 42681-0) Lab Interpretation (test code = Normal 54580-8) [facility] HospitalEOSINOPHIL SMEAR, [id number] 13:18:39 Test Item Value Reference Range Interpretation Comments EOSINOPHIL SMEAR, URINE (BEAKER) No EOS seen No EOS seen (test code = 1851) Osmolality, [id number] 11:37:51 Test Item Value Reference Range Interpretation Comments Osmolality, Ur (test code 523 See_Comment [ Automated message] = 2695-5) The system [employer] generated this result transmitted ref erence range: 50-1,200 mOsm/kg mOsm/kg . The reference range was not used to int erpret this result as normal/abnormal . Lab Interpretation (test Normal code = 32757-0) [facility] HospitalOsmolality, [id number] 11:37:51 Test Item Value Reference Range Interpretation Comments Osmolality, Ur (test code 523 See_Comment [ Automated message] = 2695-5) The system [employer] generated this result transmitted ref erence range: 50-1,200 mOsm/kg mOsm/kg . The reference range was not used to int erpret this result as normal/abnormal . Lab Interpretation (test Normal code = 87481-6) [facility] HospitalOSMOLALITY, [id number] 11:37:51 Test Item Value Reference Range Interpretation Comments OSMOLALITY URINE 523 mOsm/kg See_Comment [Automated message] (BEAKER) (test code = The stem which 614) generated this result transmitted ref erence range: 50-1,200 mOsm/kg. The reference range was not used to int erpret this result as normal/abnormal . Urinalysis w/Tjprazfsach3962-56-42 10:53:25 Test Item Value Reference Range Interpretation Comments Color, UA (test Light Yellow code = 5778-6) Clarity, UA (test Clear code = 5767-9) Specific Cubero, 1.016 1.001-1.035 UA (test code = 5811-5) pH, UA (test code 6.5 5.0-8.0 = 5803-2) Protein, UA (test Negative Negative code = 19436-9) Glucose, UA (test Negative Negative code = 365) Ketones, UA (test Negative Negative code = 2514-8) Bilirubin, UA Negative Negative (test code = 62038-5) Blood, UA (test Negative Negative code = 43079-7) Nitrite, UA (test Negative Negative code = 5802-4) Leukocytes, UA Negative Negative (test code = 5799-2) Urobilinogen, UA 0.2 mg/dL 0.2-1.0 (test code = 31249-3) RBC, UA (test 1 See_Comment [Automated me ssage] code = 85090-1) The system [facility] generated this result transmit alejandra reference range : /HPF. The refer ence range was not u sed to interpret th is result as normal/abnormal . WBC, UA (test 1 See_Comment [Automated me ssage] code = 5821-4) The system [facility] generated this result transmit alejandra reference range : /HPF. The refer ence range was not u sed to interpret th is result as normal/abnormal . Bacteria, UA None Seen (test code = 33853-4) Mucus (test code Rare = 8247-9) Crystals, Urine None Seen (test code = 03762-8) Specimen Source (test code = 2795) PROSPER (test code = Field Service Consultant ID - PROSPER) [auto]Field Service Consultant ID - tech [facility] HospitalUrinalysis w/Evhblpjrquy3128-10-30 10:53:25 Test Item Value Reference Range Interpretation Comments Color, UA (test Light Yellow code = 5778-6) Clarity, UA (test Clear code = 5767-9) Specific Cubero, 1.016 1.001-1.035 UA (test code = 5811-5) pH, UA (test code 6.5 5.0-8.0 = 5803-2) Protein, UA (test Negative Negative code = 35950-8) Glucose, UA (test Negative Negative code = 365) Ketones, UA (test Negative Negative code = 2514-8) Bilirubin, UA Negative Negative (test code = 35536-3) Blood, UA (test Negative Negative code = 48880-0) Nitrite, UA (test Negative Negative code = 5802-4) Leukocytes, UA Negative Negative (test code = 5799-2) Urobilinogen, UA 0.2 mg/dL 0.2-1.0 (test code = 94941-4) RBC, UA (test 1 See_Comment [Automated me ssage] code = 00810-9) The system [facility] generated this result transmit alejandra reference range : /HPF. The refer ence range was not u sed to interpret th is result as normal/abnormal . WBC, UA (test 1 See_Comment [Automated me ssage] code = 5821-4) The system [facility] generated this result transmit alejandra reference range : /HPF. The refer ence range was not u sed to interpret th is result as normal/abnormal . Bacteria, UA None Seen (test code = 63042-1) Mucus (test code Rare = 8247-9) Crystals, Urine None Seen (test code = 03475-7) Specimen Source (test code = 2795) PROSPER (test code = Field Service Consultant ID - PROSPER) [auto]Field Service Consultant ID - tech [facility] HospitalURINALYSIS W/ [id number] 10:53:25 Test Item Value Reference Range Interpretation [...] code = 1521) SOURCE(BEAKER) (test code = 2795) Field Service Consultant ID - [auto]Field Service Consultant ID - techUrea Nitrogen, random itmyc0206-47-99 10:49:41 Test Item Value Reference Range Interpretation Comments Urea Nitrogen, Ur 923 mg/dL (test code = 3095-7) PROSPER (test code = Reference Range: No PROSPER) NormalsOperator ID - [facility] Nitrogen, random [id number] 10:49:41 Test Item Value Reference Range Interpretation Comments Urea Nitrogen, Ur 923 mg/dL (test code = 3095-7) PROSPER (test code = Reference Range: No PROSPER) NormalsOperator ID - [facility] HospitalUREA NITROGEN, RANDOM [id number] 10:49:41 Test Item Value Reference Range Interpretation Comments UREA NITROGEN URINE (BEAKER) (test 923 mg/dL code = 538) Reference Range: No NormalsOperator ID - SHARRON CCreatinine, random [id number] 10:49:40 Test Item Value Reference Range Interpretation Comments Creatinine, Ur 73.8 mg/dL (test code = 2161-8) PROSPER (test code = Reference Range: No PROSPER) NormalsOperator ID - [facility] HospitalCreatinine, random [id number] 10:49:40 Test Item Value Reference Range Interpretation Comments Creatinine, Ur 73.8 mg/dL (test code = 2161-8) PROSPER (test code = Reference Range: No PROSPER) NormalsOperator ID - [facility] HospitalCREATININE, RANDOM [id number] 10:49:40 Test Item Value Reference Range Interpretation Comments CREATININE URINE (BEAKER) (test 73.8 mg/dL code = 375) Reference Range: No NormalsOperator ID - SHARRON CPOCT-GLUCOSE [id number] 07:38:12 Test Item Value Reference Range Interpretation Comments POC-GLUCOSE METER 126 mg/dL 70-110 H : [facility] ([facility]ER[facility] (test code = ZACH Butler WINN MD, 1538) 00934: Field Service Consultant/Techni chitra ID = [id number] for Batool berry (contract)Familia Bdxqkqubko2884-36-66 03:54:57 Test Item Value Reference Range Interpretation Comments Phosphorus (test code = 3.0 mg/dL 2.3-4.7 2777-1) PROSPER (test code = PROSPER) Field Service Consultant ID - DB Lab Interpretation (test Normal code = 95594-2) [facility] HospitalPhosphorus2021-09-17 03:54:57 Test Item Value Reference Range Interpretation Comments Phosphorus (test code = 3.0 mg/dL 2.3-4.7 2777-1) PROSPER (test code = PROSPER) Field Service Consultant ID - DB Lab Interpretation (test Normal code = 54606-4) [facility] HospitalMAGNESIUM2021-09-17 03:54:57 Test Item Value Reference Range Interpretation Comments MAGNESIUM (BEAKER) (test code = 2.4 mg/dL 1.6-2.6 627) Field Service Consultant ID - [id number] 03:54:57 Test Item Value Reference Range Interpretation Comments PHOSPHORUS (BEAKER) (test code = 3.0 mg/dL 2.3-4.7 604) Field Service Consultant ID - DBCOMPREHENSIVE METABOLIC [id number] 03:54:56 Test Item Value Reference Range Interpretation [...] 347) EGFR (BEAKER) (test 53 mL/min/1.73 ESTIMA ALEJANDRA GFR IS code = 1092) sq m NOT ACCURATE CREATININE CLEARANCE IN PREDICTING GLOMERULAR FILTRATION RATE . ESTIMATED GFR I S NOT APPLICABLE FOR DIALYSIS PATIEN TS. Field Service Consultant ID - DBCBC W/PLT COUNT & AUTO [id number] 03:25:06 Test Item Value Reference Range Interpretation [...] PERCENT (BEAKER) (test code = 2801) CALCIUM, [id number] 03:23:27 Test Item Value Reference Range Interpretation Comments CALCIUM IONIZED (BEAKER) (test 1.21 mmol/L 1.12-1.27 code = 698) PH, BLOOD (BEAKER) (test code = 7.44 1810) POCT-GLUCOSE [id number] 21:02:31 Test Item Value Reference Range Interpretation Comments POC-GLUCOSE METER 163 mg/dL 70-110 H : TESTED A T [facility] 6720 (BEAKER) (test code = [facility], 1538) 79264: Field Service Consultant/Techni chitra ID = [id number] for [place] POCT-GLUCOSE [id number] 17:01:31 Test Item Value Reference Range Interpretation Comments POC-GLUCOSE METER 176 mg/dL 70-110 H : TESTED A T [facility] 6720 (BEAKER) (test code = [facility], 1538) 33093: Field Service Consultant/Techni chitra ID = [id number] for BLADIMIR GRANADOS POCT-GLUCOSE [id number] 12:59:25 Test Item Value Reference Range Interpretation Comments POC-GLUCOSE METER 195 mg/dL 70-110 H : TESTED A T [facility] 6720 (BEAKER) (test code = ZACH Butler [facility], 1538) 32670: Field Service Consultant/Techni chitra ID = [id number] for Juan burns (contract), Ainsley foreman CBC W/PLT COUNT & AUTO [id number] 06:34:35 Test Item Value Reference Range Interpretation [...] PERCENT (BEAKER) (test code = 2801) POCT-GLUCOSE [id number] 06:09:48 Test Item Value Reference Range Interpretation Comments POC-GLUCOSE METER 142 mg/dL 70-110 H : TESTED A T [facility] 6720 (BEAKER) (test code [facility], = 1538) 82113: Field Service Consultant/Techni chitra ID = [id number] for SUGU ARLYNMOL Blood gas, [id number] 05:13:54 Test Item Value Reference Range Interpretation Comments pH, Stanislav (test code = 7.40 7.32-7.42 2746-6) pCO2, Stanislav (test code = 43 See_Comment [Aut omated message] 575) The system [employer]Guide generated this result transmit alejandra reference range : 41 - 51 mm Hg. The reference range was not used to interpret this result as normal/abnormal . pO2, Stanislav (test code = 125 See_Comment H [Auto mated message] 9975-2) The system [employer] generated this result transmit alejandra reference range : 25 - 40 mm Hg. The reference range was not used to interpret this result as normal/abnormal . O2 Sat, Stanislav (test code 98.5 % 40.0-70.0 H = 2711-0) HCO3, Stanislav (test code = 26 mmol/L 21-29 60719-2) Base Excess, Stanislav (test 1.0 mmol/L -2.0-3.0 code = 1927-3) Patient Temperature 37.0 (test code = 8310-5) FIO2 (test code = 1819) 21 Lab Interpretation Abnormal (test code = 24167-3) [facility] HospitalBlood gas, [id number] 05:13:54 Test Item Value Reference Range Interpretation Comments pH, Stanislav (test code = 7.40 7.32-7.42 8676-6) pCO2, Stanislav (test code = 43 See_Comment [Aut omated message] 755) The system [employer] generated this result transmit alejandra reference range : 41 - 51 mm Hg. The reference range was not used to interpret this result as normal/abnormal . pO2, Stanislav (test code = 125 See_Comment H [Auto mated message] 4885-2) The system [employer] generated this result transmit alejandra reference range : 25 - 40 mm Hg. The reference range was not used to interpret this result as normal/abnormal . O2 Sat, Stanislav (test code 98.5 % 40.0-70.0 H = 2711-0) HCO3, Stanislav (test code = 26 mmol/L 21-29 05801-2) Base Excess, Stanislav (test 1.0 mmol/L -2.0-3.0 code = 1927-3) Patient Temperature 37.0 (test code = 8310-5) FIO2 (test code = 1819) 21 Lab Interpretation Abnormal (test code = 14457-3) [facility], [id number] 05:13:54 Test Item Value Reference Range Interpretation [...] (BEAKER) (test code = 1819) 21.0 CALCIUM, [id number] 05:13:39 Test Item Value Reference Range Interpretation Comments CALCIUM IONIZED (BEAKER) (test 1.14 mmol/L 1.12-1.27 code = 698) PH, BLOOD (BEAKER) (test code = 7.40 1810) C-Reactive [id number] 05:07:30 Test Item Value Reference Range Interpretation Comments CRP (test code = 676) 7.77 mg/dL 0.00-0.50 H PROSPER (test code = PRSOPER) Field Service Consultant ID - LORIE G Lab Interpretation (test Abnormal code = 29658-9) [facility] HospitalC-Reactive [id number] 05:07:30 Test Item Value Reference Range Interpretation Comments CRP (test code = 676) 7.77 mg/dL 0.00-0.50 H PROSPER (test code = PROSPER) Field Service Consultant ID - LORIE G Lab Interpretation (test Abnormal code = 87361-0) [facility] HospitalPHOSPHORUS2021-09-16 05:07:30 Test Item Value Reference Range Interpretation Comments PHOSPHORUS (BEAKER) 3.4 mg/dL 2.3-4.7 Specimen slightly (test code = 604) hemolyzed Field Service Consultant ID - LORIE GCOMPREHENSIVE METABOLIC [id number] 05:07:30 Test Item Value Reference Range Interpretation [...] code = 347) hemolyzed EGFR (BEAKER) (test 85 mL/min/1.73 ESTIMA ALEJANDRA GFR IS code = 1092) sq m NOT ACCURATE CREATININE CLEARANCE IN PREDICTING GLOMERULAR FILTRATION RATE . ESTIMATED GFR I S NOT APPLICABLE FOR DIALYSIS PATIEN TS. Field Service Consultant ID - LORIE GC-REACTIVE [id number] 05:07:30 Test Item Value Reference Range Interpretation Comments C-REACTIVE PROTEIN (BEAKER) (test 7.77 mg/dL 0.00-0.50 H code = 676) Field Service Consultant ID - LORIE [id number] 05:07:29 Test Item Value Reference Range Interpretation Comments MAGNESIUM (BEAKER) 2.4 mg/dL 1.6-2.6 Specimen slightly (test code = 627) hemolyzed Field Service Consultant ID - LORIE GPOCT-GLUCOSE [id number] 16:42:01 Test Item Value Reference Range Interpretation Comments POC-GLUCOSE METER 206 mg/dL 70-110 H : TESTED A T [facility] 6720 (Mercatus) (test code = ZACH WINN MD, 1538) 09943: Field Service Consultant/Techni chitra ID = [id number] for Ca stro (agency), [place] 2D Echo W/Doppler(CW/PW/Color)2020-11-04 13:11:57Ejection FractionSLEH ECHO HEARTLAB [facility]CKESSChap[facility] Center2[facility] W/Doppler(CW/PW/Color)2020-11-04 13:11:57Ejection FractionSLEH ECHO HEARTLAB MKCKESSON [facility]PO[facility] [id number] 11:51:38 Test Item Value Reference Range Interpretation Comments POC-GLUCOSE METER 190 mg/dL 70-110 H : TESTED A T [facility] 6720 (Mercatus) (test code = ZACH Butler [facility], 1538) 57932: Field Service Consultant/Techni chitra ID = [id number] for Juan moreno (agency)Juju ra POCT-GLUCOSE [id number] 07:36:06 Test Item Value Reference Range Interpretation Comments POC-GLUCOSE METER 151 mg/dL 70-110 H : Notified RN/MD: (NIKHIL) (test code = TESTED AT [facility] 6720 1538) [facility], [address]: Field Service Consultant/Techni chitra ID = [id number] for Gerardo edwards (contract), [place] Hemoglobin [id number] 07:12:22 Test Item Value Reference Range Interpretation Comments Hemoglobin A1C (test code = 4548-4) 6.3 % 4.3-6.1 H Lab Interpretation (test code = Abnormal 10865-6) [facility] HospitalHemoglobin [id number] 07:12:22 Test Item Value Reference Range Interpretation Comments Hemoglobin A1C (test code = 4548-4) 6.3 % 4.3-6.1 H Lab Interpretation (test code = Abnormal 81904-6) [facility] HospitalHEMOGLOBIN [id number] 07:12:22 Test Item Value Reference Range Interpretation Comments HEMOGLOBIN A1C (NIKHIL) (test code = 6.3 % 4.3-6.1 H 368) RAD, CHEST, 1 VIEW, NON [id number] 07:12:00Reason for exam:->[facility] : 1945 Sex: MFINAL REPORT RAD, CHEST, 1 VIEW, NON DEPT INDICATION: SOB - COVID COMPARISON: Prior day's exam FINDINGS: Portable frontal view of the chest. IMPRESSION: Support Lines: None Lungs and pleura: Stable air spaces. No new consolidation or effusion. No pneumothorax.Heart and mediastinum:Stable contours. Additional findings: None. Signed: JR Ness Robert MDReport Verified Date/Time: 11/04/2020 07:12:21 Reading Location: [facility] Radiology Reading Room POCT-GLUCOSE [id number] 06:29:06 Test Item Value Reference Range Interpretation Comments POC-GLUCOSE METER 168 mg/dL 70-110 H : TESTED A T [facility] 6720 (BEAKER) (test code [facility], = 1538) 71428: Field Service Consultant/Techni chitra ID = [id number] for SUGU , SHEENAMOL [id number] 04:21:34 Test Item Value Reference Range Interpretation Comments PHOSPHORUS (BEAKER) (test code = 3.0 mg/dL 2.3-4.7 604) Field Service Consultant ID - JITENDRA MC-REACTIVE [id number] 04:21:34 Test Item Value Reference Range Interpretation Comments C-REACTIVE PROTEIN (BEAKER) (test 18.07 mg/dL 0.00-0.50 H code = 676) Field Service Consultant ID - JITENDRA OMPREHENSIVE METABOLIC [id number] 04:21:33 Test Item Value Reference Range Interpretation [...] 347) EGFR (BEAKER) (test 76 mL/min/1.73 ESTIMA ALEJANDRA GFR IS code = 1092) sq m NOT ACCURATE CREATININE CLEARANCE IN PREDICTING GLOMERULAR FILTRATION RATE . ESTIMATED GFR I S NOT APPLICABLE FOR DIALYSIS PATIEN TS. Field Service Consultant ID - JITENDRA [id number] 04:21:33 Test Item Value Reference Range Interpretation Comments MAGNESIUM (BEAKER) (test code = 2.2 mg/dL 1.6-2.6 627) Field Service Consultant ID - JITENDRA VZ-[id number] 04:12:53 Test Item Value Reference Range Interpretation Comments D-Dimer, Quant (test 0.89 See_Comment H [Autom ated code = 36021-3) message] The system which generated this result transmitted reference range : <0.50 MG/L FEU. The reference range was not used to interpr et this result as normal/abnormal . PROSPER (test code = PROSPER) Intended Use: The D-Dimer Assay can be used to aid in the diagnosis of Deep Vein Thrombosis (DVT) and Pulmonary Embolism Disease (PED).In patients with low pre-test probability, various studies concerning STA Liatest D-dimer test have reported that with a cutoff value of 0.50 MG/L FEU, the Negative Predictive Value (NPV) regarding the exclusion of thrombosis is within 95-100% range. Lab Interpretation Abnormal (test code = 64893-1) [facility] HospitalD-[id number] 04:12:53 Test Item Value Reference Range Interpretation Comments D-Dimer, Quant (test 0.89 See_Comment H [Autom ated code = 56818-5) message] The system which generated this result transmitted reference range : <0.50 MG/L FEU. The reference range was not used to interpr et this result as normal/abnormal . PROSPER (test code = PROSPER) Intended Use: The D-Dimer Assay can be used to aid in the diagnosis of Deep Vein Thrombosis (DVT) and Pulmonary Embolism Disease (PED).In patients with low pre-test probability, various studies concerning STA Liatest D-dimer test have reported that with a cutoff value of 0.50 MG/L FEU, the Negative Predictive Value (NPV) regarding the exclusion of thrombosis is within 95-100% range. Lab Interpretation Abnormal (test code = 20422-4) [facility] HospitalD-[id number] 04:12:53 Test Item Value Reference Range Interpretation [...] exclusion of thrombosis is within 95-100% range. Prothrombin time/[id number] 04:10:13 Test Item Value Reference Interpretation Comments Range Protime (test code = 15.2 See_Comment H [Autom ated 5902-2) message] The system which generated this result transmitted reference range : 11.9 - 14.2 seconds. The reference range was not used to interpret this result as normal/abnormal . INR (test code = 1.22 See_Comment [Automated 6301-6) message] The system which generated this result transmitted reference range : <=5.90. The reference range was not used to interpret this result as normal/abnormal . PROSPER (test code = RECOMMENDED PROSPER) COUMADIN/WARFARIN INR THERAPY RANGESSTANDARD DOSE: 2.0 - 3.0 Includes: PROPHYLAXIS for venous thrombosis, systemic embolization; TREATMENT for venous thrombosis and/or pulmonary embolus.HIGH RISK: Target INR is 2.5-3.5 for patients with mechanical heart valves. Lab Interpretation Abnormal (test code = 99552-7) [facility] HospitalProthrombin time/[id number] 04:10:13 Test Item Value Reference Interpretation Comments Range Protime (test code = 15.2 See_Comment H [Autom ated 5902-2) message] The system which generated this result transmitted reference range : 11.9 - 14.2 seconds. The reference range was not used to interpret this result as normal/abnormal . INR (test code = 1.22 See_Comment [Automated 6301-6) message] The system which generated this result transmitted reference range : <=5.90. The reference range was not used to interpret this result as normal/abnormal . PROSPER (test code = RECOMMENDED PROSPER) COUMADIN/WARFARIN INR THERAPY RANGESSTANDARD DOSE: 2.0 - 3.0 Includes: PROPHYLAXIS for venous thrombosis, systemic embolization; TREATMENT for venous thrombosis and/or pulmonary embolus.HIGH RISK: Target INR is 2.5-3.5 for patients with mechanical heart valves. Lab Interpretation Abnormal (test code = 97494-4) [facility] HospitalPROTHROMBIN TIME/[id number] 04:10:13 Test Item Value Reference Range Interpretation Comments PROTIME (BEAKER) 15.2 seconds 11.9-14.2 H (test code = 759) INR (BEAKER) (test 1.22 See_Comment [Automat ed message] code = 370) The system [employer] generated this result transmitted ref erence range: <=5.90. The reference range was not used to int erpret this result as normal/abnormal . RECOMMENDED COUMADIN/WARFARIN INR THERAPY RANGESSTANDARD DOSE: 2.0 - 3.0 Includes: PROPHYLAXIS for venous thrombosis, systemic embolization; TREATMENT for venous thrombosis and/or pulmonary embolus.HIGH RISK: Target INR is 2.5-3.5 for patients with mechanical heart valves.BLOOD GAS, [id number] 04:07:03 Test Item Value Reference Range Interpretation [...] = 1818) CBC W/PLT COUNT & AUTO [id number] 04:02:18 Test Item Value Reference Range Interpretation [...] PERCENT (BEAKER) (test code = 2801) CALCIUM, [id number] 04:00:26 Test Item Value Reference Range Interpretation Comments CALCIUM IONIZED (BEAKER) (test 1.16 mmol/L 1.12-1.27 code = 698) PH, BLOOD (BEAKER) (test code = 7.40 1810) [id number] 20:26:13 Test Item Value Reference Range Interpretation Comments Ferritin (test code = 970.79 ng/mL 5.00-275.00 H 2276-4) PROSPER (test code = PROSPER) Field Service Consultant ID - BS Lab Interpretation (test Abnormal code = 46447-8) [facility] HospitalFerritin2021-09-14 20:26:13 Test Item Value Reference Range Interpretation Comments Ferritin (test code = 970.79 ng/mL 5.00-275.00 H 2276-4) PROSPER (test code = PROSPER) Field Service Consultant ID - BS Lab Interpretation (test Abnormal code = 11804-0) [facility] HospitalFERRITIN2021-09-14 20:26:13 Test Item Value Reference Range Interpretation Comments FERRITIN (BEAKER) (test code = 970.79 ng/mL 5.00-275.00 H 361) Field Service Consultant ID - BSB-type Natriuretic Factor (BNP)2020-11-03 20:13:54 Test Item Value Reference Range Interpretation Comments BNP (test code = 64986-1) 498 pg/mL 0-100 H PROSPER (test code = PROSPER) Field Service Consultant ID - BS Lab Interpretation (test Abnormal code = 06999-1) [facility] HospitalB-type Natriuretic Factor (BNP)2020-11-03 20:13:54 Test Item Value Reference Range Interpretation Comments BNP (test code = 67150-0) 498 pg/mL 0-100 H PROSPER (test code = PROSPER) Field Service Consultant ID - BS Lab Interpretation (test Abnormal code = 87666-8) [facility] HospitalB-TYPE NATRIURETIC FACTOR (BNP)2020-11-03 20:13:54 Test Item Value Reference Range Interpretation Comments B-TYPE NATRIURETIC PEPTIDE (BEAKER) 498 pg/mL 0-100 H (test code = 700) Field Service Consultant ID - BSC-REACTIVE [id number] 20:08:08 Test Item Value Reference Range Interpretation Comments C-REACTIVE PROTEIN (BEAKER) (test 23.69 mg/dL 0.00-0.50 H code = 676) Field Service Consultant ID - BSCOMPREHENSIVE METABOLIC [id number] 20:08:07 Test Item Value Reference Range Interpretation [...] hemolyzed EGFR (BEAKER) (test 66 mL/min/1.73 ESTIMA ALEJANDRA GFR IS code = 1092) sq m NOT ACCURATE CREATININE CLEARANCE IN PREDICTING GLOMERULAR FILTRATION RATE . ESTIMATED GFR I S NOT APPLICABLE FOR DIALYSIS PATIEN TS. Field Service Consultant ID - [id number] 20:04:10 Test Item Value Reference Range Interpretation [...] the exclusion of thrombosis is within 95-100% range.Lactic acid, [id number] 20:03:46 Test Item Value Reference Range Interpretation Comments Lactate, Venous (test 1.90 mmol/L 0.50-2.20 Specim en code = 2872) slightly hemolyzed PROSPER (test code = PROSPER) Field Service Consultant ID - BS Lab Interpretation Normal (test code = 68896-3) [facility] Hospital[facility], [id number] 20:03:46 Test Item Value Reference Range Interpretation Comments Lactate, Venous (test 1.90 mmol/L 0.50-2.20 Specim en code = 2872) slightly hemolyzed PROSPER (test code = PROSPER) Field Service Consultant ID - BS Lab Interpretation Normal (test code = 03874-3) [facility] Hospital[facility]CT[facility]ID, [id number] 20:03:46 Test Item Value Reference Range Interpretation Comments LACTATE BLOOD VENOUS 1.90 mmol/L 0.50-2.20 Specime n slightly (2) (BEAKER) (test hemolyzed code = 2872) Field Service Consultant ID - BSPROTHROMBIN TIME/[id number] 20:01:29 Test Item Value Reference Range Interpretation Comments PROTIME (BEAKER) 14.8 seconds 11.9-14.2 H (test code = 759) INR (BEAKER) (test 1.18 See_Comment [Automat ed message] code = 370) The system GoGuide generated this result transmitted ref erence range: <=5.90. The reference range was not used to int erpret this result as normal/abnormal . RECOMMENDED COUMADIN/WARFARIN INR THERAPY RANGESSTANDARD DOSE: 2.0 - 3.0 Includes: PROPHYLAXIS for venous thrombosis, systemic embolization; TREATMENT for venous thrombosis and/or pulmonary embolus.HIGH RISK: Target INR is 2.5-3.5 for patients with mechanical heart valves.CBC (Hemogram only)2020-11-03 19:50:06 Test Item Value Reference Range Interpretation Comments WBC (test code = 6690-2) 10.1 See_Comment [A utomated message] The system GoGuide generated this result transmitted ref erence range: 3.5 - 10 .5 K/L. The refe rence range was not u sed to interpret this result as normal/abnor mal. RBC (test code = 789-8) 5.03 See_Comment [Au tomated message] The system GoGuide generated this result transmitted ref erence range: 4.63 - 6 .08 M/L. The refe rence range was not u sed to interpret this result as normal/abnor mal. MCHC (test code = 786-4) 34.6 See_Comment [A utomated message] The system GoGuide generated this result transmitted ref erence range: 32.3 - 3 6.5 GM/DL. The refe rence range was not u sed to interpret this result as normal/abnor mal. Hematocrit (test code = 45.9 % 40.1-51.0 4544-3) MCV (test code = 787-2) 91.3 fL 79.0-92.2 MCH (test code = 785-6) 31.6 pg 25.7-32.2 RDW (test code = 788-0) 13.1 % 11.6-14.4 Platelets (test code = 362 See_Comment [Aut omated message] 357-3) The system GoGuide generated this result transmitted ref erence range: 150 - 45 0 K/CU MM. The referen ce range was not u sed to interpret this result as normal/abnor mal. MPV (test code = 9.2 fL 9.4-12.4 L 57656-8) nRBC (test code = 413) 0 See_Comment [Aut omated message] The system GoGuide generated this result transmitted ref erence range: 0 - 0 /1 00 WBC. The refere nce range was not u sed to interpret this result as normal/abnor mal. Lab Interpretation (test Abnormal code = 48281-7) [facility] (Hemogram only)2020-11-03 19:50:06 Test Item Value Reference Range Interpretation Comments WBC (test code = 6690-2) 10.1 See_Comment [A utomated message] The system GoGuide generated this result transmitted ref erence range: 3.5 - 10 .5 K/L. The refe rence range was not u sed to interpret this result as normal/abnor mal. RBC (test code = 789-8) 5.03 See_Comment [Au tomated message] The system GoGuide generated this result transmitted ref erence range: 4.63 - 6 .08 M/L. The refe rence range was not u sed to interpret this result as normal/abnor mal. MCHC (test code = 786-4) 34.6 See_Comment [A utomated message] The system GoGuide generated this result transmitted ref erence range: 32.3 - 3 6.5 GM/DL. The refe rence range was not u sed to interpret this result as normal/abnor mal. Hematocrit (test code = 45.9 % 40.1-51.0 4544-3) MCV (test code = 787-2) 91.3 fL 79.0-92.2 MCH (test code = 785-6) 31.6 pg 25.7-32.2 RDW (test code = 788-0) 13.1 % 11.6-14.4 Platelets (test code = 362 See_Comment [Aut omated message] 777-3) The system GoGuide generated this result transmitted ref erence range: 150 - 45 0 K/CU MM. The referen ce range was not u sed to interpret this result as normal/abnor mal. MPV (test code = 9.2 fL 9.4-12.4 L 06620-4) nRBC (test code = 413) 0 See_Comment [Aut omated message] The system GoGuide generated this result transmitted ref erence range: 0 - 0 /1 00 WBC. The refere nce range was not u sed to interpret this result as normal/abnor mal. Lab Interpretation (test Abnormal code = 87089-6) [facility] (HEMOGRAM ONLY)2020-11-03 19:50:06 Test Item Value Reference [...] (BEAKER) (test code = 413) BLOOD GAS, [id number] 19:50:01 Test Item Value Reference Range Interpretation [...] 1819) 100.0 RAD, CHEST, 1 VIEW, NON [id number] 19:04:00Reason for exam:->acute hypoxemic respiratory failureShould this be performed at the bedside?->Yes [facility] 1945 Sex: MFINAL REPORT AP view of the chest dated 11/03/2020 CLINICAL INFORMATION: acute hypoxemic respiratory failure Comment: Heart is normal in size. Pulmonary vasculature is unremarkable. Lungs are clear. No pulmonary infiltrate or pleural effusion is present. Impression: No active cardiopulmonary disease. Signed: Estephania Valadez Verified Date/Time: 11/03/2020 19:04:46 Reading Location: [address] Consult Reading Room POCT-GLUCOSE [id number] 18:31:16 Test Item Value Reference Range Interpretation Comments POC-GLUCOSE METER 164 mg/dL 70-110 H : TESTED A T [facility] (BEAKER) (test code = MANDEEPTE WINN MD, 1538) 98099: Field Service Consultant/Techni chitra ID = [id number] for Joanie Garces
--- NOTE | 2022-04-29 15:26 | RAD REPORT ---
EX[facility] DESCRIPTION: [facility] 2:26 pm CLINICAL HISTORY: fall COMPARISON: Chest Pa And Lat (2 Views) dated 06/10/2021; Chest Single View dated 12/07/2020; Chest Si ngle View dated 12/06/2020; Chest Single View dated 12/04/2020; Ribs Left dated 04/29/2022 TECHNIQUE: Portable AP view of the chest. FINDINGS: The lungs are clear.Mild bibasilar atelectatic changes. Right costophrenic angle thickenin g versus trace effusion, stable. New left chest wall dual lead pacer/ AICD. Mild central hyperlucency and biapical scarring which may reflect underlying COPD. No pneumothorax or effusion. The cardiomedi astinal contours are unremarkable. IMPRESSION: No acute cardiopulmonary process. Other stable findings as above.
--- NOTE | 2022-04-29 16:34 | RAD REPORT ---
EXAM DESCRIPTION: RAD - Ribs Left - 04/29/2022 2:26 pm CLINICAL HISTORY: Fall. Pain COMPARISON: None. FINDINGS: Four views of the left ribs. No displaced rib fracture is evident. No aggressive rib lesion. No underlying pneumothorax. Blunting of the left costophrenic angle more di stinct compared to the chest radiograph of the same day, could reflect a pleural thickening or trace effusion. . IMPRESSION: Negative left rib series. Left costophrenic angle blunting, which may relate to pleural thickening or trace effusion.
[2022-04-29 16:56] VITALS: TEMP 97.8; O2SAT 99
[2022-04-29 16:57] VITALS: BP 121/89
--- NOTE | 2022-05-13 16:07 | EDPHYS ---
Physician Documentation [facility] Name: Jonatan Yen Jr Age: 77 yrs Sex: Male : 1945 Arrival Date: 04/29/2022 Time: 13:22 Bed 10 Private MD: ED Physician Marquis Schmidt HPI: 04/29 13:48 This 77 yrs old Male presents to ER via Ambulatory with complaints of Fall Injury. jmm 13:48 Details of fall: The patient fell from an upright position. Onset: The symptoms/episode jmm began/occurred acutely, just prior to arrival. This is a 77-year-old male with history of atrial fibrillation the presents emerged part with left-sided chest pain beginning after a fall which occurred this morning around 8. Patient states that he stumbled on some waqar landing on a chair on the left side of his torso. Denies LOC but states having some swelling and feeling some pain on deep inspiration.. Historical: - Allergies: 13:49 Bactrim; ph 13:49 Ciprofloxacin; ph 13:49 Lotrel; ph 13:49 PENICILLINS; ph 13:49 Sulfa (Sulfonamide Antibiotics); ph - PMHx: 13:49 Atrial fibrillation; ph - PSHx: 13:49 pacemaker; valve replacement, aortic and mitral; ph - Immunization history:: Adult Immunizations unknown. - Social history:: Smoking status: Patient/guardian denies using tobacco, the patient reports quitting approximately 40 years ago. ROS: 13:48 Constitutional: Negative for fever, chills, and weight loss, Cardiovascular: Negative jmm for chest pain, palpitations, and edema, Respiratory: Negative for shortness of breath, cough, wheezing, and pleuritic chest pain. 13:48 All other systems are negative. Exam: 13:48 Constitutional: This is a well developed, well nourished patient who is awake, alert, jmm and in no acute distress. Head/Face: atraumatic. Eyes: EOMI, no conjunctival erythema appreciated ENT: Moist Mucus Membranes Neck: Trachea midline, Supple 13:48 Cardiovascular: Regular rate and rhythm. No edema appreciated Respiratory: Normal respirations, no respiratory distress appreciated Abdomen/GI: Non distended Back: Normal ROM Skin: General appearance color normal MS/ Extremity: Moves all extremities, no obvious deformities appreciated, no edema noted to the lower extremities Neuro: Awake and alert Psych: Behavior is normal, Mood is normal, Patient is cooperative and pleasant 13:48 Chest/axilla: Palpation: tenderness, that is moderate, of the left lateral anterior chest and left breast. Vital Signs: 13:50 BP 119 / 84; Pulse 95; Resp 18; Temp 97.8; Pulse Ox 99% on R/A; Weight 66.68 kg; Height ph 5 ft. 11 in. ; 16:05 BP 121 / 89; Pulse 78; Resp 18; Pulse Ox 99% ; ph 13:50 Body Mass Index 20.50 (66.68 kg, 180.34 cm) ph MDM: 13:48 Patient medically screened. [facility] 15:44 Data reviewed: vital signs, nurses notes, radiologic studies. [facility] 19:27 Differential diagnosis: Contusion, rib fracture. Consideration of [facility] Admission/Observation. Independent interpretation of the following test(s) in the Emergency Department X-Ray: My interpretation is No fracture appreciated. Counseling: I had a detailed discussion with the patient and/or guardian regarding: the historical points, exam findings, and any diagnostic results supporting the discharge/admit diagnosis, radiology results, the need for outpatient follow up, to return to the emergency department if symptoms worsen or persist or if there are any questions or concerns that arise at home. 04/29 13:49 Order name: Ribs Left XRAY [facility] 04/29 13:49 Order name: Chest Single View XRAY; Complete Time: 15:32 [facility] Administered Medications: No medications were administered Disposition Summary: 04/29/22 15:45 Discharge Ordered Location: Home [facility] Condition: Stable [facility] Diagnosis - Rib Contusion [facility] Followup: [facility] - With: Private Physician - When: 2 - 3 days - Reason: Recheck today's complaints, Continuance of care, Re-evaluation by your physician Discharge Instructions: - Discharge Summary Sheet [facility] - Rib Contusion [facility] Forms: - Medication Reconciliation Form [facility] - Thank You Letter [facility] - Antibiotic Education [facility] - Prescription Opioid Use [facility] Prescriptions: - orphenadrine citrate 100 mg Oral Tablet Sustained Release - take 1 tablet by ORAL route 2 times per day As needed; 20 tablet; Refills: 0, [facility] Product Selection Permitted Addendum: 05/02/2022 08:44 Co-signature as Attending Physician, Marquis WONG I reviewed the patient's care r n provided by the Advanced Practice Provider and agree with the diagnosis and treatment plan. Signatures: Dispatcher [employer] Salo Blood PA PA jmm Nieto, Roman, MD MD rn BlissLilliana RN RN ph Corrections: (The following items were deleted from the chart) 04/29 13:50 13:49 PMHx: Hypertensive disorder; ph ph
--- NOTE | 2022-05-13 16:07 | ER ---
Nurse's Notes [facility] Name: Jonatan Yen Jr Age: 77 yrs Sex: Male : 1945 Arrival Date: 04/29/2022 Time: 13:22 Bed 10 [facility] MD: Diagnosis: Rib Contusion Presentation: 04/29 13:47 Chief complaint: Patient states: Tripped and fell on loose gravel, hit L lateral chest ph on the back of a chair, denies other injury or LOC, c/o L rib pain. Coronavirus screen: Vaccine status: Patient reports being unvaccinated. Ebola Screen: No symptoms or risks identified at this time. Initial Sepsis Screen: Does the patient meet any 2 criteria? No. Patient's initial sepsis screen is negative. Does the patient have a suspected source of infection? No. Patient's initial sepsis screen is negative. Risk Assessment: Do you want to hurt yourself or someone else? Patient reports no desire to harm self or others. Onset of symptoms was April 29, 2022. 13:47 Method Of Arrival: Ambulatory ph 13:47 Acuity: TOÑO 4 ph Historical: - Allergies: 13:49 Bactrim; ph 13:49 Ciprofloxacin; ph 13:49 Lotrel; ph 13:49 PENICILLINS; ph 13:49 Sulfa (Sulfonamide Antibiotics); ph - PMHx: 13:49 Atrial fibrillation; ph - PSHx: 13:49 pacemaker; valve replacement, aortic and mitral; ph - Immunization history:: Adult Immunizations unknown. - Social history:: Smoking status: Patient/guardian denies using tobacco, the patient reports quitting approximately 40 years ago. Screenin:29 [facility] ED Fall Risk Assessment (Adult) History of falling in the last 3 months, mb9 including since admission Yes- single mechanical fall (1 pt) Confusion or Disorientation No (0 pts) Intoxicated or Sedated No (0 pts) Impaired Gait Yes (1 pt) Mobility Assist Device Used Yes (1 pt) Altered Elimination No (0 pt) Score/Fall Risk Level 3 or more points = High Risk Oriented to surroundings, Maintained a safe environment, Educated pt \T\ family on fall prevention, incl call for assistance when getting out of bed. Abuse screen: Denies threats or abuse. Nutritional screening: No deficits noted. Tuberculosis screening: No symptoms or risk factors identified. Assessment: 14:30 General: Appears in no apparent distress. Behavior is calm, cooperative. Pain: mb9 Complains of pain in left rib Pain radiates to left back Quality of pain is described as throbbing, Pain began suddenly. Neuro: Level of Consciousness is awake, alert, obeys commands, Oriented to person, place, time, situation, Appropriate for age. Cardiovascular: Patient's skin is warm and dry. Respiratory: Airway is patent Respiratory effort is even, unlabored, Respiratory pattern is regular, symmetrical. Derm: Skin is pink, warm \T\ dry. Musculoskeletal: Range of motion: intact in all extremities. 15:33 Reassessment: No changes from previously documented assessment. Patient and/or family mb9 updated on plan of care and expected duration. Pain level reassessed. Patient is alert, oriented x 3, equal unlabored respirations, skin warm/dry/pink. Vital Signs: 13:50 BP 119 / 84; Pulse 95; Resp 18; Temp 97.8; Pulse Ox 99% on R/A; Weight 66.68 kg; Height ph 5 ft. 11 in. ; 16:05 BP 121 / 89; Pulse 78; Resp 18; Pulse Ox 99% ; ph 13:50 Body Mass Index 20.50 (66.68 kg, 180.34 cm) ph ED Course: 13:22 Patient arrived in ED. jj6 13:31 Salo Nieto PA is PHCP. m 13:31 Marquis Schmidt MD is Attending Physician. jmm 13:49 Triage completed. ph 13:50 Arm band placed on Patient placed in an exam room. ph 14:28 Ribs Left XRAY In Process Unspecified. EDMS 14:28 Chest Single View XRAY In Process Unspecified. EDMS 14:29 Mary Lewis, RODRIGUEZ is Primary Nurse. mb9 14:29 Bed in low position. Call light in reach. Side rails up X 1. Client placed on mb9 continuous cardiac and pulse oximetry monitoring. NIBP monitoring applied. 14:30 No provider procedures requiring assistance completed. Patient did not have IV access mb9 during this emergency room visit. Administered Medications: No medications were administered Medication: 14:30 VIS not applicable for this client. mb9 Outcome: 15:45 Discharge ordered by . jmm 16:06 Discharged to home ambulatory. ph 16:06 Condition: stable 16:06 Discharge instructions given to patient, Instructed on discharge instructions, follow up and referral plans. Demonstrated understanding of instructions, follow-up care, medications, Prescriptions given X 1. 16:06 Patient left the ED. ph Signatures: Dispatcher [employer] EDMS Salo Nieto PA PA jmm Hall, Patricia, RN RN Nevin Butler6 Mary Lewis RN RN mb9 Corrections: (The following items were deleted from the chart) 13:50 13:49 PMHx: Hypertensive disorder; ph ph
== END 2022-04-29 16:06 | disposition home or self-care (01) ==
LOC: ER 13:16
DX: S20.212A Contusion of left front wall of thorax, initial encounter (principal); Z95.0 Presence of cardiac pacemaker; Z88.0 Allergy status to penicillin; Z88.1 Allergy status to other antibiotic agents; Z88.2 Allergy status to sulfonamides; Z88.8 Allergy status to other drugs, medicaments and biological substances
CPT/HCPCS: 71045; 99283

== ENCOUNTER 2022-10-12 16:13 | Inpatient (IN) | payer OTHER ==
--- OUTSIDE RECORDS SUMMARY | 2022-10-12 16:24 | XMS REPORT | Continuity of Care Document ---
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 25 Me thodi 50% syringe 02-23 12-05 mL (12.5 g s t 00:00: 05:59 [...] 25mg Q.5D Take 1 Meth rosa tartrate 02-23-05 tablet (25 st (LOPRESSOR) 00:00: 05:59 mg [...] vomiting for up to 30 days. ranolazine 2020-02- No 500mg Q.5D Take 1 Met hodi [...] times a day for 30 days. pantoprazol 2020-02- No 40mg Q.5D [...] See Admin [facility] a tablet 00 :00 Instructio l ns. Take 2 tablets by mouth for 3 Days, then 1 tablet by mouth daily. predniSONE 2020-02- No 10mg Take 10 mg [facility] (DELTASONE) 0-13 11-[address] 10 mg 00:00: 00:00 See Admin Hospit a tablet 00 :00 Waqas tran. Take 2 tablets by mouth for 3 Days, then 1 tablet by mouth daily. dexAMETHaso 2020- No 6mg QD Take [address] [facility] 11-[facility] tablet (6 [facility] (DEC[facility]RON) 00:00: 23:59 mg total) M edical 6 MG tablet 00 :00 by mouth Cent er daily for 4 days. dexAMETHaso 2020- No 6mg QD Take [address] [facility] ne 11-1025 tablet (6 [facility] (DECADRON) 00:00: 23:59 mg total) M edical 6 MG tablet 00 :00 by mouth Cent er daily for 4 days. telmisartan Yes 80mg QD Take [address] [facility] (MICARDIS) 9-20 [facility] 80 MG 18:33: daily. Medical tablet [address] [place] [address] telmisartan Yes 80mg QD Take [address] [facility] (MICARDIS) 9-20 by [facility] 80 MG 18:33: daily. Medical tablet [address] [place] [address] telmisartan Yes 80mg QD Take [address] [facility] [address] (MICARDIS) 9-20 by mouth [facility] 80 MG 18:33: daily. Medical tablet [address] [place] [address] telmisartan Yes 80mg QD Take [address] [facility] (MICARDIS) 9-20 by [facility] 80 MG 18:33: daily. Medical tablet [address] [place] [address] carvediloL 2020- No 25mg Take [address] [facility] (COREG) 25 11-09 by mouth 2 Bhavna kes MG tablet 11:41: 00:00 (two) Medica l 28 :00 times Center daily with breakfast and dinner. hydrALAZINE 2020- No 25mg Q.[id number] Take [address] [facility] (APRESOLINE 11-09 [id number] by mouth 3 [facility] ) 25 MG 11:41: 00:00 3D (three) Medica l tablet 28 :00 times Center daily. furosemide 2020- No 20mg QD Take [address] [facility] (LASIX) 20 11-09 by mouth Luke s MG tablet 11:41: 00:00 daily. Medic al 28 :00 Center carvediloL 2020- No 25mg Take [address] [facility] (COREG) 25 11-09 by mouth 2 Bhavna kes MG tablet 11:41: 00:00 (two) Medica l 28 :00 times Center daily with breakfast and dinner. hydrALAZINE 2020- No 25mg Q.[id number] Take [address] [facility] (APRESOLINE 11-09 [id number] by mouth 3 [facility] ) 25 MG 11:41: 00:00 3D (three) Medica l tablet 28 :00 times Center daily. furosemide 2020- No 20mg QD Take [address] [facility] (LASIX) 20 11-09 by mouth Luke s MG tablet 11:41: 00:00 daily. Medic al 28 :00 Center hydrALAZINE Yes 100mg Q.[id number] Take [address] [facility] (APRESOLINE 9-20 [id number] tablet [facility] ) 100 MG 00:00: 3D [...] mouth Center daily. hydrALAZINE 0 Yes 100mg Q.[id number] Take [address] [facility] (APRESOLINE 9-20 [id number] tablet [facility] ) 100 MG 00:00: 3D [...] > 2 pounds in one day). amLODIPine 2021-0 Yes 5mg QD Take [facility] 5 9-20 tablet (5 Jennifer es MG tablet 00:00: mg total) Med ical 00 by mouth Center daily. hydrALAZINE 2021-0 Yes 100mg Q.[id number] Take [address] [facility] (APRESOLINE 9-20 [id number] tablet [facility] ) 100 MG 00:00: 3D (100 mg Medica l tablet 00 total) by Center mouth 3 (three) times daily. furosemide 2021-0 Yes 20mg Take [facility] 9-20 tablet (20 Jennifer es MG tablet 00:00: mg total) Med ical 00 by mouth Center daily as needed (swelling or a weight gain of > 2 pounds in one day). amLODIPine 2021-0 Yes 5mg QD Take [facility] 5 9-20 tablet (5 Jennifer es MG tablet 00:00: mg total) Med ical 00 by mouth Center daily. hydrALAZINE 2021-0 Yes 100mg Q.[id number] Take [address] [facility] [address] (APRESOLINE 9-20 [id number] tablet [facility] ) 100 MG 00:00: 3D (100 mg Medica l tablet 00 total) by Center mouth 3 (three) times daily. furosemide 2021-0 Yes 20mg Take [facility] 20 9-20 tablet (20 Jennifer es MG tablet 00:00: mg total) Med ical 00 by mouth Center daily as needed (swelling or a weight gain of > 2 pounds in one day). amLODIPine 2021-0 Yes 5mg QD Take [facility] 5 9-20 tablet (5 Jennifer es MG tablet 00:00: mg total) Med ical 00 by mouth Center daily. amLODIPine 2021-0 2021- No 10mg QD Take [address] [facility] (NORVASC) 9-20 09-20 tablet (10 Jennifer es 10 MG 00:00: 00:00 mg total) Medica l tablet 00 :00 by mouth Center daily. amLODIPine 2021-0 2021- No 10mg QD Take [address] [facility] (NORVASC) 9-20 09-20 tablet (10 Jennifer es 10 MG 00:00: 00:00 mg total) Medica l tablet 00 :00 by mouth Center daily. furosemide 2020- No 20mg Q24H Take 20 mg [facility] (LASIX) 20 8-[address] mg tablet 00:00: 00:[address] 00 :00 needed. l unknown dose, read transfer paper work from previous hospital. Pt stated, "My knows everything . She will be back in the morning". furosemide 2020- No 20mg Q24H Take 20 mg [facility] (LASIX) 20 10-08-[address] mg tablet 00:00: 00:[address] 00 :00 needed. l unknown dose, read transfer paper work from previous hospital. Pt stated, "My knows everything . She will be back in the morning". hydrALAZINE 2020- No 25mg Q.[id number] Take 25 mg [facility] (APRESOLINE 7-20 - [id number] by mouth 3 st ) 25 MG 00:00: 00:00 3D (three) Hospit a tablet 00 :00 times a l day. unknown dose, read transfer paper work from previous hospital. Pt stated, "My knows everything . She will be back in the morning". hydrALAZINE 2020- No 25mg Q.[id number] Take 25 mg [facility] (APRESOLINE 7-20 -05 [id number] mouth 3 st ) 25 MG [...] Q.5D Take 40 mg [facility] (LASIX) 40 2- 07-[address] mg tablet 00:00: 00:00 (two) Hospit a 00 :00 times a l day. Vital Signs Vital Name Observation Time Observation Value Comments Source WEIGHT 2020-11-06 03:00:00 79.1 kg WEIGHT 2020-11-05 07:00:00 79.2 kg WEIGHT 2020-11-03 18:45:00 79.2 kg HEIGHT 2020-11-03 18:45:00 180.3 cm Systolic blood 2022-08-31 21:30:00 90 mm[Hg] [facility] Diastolic blood 2022-08-31 21:30:00 70 mm[Hg] [facility] Respiratory rate 2022-08-31 21:30:00 23 /min [facility] Oxygen saturation in 2022-08-31 21:30:00 96 /min [facility] by [place] [facility] Pulse oximetry [facility] Heart rate 2022-08-31 21:00:00 103 /min [facility] Body temperature 2022-08-31 17:04:00 36.72 Erendira [facility] Body weight 2022-08-31 17:04:00 71.215 kg [facility] BMI 2022-08-31 17:04:00 21.90 kg/m2 [facility] Systolic blood 2022-03-26 04:30:00 109 mm[Hg] [facility] Diastolic blood 2022-03-26 04:30:00 74 mm[Hg] [facility] Heart rate 2022-03-26 04:30:00 80 /min [facility] Respiratory rate 2022-03-26 04:30:00 23 /min [facility] Oxygen saturation in 2022-03-26 04:30:00 97 /min [facility] blood by [place] [facility] Pulse oximetry [facility] Body temperature 2022-03-25 19:51:00 35 Erendira [facility] Body height 2022-03-25 19:51:00 180.3 cm [facility] Body weight 2022-03-25 19:51:00 71.215 kg [facility] BMI 2022-03-25 19:51:00 21.90 kg/m2 [facility] WEIGHT 2020-11-06 03:00:00 79.1 kg WEIGHT 2020-11-05 07:00:00 79.2 kg WEIGHT 2020-11-03 18:45:00 79.2 kg HEIGHT 2020-11-03 18:45:00 180.3 cm Systolic blood 2022-10-12 13:48:00 99 mm[Hg] [facility] pressure Diastolic blood 2022-10-12 13:48:00 63 mm[Hg] [facility] pressure Heart rate 2022-10-12 13:48:00 75 [facility] 2022-10-12 13:48:00 180.3 cm [facility] Body weight 2022-10-12 13:48:00 57.516 kg [facility] BMI 2022-10-12 13:48:00 17.69 kg/m2 [facility] Body temperature 2022-09-30 17:12:44 36.17 Erendira [facility] Respiratory rate 2022-09-30 17:12:44 20 /min [facility] Oxygen saturation in 2022-09-30 17:12:44 99 /min [facility] Arterial blood by Pulse oximetry Systolic blood 2022-04-27 12:00:00 102 mm[Hg] Per pt [facility] pressure Diastolic blood 2022-04-27 12:00:00 76 mm[facility]Hg[facility] Heart rate 2022-04-27 12:00:00 78 /min Per pt [facility] Body weight 2022-04-27 12:00:00 66.225 kg Per pt [facility] BMI 2022-04-27 12:00:00 20.36 kg/m2 [facility] Body temperature 2022-03-31 18:18:04 37.06 Erendira [facility] Respiratory rate 2022-03-31 18:18:04 17 /min [facility] Oxygen saturation in 2022-03-31 18:18:04 99 /min [facility] Arterial blood by Pulse oximetry Body height 2021-12-10 16:48:00 180.3 cm [facility] Systolic blood 2021-01-29 14:35:00 143 mm[Hg] [facility] pressure Diastolic blood 2021-01-29 14:35:00 76 mm[Hg] [facility] pressure Heart rate 2021-01-29 14:35:00 79 /min [facility] Body height 2021-01-29 14:35:00 181.6 cm [facility] Body weight 2021-01-29 14:35:00 76.204 kg [facility] BMI 2021-01-29 14:35:00 23.10 kg/m2 [facility] Oxygen saturation in 2021-01-29 14:35:00 97 /min [facility] Arterial blood by Pulse oximetry Respiratory rate 2021-01-27 16:07:00 17 /min [facility] Body temperature 2020-12-26 00:33:52 36 Erendira [facility] Systolic blood 2020-11-09 16:00:00 121 mm[Hg] [facility] Diastolic blood 2020-11-09 16:00:00 61 mm[Hg] [facility] Heart rate 2020-11-09 16:00:00 78 /min [facility] Body temperature 2020-11-09 16:00:00 35.83 Erendira [facility] Respiratory rate 2020-11-09 16:00:00 20 /min [facility] Oxygen saturation in 2020-11-09 16:00:00 93 /min [facility] Arterial blood by Medical Ce [facility]ter Pulse oximetry Body weight 2020-11-06 03:00:00 79.1 kg [facility] BMI 2020-11-06 03:00:00 24.32 kg/m2 [facility] Body height 2020-11-03 18:45:00 180.3 cm [facility] Procedures Procedure Date / Time Performing Source Performed Clinician BASIC METABOLIC PANEL 2022-10-10 Kamala Lawrence [facility] 14:20:00 Hospital CBC WITH PLATELET AND 2022-10-10 Kamala Lawrence Method ist DIFFERENTIAL 14:20:00 [facility] PROTHROMBIN TIME WITH INR 2022-09-30 Daniel Walters thodist 10:26:00 [facility] BASIC METABOLIC PANEL 2022-09-30 Linda Hilton 10:26:00 [facility] MAGNESIUM LEVEL 2022-09-30 Linda Hilton 10:26:00 [facility] ESTIMATED GFR 2022-09-30 Linda Hilton 10:26:00 [facility] BASIC METABOLIC PANEL 2022-09-29 Linda Hilton 15:36:00 [facility] ESTIMATED GFR 2022-09-29 Linda Hilton 15:36:00 [facility] PROTHROMBIN TIME WITH INR 2022-09-29 Daniel Walters thodist 09:50:00 Hospital CBC HEMOGRAM 2022-09-28 Daniel Walters 10:30:00 Hospital PROTHROMBIN TIME WITH INR 2022-09-28 Daniel Walters thodist 10:30:00 [facility] BASIC METABOLIC PANEL 2022-09-28 Dione Solis 10:30:00 [facility] ESTIMATED GFR 2022-09-28 Dione Solis 10:30:00 [facility] PROTHROMBIN TIME WITH INR 2022-09-27 Daniel Walters thodist 09:04:00 Hospital NT-PROBNP 2022-09-27 Georgette Leblanc 09:04:00 Hospital BASIC METABOLIC PANEL 2022-09-27 Linda Hilton 09:04:00 [facility] ESTIMATED GFR 2022-09-27 Linda Hilton 09:04:00 [facility] POC GLUCOSE 2022-09-26 Daniel Walters 13:07:00 Hospital PROTHROMBIN TIME WITH INR 2022-09-26 Daniel Walters thodist 09:44:00 Hospital NT-PROBNP 2022-09-26 Georgette Leblanc 09:44:00 Hospital BASIC METABOLIC PANEL 2022-09-26 Linda Hilton 09:44:00 [facility] ESTIMATED GFR 2022-09-26 Linda Hilton 09:44:00 [facility] ESTIMATED GFR 2022-09-25 Linda Hilton 15:49:00 [facility] MAGNESIUM LEVEL 2022-09-25 Georgette Leblanc 10:16:00 Hospital CBC WITH PLATELET AND 2022-09-25 Georgette Leblanc DIFFERENTIAL 10:16:00 Hospital PROTHROMBIN TIME WITH INR 2022-09-25 Daniel Walters Me thodist 10:16:00 Hospital NT-PROBNP 2022-09-25 Georgette Leblanc 10:16:00 Hospital BASIC METABOLIC PANEL 2022-09-25 RyanaGeorgette Judaism 10:16:00 Hospital ESTIMATED GFR 2022-09-25 AileennancyGeorgette Judaism 10:16:00 Hospital BASIC METABOLIC PANEL 2022-09-24 AileenaGeorgette Judaism 17:43:00 Hospital ESTIMATED GFR 2022-09-24 Aileena, Georgette Miist 17:43:00 Hospital BASIC METABOLIC PANEL 2022-09-24 MannQuique t 10:29:00 Hospital MAGNESIUM LEVEL 2022-09-24 MannQuique Judaism 10:29:00 Hospital PROTHROMBIN TIME WITH INR 2022-09-24 Daniel Walters Sc thodist 10:29:00 Hospital ESTIMATED GFR 2022-09-24 MannQuique Judaism 10:29:00 Hospital BASIC METABOLIC PANEL 2022-09-23 Mann, Quique Methodis t 11:19:00 Hospital MAGNESIUM LEVEL 2022-09-23 MannQuique Judaism 11:19:00 Hospital PROTHROMBIN TIME WITH INR 2022-09-23 Daniel Walters Me thodist 11:19:00 Hospital ESTIMATED GFR 2022-09-23 MannQuiqueist 11:19:00 Hospital BASIC METABOLIC PANEL 2022-09-22 Mann Quique Methodis t 11:10:00 Hospital MAGNESIUM LEVEL 2022-09-22 Mann, Quique Judaism 11:10:00 Hospital PROTHROMBIN TIME WITH INR 2022-09-22 Daniel Walters Me thodist 11:10:00 Hospital ESTIMATED GFR 2022-09-22 Mann, Quique Judaism 11:10:00 Hospital POTASSIUM LEVEL 2022-09-22 Mann, Quique Judaism 00:06:00 Hospital PROTHROMBIN TIME WITH INR 2022-09-21 Daniel Walters Me thodist 10:05:00 Hospital BASIC METABOLIC PANEL 2022-09-21 Linda Hilton Judaism 10:05:00 [facility] ESTIMATED GFR 2022-09-21 Linda Hilton Judaism 10:05:00 [facility] BASIC METABOLIC PANEL 2022-09-20 Luthy, Riri Judaism 10:56:00 Hospital MAGNESIUM LEVEL 2022-09-20 Luthy, Riri Judaism 10:56:00 Hospital PROTHROMBIN TIME WITH INR 2022-09-20 Daniel Walters Sc thodist 10:56:00 Hospital ESTIMATED GFR 2022-09-20 Luthy, Riri Judaism 10:56:00 Hospital BASIC METABOLIC PANEL 2022-09-19 Luthy, Riri Judaism 10:31:00 Hospital MAGNESIUM LEVEL 2022-09-19 Luthy, Riri Judaism 10:31:00 Hospital PROTHROMBIN TIME WITH INR 2022-09-19 Daniel Walters Sc thodist 10:31:00 Hospital NT-PROBNP 2022-09-19 Berto Barrios Judaism 10:31:00 Hospital ESTIMATED GFR 2022-09-19 Luthy, Riri Judaism 10:31:00 Hospital XR CHEST 1 VW PORTABLE 2022-09-19 Sherly Barriosu Judaism 10:01:30 Hospital PROTHROMBIN TIME WITH INR 2022-09-18 Fida, Maria Del Rosario Method ist 10:12:00 Hospital BASIC METABOLIC PANEL 2022-09-18 Luthy, Riri Judaism 10:12:00 Hospital MAGNESIUM LEVEL 2022-09-18 Luthy, Riri Judaism 10:12:00 Hospital CBC HEMOGRAM 2022-09-18 Daniel Walters Judaism 10:12:00 Hospital ESTIMATED GFR 2022-09-18 Luthy, Riri Judaism 10:12:00 Hospital PROTHROMBIN TIME WITH INR 2022-09-17 Fida, Maria Del Rosario Method ist 09:59:00 Hospital XR CHEST 1 VW PORTABLE 2022-09-16 Priyanka Dunnis t 11:25:00 Hospital CBC WITH PLATELET AND 2022-09-16 Elma Martinez Method ist DIFFERENTIAL 10:08:00 Hospital COMPREHENSIVE METABOLIC PANEL 2022-09-16 Elma Martinez Judaism 10:08:00 Hospital MAGNESIUM LEVEL 2022-09-16 LowElma whatley Judaism 10:08:00 Hospital PHOSPHORUS LEVEL 2022-09-16 LoweKarolynElma Graciela Judaism 10:08:00 Hospital PROTHROMBIN TIME WITH INR 2022-09-16 Fida, Maria Del Rosario Method ist 10:08:00 Hospital ESTIMATED GFR 2022-09-16 Fida, Maria Del Rosario Judaism 10:08:00 Hospital XR CHEST 1 VW PORTABLE 2022-09-15 Priyanka Dunn Methodis t 11:40:00 Hospital CBC WITH PLATELET AND 2022-09-15 LowKarolyn whatleyica Graciela Method ist DIFFERENTIAL 10:08:00 Hospital COMPREHENSIVE METABOLIC PANEL 2022-09-15 LowKarolyn whatleyica Alfreda e Judaism 10:08:00 Hospital MAGNESIUM LEVEL 2022-09-15 LoweKarolynElma Graciela Judaism 10:08:00 Hospital PHOSPHORUS LEVEL 2022-09-15 Lowe, Elma Graciela Judaism 10:08:00 Hospital PROTHROMBIN TIME WITH INR 2022-09-15 Herminio Ramirez hodist 10:08:00 [facility] NT-PROBNP 2022-09-15 Chelsea Joshi Judaism 10:08:00 Hospital ESTIMATED GFR 2022-09-15 Fida, Maria Del Rosario Judaism 10:08:00 Hospital XR CHEST 1 VW PORTABLE 2022-09-14 Priyanka Dunn Methodis t 11:25:35 Hospital CBC WITH PLATELET AND 2022-09-14 LoweKarolynElma Graciela Method ist DIFFERENTIAL 07:12:00 Hospital COMPREHENSIVE METABOLIC PANEL 2022-09-14 Elma Martinez Alfreda e Judaism 07:12:00 Hospital MAGNESIUM LEVEL 2022-09-14 Lowe, Elma Graciela Judaism 07:12:00 Hospital PHOSPHORUS LEVEL 2022-09-14 Lowe, Elma Graciela Judaism 07:12:00 Hospital PROTHROMBIN TIME WITH INR 2022-09-14 Herminio Ramirez hodist 07:12:00 [facility] ESTIMATED GFR 2022-09-14 Fida, Maria Del Rosario Judaism 07:12:00 Hospital IONIZED CALCIUM 2022-09-14 Fida, Maria Del Rosario Judaism 07:12:00 Hospital CV PACEMAKER PROGRAMMING DL 2022-09-13 Loki Albarado ethodist 21:24:00 Hospital XR CHEST 1 VW PORTABLE 2022-09-13 Priyanka Dunn t 11:37:49 Hospital CBC WITH PLATELET AND 2022-09-[address] DIFFERENTIAL 06:04:00 Hospital BASIC METABOLIC PANEL 2022-09-13 Juan Mills Janie Methodi st 06:04:00 Hospital ESTIMATED GFR 2022-09-13 Eamon King Judaism 06:04:00 Hospital MAGNESIUM LEVEL 2022-09-13 Christine Eamon Judaism 06:04:00 Hospital PHOSPHORUS LEVEL 2022-09-13 Christine, Eamon Judaism 06:04:00 Hospital PROTHROMBIN TIME WITH INR 2022-09-13 Herminio Ramirez hodist 06:03:00 [facility] ECG 12-LEAD 2022-09-12 Elma Martinez Judaism 21:18:40 Hospital MAGNESIUM LEVEL 2022-09-12 Dunn, Priyanka Judaism 19:35:00 Hospital PHOSPHORUS LEVEL 2022-09-12 Dunn, Priyanka Judaism 19:35:00 Hospital POTASSIUM LEVEL 2022-09-12 Herminio Ramirez Judaism 19:35:00 [facility] MAGNESIUM LEVEL 2022-09-12 Dunn, Priyanka Judaism 07:07:00 Hospital PHOSPHORUS LEVEL 2022-09-12 Dunn, Priyanka Judaism 07:07:00 Hospital LACTIC ACID LEVEL 2022-09-12 DunnShadPriyanka Judaism 07:07:00 Hospital COMPREHENSIVE METABOLIC PANEL 2022-09-12 Priyanka Dunn 07:07:00 Hospital CBC WITH PLATELET AND 2022-09-12 DunnShadPriyanka Judaism DIFFERENTIAL 07:07:00 Hospital PROTHROMBIN TIME WITH INR 2022-09-12 Herminio Ramirez hodist 07:07:00 [facility] VENOUS BLOOD GAS 2022-09-12 Cb Noriega 07:07:00 [facility] ESTIMATED GFR 2022-09-12 Daniel Walters 07:07:00 Hospital O2 SATURATION, VENOUS 2022-09-12 Priyanka Dunn Judaism 07:03:00 Hospital XR CHEST 1 VW PORTABLE 2022-09-12 Priyanka Dunn t 05:47:25 Hospital O2 SATURATION, VENOUS 2022-09-[address] 16:27:00 [facility] LACTIC ACID LEVEL 2022-09-11 Herminio Ramirezist 16:27:00 [facility] BASIC METABOLIC PANEL 2022-09-[address] 16:27:00 [facility] MAGNESIUM LEVEL 2022-09-11 Herminio Ramirez Judaism 16:27:00 [facility] ESTIMATED GFR 2022-09-11 Herminio Ramirez Judaism 16:27:00 [facility] IONIZED CALCIUM 2022-09-11 Herminio Ramirezist 16:27:00 [facility] PHOSPHORUS LEVEL 2022-09-11 Herminio Ramirez 16:27:00 [facility] ECG 12-LEAD 2022-09-11 Daniel Waltersist 12:27:41 Hospital XR CHEST 1 VW PORTABLE 2022-09-11 Priyanka Dunn t 11:20:02 Hospital LACTIC ACID LEVEL 2022-09-11 Priyanka Dunn Judaism 06:14:00 Hospital CBC WITH PLATELET AND 2022-09-11 Priyanka Dunn Judaism DIFFERENTIAL 06:14:00 Hospital PROTHROMBIN TIME WITH INR 2022-09-11 Herminio Ramirezist 06:14:00 [facility] MAGNESIUM LEVEL 2022-09-11 Priyanka Dunn Judaism 06:13:00 Hospital O2 SATURATION, VENOUS 2022-09-11 Priyanka Dunn Judaism 06:13:00 Hospital PHOSPHORUS LEVEL 2022-09-11 Kalpana Dunnline Judaism 06:13:00 Hospital COMPREHENSIVE METABOLIC PANEL 2022-09-11 Priyanka Dunn ethodist 06:13:00 Hospital VENOUS BLOOD GAS 2022-09-11 Daniel Walters 06:13:00 Hospital ESTIMATED GFR 2022-09-11 Daniel Walters 06:13:00 Hospital IONIZED CALCIUM, VENOUS 2022-09-11 Daniel Walters odist 06:13:00 Hospital PICC INSERTION REQUEST 2022-09-10 Brandon Subramanian Judaism 19:53:47 Hospital XR PICC CHEST PORTABLE 2022-09-10 Daniel Walters [facility] 19:49:23 Hospital XR CHEST 1 VW PORTABLE 2022-09-10 Loki Albarado Method ist 18:34:05 Hospital BASIC METABOLIC PANEL 2022-09-[address] 17:59:00 [facility] MAGNESIUM LEVEL 2022-09-10 Herminio Ramirez Judaism 17:59:00 [facility] PHOSPHORUS LEVEL 2022-09-10 Herminio Ramirez Judaism 17:59:00 [facility] IONIZED CALCIUM 2022-09-10 Herminio Ramirez Judaism 17:59:00 [facility] LACTIC ACID LEVEL 2022-09-10 Herminio Ramirez Judaism 17:59:00 [facility] ESTIMATED GFR 2022-09-10 Herminio Ramirez 17:59:00 [facility] PROTHROMBIN TIME WITH INR 2022-09-10 Herminio Ramirez hodist 15:11:00 [facility] POC GLUCOSE 2022-09-10 Daniel Waltersist 13:22:00 Hospital XR CHEST 1 VW PORTABLE 2022-09-10 Priyanka Dunn t 12:27:40 Hospital LACTIC ACID LEVEL 2022-09-10 ElmerchacortaGerardoElmanaseem Owens Judaism 10:59:00 Hospital O2 SATURATION, VENOUS 2022-09-10 Priyanka Dunnist 06:22:00 Hospital ARTERIAL BLOOD GAS 2022-09-10 Priyanka Dunnist 06:22:00 Hospital IONIZED CALCIUM, ARTERIAL 2022-09-10 Daniel Walters thodist 06:22:00 Hospital LACTIC ACID LEVEL 2022-09-10 Priyanka Dunnist 05:53:00 Hospital MAGNESIUM LEVEL 2022-09-10 Priyanka Dunn Judaism 05:30:00 Hospital PHOSPHORUS LEVEL 2022-09-10 Priyanka Dunnist 05:30:00 Hospital COMPREHENSIVE METABOLIC PANEL 2022-09-10 Priyanka Dunn 05:30:00 Hospital CBC WITH PLATELET AND 2022-09-10 Priyanka Dunn DIFFERENTIAL 05:30:00 Hospital ESTIMATED GFR 2022-09-10 Daniel Walters 05:30:00 Hospital POC GLUCOSE 2022-09-10 Daniel Walters 03:44:00 Hospital COMPREHENSIVE METABOLIC PANEL 2022-09-10 Loki Albarado 01:42:00 Hospital LACTIC ACID LEVEL 2022-09-10 Loki Albarado 01:42:00 Hospital O2 SATURATION, VENOUS 2022-09-[address] 01:42:00 Hospital ESTIMATED GFR 2022-09-10 Daniel Walters 01:42:00 Hospital ARTERIAL BLOOD GAS 2022-09-09 Dk Mancini Judaism 23:17:00 [facility] LACTIC ACID LEVEL 2022-09-09 Elma Martinezist 23:16:00 Hospital TTE COMPLETE, W CONTRAST, W 2022-09-09 Juan Mills ethodist DOPPLER ([id number]) 20:04:00 Hospital O2 SATURATION, VENOUS 2022-09-09 Priyanka Dunn 18:48:00 Hospital COMPREHENSIVE METABOLIC PANEL 2022-09-09 Priyanka Dunn 18:48:00 Hospital MAGNESIUM LEVEL 2022-09-09 Priyanka Dunn 18:48:00 Hospital PHOSPHORUS LEVEL 2022-09-09 Priyanka Dunn 18:48:00 Hospital ESTIMATED GFR 2022-09-09 Daniel Walters 18:48:00 Hospital LACTIC ACID LEVEL 2022-09-09 Elma Martinezist 18:48:00 Hospital ECG 12-LEAD 2022-09-09 Daniel Walters 13:32:31 Hospital XR CHEST 1 VW PORTABLE 2022-09-09 Priyanka Dunn t 11:34:59 Hospital CBC WITH PLATELET AND 2022-09-09 Priyanka Dunn DIFFERENTIAL 06:47:00 Hospital COMPREHENSIVE METABOLIC PANEL 2022-09-09 Priyanka Dunn 06:47:00 Hospital LACTIC ACID LEVEL 2022-09-09 Priyanka Dunn 06:47:00 Hospital MAGNESIUM LEVEL 2022-09-09 Priyanka Dunn 06:47:00 Hospital PHOSPHORUS LEVEL 2022-09-09 Dunn, Priyanka Judaism 06:47:00 Hospital O2 SATURATION, VENOUS 2022-09-09 Priyanka Dunn Judaism 06:47:00 Hospital PROTHROMBIN TIME WITH INR 2022-09-09 Herminio Ramirez Met doverist 06:47:00 [facility] IONIZED CALCIUM 2022-09-09 Juan Mills Judaism 06:47:00 Hospital ESTIMATED GFR 2022-09-09 Daniel Walters 06:47:00 Hospital LACTIC ACID LEVEL 2022-09-09 Loki Albarado 01:43:00 Hospital O2 SATURATION, VENOUS 2022-09-[address] 01:43:00 Hospital COMPREHENSIVE METABOLIC PANEL 2022-09-09 Loki Albarado 01:43:00 Hospital ESTIMATED GFR 2022-09-09 Daniel Walters 01:43:00 Hospital O2 SATURATION, VENOUS 2022-09-08 James Childers t 23:09:00 Hospital INSERT LINE 2022-09-08 Cb Caro 22:22:55 [facility] MA INSJ NON-TUNNELED CENTRAL 2022-09-08 Met tomás Caro VENOUS CATH AGE 3 YR/> 22:14:12 [facility] MA INS NON-TUNNELED CENTRAL 2022-09-08 Loki Albarado VENOUS CATH AGE 3 YR/> 22:11:52 Hospital MA ARTL CATHJ/CANNULJ 2022-09-[address] MNTR/TRANSFUSION SPX PRQ 22:10:28 Hospita l OR [place] < 1 HOUR 2022-09-08 James Childers 22:00:00 Hospital ECG 12-LEAD 2022-09-08 Elma Martinez 20:00:26 Hospital ELECTRICAL CARDIOVERSION 2022-09-[address] 19:59:04 [facility] LACTIC ACID LEVEL 2022-09-08 James Childers 19:29:00 Hospital ARTERIAL BLOOD GAS 2022-09-08 Cb Caro 19:28:00 [facility] IONIZED CALCIUM, ARTERIAL 2022-09-08 James Childers odist 19:28:00 Hospital PROTHROMBIN TIME WITH INR 2022-09-08 Patrice Hiwot Menezes ist 19:27:00 [facility] PARTIAL THROMBOPLASTIN TIME (PTT) 2022-09-08 Patrice GoodHiwot wareist 19:27:00 [facility] COMPREHENSIVE METABOLIC PANEL 2022-09-08 Patrice MenezesMe thodist 19:27:00 [facility] MAGNESIUM LEVEL 2022-09-08 Patrice MenezesHiwotJudaism 19:27:00 [facility] PHOSPHORUS LEVEL 2022-09-08 Patrice Menezse Judaism 19:27:00 [facility] CBC WITH PLATELET AND 2022-09-08 Patrice Hiwot Menezesist DIFFERENTIAL 19:27:00 [facility] ESTIMATED GFR 2022-09-08 James Childers Judaism 19:27:00 Hospital MA ECHO TRANSESOPHAG R-T 2D W/PRB 2022-09-08 Loki Albarado Judaism IMG ACQUISJ I&R 18:50:00 Hospital ECG 12-LEAD 2022-09-08 Daniel Walters Judaism 15:58:37 Hospital ECG 12-LEAD 2022-09-08 Kelly Pollock Judaism [facility]W [facility]ABLE 2022-09-08 Priyanka Dunn t 11:49:14 Hospital PROTHROMBIN TIME WITH INR 2022-09-08 Herminio Ramirez hodist 06:24:00 [facility] CBC WITH PLATELET AND 2022-09-08 Priyanka Dunn Judaism DIFFERENTIAL 06:24:00 Hospital COMPREHENSIVE METABOLIC PANEL 2022-09-08 Priyanka Dunn ethodist 06:24:00 Hospital LACTIC ACID LEVEL 2022-09-08 Priyanka Dunn Judaism 06:24:00 Hospital MAGNESIUM LEVEL 2022-09-08 Priyanka Dunn 06:24:00 Hospital PHOSPHORUS LEVEL 2022-09-08 Priyanka Dunnist 06:24:00 Hospital O2 SATURATION, VENOUS 2022-09-08 Priyanka Dunn Judaism 06:24:00 Hospital ESTIMATED GFR 2022-09-08 Daniel Walters 06:24:00 Hospital COMPREHENSIVE METABOLIC PANEL 2022-09-07 Priyanka Dunnodist 23:46:00 Hospital MAGNESIUM LEVEL 2022-09-07 Priyanka Dunn 23:46:00 Hospital PHOSPHORUS LEVEL 2022-09-07 Priyanka Dunnist 23:46:00 Hospital ESTIMATED GFR 2022-09-07 Daniel Walters 23:46:00 Hospital O2 SATURATION, VENOUS 2022-09-[address] 22:00:00 Hospital LACTIC ACID LEVEL 2022-09-07 Loki Albaradoist 22:00:00 Hospital XR CHEST 1 VW PORTABLE 2022-09-07 Radha Jett 18:59:00 Hospital US THORACENTESIS WITH IMAGING 2022-09-07 Priyanka Dunnodist 18:57:59 Hospital AEROBIC CULTURE 2022-09-07 Priyanka Dunn 18:10:00 Hospital ANAEROBIC CULTURE 2022-09-07 Priyanka Dunn 18:10:00 Hospital GRAM STAIN 2022-09-07 Cb Brown 18:10:00 [facility] LDH, MISC FLUID 2022-09-07 Priyanka Dunn 18:10:00 Hospital PROTEIN, MISC FLUID 2022-09-07 Priyanka Dunnist 18:10:00 Hospital FLOW CYTOMETRY EVALUATION 2022-09-07 Priyanka Dunn Metho dist 18:10:00 Hospital PH, MISC FLUID 2022-09-07 Priyanka Dunn 18:10:00 Hospital CELL COUNT AND DIFFERENTIAL, BODY 2022-09-07 Bashir Dunn FLUID 18:10:00 Hospital O2 SATURATION, VENOUS 2022-09-07 Priyanka Dunn 16:03:00 Hospital LACTIC ACID LEVEL 2022-09-07 Priyanka Dunn 16:03:00 Hospital XR CHEST 1 VW PORTABLE 2022-09-07 Elma Martinez Metho dist 11:39:24 Hospital CBC WITH PLATELET AND 2022-09-07 Priyanka Dunn Judaism DIFFERENTIAL 06:16:00 Hospital COMPREHENSIVE METABOLIC PANEL 2022-09-07 Priyanka Dunn 06:16:00 Hospital MAGNESIUM LEVEL 2022-09-07 Priyanka Dunn 06:16:00 Hospital PHOSPHORUS LEVEL 2022-09-07 Priyanka Dunn 06:16:00 Hospital PROTHROMBIN TIME WITH INR 2022-09-07 Herminio Ramirez 06:16:00 [facility] ESTIMATED GFR 2022-09-07 Cb Brown 06:16:00 [facility] CYTOLOGY (NON-GYNECOLOGICAL) 2022-09-07 Daniel Walters Judaism REQUEST 06:10:00 Hospital LACTIC ACID LEVEL 2022-09-06 Loki Albarado 22:13:00 Hospital O2 SATURATION, VENOUS 2022-09-[address] 22:13:00 Hospital O2 SATURATION, VENOUS 2022-09-06 Priyanka Dunn 17:56:00 Hospital LACTIC ACID LEVEL 2022-09-06 Priyanka Dunn 17:56:00 Hospital COMPREHENSIVE METABOLIC PANEL 2022-09-06 Priyanka Dunnodist 17:56:00 Hospital MAGNESIUM LEVEL 2022-09-06 Priyanka Dunn 17:56:00 Hospital PHOSPHORUS LEVEL 2022-09-06 Priyanka Dunn 17:56:00 Hospital IONIZED CALCIUM 2022-09-06 Herminio Ramirez 17:56:00 [facility] ESTIMATED GFR 2022-09-06 Cb Brown 17:56:00 [facility] US CHEST 2022-09-06 Priyanka Dunn 15:50:00 Hospital XR CHEST 1 VW PORTABLE 2022-09-06 Michelle Elmanaseem Owens Metho dist 12:00:10 Hospital LACTIC ACID LEVEL 2022-09-06 Juan Mills 11:14:00 Hospital CBC WITH PLATELET AND 2022-09-06 Priyanka Dunn DIFFERENTIAL 07:02:00 Hospital COMPREHENSIVE METABOLIC PANEL 2022-09-06 Priyanka Dunnodist 07:02:00 Hospital MAGNESIUM LEVEL 2022-09-06 Dunn, Priyanka Judaism 07:02:00 Hospital PHOSPHORUS LEVEL 2022-09-06 Dunn, Priyanka Judaism 07:02:00 Hospital PROTHROMBIN TIME WITH INR 2022-09-06 Herminio Ramirez hodist 07:02:00 [facility] O2 SATURATION, VENOUS 2022-09-06 Chelsea Joshi Judaism 07:02:00 Hospital ESTIMATED GFR 2022-09-06 Kevin Judaism 07:02:00 J[facility]rem N. [facility] IONIZED CALCIUM 2022-09-06 Herminio Ramirez Judaism 07:02:00 [facility] POTASSIUM LEVEL 2022-09-05 Ruth Fontaine Judaism 22:34:00 Hospital IONIZED CALCIUM 2022-09-05 Herminio Ramirez Judaism 22:34:00 [facility] POTASSIUM, URINE, RANDOM 2022-09-05 Shaun, Priyanka Method ist 15:25:00 [facility] COMPREHENSIVE METABOLIC PANEL 2022-09-05 Priyanka Dunnodi 14:19:00 Hospital LACTIC ACID LEVEL 2022-09-05 Priyanka Dunn Judaism 14:19:00 Hospital ESTIMATED GFR 2022-09-05 Kevin Judaism 14:19:00 Lukeonyerem NAlisha [facility] O2 SATURATION, VENOUS 2022-09-[address] 14:11:00 Hospital XR CHEST 1 VW PORTABLE 2022-09-05 Michelle Elmanaseem Owens Metho dist 13:40:00 Hospital PROTHROMBIN TIME WITH INR 2022-09-05 Kevin Method ist 09:12:00 Turner Rodriguez [facility] BASIC METABOLIC PANEL 2022-09-05 Yumiko Flores Method ist 09:12:00 Hospital CBC WITH PLATELET AND 2022-09-05 Yumiko Flores Method ist DIFFERENTIAL 09:12:00 Hospital PHOSPHORUS LEVEL 2022-09-05 Yumiko Flores Judaism 09:12:00 Hospital IONIZED CALCIUM 2022-09-05 Yumiko Flores Judaism 09:12:00 Hospital ESTIMATED GFR 2022-09-05 Ruth Fontaine Judaism 09:12:00 Hospital MAGNESIUM LEVEL 2022-09-05 Ruth Fontaine Judaism 09:12:00 Hospital BASIC METABOLIC PANEL 2022-09-05 MarkYumiko Method ist 01:19:00 Hospital MAGNESIUM LEVEL 2022-09-05 Lester Floresoneyda Lehman Judaism 01:19:00 Hospital PHOSPHORUS LEVEL 2022-09-05 Lester Floresoneyda Lehman Judaism 01:19:00 Hospital ESTIMATED GFR 2022-09-05 Ruth Fontaine Judaism 01:19:00 Hospital VENOUS BLOOD GAS 2022-09-04 Marquez Mayist 14:29:00 Hospital LACTIC ACID LEVEL 2022-09-04 Voeligio, Marquez Judaism 14:28:00 Hospital BASIC METABOLIC PANEL 2022-09-04 Voeligio, Marquez Miist 14:28:00 Hospital MAGNESIUM LEVEL 2022-09-04 Voeligio, Marquez Miist 14:28:00 Hospital ESTIMATED GFR 2022-09-04 Marquez May Judaism 14:28:00 Hospital XR CHEST 1 VW PORTABLE 2022-09-04 Priyanka Dunnis t 09:52:53 Hospital MAGNESIUM LEVEL 2022-09-04 Ramone Nelson Judaism 09:19:00 [facility] CBC WITH PLATELET AND 2022-09-04 Ramone Nelson Method ist DIFFERENTIAL 09:19:00 [facility] COMPREHENSIVE METABOLIC PANEL 2022-09-04 TianValeri perdomoist 09:19:00 [facility] PROTHROMBIN TIME WITH INR 2022-09-04 Hiwot Brown ist 09:19:00 [facility] ESTIMATED GFR 2022-09-04 Cb Brown 09:19:00 [facility] PHOSPHORUS LEVEL 2022-09-04 Cb Brown 09:19:00 [facility] ECG 12-LEAD 2022-09-04 Cb Brown 06:55:42 [facility] BASIC METABOLIC PANEL 2022-09-04 Marquez May 02:31:00 Hospital ESTIMATED GFR 2022-09-04 Marquez May 02:31:00 Hospital POC GLUCOSE 2022-09-03 Cb Brown 22:05:00 [facility] PROTHROMBIN TIME WITH INR 2022-09-03 LinaSaelizabeth Tapia hodist 19:03:00 Hospital LACTIC ACID LEVEL 2022-09-03 Voore, Marquez Judaism 19:03:00 Hospital COMPREHENSIVE METABOLIC PANEL 2022-09-03 VoMarquez del valle ethodist 14:33:00 Hospital LACTIC ACID LEVEL 2022-09-03 Voore, Marquez Judaism 14:33:00 Hospital VENOUS BLOOD GAS 2022-09-03 Voore, Marquez Judaism 14:33:00 Hospital ESTIMATED GFR 2022-09-03 Voore, Marquez Judaism 14:33:00 Hospital MAGNESIUM LEVEL 2022-09-03 Voore, Marquez Judaism 14:33:00 Hospital LACTIC ACID LEVEL 2022-09-03 Cb Brown 11:23:00 [facility] Hospital O2 SATURATION, VENOUS 2022-09-[address] 05:57:00 Hospital LACTIC ACID LEVEL 2022-09-03 Loki Albarado Judaism 05:45:00 Hospital TROPONIN T 2022-09-03 Cb Brown 05:45:00 [facility] PROTHROMBIN TIME WITH INR 2022-09-03 Kevin Method ist 05:45:00 [facility] CBC WITH PLATELET AND 2022-09-03 Okunrintemi, Ramone Method ist DIFFERENTIAL 05:45:00 [facility] IONIZED CALCIUM 2022-09-03 Cb Brown 05:45:00 [facility] Hospital PHOSPHORUS LEVEL 2022-09-03 Kevin Judaism 05:45:00 [facility] T4, FREE 2022-09-03 Cb Brown 05:45:00 [facility] THYROID STIMULATING HORMONE 2022-09-03 Kevin Meth odist 05:45:00 [facility] COMPREHENSIVE METABOLIC PANEL 2022-09-03 Kevin Me thodist 05:45:00 [facility] Hospital ESTIMATED GFR 2022-09-03 Hiwot Brownist 05:45:00 [facility] MAGNESIUM LEVEL 2022-09-03 Kevin Judaism 05:45:00 [facility] ESTIMATED GFR 2022-09-03 Kevin Judaism 05:42:00 [facility] XR CHEST 1 VW PORTABLE 2022-09-03 Kevin Judaism 05:41:03 [facility] MA INSJ NON-TUNNELED CENTRAL 2022-09-03 Loki Albarado Judaism VENOUS CATH AGE 3 YR/> 05:31:44 [facility] LACTIC ACID LEVEL 2022-09-03 [facility]00 [facility] BASIC METABOLIC PANEL 2022-09-03 [facility] 02:46:00 [facility] PROTHROMBIN TIME WITH INR 2022-09-03 Loki Albarado Met hodist 02:46:00 [facility] ESTIMATED GFR 2022-09-03 Cb Brown 02:46:00 [facility] HEPATIC FUNCTION PANEL 2022-09-03 Cb Brown 02:46:00 [facility] MAGNESIUM LEVEL 2022-09-03 Kevin Judaism 02:46:00 [facility] PHOSPHORUS LEVEL 2022-09-03 Kevin, Judaism 02:46:00 [facility] ESTIMATED GFR 2022-09-03 Kevin Judaism 02:34:00 [facility] POC GLUCOSE 2022-09-03 Cb Brown 02:17:00 [facility] US RENAL 2022-09-02 Kenia Taylor 22:56:14 [facility] POTASSIUM LEVEL 2022-09-02 Kenia Taylor 21:03:00 [facility] LACTIC ACID LEVEL 2022-09-02 Cb Caro 21:03:00 [facility] BLOOD CULTURE, AEROBIC & 2022-09-02 Kevin, Methodi st ANAEROBIC 18:36:00 [facility] BLOOD CULTURE, AEROBIC & 2022-09-02 Kevin, Hiwoti st ANAEROBIC 18:34:00 [facility] ECG 12-LEAD 2022-09-02 Cb Caro 17:15:16 [facility] LACTIC ACID LEVEL 2022-09-02 Cb Caro 16:54:00 [facility] BASIC METABOLIC PANEL 2022-09-02 Cb Caro 16:54:00 [facility] ESTIMATED GFR 2022-09-02 Cb Brown 16:54:00 [facility] XR CHEST 1 VW PORTABLE 2022-09-02 Ramone Nelsono dist 15:20:00 [facility] CV PACEMAKER PROGRAMMING DL 2022-09-02 Ramone Nelson 13:55:15 [facility] LACTIC ACID LEVEL 2022-09-02 Cb Caro 13:34:00 [facility] BASIC METABOLIC PANEL 2022-09-02 Patrice MenezesCb ware 13:34:00 [facility] ESTIMATED GFR 2022-09-02 Cb Brown 13:34:00 [facility] HEPATIC FUNCTION PANEL 2022-09-02 Ramone Nelsono dist 09:28:00 [facility] LACTIC ACID LEVEL 2022-09-02 Ramone Nelson 09:28:00 [facility] PROTHROMBIN TIME WITH INR 2022-09-02 Hiwot Brown ist 09:28:00 [facility] CBC WITH PLATELET AND 2022-09-02 Ramone Nelson ist DIFFERENTIAL 09:28:00 [facility] COMPREHENSIVE METABOLIC PANEL 2022-09-02 JienvNadeemto r Judaism 09:28:00 [facility] TROPONIN T 2022-09-02 Ramone Nelson 09:28:00 [facility] ESTIMATED GFR 2022-09-02 Cb Brown 09:28:00 [facility] MAGNESIUM LEVEL 2022-09-02 Cb Brown 09:28:00 [facility] URINE CULTURE 2022-09-02 Cb Brown 09:15:00 [facility] URINALYSIS SCREEN AND MICROSCOPY, 2022-09-02 Cb Brown WITH REFLEX TO CULTURE 09:15:00 [facility] ECG 12-LEAD 2022-09-01 Maria Elena Baxter Judaism 20:02:46 [facility] TTE COMPLETE, W CONTRAST, W 2022-09-01 Marti Brown odist DOPPLER ([id number]) 14:45:00 [facility] XR CHEST 1 VW PORTABLE 2022-09-01 Hiwot Brownist 11:35:00 [facility] CBC WITH PLATELET AND 2022-09-01 Cb Brown DIFFERENTIAL 10:54:00 [facility] BASIC METABOLIC PANEL 2022-09-01 Hiwot Brownist 10:54:00 [facility] NT-PROBNP 2022-09-01 Kevin Judaism 10:54:00 [facility] PROTHROMBIN TIME WITH INR 2022-09-01 Kevin, Method ist 10:54:00 [facility] EST[facility]FR 2022-09-01 Kevin Judaism 10:54:00 [facility] TROPONIN T 2022-09-01 Kevin Judaism 03:50:00 [facility] PROTHROMBIN TIME WITH INR 2022-09-01 Kevin, Method ist 03:50:00 [facility] PROTHROMBIN TIME / INR 2022-08-31 Jillian Miramontesit y of 19:35:00 [facility] LIPASE 2022-08-31 Jillian Miramontes of 17:51:00 [facility] MAGNESIUM 2022-08-31 Singer [facility] of 17:51:00 [facility] TROPONIN I 2022-08-31 Singer [facility] of 17:51:00 [facility] COMP. METABOLIC PANEL (70315) 2022-08-31 Jillian Miramontes iversity of 17:51:00 [facility] CBC WITH DIFF 2022-08-31 Singer [facility] of 17:51:00 [facility] N-TERMINAL PRO-BNP 2022-08-31 Singer [facility] of 17:51:00 [facility] CONSENT/REFUSAL FOR DIAGNOSIS AND 2022-08-31 Doctor Kandy pritchett, [facility] 16:57:41 [facility] XR CHEST 2 VW 2022-08-10 Kenneth Baron [facility] 15:54:20 [facility] BASIC METABOLIC PANEL 2022-05-04 Kamala Lawrence Method ist 14:05:00 Hospital CBC WITH PLATELET AND 2022-05-04 Kamala Lawrence Method ist DIFFERENTIAL 14:05:00 Hospital MAGNESIUM LEVEL 2022-05-04 Kamala Lawrence Judaism 14:05:00 Hospital PHOSPHORUS LEVEL 2022-05-04 Kamala Lawrence Judaism 14:05:00 Hospital POC GLUCOSE 2022-03-31 Daniel Walters 18:16:00 Hospital POC GLUCOSE 2022-03-31 Daniel Walters 13:28:00 Hospital PROTHROMBIN TIME WITH INR 2022-03-31 Chelsea Joshi Method ist 11:19:00 Hospital CBC WITH PLATELET AND 2022-03-31 Chelsea Joshi DIFFERENTIAL 11:19:00 Hospital SMEAR REVIEW 2022-03-31 Chelsea Joshi Judaism 11:19:00 Hospital POC GLUCOSE 2022-03-31 Daneil Walters 03:23:00 Hospital POC GLUCOSE 2022-03-30 Daniel Walters 23:50:00 Hospital XR CHEST 1 VW 2022-03-30 Cb Panchal 19:41:02 [facility] US THORACENTESIS WITH IMAGING 2022-03-30 Daniel Walters 19:20:00 Hospital AFB STAIN 2022-03-30 Daniel Walters 19:15:00 Hospital AFB CULTURE 2022-03-30 Daniel Walters 19:15:00 Hospital AEROBIC CULTURE 2022-03-30 Daniel Walters 19:15:00 Hospital ANAEROBIC CULTURE 2022-03-30 Daniel Walters 19:15:00 Hospital FUNGUS CULTURE 2022-03-30 Daniel Walters 19:15:00 Hospital FUNGUS SMEAR 2022-03-30 Daniel Walters 19:15:00 Hospital AMYLASE LEVEL, MISC FLUID 2022-03-30 Daniel Walters thodist 19:15:00 Hospital GLUCOSE LEVEL, MISC FLUID 2022-03-30 Daniel Walters Me thodist 19:15:00 Hospital LDH, MISC FLUID 2022-03-30 Daniel Walters Judaism 19:15:00 Hospital PROTEIN, MISC FLUID 2022-03-30 Daniel Walters Methodis t 19:15:00 Hospital CELL COUNT AND DIFFERENTIAL, BODY 2022-03-30 Esthela Walters in [place] FLUID 19:15:00 Hospital ALBUMIN, [facility] [place] FLUID 2022-03-30 Daniel Walters Methodis t 19:15:00 Hospital CREATININE LEVEL, [facility] [place] FLUID 2022-03-30 Daniel Waltersist 19:15:00 Hospital TRIGLYCERIDES, [facility] [place] FLUID 2022-03-30 Daniel Walters Sc thodist 19:15:00 Hospital BILIRUBIN TOTAL, [facility] [place] FLUID 2022-03-30 Daniel Walters Judaism 19:15:00 Hospital PH, [facility] [place] FLUID 2022-03-30 Daniel Walters Judaism 19:15:00 Hospital LIPASE LEVEL, [facility] [place] FLUID 2022-03-30 Daniel Walters Met hodist 19:15:00 Hospital BASIC METABOLIC PANEL 2022-03-30 Chelsea Joshi 13:21:00 Hospital ESTIMATED GFR 2022-03-30 Chelsea Joshi 13:21:00 Hospital PROTHROMBIN TIME WITH INR 2022-03-30 Nya Frye odist 11:26:00 [facility] POC GLUCOSE 2022-03-30 Daniel Walters 03:34:00 Hospital POC GLUCOSE 2022-03-29 Daniel Walters 18:10:00 Hospital POC GLUCOSE 2022-03-29 Daniel Waltersist 15:18:00 Hospital CBC WITH PLATELET AND 2022-03-29 Chelsea Joshi DIFFERENTIAL 11:40:00 Hospital SMEAR REVIEW 2022-03-29 Chelsea Joshi 11:40:00 Hospital COMPREHENSIVE METABOLIC PANEL 2022-03-29 Berto Barrios Sc thodist 11:37:00 Hospital PROTHROMBIN TIME WITH INR 2022-03-29 Attar, Chelsea Method ist 11:37:00 Hospital MAGNESIUM LEVEL 2022-03-29 Chelsea Joshi Judaism 11:37:00 Hospital ESTIMATED GFR 2022-03-29 Berto Barrios Judaism 11:37:00 Hospital POC GLUCOSE 2022-03-29 Daniel Walters Judaism 03:06:00 Hospital POC GLUCOSE 2022-03-28 Dainel Walters Judaism 17:34:00 Hospital US CHEST 2022-03-28 Daniel Walters Judaism 14:22:00 Hospital POC GLUCOSE 2022-03-28 Daniel Walters Judaism 13:41:00 Hospital CBC WITH PLATELET AND 2022-03-28 Daniel Walters Method ist DIFFERENTIAL 11:28:00 Hospital COMPREHENSIVE METABOLIC PANEL 2022-03-28 Berto Barrios Me thodist 11:28:00 Hospital ACUTE VIRAL HEPATITIS PANEL (HAV, 2022-03-28 Esthela Walters HBV, HCV) 11:28:00 Hospital ESTIMATED GFR 2022-03-28 Berto Barrios Judaism 11:28:00 Hospital SMEAR REVIEW 2022-03-28 Daniel Walters Judaism 11:28:00 Hospital POC GLUCOSE 2022-03-28 Daniel Walters Judaism 03:19:00 Hospital POC GLUCOSE 2022-03-27 Daniel Walters Judaism 22:05:00 Hospital POC GLUCOSE 2022-03-27 Daniel Walters Judaism 18:12:00 Hospital POC GLUCOSE 2022-03-27 Daniel Walters Judaism 13:21:00 Hospital POC GLUCOSE 2022-03-27 Daniel Walters Judaism 12:56:00 Hospital CBC WITH PLATELET AND 2022-03-27 Daniel Walters Method ist DIFFERENTIAL 07:41:00 Hospital B NATRIURETIC PEPTIDE 2022-03-27 Lc Wilder Judaism 07:41:00 [facility] SMEAR REVIEW 2022-03-27 Daniel Walters Judaism 07:41:00 Hospital TROPONIN T 2022-03-27 Daniel Walters Judaism 07:40:00 Hospital PROTHROMBIN TIME WITH INR 2022-03-27 Berto Barrios Method ist 07:40:00 Hospital MAGNESIUM LEVEL 2022-03-27 Berto Barrios Judaism 07:40:00 Hospital COMPREHENSIVE METABOLIC PANEL 2022-03-27 Berto Barrios Sc thodist 07:40:00 Hospital ESTIMATED GFR 2022-03-27 Berto Barrios Judaism 07:40:00 Hospital ESTIMATED GFR 2022-03-27 Lc Wilder Judaism 05:17:00 [facility] POC GLUCOSE 2022-03-27 Daniel Walters Judaism 03:14:00 Hospital PROTHROMBIN TIME WITH INR 2022-03-27 Lc Wilder Method ist 01:30:00 [facility] B NATRIURETIC PEPTIDE 2022-03-27 Lc Wilder Judaism 01:29:00 [facility] TROPONIN T 2022-03-27 Daniel Walters Judaism 01:29:00 Hospital POC GLUCOSE 2022-03-27 Daniel Walters Judaism 00:28:00 Hospital POC GLUCOSE 2022-03-26 Daniel Waltersist 22:57:00 Hospital TROPONIN T 2022-03-26 Daniel Waltersist 19:31:00 Hospital POC GLUCOSE 2022-03-26 Daniel Waltersist 18:09:00 Hospital TTE COMPLETE, W CONTRAST, W 2022-03-26 Daniel Walters DOPPLER ([id number]) 17:00:00 Hospital XR CHEST 2 VW 2022-03-26 Daniel Waltersist 14:24:00 Hospital POC GLUCOSE 2022-03-26 Daniel Waltersist 13:53:00 Hospital BASIC METABOLIC PANEL 2022-03-26 Daniel Walters Method ist 10:12:00 Hospital MAGNESIUM LEVEL 2022-03-26 Daniel Walters Judaism 10:12:00 Hospital PROTHROMBIN TIME WITH INR 2022-03-26 Daniel Walters Me thodist 10:12:00 Hospital ESTIMATED GFR 2022-03-26 Daniel Walters Judaism 10:12:00 Hospital CBC WITH PLATELET AND 2022-03-26 Daniel Walters Method ist DIFFERENTIAL 10:12:00 Hospital COMPREHENSIVE METABOLIC PANEL 2022-03-26 Daniel Walters Judaism 10:12:00 Hospital HEMOGLOBIN A1C 2022-03-26 Daniel Walters 10:12:00 Hospital LIPID PANEL 2022-03-26 Daniel Walters 10:12:00 Hospital THYROID STIMULATING HORMONE 2022-03-26 Daniel Walters 10:12:00 Hospital T4, FREE 2022-03-26 Daniel Walters 10:12:00 Hospital TROPONIN T 2022-03-26 Daniel Walters 10:12:00 Hospital SMEAR REVIEW 2022-03-26 Daniel Walters 10:12:00 Hospital ECG 12-LEAD 2022-03-26 Daniel Walters 10:01:48 Hospital POC GLUCOSE 2022-03-26 Daniel Walters 06:20:00 Hospital US ABDOMEN LIMITED 2022-03-26 Annamaria Walters [facility] 00:40:[address] [facility] [address] ABDOMEN PELVIS WO CONTRAST 2022-03-25 Annamaria Walters [facility] 22:18:24 [facility] HB ECG ROUTINE & RHYTHM STRIP 2022-03-25 Annamaria Walters [facility] 20:34:21 [facility] MAGNESIUM 2022-03-25 Annamaria Walters [facility] 20:31:00 [facility] TROPONIN I 2022-03-25 Annamaria Walters [facility] 20:31:00 [facility] COMP. METABOLIC PANEL ([id number]) 2022-03-25 Annamaria Walters [facility] 20:31:00 [facility] CBC WITH DIFF 2022-03-25 Annamaria Walters [facility] 20:31:00 [facility] PROTHROMBIN TIME / INR 2022-03-25 Annamaria Walters [facility] sity of 20:31:00 [facility] URINALYSIS 2022-03-25 Annamaria Walters [facility] 20:31:00 [facility] RAPID INFLUENZA A/B 2022-03-[address] [facility]00 [facility] N-TERMINAL PRO-BNP 2022-03-25 Annamaria Walters [facility] 20:31:00 [facility] COVID-19 (ID NOW RAPID TESTING) 2022-03-25 Annamaria Walters [facility] 20:31:00 [facility] NOTICE OF PRIVACY PRACTICES 2022-03-25 Doctor Unassigned, U niversity of 19:44:24 For[facility] CONSENT/REFUSAL FOR DIAGNOSIS AND 2022-03-25 Doctor Kandy pritchett, [facility] 19:42:20 For[facility] NOTICE OF PRIVACY PRACTICES 2022-01-25 Doctor Maysskhalif, U niversity of 21:44:03 Forada [facility] CONSENT/REFUSAL FOR DIAGNOSIS AND 2022-01-25 Doctor Kandy pritchett, [facility] 21:43:45 For[facility] ASSIGNMENT OF BENEFITS 2022-01-25 Doctor Maysskhalif, Univer sity of 21:43:25 Forada [facility] CV PACEMAKER DEFIB ILR 2021-12-27 Gilberto Mercedes Judaism INTERROGATION 00:00:00 [facility] BASIC METABOLIC PANEL 2021-12-10 Eric Pineda ist 17:36:00 [facility] CBC WITH PLATELET AND 2021-12-10 Eric Pineda ist DIFFERENTIAL 17:36:00 [facility] ESTIMATED GFR 2021-12-10 Eric Pinedaist 17:36:00 [facility] TTE COMPLETE, W CONTRAST, W 2021-12-10 Eric Pineda DOPPLER ([id number]) 17:10:00 [facility] ECG 12-LEAD 2021-12-10 Eric Pinedaist 16:56:53 [facility] CBC WITH PLATELET AND 2021-11-22 Kamala Lawrence ist DIFFERENTIAL 15:53:00 [facility] COMPREHENSIVE METABOLIC PANEL 2021-11-22 Kamala Lawrenceist 15:53:00 Hospital PHOSPHORUS LEVEL 2021-11-22 Kamala Lawrenceist 15:53:00 Hospital URIC ACID LEVEL 2021-11-22 Kamala Lawrenceist 15:53:00 Hospital PARATHYROID HORMONE 2021-11-22 Kamala Lawrenceis t 15:53:00 [facility] CBC WITH PLATELET AND 2021-11-22 Kamala Lawrence ist DIFFERENTIAL 15:53:00 Hospital POC GLUCOSE 2021-11-12 Daniel Walters 16:41:00 [facility] POC GLUCOSE 2021-11-12 Daniel Walters 13:11:00 Hospital XR CHEST 1 VW PORTABLE 2021-11-12 Maurizio Dee 12:10:00 [facility] PROTHROMBIN TIME WITH INR 2021-11-12 Ramone Nelson thodist 10:36:00 [facility] LACTIC ACID LEVEL 2021-11-12 Ruth Fontaine Judaism 10:36:00 [facility] CBC WITH PLATELET AND 2021-11-12 Maurizio Dee DIFFERENTIAL 10:36:00 [facility] BASIC METABOLIC PANEL 2021-11-12 Maurizio Dee 10:36:00 [facility] MAGNESIUM LEVEL 2021-11-12 Maurizio Dee 10:36:00 [facility] B NATRIURETIC PEPTIDE 2021-11-12 Maurizio Dee 10:36:00 [facility] THYROID STIMULATING HORMONE 2021-11-12 Maurizio Dee 10:36:00 [facility] T4, FREE 2021-11-12 Maurizio Dee 10:36:00 [facility] TOTAL IRON BINDING CAPACITY 2021-11-12 Maurizio Dee 10:36:00 [facility] FERRITIN LEVEL 2021-11-12 Maurizio Dee 10:36:00 [facility] ESTIMATED GFR 2021-11-12 Maurizio Dee 10:36:00 [facility] B NATRIURETIC PEPTIDE 2021-11-11 Kavya Mancini 10:16:00 [facility] COMPREHENSIVE METABOLIC PANEL 2021-11-11 Kavya Mancini thodi 10:16:00 Hospital PROTHROMBIN TIME WITH INR 2021-11-11 Ramone Nelson thodist 10:16:00 [facility] ESTIMATED GFR 2021-11-11 Daniel Walters 10:16:00 Hospital XR CHEST 1 VW PORTABLE 2021-11-10 Shayla Draper 16:10:00 Hospital TTE COMPLETE, W CONTRAST, W 2021-11-10 James Licona DOPPLER ([id number]) 15:00:00 Hospital B NATRIURETIC PEPTIDE 2021-11-10 Kavya Mancini 06:23:00 Hospital COMPREHENSIVE METABOLIC PANEL 2021-11-10 Mancini, Kavya D Me thodist 06:22:00 Hospital PARTIAL THROMBOPLASTIN TIME (PTT) 2021-11-10 Evita Mancini 06:22:00 Hospital ESTIMATED GFR 2021-11-10 Daniel Walters 06:22:00 Hospital POC GLUCOSE 2021-11-10 Daniel Walters 02:14:00 Hospital POC GLUCOSE 2021-11-09 Daniel Walters 21:58:00 Hospital POC GLUCOSE 2021-11-09 Daniel Waltersist 17:57:00 Hospital CV MITRAL CLIP 2021-11-09 Eric Pineda Judaism 17:17:53 [facility] ARTERIAL LINE 2021-11-09 Usha Oswaldist 15:29:31 [facility] MA AN ELECTIVE ENDOTRACHEAL 2021-11-09 Usha Oswald Meth odist AIRWAY 15:29:00 [facility] ECHOCARDIOGRAM TRANSESOPHAGEAL 2021-11-09 Ronny Balbuena INTRAPROCEDURE 14:22:00 Hospital XR CHEST 1 VW PORTABLE 2021-11-09 James Licona 13:35:00 Hospital PARTIAL THROMBOPLASTIN TIME (PTT) 2021-11-09 Esthela Walters in [place] 13:19:00 Hospital POC GLUCOSE 2021-11-09 Daniel Walters 13:07:00 Hospital PROTHROMBIN TIME WITH INR 2021-11-09 Daniel Walters Sc thodist 07:00:00 Hospital PARTIAL THROMBOPLASTIN TIME (PTT) 2021-11-09 Esthela Walters 07:00:00 Hospital CBC WITH PLATELET AND 2021-11-09 Daniel Walters Method ist DIFFERENTIAL 07:00:00 Hospital B NATRIURETIC PEPTIDE 2021-11-09 Daniel Walters Method ist 07:00:00 Hospital COMPREHENSIVE METABOLIC PANEL 2021-11-09 Daniel Walters 07:00:00 Hospital MAGNESIUM LEVEL 2021-11-09 Daniel Walters 07:00:00 Hospital PHOSPHORUS LEVEL 2021-11-09 Daniel Walters 07:00:00 Hospital ESTIMATED GFR 2021-11-09 Daniel Watlers 07:00:00 Hospital POC GLUCOSE 2021-11-09 Daniel Walters 02:02:00 Hospital POC GLUCOSE 2021-11-08 Daniel Walters 23:07:00 Hospital TYPE AND SCREEN 2021-11-08 Eric Pinedaist 21:26:00 [facility] PARTIAL THROMBOPLASTIN TIME (PTT) 2021-11-08 Esthela Walters 21:26:00 Hospital ECG 12-LEAD 2021-11-08 BonnyDayna morachaz MiJudaism 18:35:24 Hospital POC GLUCOSE 2021-11-08 Daniel Walters 17:46:00 Hospital COMPREHENSIVE METABOLIC PANEL 2021-11-08 Kavya Mancini Me thodist 15:49:00 Hospital B NATRIURETIC PEPTIDE 2021-11-08 Kavya Mancini 15:49:00 Hospital MAGNESIUM LEVEL 2021-11-08 Kavya Mancini 15:49:00 Hospital LACTIC ACID LEVEL 2021-11-08 Kavya Mancini 15:49:00 Hospital ESTIMATED GFR 2021-11-08 Daniel Walters 15:49:00 Hospital PARTIAL THROMBOPLASTIN TIME (PTT) 2021-11-08 Evita Mancini 13:56:00 Hospital POC GLUCOSE 2021-11-08 Daniel Walters 13:00:00 Hospital PROTHROMBIN TIME WITH INR 2021-11-08 Evita Mancini ist 06:07:00 Hospital MAGNESIUM LEVEL 2021-11-08 Kavya Mancini 06:07:00 Hospital PARTIAL THROMBOPLASTIN TIME (PTT) 2021-11-08 Evita Mancini 06:07:00 Hospital B NATRIURETIC PEPTIDE 2021-11-08 Kavya Mancini 06:06:00 Hospital POC GLUCOSE 2021-11-08 Daniel Walters 01:15:00 Hospital POC GLUCOSE 2021-11-07 Daniel Walters 22:39:00 Hospital PARTIAL THROMBOPLASTIN TIME (PTT) 2021-11-07 Pratibha Nielsen 21:14:00 Hospital POC GLUCOSE 2021-11-07 Daniel Walters 17:37:00 Hospital POC GLUCOSE 2021-11-07 Romeo, Daniel O. Judaism 12:19:00 Hospital CBC WITH PLATELET AND 2021-11-07 Evita Mancini Judaism DIFFERENTIAL 09:36:00 Hospital COMPREHENSIVE METABOLIC PANEL 2021-11-07 Evita Mancini thodist 09:36:00 Hospital PROTHROMBIN TIME WITH INR 2021-11-07 Evita Mancini Method ist 09:36:00 Hospital B NATRIURETIC PEPTIDE 2021-11-07 Kavya Manciniist 09:36:00 Hospital MAGNESIUM LEVEL 2021-11-07 Kavya Manciniist 09:36:00 Hospital ESTIMATED GFR 2021-11-07 Evita Mancini Judaism 09:36:00 Hospital POC GLUCOSE 2021-11-06 Daniel Walters 23:02:00 Hospital POC GLUCOSE 2021-11-06 Daniel Walters Judaism 17:40:00 Hospital POC GLUCOSE 2021-11-06 Daniel Walters Judaism 13:01:00 Hospital CBC WITH PLATELET AND 2021-11-06 Evita Mancini Judaism DIFFERENTIAL 09:28:00 Hospital COMPREHENSIVE METABOLIC PANEL 2021-11-06 Evita Mancini thodist 09:28:00 Hospital PROTHROMBIN TIME WITH INR 2021-11-06 Evita Mancini Method ist 09:28:00 Hospital B NATRIURETIC PEPTIDE 2021-11-06 Kavya Manciniist 09:28:00 Hospital MAGNESIUM LEVEL 2021-11-06 Kavya Mancini Judaism 09:28:00 Hospital ESTIMATED GFR 2021-11-06 Evita Mancini Judaism 09:28:00 Hospital POC GLUCOSE 2021-11-05 Daniel Walters Judaism 23:41:00 Hospital VENIPUNC NEED PHYS SKILL,DX OR RX 2021-11-05 Michael Alvarez Judaism 22:51:45 Hospital XR CHEST 1 VW PORTABLE 2021-11-05 Shayla Draper Judaism 17:06:18 Hospital POC GLUCOSE 2021-11-05 Daniel Walters Judaism 15:54:00 Hospital CV RIGHT HEART CATH 2021-11-05 Evita Mancini Judaism 15:38:38 Hospital CBC WITH PLATELET AND 2021-11-05 Evita Mancini Judaism DIFFERENTIAL 10:35:00 Hospital COMPREHENSIVE METABOLIC PANEL 2021-11-05 Evita Mancini thodist 10:35:00 Hospital PROTHROMBIN TIME WITH INR 2021-11-05 Kavya Mancini Method ist 10:35:00 Hospital ANTI XA, UNFRACTIONATED 2021-11-05 Kavya Mancini Methodis t 10:35:00 Hospital PARTIAL THROMBOPLASTIN TIME (PTT) 2021-11-05 Kavya Mancini Judaism 10:35:00 Hospital ESTIMATED GFR 2021-11-05 Evita Mancini Judaism 10:35:00 Hospital B NATRIURETIC PEPTIDE 2021-11-05 Evita Mancini Judaism 10:21:00 Hospital ESTIMATED GFR 2021-11-05 Evita Mancini Judaism 10:21:00 Hospital COVID-19 QUALITATIVE RT-PCR 2021-11-05 Evita Mancini Meth odist 02:12:00 Hospital PROTHROMBIN TIME WITH INR 2021-11-04 Kavya Mancini Method ist 23:29:00 Hospital PARTIAL THROMBOPLASTIN TIME (PTT) 2021-11-04 Kavya Mancini Judaism 23:29:00 Hospital CBC HEMOGRAM 2021-11-04 Kavya Mancini Judaism 23:29:00 Hospital ANTI XA, UNFRACTIONATED 2021-11-04 Kavya Manciniis t 23:29:00 Hospital MAGNESIUM LEVEL 2021-11-01 Kamala Lawrence Judaism 16:30:00 Hospital CBC WITH PLATELET AND 2021-11-01 Kamala Lawrence Method ist DIFFERENTIAL 16:30:00 Hospital BASIC METABOLIC PANEL 2021-11-01 Kamala Lawrence Method ist 16:30:00 Hospital B NATRIURETIC PEPTIDE 2021-11-[address] 16:30:00 [facility] PHOSPHORUS LEVEL 2021-11-01 Kamala Lawrence Judaism 16:30:00 Hospital CBC WITH PLATELET AND 2021-11-01 Kamala Lawrence Method ist DIFFERENTIAL 16:30:00 Hospital ECG 12-LEAD 2021-11-01 Stefanie Bryanist 15:08:51 [facility] TTE COMPLETE, W CONTRAST, W 2021-11-01 Stefanie Bryanodist DOPPLER ([id number]) 15:05:04 [facility] ECG 12-LEAD 2021-10-15 Eric Pineda 16:01:57 [facility] CBC WITH PLATELET AND 2021-10-08 Daniel Walters Method ist DIFFERENTIAL 08:07:00 Hospital PROTHROMBIN TIME WITH INR 2021-10-08 Daniel Walters Me thodist 08:07:00 Hospital XR CHEST 1 VW PORTABLE 2021-10-08 Cb Barajas 02:11:22 [facility] ECG PRE/POST OP 2021-10-08 [facility] Cb Spivey 01:31:45 [facility] EP PACEMAKER INSERTION NEW OR 2021-10-08 Gilberto Mercedes Sc thodist REPLACEMENT 01:20:24 Hospital ECG PRE/POST OP 2021-10-07 Shayla Draper 11:37:17 [facility] CBC WITH PLATELET AND 2021-10-07 Daniel Walters Method ist DIFFERENTIAL 09:49:00 Hospital PROTHROMBIN TIME WITH INR 2021-10-07 Daniel Walters thodist 09:49:00 Hospital BASIC METABOLIC PANEL 2021-10-07 Mercy Gonzalez 09:49:00 Hospital MAGNESIUM LEVEL 2021-10-07 Mercy Gonzalez 09:49:00 Hospital ESTIMATED GFR 2021-10-07 Mercy Gonzalez 09:49:00 Hospital CONSULT TO WOUND AND CONTINENCE 2021-10-06 Daniel Walters NURSE 22:11:54 Hospital DURABLE MEDICAL EQUIPMENT 2021-10-06 Daniel Walters thodist 17:09:42 Hospital DURABLE MEDICAL EQUIPMENT 2021-10-06 Daniel Walters thodist 16:41:28 Hospital XR CHEST 1 VW PORTABLE 2021-10-06 Shayla Draper 14:50:00 Hospital TTE COMPLETE, W CONTRAST, W 2021-10-06 Daniel Walters DOPPLER ([id number]) 11:00:00 Hospital ECG PRE/POST OP 2021-10-06 James Liconaist 10:22:10 Hospital ANTI XA, UNFRACTIONATED 2021-10-06 Daniel Walters 08:06:00 Hospital PROTHROMBIN TIME WITH INR 2021-10-06 Daniel Walters Me thodist 08:06:00 Hospital BASIC METABOLIC PANEL 2021-10-06 James Licona 08:06:00 [facility] CBC WITH PLATELET AND 2021-10-06 James Licona DIFFERENTIAL 08:06:00 Hospital ESTIMATED GFR 2021-10-06 Daniel Walters 08:06:00 Hospital ARTERIAL BLOOD GAS 2021-10-06 Ali, James Altamash Judaism 02:51:00 [facility] LACTIC ACID, SYRINGE 2021-10-[address] 02:51:00 [facility] XR CHEST 1 VW PORTABLE 2021-10-05 Kimmy Arroyo t 22:09:59 [facility] TTE COMPLETE, WO CONTRAST, W 2021-10-05 Daniel Walters DOPPLER ([id number]) 21:48:00 [facility] POC GLUCOSE 2021-10-05 Daniel Walters 21:31:00 [facility] EP TEMPORARY LEAD INSERTION 2021-10-05 Eric Pineda 21:20:51 [facility] CV ANGIOGRAM THORACIC AORTA 2021-10-05 Eric Pineda 21:20:51 [facility] CV AORTOGRAM ABDOMINAL AORTA 2021-10-05 Eric Pineda 21:20:51 [facility] PV TRANS DOPPLER INTRACRANIAL 2021-10-05 Kimmy Arroyo ARTERIES EMBOLI DETECTION WO 20:38:00 [facility] pital INJECTION POC ARTERIAL BLOOD GAS, CORRECTED 2021-10-05 Homa Walterst in [place] AND DORI 20:36:00 Hospital ACTIVATED CLOTTING TIME 2021-10-05 Daniel Walters 20:34:00 Hospital ACTIVATED CLOTTING TIME 2021-10-05 Daniel Walters 20:03:00 Hospital POC ARTERIAL BLOOD GAS, CORRECTED 2021-10-05 Homa Walterst in [place] AND DORI 19:46:00 Hospital ARTERIAL LINE 2021-10-05 Tawanna Dorado 19:22:59 [facility] TAVR FOR SURGERY 2021-10-05 Kimmy Arroyo 18:57:00 [facility] POC GLUCOSE 2021-10-05 Daniel Walters 17:05:00 Hospital TYPE AND SCREEN 2021-10-05 Kimmy Arroyo 16:29:00 [facility] PREPARE RBC 2021-10-05 Kimmy Arroyo 16:29:00 [facility] ANTI XA, UNFRACTIONATED 2021-10-05 Daniel Walters Meth odist 13:43:00 Hospital PROTHROMBIN TIME WITH INR 2021-10-05 Daniel Walters Me thodist 13:43:00 Hospital BASIC METABOLIC PANEL 2021-10-05 Linda Hilton 11:20:00 [facility] PROTHROMBIN TIME WITH INR 2021-10-05 Shayla Draper ist 11:20:00 Hospital PARTIAL THROMBOPLASTIN TIME (PTT) 2021-10-05 Shayla Draper 11:20:00 [facility] CBC WITH PLATELET AND 2021-10-05 Shayla Draper DIFFERENTIAL 11:20:00 Hospital B NATRIURETIC PEPTIDE 2021-10-05 Shayla Draper 11:20:00 Hospital ANTI XA, UNFRACTIONATED 2021-10-05 Daniel Walters Meth odist 11:20:00 Hospital ESTIMATED GFR 2021-10-05 Linda Hilton 11:20:00 [facility] COVID-19 QUALITATIVE RT-PCR 2021-10-04 Kimmy Arroyo 22:10:00 [facility] ECG 12-LEAD 2021-10-04 Shayla Draper 15:14:24 Hospital XR CHEST 1 VW PORTABLE 2021-10-04 Shayla Draper 13:15:00 Hospital BASIC METABOLIC PANEL 2021-10-04 Linda Hilton 10:24:00 [facility] ANTI XA, UNFRACTIONATED 2021-10-04 Daniel Walters Meth odist 10:24:00 Hospital CBC WITH PLATELET AND 2021-10-04 Daniel Walters Method ist DIFFERENTIAL 10:24:00 Hospital ESTIMATED GFR 2021-10-04 Linda Hilton 10:24:00 [facility] MAGNESIUM LEVEL 2021-10-04 Linda Hilton 10:24:00 [facility] PHOSPHORUS LEVEL 2021-10-04 Linda Hilton 10:24:00 [facility] ANTI XA, UNFRACTIONATED 2021-10-04 Daniel Walters Meth odist 04:05:00 Hospital ANTI XA, UNFRACTIONATED 2021-10-03 Chelsea Joshi Methodis t 20:47:00 Hospital XR CHEST 1 VW PORTABLE 2021-10-03 Linda Hilton Judaism 19:43:47 [facility] PROTHROMBIN TIME WITH INR 2021-10-03 Daniel Walters Me thodist 14:16:00 Hospital CBC HEMOGRAM 2021-10-03 Daniel Walters Judaism 14:15:00 Hospital BASIC METABOLIC PANEL 2021-10-03 Daniel Walters Method ist 14:15:00 Hospital MAGNESIUM LEVEL 2021-10-03 Daniel Walters Judaism 14:15:00 Hospital PHOSPHORUS LEVEL 2021-10-03 Daniel Walters Judaism 14:15:00 Hospital ANTI XA, UNFRACTIONATED 2021-10-03 Daniel Walters Meth odist 14:15:00 Hospital ESTIMATED GFR 2021-10-03 Daneil Walters Judaism 14:15:00 Hospital ANTI XA, UNFRACTIONATED 2021-10-03 Narda Walls Methodis t 04:43:00 [facility] ANTI XA, UNFRACTIONATED 2021-10-02 Daniel Walters Meth odist 21:04:00 Hospital PROTHROMBIN TIME WITH INR 2021-10-02 Daniel Walters thodist 11:29:00 Hospital BASIC METABOLIC PANEL 2021-10-02 Daniel Walters Method ist 11:29:00 Hospital MAGNESIUM LEVEL 2021-10-02 Daniel Walters Judaism 11:29:00 Hospital PHOSPHORUS LEVEL 2021-10-02 Daniel Walters Judaism 11:29:00 Hospital CBC WITH PLATELET AND 2021-10-02 Daniel Walters Method ist DIFFERENTIAL 11:29:00 Hospital ESTIMATED GFR 2021-10-02 Daniel Walters Judaism 11:29:00 Hospital PARTIAL THROMBOPLASTIN TIME (PTT) 2021-10-02 Esthela Walters Judaism 11:29:00 Hospital ANTI XA, UNFRACTIONATED 2021-10-02 Daniel Walters Meth odist 11:29:00 Hospital PROTHROMBIN TIME WITH INR 2021-10-01 Shayla Draper Method ist 10:58:00 Hospital PARTIAL THROMBOPLASTIN TIME (PTT) 2021-10-01 Shayla Draper 10:58:00 Hospital CBC WITH PLATELET AND 2021-09-30 Daniel Walters Method ist DIFFERENTIAL 10:19:00 Hospital BASIC METABOLIC PANEL 2021-09-30 Daniel Walters Method ist 10:19:00 Hospital ESTIMATED GFR 2021-09-30 Daniel Walters Judaism 10:19:00 Hospital BEDSIDE SPIROMETRY 2021-09-30 Shayla Draper 01:49:04 Hospital US RENAL 2021-09-29 Linda Hilton 20:14:18 [facility] PROTHROMBIN TIME WITH INR 2021-09-29 Shayla Draper Method ist 12:49:00 Hospital PARTIAL THROMBOPLASTIN TIME (PTT) 2021-09-29 Shayla Draper Judaism 12:49:00 Hospital LACTIC ACID LEVEL 2021-09-29 Shayla Draper 12:49:00 Hospital CBC WITH PLATELET AND 2021-09-29 Daniel Walters Method ist DIFFERENTIAL 08:45:00 Hospital BASIC METABOLIC PANEL 2021-09-29 Daniel Walters Method ist 08:45:00 Hospital PARATHYROID HORMONE 2021-09-29 Linda Hilton 08:45:00 [facility] ESTIMATED GFR 2021-09-29 Daniel Walters Judaism 08:45:00 Hospital URINE CULTURE 2021-09-29 Linda Hilton 08:32:00 [facility] URINALYSIS SCREEN AND MICROSCOPY, 2021-09-29 Taylor Hilton WITH REFLEX TO CULTURE 08:32:00 [facility] URINE PROTEIN ELECTROPHORESIS, 2021-09-29 Linda Hilton ethodist RANDOM 08:30:00 [facility] CREATININE LEVEL, URINE, RANDOM 2021-09-29 Linda Hilton 08:30:00 [facility] ECG 12-LEAD 2021-09-28 Shayla Draper 20:18:21 Hospital LACTIC ACID LEVEL 2021-09-28 Shayla Draper 19:20:00 Hospital HEPATIC FUNCTION PANEL 2021-09-28 Shayla Draper 19:20:00 Hospital TYPE AND SCREEN 2021-09-28 Shayla Draper 19:20:00 Hospital PROTHROMBIN TIME WITH INR 2021-09-28 Shayla Draper Method ist 19:20:00 Hospital PARTIAL THROMBOPLASTIN TIME (PTT) 2021-09-28 Shayla Draper 19:20:00 Hospital TTE COMPLETE, W CONTRAST, W 2021-09-28 Daniel Walters DOPPLER ([id number]) 14:30:00 Hospital CBC WITH PLATELET AND 2021-09-28 Daniel Walters ist DIFFERENTIAL 07:59:00 Hospital BASIC METABOLIC PANEL 2021-09-28 Daniel Walters ist 07:59:00 Hospital HEMOGLOBIN A1C 2021-09-28 Daniel Waltersist 07:59:00 Hospital LIPID PANEL 2021-09-28 Daniel Waltersist 07:59:00 Hospital THYROID STIMULATING HORMONE 2021-09-28 Daniel Walters Judaism 07:59:00 Hospital T4, FREE 2021-09-28 Daniel Waltersist 07:59:00 Hospital TROPONIN T 2021-09-28 Daniel Walters 07:59:00 Hospital ESTIMATED GFR 2021-09-28 Daniel Walters Judaism 07:59:00 Hospital LACTIC ACID LEVEL, SEPSIS - NOW 2021-09-28 Eliazar Grant AND REPEAT 2X EVERY 3 HOURS 03:48:00 [facility]osp [facility] COVID-19 QUALITATIVE RT-PCR 2021-09-28 Zulay Albarado-Poppy Met hodist 03:38:00 [facility] ECG ED PRELIMINARY INTERPRETATION 2021-09-28 Zulay Albarado-Chaz co Judaism 03:22:32 [facility] CBC WITH PLATELET AND 2021-09-[address] DIFFERENTIAL 00:09:00 Hospital PROTHROMBIN TIME WITH INR 2021-09-28 Eliazar Grant Met hodist 00:09:00 Hospital PARTIAL THROMBOPLASTIN TIME (PTT) 2021-09-28 Vasu Grant Judaism 00:09:00 Hospital COMPREHENSIVE METABOLIC PANEL 2021-09-28 Eliazar Grant Judaism 00:09:00 Hospital LACTIC ACID LEVEL, SEPSIS - NOW 2021-09-28 Eliazar Grant AND REPEAT 2X EVERY 3 HOURS 00:09:00 [facility]osp [facility] TROPONIN T 2021-09-28 Daniel Walters 00:09:00 Hospital B NATRIURETIC PEPTIDE 2021-09-[address] 00:09:00 Hospital ESTIMATED GFR 2021-09-28 Eliazar Grant 00:09:00 [facility] XR CHEST 1 VW PORTABLE 2021-09-27 Eliazar Grant Method ist 22:57:00 Hospital ECG 12-LEAD 2021-09-27 Eliazar Grantist 22:04:29 Hospital ECHOCARDIOGRAM TRANSESOPHAGEAL W 2021-09-24 Eric Pineda DOPPLER COLORFLOW 17:23:36 [facility] PROTHROMBIN TIME WITH INR 2021-09-24 Eric Pineda Me thodist 13:24:00 [facility] XR CHEST 2 VW 2021-09-10 Eric Pineda 18:24:21 [facility] PROTHROMBIN TIME WITH INR 2021-09-10 Eric Pineda Me thodist 17:22:00 [facility] COMPREHENSIVE METABOLIC PANEL 2021-09-10 Eric Pineda 17:22:00 [facility] CBC WITH PLATELET AND 2021-09-10 Eric Pineda ist DIFFERENTIAL 17:22:00 [facility] THYROID STIMULATING HORMONE 2021-09-10 Eric Pineda 17:22:00 [facility] ESTIMATED GFR 2021-09-10 Eric Pineda 17:22:00 [facility] ECG 12-LEAD 2021-09-10 Eric Pineda 13:43:45 [facility] TTE COMPLETE, WO CONTRAST, W 2021-09-10 Eric Pineda DOPPLER ([id number]) 13:33:00 [facility] ECG 12-LEAD 2021-01-29 Eric Pineda 14:44:30 [facility] CV STRESS TEST 2021-01-27 Eric Pineda 17:33:00 [facility] TTE STRESS TEST DOBUTAMINE W 2021-01-27 Nabor Erickevin Partida Judaism CONTRAST 17:33:00 [facility] POC GLUCOSE 2020-12-25 Daniel Walters Judaism 19:31:00 [facility] COVID-19 QUALITATIVE RT-PCR 2020-12-25 Daniel Walters Judaism 10:44:00 Hospital HC COMPLETE BLD COUNT W/AUTO DIFF 2020-12-25 Esthela Walters in O[place] Judaism 10:38:00 Hospital POC GLUCOSE 2020-12-25 Daniel Walters Judaism 02:01:00 Hospital HC COMPLETE BLD COUNT W/AUTO DIFF 2020-12-25 Helen Nichole Judaism 01:44:00 Hospital POC GLUCOSE 2020-12-24 Daniel Walters Judaism 23:39:00 Hospital POC GLUCOSE 2020-12-24 Daniel Walters Judaism 18:16:00 Hospital POC GLUCOSE 2020-12-24 Daniel Walters Judaism 13:53:00 Hospital BASIC METABOLIC PANEL 2020-12-24 Daniel Walters Method ist 10:14:00 Hospital HC COMPLETE BLD COUNT W/AUTO DIFF 2020-12-24 Esthela Walters in [place] Judaism 10:14:00 Hospital ESTIMATED GFR 2020-12-24 Daniel Walters Judaism 10:14:00 Hospital POC GLUCOSE 2020-12-24 Daniel Walters Judaism 09:34:00 Hospital POC GLUCOSE 2020-12-24 Daniel Walters Judaism 06:44:00 Hospital POC GLUCOSE 2020-12-23 Daniel Walters Judaism 22:58:00 Hospital POC GLUCOSE 2020-12-23 Daniel Walters Judaism 18:13:00 Hospital ECG 12-LEAD 2020-12-23 Chelsea Joshi Judaism 15:05:25 Hospital BASIC METABOLIC PANEL 2020-12-23 Daniel Walters Method ist 14:52:00 Hospital ESTIMATED GFR 2020-12-23 Daniel Walters Judaism 14:52:00 Hospital POC GLUCOSE 2020-12-23 Daniel Walters Judaism 09:24:00 Hospital PARTIAL THROMBOPLASTIN TIME (PTT) 2020-12-23 Esthela Walters in O. Judaism 09:13:00 Hospital POC GLUCOSE 2020-12-23 Daniel Walters 06:20:00 Hospital POC GLUCOSE 2020-12-23 Daniel Walters 00:42:00 Hospital POC GLUCOSE 2020-12-22 Daniel Walters 23:00:00 Hospital POC GLUCOSE 2020-12-22 Daniel Walters 17:37:00 Hospital POC GLUCOSE 2020-12-22 Daniel Waltres 14:06:00 Hospital HC COMPLETE BLD COUNT W/AUTO DIFF 2020-12-22 Tricia Joshi 13:59:00 Hospital B NATRIURETIC PEPTIDE 2020-12-22 Chelsea Joshi 13:59:00 Hospital BASIC METABOLIC PANEL 2020-12-22 Chelsea Joshi 13:59:00 Hospital ESTIMATED GFR 2020-12-22 Chelsea Joshi 13:59:00 Hospital POC GLUCOSE 2020-12-22 Daniel Walters 09:52:00 Hospital PARTIAL THROMBOPLASTIN TIME (PTT) 2020-12-22 Esthela Walters 09:39:00 Hospital POC GLUCOSE 2020-12-22 Daniel Walters 05:23:00 Hospital POC GLUCOSE 2020-12-22 Daniel Walters 01:28:00 Hospital POC GLUCOSE 2020-12-21 Daniel Walters 23:06:00 Hospital POC GLUCOSE 2020-12-21 Daniel Walters 17:56:00 Hospital POC GLUCOSE 2020-12-21 Daniel Walters 14:21:00 Hospital POC GLUCOSE 2020-12-21 Daniel Walters 11:14:00 Hospital PARTIAL THROMBOPLASTIN TIME (PTT) 2020-12-21 El Hinojosa 09:26:00 Hospital POC GLUCOSE 2020-12-21 Daniel Walters 07:08:00 Hospital POC GLUCOSE 2020-12-21 Daniel Walters 03:04:00 Hospital POC GLUCOSE 2020-12-20 Daniel Walters 22:47:00 Hospital PARTIAL THROMBOPLASTIN TIME (PTT) 2020-12-20 Romeo, Aust in O. Judaism 22:26:00 Hospital POC GLUCOSE 2020-12-20 Daniel Walters 17:45:00 Hospital POC GLUCOSE 2020-12-20 Daniel Walters Judaism 14:50:00 Hospital PARTIAL THROMBOPLASTIN TIME (PTT) 2020-12-20 El Hinojosa fabián Judaism 13:54:00 Hospital BASIC METABOLIC PANEL 2020-12-20 El Hinojosa Daniel Do t 06:32:00 Hospital CBC HEMOGRAM 2020-12-20 El Hinojosa Daniel Lawson 06:32:00 Hospital MAGNESIUM LEVEL 2020-12-20 Ashish El Sanchez Judaism 06:32:00 Hospital IONIZED CALCIUM 2020-12-20 El Hinojosa Daniel Judaism 06:32:00 Hospital PHOSPHORUS LEVEL 2020-12-20 El Hinojosa Daniel Lawson 06:32:00 Hospital ESTIMATED GFR 2020-12-20 Ashish El Lawson 06:32:00 Hospital PARTIAL THROMBOPLASTIN TIME (PTT) 2020-12-20 Te Angel Judaism 06:20:00 [facility] POC GLUCOSE 2020-12-19 Daniel Walters 21:11:00 Hospital ECG 12-LEAD 2020-12-19 Chelsea Joshi Judaism 21:05:37 Hospital PARTIAL THROMBOPLASTIN TIME (PTT) 2020-12-19 Insé May Judaism 18:19:00 Hospital POTASSIUM LEVEL 2020-12-19 El Hinojosaist 18:19:00 Hospital POC GLUCOSE 2020-12-19 Daniel Walters Judaism 16:42:00 Hospital HEMOGLOBIN & HEMATOCRIT 2020-12-19 Kalyan, Darra Aretha Metho dist 14:13:00 Hospital POC GLUCOSE 2020-12-19 Daniel Walters Judaism 12:31:00 Hospital XR CHEST 1 VW PORTABLE 2020-12-19 Sarina Beard t 10:43:00 [facility] PARTIAL THROMBOPLASTIN TIME (PTT) 2020-12-19 Inés Mayist 10:22:00 Hospital POC GLUCOSE 2020-12-19 Daniel Walters 08:48:00 Hospital MISCELLANEOUS REFERRAL TEST 2020-12-19 Daniel Walters Judaism 08:34:00 Hospital HC COMPLETE BLD COUNT W/AUTO DIFF 2020-12-19 LefClarke eden 08:00:00 [facility] HEPATIC FUNCTION PANEL 2020-12-19 Marquez May Hi t 07:34:00 [facility] BASIC METABOLIC PANEL 2020-12-19 Sarina Beard 07:34:00 [facility] IONIZED CALCIUM 2020-12-19 Sarina Beard 07:34:00 [facility] MAG[facility]ESIUM LEVEL 2020[facility] PHOSPHORUS LEVEL 2020-12-19 [facility] ESTIMATED GFR 2020-12-19 [facility] POC GLUCOSE 2020-12-19 Daniel Walters 04:44:00 [facility] PARTIAL THROMBOPLASTIN TIME (PTT) 2020-12-19 Esthela Walters 03:44:00 Hospital HEMOGLOBIN & HEMATOCRIT 2020-12-19 Te Angel t 01:30:00 [facility] POC GLUCOSE 2020-12-19 Daniel Walters 00:27:00 Hospital TOTAL IRON BINDING CAPACITY 2020-12-18 Eliecer Pastrana 21:45:00 [facility] FERRITIN LEVEL 2020-12-18 Eliecer Pastrana 21:45:00 [facility] POC GLUCOSE 2020-12-18 Daniel Walters 19:59:00 Hospital HEMOGLOBIN & HEMATOCRIT 2020-12-18 Kalyan, Darra Aretha Metho dist 19:09:00 Hospital PARTIAL THROMBOPLASTIN TIME (PTT) 2020-12-18 Te Angel 19:09:00 [facility] PROTHROMBIN TIME WITH INR 2020-12-18 Te Angel ist 19:09:00 [facility] FIBRINOGEN 2020-12-18 Te Angel 19:09:00 [facility] FOLATE LEVEL 2020-12-18 Eliecer Pastrana 19:03:00 [facility] VITAMIN B12 LEVEL 2020-12-18 Eliecer Pastrana 19:03:00 [facility] POC GLUCOSE 2020-12-18 Daniel Walters 16:38:00 Hospital POC GLUCOSE 2020-12-18 Daniel Walters 12:39:00 Hospital HEMOGLOBIN & HEMATOCRIT 2020-12-18 Alex Biggs Metho dist 10:40:00 Hospital XR CHEST 1 VW PORTABLE 2020-12-18 Sarina Beard t 10:03:00 [facility] POC GLUCOSE 2020-12-18 Daniel Walters 09:12:00 Hospital TYPE AND SCREEN 2020-12-18 Sarina Beard 06:19:00 [facility] HEPATIC FUNCTION PANEL 2020-12-18 Marquez May 05:15:00 [facility] BASIC METABOLIC PANEL 2020-12-18 Sarina Beard 05:15:00 [facility] HC COMPLETE BLD COUNT W/AUTO DIFF 2020-12-18 Clarke Beard 05:15:00 [facility] IONIZED CALCIUM 2020-12-18 Sarina Beard 05:15:00 [facility] MAGNESIUM LEVEL 2020-12-18 Sarina Beard 05:15:00 [facility] PHOSPHORUS LEVEL 2020-12-18 Sarina Beard 05:15:00 [facility] PARTIAL THROMBOPLASTIN TIME (PTT) 2020-12-18 Te Angel 05:15:00 [facility] PROTHROMBIN TIME WITH INR 2020-12-18 Te Angel ist 05:15:00 [facility] ESTIMATED GFR 2020-12-18 Sarina Beard 05:15:00 [facility] PERIPHERAL SMEAR 2020-12-18 Marquez Mya 05:15:00 [facility] POC GLUCOSE 2020-12-18 Daniel Walters 04:49:00 Hospital POC GLUCOSE 2020-12-18 Daniel Walters 01:13:00 Hospital POC GLUCOSE 2020-12-17 Daniel Walters 21:05:00 Hospital HEMOGLOBIN & HEMATOCRIT 2020-12-17 Alex Biggsn Metho dist 17:50:00 Hospital POC GLUCOSE 2020-12-17 Daniel Walters 16:40:00 Hospital POC GLUCOSE 2020-12-17 Daniel Walters 12:42:00 Hospital XR CHEST 1 VW PORTABLE 2020-12-17 [...] 08:27:00 [facility] FIBRINOGEN 2020-12-17 MadiSarina eden 08:27:00 [facility] PARTIAL THROMBOPLASTIN TIME (PTT) 2020-12-17 Clarke Beard 08:27:00 [facility] PROTHROMBIN TIME WITH INR 2020[facility]-17 [facility] 08:27:00 [facility] LACTIC ACID LEVEL 2020-12-17 Sarina Beard 08:27:00 [facility] MAGNESIUM LEVEL 2020-12-17 Sarina Beard 08:27:00 [facility] PHOSPHORUS LEVEL 2020-12-17 MadiSarina eden 08:27:00 [facility] ESTIMATED GFR 2020-12-17 Sarina Beard 08:27:00 [facility] POC GLUCOSE 2020-12-17 Daniel Walters 08:26:00 [facility] POC GLUCOSE 2020-12-17 Daniel Walters 05:36:00 Hospital HC COMPLETE BLD COUNT W/AUTO DIFF 2020-12-17 Clarke Beard 03:49:00 [facility] PARTIAL THROMBOPLASTIN TIME (PTT) 2020-12-17 MadiClarke eden 03:49:00 [facility] PROTHROMBIN TIME WITH INR 2020-12-17 Sarina Beard Metho dist 03:49:00 [facility] TRANSFUSE FRESH FROZEN PLASMA 2020-12-17 Marquez May ethodi 02:49:00 [facility] TRANSFUSE PLATELET PHERESIS 2020-12-17 Marquez May 01:32:00 Hospital URINE CULTURE 2020-12-17 Nnamdi Mccarthy Judaism 01:18:00 Hospital URINALYSIS SCREEN AND MICROSCOPY, 2020-12-17 Nnamdi Mccarthy WITH REFLEX TO CULTURE 01:18:00 Hospital POC GLUCOSE 2020-12-17 Daniel Walters 00:58:00 Hospital TRANSFUSE RED BLOOD CELLS 2020-12-17 El Hinojosa odist 00:44:00 Hospital POTASSIUM LEVEL 2020-12-17 Bere Asma Judaism 00:39:00 Hospital MAGNESIUM LEVEL 2020-12-17 Bere Asma Judaism 00:39:00 Hospital PHOSPHORUS LEVEL 2020-12-17 Bere, Asma Judaism 00:39:00 Hospital IONIZED CALCIUM 2020-12-17 Bere Asma Judaism 00:39:00 Hospital BLOOD CULTURE, AEROBIC & 2020-12-[address] ANAEROBIC 23:44:00 Hospital BLOOD CULTURE, AEROBIC & 2020-12-[address] ANAEROBIC 23:36:00 Hospital TRANSFUSE RED BLOOD CELLS 2020-12-16 El Hinojosa odist 23:11:00 Hospital HEMOGLOBIN & HEMATOCRIT 2020-12-16 El Hinojosa ist 22:29:00 Hospital HC COMPLETE BLD COUNT W/AUTO DIFF 2020-12-16 El Hinojosa Judaism 21:41:00 Hospital PARTIAL THROMBOPLASTIN TIME (PTT) 2020-12-16 Inés May Judaism 21:41:00 Hospital SMEAR REVIEW 2020-12-16 El Hinojosa Judaism 21:41:00 Hospital POC GLUCOSE 2020-12-16 Daniel Walters Judaism 21:19:00 Hospital POC GLUCOSE 2020-12-16 Daniel Walters Judaism 16:38:00 Hospital HEPATIC FUNCTION PANEL 2020-12-16 Marquez May t 14:12:00 Hospital PROCALCITONIN 2020-12-16 Marquez May 14:12:00 Hospital PARTIAL THROMBOPLASTIN TIME (PTT) 2020-12-16 Inés May 14:12:00 Hospital PROTHROMBIN TIME WITH INR 2020-12-16 Marquez Mayo dist 14:12:00 Hospital FIBRINOGEN 2020-12-16 Marquez May 14:12:00 Hospital HC COMPLETE BLD COUNT W/AUTO DIFF 2020-12-16 AshishEl Homa Lawson 14:12:00 Hospital ECG 12-LEAD 2020-12-16 Marquez May 13:05:35 Hospital POC GLUCOSE 2020-12-16 Daniel Walters 12:40:00 Hospital XR CHEST 1 VW PORTABLE 2020-12-16 Nevin Conner 09:07:00 Hospital POC GLUCOSE 2020-12-16 Daniel Walters 05:41:00 Hospital DIGOXIN LEVEL 2020-12-16 Marquez May 05:11:00 Hospital HC COMPLETE BLD COUNT W/AUTO DIFF 2020-12-16 Nevin Conner 05:11:00 Hospital BASIC METABOLIC PANEL 2020-12-16 Nevin Conner 05:11:00 Hospital MAGNESIUM LEVEL 2020-12-16 DoNevin 05:11:00 Hospital PHOSPHORUS LEVEL 2020-12-16 DoNevin 05:11:00 Hospital ESTIMATED GFR 2020-12-16 DoNevin 05:11:00 Hospital POC GLUCOSE 2020-12-16 Daniel Walters 01:49:00 Hospital HEMOGLOBIN & HEMATOCRIT 2020-12-[address] 23:15:00 Hospital POC GLUCOSE 2020-12-15 Daniel Walters Judaism 20:56:00 Hospital TRANSFUSE RED BLOOD CELLS 2020-12-15 Marquez May Metho dist 20:46:00 Hospital HEMOGLOBIN & HEMATOCRIT 2020-12-[address] 18:56:00 Hospital POTASSIUM LEVEL 2020-12-15 El Hinojosa 18:56:00 Hospital MAGNESIUM LEVEL 2020-12-15 El Hinojosa 18:56:00 Hospital IONIZED CALCIUM 2020-12-15 El Hinojosa 18:56:00 Hospital PHOSPHORUS LEVEL 2020-12-15 El Hinojosa 18:56:00 Hospital TRANSFUSE RED BLOOD CELLS 2020-12-15 Marquez May Metho dist 17:29:00 Hospital POC GLUCOSE 2020-12-15 Daniel Walters Judaism 16:43:00 Hospital HEMOGLOBIN & HEMATOCRIT 2020-12-15 El Hinojosa Method ist 16:14:00 Hospital POC GLUCOSE 2020-12-15 Daniel Walters Judaism 12:48:00 Hospital XR CHEST 1 VW PORTABLE 2020-12-15 Do, Nevin Ware Judaism 09:17:00 Hospital POC GLUCOSE 2020-12-15 Daniel Walters Judaism 08:47:00 Hospital DIGOXIN LEVEL 2020-12-15 Sarina Beard Judaism 05:26:00 [facility] BASIC METABOLIC PANEL 2020-12-15 Do, Nevin Ware Judaism 05:26:00 Hospital HC COMPLETE BLD COUNT W/AUTO DIFF 2020-12-15 Do, Nevin Miist 05:26:00 Hospital MAGNESIUM LEVEL 2020-12-15 Do, Nevin Ware Judaism 05:26:00 Hospital PHOSPHORUS LEVEL 2020-12-15 Do, Nevin Ware Judaism 05:26:00 Hospital IONIZED CALCIUM 2020-12-15 DoNevin Judaism 05:26:00 Hospital PARTIAL THROMBOPLASTIN TIME (PTT) 2020-12-15 DoNevin Judaism 05:26:00 Hospital FIBRINOGEN 2020-12-15 Do, Nevin Ware Judaism 05:26:00 Hospital PROTHROMBIN TIME WITH INR 2020-12-15 Do, Nevin Ware Method ist 05:26:00 Hospital ESTIMATED GFR 2020-12-15 Do, Nevin Ware Judaism 05:26:00 Hospital POC GLUCOSE 2020-12-15 Daniel Walters Judaism 04:39:00 Hospital HC COMPLETE BLD COUNT W/AUTO DIFF 2020-12-15 Inés May Judaism 01:30:00 Hospital BASIC METABOLIC PANEL 2020-12-15 Marquez May Judaism 01:30:00 Hospital MAGNESIUM LEVEL 2020-12-15 Marquez Mayist 01:30:00 Hospital PHOSPHORUS LEVEL 2020-12-15 Marquez May Judaism 01:30:00 Hospital ESTIMATED GFR 2020-12-15 Marquez May Judaism 01:30:00 Hospital POC GLUCOSE 2020-12-15 Daniel Walters 01:03:00 Hospital TRANSFUSE PLATELET PHERESIS 2020-12-15 Marquez May 00:32:00 Hospital HC CVL NON-TUNNELED INSERT 5YRS 2020-12-14 Marquez May OR > 23:29:14 [facility] ARTERIAL BLOOD GAS 2020-12-14 Marquez May [...] Hospital SMEAR REVIEW 2020-12-14 Sen Bui 21:50:00 [facility] POC GLUCOSE 2020-12-14 Daniel Walters 21:49:00 [facility] ESOPHAGOGASTRODUODENOSCOPY (EGD) 2020-12-14 Cullen Austin 17:38:00 [facility] POC GLUCOSE 2020-12-14 Daniel Walters 17:09:00 [facility] MRSA PCR 2020-12-14 Daniel Walters 15:54:00 [facility] COMPREHENSIVE METABOLIC PANEL 2020-12-14 Marquez May ethodist 15:51:00 Hospital LACTIC ACID LEVEL 2020-12-14 Marquez May 15:51:00 Hospital ESTIMATED GFR 2020-12-14 Marquez May 15:51:00 Hospital TRANSFUSE FRESH FROZEN PLASMA 2020-12-14 Jada Robles i 15:34:00 [facility] XR CHEST 1 VW PORTABLE 2020-12-14 Nevin Conner 13:40:00 [facility] ECG 12-LEAD 2020-12-14 Nevin Conner 13:39:34 Hospital POC GLUCOSE 2020-12-14 Daniel Waltres Judaism 12:53:00 Hospital HC COMPLETE BLD COUNT W/AUTO DIFF 2020-12-14 Do, Nevin Miist 11:51:00 Hospital PROTHROMBIN TIME WITH INR 2020-12-14 Do, Nvein Ware Method ist 11:51:00 Hospital PARTIAL THROMBOPLASTIN TIME (PTT) 2020-12-14 DoNevinist 11:51:00 Hospital FIBRINOGEN 2020-12-14 Do, Nevin Miist 11:51:00 Hospital MA INSERT 2020-12-14 Amada Singh Judaism CATH,ART,PERCUT,SHORTTERM 09:25:03 [facility] LACTIC ACID LEVEL 2020-12-14 Do, Nevin Miist 08:41:00 Hospital DIGOXIN LEVEL 2020-12-14 Do, Nevin Miist 08:41:00 Hospital TRANSFUSE RED BLOOD CELLS 2020-12-14 Do, Nevin Ware Method ist 06:40:00 Hospital XR CHEST 1 VW PORTABLE 2020-12-14 Do, Nevin Miist 05:26:23 Hospital POC GLUCOSE 2020-12-14 Daniel Walters Judaism 05:25:00 Hospital DIGOXIN LEVEL 2020-12-14 Do, Nevin Miist 05:00:00 Hospital PROCALCITONIN 2020-12-14 DoNevinist 05:00:00 Hospital BASIC METABOLIC PANEL 2020-12-14 Do, Nevin Miist 05:00:00 Hospital HC COMPLETE BLD COUNT W/AUTO DIFF 2020-12-14 Do, Nevin Miist 05:00:00 Hospital IONIZED CALCIUM 2020-12-14 DoNevin 05:00:00 Hospital HEPATIC FUNCTION PANEL 2020-12-14 Do, Nevin Miist 05:00:00 Hospital B NATRIURETIC PEPTIDE 2020-12-14 DoNevin 05:00:00 Hospital MAGNESIUM LEVEL 2020-12-14 DoNevin 05:00:00 Hospital PHOSPHORUS LEVEL 2020-12-14 Do, Nevin Miist 05:00:00 Hospital PROTHROMBIN TIME WITH INR 2020-12-14 Do, Nevin A Method ist 05:00:00 Hospital PARTIAL THROMBOPLASTIN TIME (PTT) 2020-12-14 Do, Nevin Ware Judaism 05:00:00 Hospital LACTIC ACID LEVEL 2020-12-14 Do, Nevin Ware Judaism 05:00:00 Hospital ESTIMATED GFR 2020-12-14 Do, Nevin Ware Judaism 05:00:00 Hospital FIBRINOGEN 2020-12-14 Do, Nevin Ware Judaism 05:00:00 Hospital ANTI XA APIXABAN 2020-12-14 Do, Nevin Ware Judaism 05:00:00 Hospital ECG 12-LEAD 2020-12-14 Do, Nevin Ware Judaism 04:57:48 Hospital TRANSFUSE RED BLOOD CELLS 2020-12-14 Do, Nevin Ware Method ist 04:40:00 Hospital ABO AND RH CONFIRMATION 2020-12-14 Lo Titus odist 03:38:00 Hospital LACTIC ACID LEVEL, SEPSIS - NOW 2020-12-14 Eliazar Elliott AND REPEAT 2X EVERY 3 HOURS 01:30:00 Hosp ital HC COMPLETE BLD COUNT W/AUTO DIFF 2020-12-14 Eliazar Elliott 01:30:00 Hospital LACTIC ACID LEVEL, SEPSIS - NOW 2020-12-13 Eliazar Elliott AND REPEAT 2X EVERY 3 HOURS 21:29:00 [facility] HC COMPLETE BLD COUNT W/AUTO DIFF 2020-12-13 Eliazar Elliott 18:34:00 Hospital LACTIC ACID LEVEL, SEPSIS - NOW 2020-12-13 Eliazar Elliott AND REPEAT 2X EVERY 3 HOURS 18:34:00 Hosp ital PROCALCITONIN 2020-12-13 Daniel Waltersist 18:34:00 Hospital AMMONIA LEVEL 2020-12-13 Daniel Walters Judaism 18:29:00 Hospital B NATRIURETIC PEPTIDE 2020-12-13 Daniel Walters ist 18:29:00 Hospital XR ABDOMEN 1 VW PORTABLE 2020-12-13 Lo Titus hodist 16:12:20 Hospital XR CHEST 1 VW PORTABLE 2020-12-13 Lo Titus Metho dist 16:12:09 Hospital PREPARE RBC 2020-12-13 El Hinojosa 15:05:00 Hospital PREPARE FRESH FROZEN PLASMA 2020-12-13 Marquez aMy Met hodist 15:05:00 Hospital PREPARE PLATELET PHERESIS 2020-12-13 Pepe Mayelizabeth Metho dist 15:05:00 Hospital HC COMPLETE BLD COUNT W/AUTO DIFF 2020-12-13 Bryan Titusist 15:03:00 Hospital COMPREHENSIVE METABOLIC PANEL 2020-12-13 Lo Titusist 15:03:00 Hospital TROPONIN 2020-12-13 Lo Titus Judaism 15:03:00 Hospital LACTIC ACID LEVEL 2020-12-13 Lo Titus Judaism 15:03:00 Hospital PROTHROMBIN TIME WITH INR 2020-12-13 Lo Titus Me thodist 15:03:00 Hospital ESTIMATED GFR 2020-12-13 Lo Titusist 15:03:00 Hospital MAGNESIUM LEVEL 2020-12-13 Lo Titusist 15:03:00 Hospital PHOSPHORUS LEVEL 2020-12-13 Lo Titusist 15:03:00 Hospital LIPASE LEVEL 2020-12-13 Lo Titusist 15:03:00 Hospital AMYLASE LEVEL 2020-12-13 Lo Titusist 15:03:00 Hospital POC BLOOD GAS, ARTERIAL AND 2020-12-13 Daniel Walters LACTIC ACID 15:01:00 Hospital ECG 12-LEAD 2020-12-13 Lo Titus 14:49:21 Hospital POC GLUCOSE 2020-12-13 Daniel Walters 14:42:00 Hospital HC COMPLETE BLD COUNT W/AUTO DIFF 2020-12-13 Tricia Joshi 10:00:00 Hospital BASIC METABOLIC PANEL 2020-12-13 Chelsea Joshi 09:00:00 Hospital ESTIMATED GFR 2020-12-13 Chelsea Joshi 09:00:00 Hospital ECG 12-LEAD 2020-12-13 Daniel Walters 01:20:00 Hospital BASIC METABOLIC PANEL 2020-12-12 Chelsea Joshi 10:00:00 Hospital ESTIMATED GFR 2020-12-12 Chelsea Joshi 10:00:00 Hospital MAGNESIUM LEVEL 2020-12-12 Chelsea Joshi 10:00:00 Hospital HC COMPLETE BLD COUNT W/AUTO DIFF 2020-12-12 Tricia Joshi 10:00:00 Hospital PHOSPHORUS LEVEL 2020-12-12 Chelsea Joshi 10:00:00 Hospital HEPATIC FUNCTION PANEL 2020-12-12 Chelsea Joshi 10:00:00 Hospital URINE CULTURE 2020-12-11 Chelsea Joshi 21:00:00 Hospital URINALYSIS SCREEN AND MICROSCOPY, 2020-12-11 Tricia Joshi WITH REFLEX TO CULTURE 21:00:00 Hospital CV CTA TAVR WORKUP (CTA 2020-12-11 Chelsea Joshi t CORONARY,CTA THORACIC AORTA,CTA 12:37:20 Hospital ABDOMEN PELVIS) W CONTRAST HC COMPLETE BLD COUNT W/AUTO DIFF 2020-12-11 Esthela Walters 08:44:00 Hospital BASIC METABOLIC PANEL 2020-12-11 Daniel Walters ist 08:44:00 Hospital MAGNESIUM LEVEL 2020-12-11 John Theodore 08:44:00 Hospital B NATRIURETIC PEPTIDE 2020-12-11 Chelsea Joshi 08:44:00 Hospital ESTIMATED GFR 2020-12-11 Daniel Walters 08:44:00 Hospital HEPATIC FUNCTION PANEL 2020-12-11 Daniel Walterso dist 08:44:00 Hospital COVID-19 QUALITATIVE RT-PCR 2020-12-10 John Theodore odist 22:55:00 Hospital ECG 12-LEAD 2020-12-10 Daniel Walters 19:04:51 Hospital TTE COMPLETE, W CONTRAST, W 2020-12-10 Daniel Walters DOPPLER ([id number]) 13:56:00 Hospital PROTHROMBIN TIME WITH INR 2020-12-10 Daniel Walters thodist 12:44:00 Hospital PARTIAL THROMBOPLASTIN TIME (PTT) 2020-12-10 Esthela Walters 12:44:00 Hospital HC COMPLETE BLD COUNT W/AUTO DIFF 2020-12-10 Romeo, Aust in [place]. Judaism 08:34:00 Hospital BASIC METABOLIC PANEL 2020-12-10 Daniel Walters Method ist 08:34:00 Hospital PROTHROMBIN TIME WITH INR 2020-12-10 Daniel Walters Me thodist 08:34:00 Hospital PARTIAL THROMBOPLASTIN TIME (PTT) 2020-12-10 Romeo, Homat in O. Judaism 08:34:00 Hospital MAGNESIUM LEVEL 2020-12-10 John Theodore 08:34:00 Hospital HEPATIC FUNCTION PANEL 2020-12-10 John Theodoreist 08:34:00 Hospital ESTIMATED GFR 2020-12-10 Daniel Waltersist 08:34:00 Hospital PROCALCITONIN 2020-12-10 Daniel Waltersist 08:34:00 Hospital LDH 2020-12-10 Daniel Waltersist 08:34:00 Hospital C-REACTIVE PROTEIN 2020-12-10 Daniel Walters Judaism 08:34:00 Hospital ECG 12-LEAD 2020-12-10 Daniel Waltersist 04:02:13 Hospital ECG 12-LEAD 2020-12-10 John Theodore 00:28:50 Hospital BLOOD CULTURE, AEROBIC & 2020-12-[address] ANAEROBIC 23:18:00 Hospital BASIC METABOLIC PANEL 2020-12-09 John Theodore 23:17:00 Hospital MAGNESIUM LEVEL 2020-12-09 John Theodore 23:17:00 Hospital ESTIMATED GFR 2020-12-09 John Theodore 23:17:00 Hospital XR CHEST 2 VW 2020-12-09 Daniel Waltersist 15:56:[address] CHEST WO CONTRAST 2020-12-[address] 15:35:01 Hospital MAGNESIUM LEVEL 2020-12-09 Lore Cooper 08:52:00 Hospital PHOSPHORUS LEVEL 2020-12-09 Lore Cooper 08:52:00 Hospital ECG 12-LEAD 2020-12-09 Daniel Waltersist 08:35:49 Hospital HC COMPLETE BLD COUNT W/AUTO DIFF 2020-12-09 Romeo, [facility] 06:12:00 Hospital TROPONIN 2020-12-09 Daniel Walters 06:12:00 Hospital COVID-19 ANTI-SPIKE IGG ANTIBODY 2020-12-09 Abelardo Walters TITER 06:06:00 Hospital COVID-19 SEROLOGY PATIENT 2020-12-09 Daniel Walters Sc thodist SURVEILLANCE 06:06:00 Hospital COMPREHENSIVE METABOLIC PANEL 2020-12-09 Daniel Walters 06:06:00 Hospital THYROID STIMULATING HORMONE 2020-12-09 Daniel Walters 06:06:00 Hospital T4, FREE 2020-12-09 Daniel Walters 06:06:00 Hospital LIPID PANEL 2020-12-09 Daniel Walters 06:06:00 Hospital ESTIMATED GFR 2020-12-09 Daniel Walters 06:06:00 Hospital MAGNESIUM 2020-11-[address] [facility] 06:40:00 [facility] BASIC METABOLIC PANEL (7) 2020-11-09 Joanie [facility]rivastava [facility] 06:40:00 [facility] CBC W/PLT COUNT & AUTO 2020-11-[address] [address] [facility] DIFFERENTIAL 05:43:00 [facility] CBC W/PLT COUNT & AUTO 2020-11-[address] [facility] DIFFERENTIAL 05:43:00 [facility] POCT-GLUCOSE METER 2020-11-[address] [facility] 05:31:00 [facility] CBC W/PLT COUNT & AUTO 2020-11-[address] [facility] DIFFERENTIAL 05:29:00 [facility] MAGNESIUM 2020-11-[address] [facility] 05:29:00 [facility] BASIC METABOLIC PANEL (7) 2020-11-08 Joanie Srivastava [facility] 05:29:00 [facility] CBC W/PLT COUNT & AUTO 2020-11-[address] [facility] [address] [facility] DIFFERENTIAL 05:29:00 [facility] POCT-GLUCOSE METER 2020-11-[address] [facility] 16:44:00 [facility] POCT-GLUCOSE METER 2020-11-[address] [facility] 10:49:00 [facility] POCT-GLUCOSE METER 2020-11-07 Atif, Joanie [facility] 08:14:00 [facility] CBC W/PLT COUNT & AUTO 2020-11-[address] [facility] [facility] DIFFERENTIAL 04:12:00 [facility] COMPREHENSIVE METABOLIC PANEL 2020-11-[address] [facility] 04:12:00 [facility] MAGNESIUM 2020-11-[address] [facility] 04:12:00 [facility] CALCIUM, IONIZED 2020-11-07 Mann, Lee [facility] 04:12:00 [facility] CBC W/PLT COUNT & AUTO 2020-11-[address] [facility] DIFFERENTIAL 04:12:00 [facility] SODIUM, RANDOM URINE 2020-11-[address] [facility] 20:42:00 [facility] POCT-GLUCOSE METER 2020-11-06 Jorgeандрей Joanie [facility] 20:42:00 [facility] POCT-GLUCOSE METER 2020-11-06 Atif, Joanie [facility] 16:58:00 [facility] UREA NITROGEN, RANDOM URINE 2020-11-06 Atif, Joanie [facility] 09:50:00 [facility] CREATININE, RANDOM URINE 2020-11-06 Atif, Joanie [facility] 09:50:00 [facility] OSMOLALITY, URINE 2020-11-06 Atif, Joanie [facility] 09:50:00 [facility] URINALYSIS W/ MICROSCOPIC 2020-11-06 Atif Joanie [facility] 09:50:00 [facility] EOSINOPHIL SMEAR, URINE 2020-11-06 Atif, Joanie [facility] 09:50:00 [facility] POCT-GLUCOSE METER 2020-11-[address] [facility] 07:26:00 [facility] CBC W/PLT COUNT & AUTO 2020-11-[address] [facility] DIFFERENTIAL 03:04:00 [facility] COMPREHENSIVE METABOLIC PANEL 2020-11-[address] [facility] 03:04:00 [facility] MAGNESIUM 2020-11-[address] [facility] 03:04:00 [facility] PHOSPHORUS 2020-11-[address] [facility] 03:04:00 [facility] CALCIUM, IONIZED 2020-11-[address] [facility] 03:04:00 [facility] CBC W/PLT COUNT & AUTO 2020-11-[address] [facility] DIFFERENTIAL 03:04:00 [facility] POCT-GLUCOSE METER 2020-11-05 Jerson, Devonte [facility] 20:51:00 [facility] POCT-GLUCOSE METER 2020-11-05 Jerson, Devonte [facility] 16:49:00 [facility] POCT-GLUCOSE METER 2020-11-05 Jerson, Devonte [facility] 12:46:00 [facility] POCT-GLUCOSE METER 2020-11-[address] [facility] 05:57:00 [facility] CBC W/PLT COUNT & AUTO 2020-11-[address] [facility] [facility] DIFFERENTIAL 05:36:00 [facility] CBC W/PLT COUNT & AUTO 2020-11-[address] [facility] DIFFERENTIAL 05:36:00 [facility] COMPREHENSIVE METABOLIC PANEL 2020-11-[address] [facility] 04:19:00 [facility] MAGNESIUM 2020-11-[address] [facility] 04:19:00 [facility] PHOSPHORUS 2020-11-[address] [facility] 04:19:00 [facility] CALCIUM, IONIZED 2020-11-[address] [facility] 04:19:00 [facility] C-REACTIVE PROTEIN 2020-11-05 Serenio, Abel [facility] 04:19:00 [facility] BLOOD GAS, VENOUS 2020-11-05 Serenio, Abel [facility] 04:19:00 [facility] POCT-GLUCOSE METER 2020-11-[address] [facility] 16:29:00 [facility] POCT-GLUCOSE METER 2020-11-[address] [facility] 11:39:00 [facility] 2D ECHO W/ DOPPLER (CW/PW/COLOR) 2020-11-[address] [facility] 09:11:05 [facility] POCT-GLUCOSE METER 2020-11-04 Agustín Fischer [facility] 07:24:00 [facility] POCT-GLUCOSE METER 2020-11-04 Agustín Fischer [facility] 06:14:00 [facility] CBC W/PLT COUNT & AUTO 2020-11-[address] [facility] DIFFERENTIAL 03:53:00 [facility] COMPREHENSIVE METABOLIC PANEL 2020-11-[address] [facility] 03:53:00 [facility] MAGNESIUM 2020-11-[address] [facility] 03:53:00 [facility] PHOSPHORUS 2020-11-[address] [facility] 03:53:00 [facility] CALCIUM, IONIZED 2020-11-04 Danya, Marciee [facility] 03:53:00 [facility] C-REACTIVE PROTEIN 2020-11-04 Danya, Tanwie [facility] 03:53:00 [facility] BLOOD GAS, VENOUS 2020-11-04 Danya, Tanwie [facility] 03:53:00 [facility] D-DIMER 2020-11-04 Danya, Tanwie [facility] 03:53:00 [facility] HEMOGLOBIN A1C 2020-11-04 Danya, Tanwie [facility] 03:53:00 [facility] PROTHROMBIN TIME/INR 2020-11-04 Danya, [facility] 03:53:00 [facility] CBC W/PLT COUNT & AUTO 2020-11-[address] [facility] DIFFERENTIAL 03:53:00 [facility] XR CHEST 1 VIEW PORTABLE / 2020-11-04 Martha Hagan [facility] BEDSIDE 02:06:00 [facility] COMPREHENSIVE METABOLIC PANEL 2020-11-03 [address] [facility] 19:38:00 [facility] C-REACTIVE PROTEIN 2020-11-[address] [facility] 19:38:00 [facility] FERRITIN 2020-11-[address] [facility] 19:38:00 [facility] D-DIMER 2020-11-[address] [facility] 19:38:00 [facility] PROTHROMBIN TIME/INR 2020-11-[address] [facility] 19:38:00 [facility] B-TYPE NATRIURETIC FACTOR (BNP) 2020-11-[address] [facility] 19:38:00 [facility] LACTIC ACID, VENOUS 2020-11-[address] [facility] 19:38:00 [facility] BLOOD GAS, VENOUS 2020-11-[address] [facility] 19:38:00 [facility] CBC (HEMOGRAM ONLY) 2020-11-[address] [facility] 19:38:00 [facility] POCT-GLUCOSE METER 2020-11-[address] [facility] 18:20:00 [facility] XR CHEST 1 VIEW PORTABLE / 2020-11-03 Desmond Mendoza [facility] 18:16:00 [facility] PERMANENT LAB REPORT - SCAN 2020-11-03 Provider, Default [facility] 00:[facility]00 [facility] Plan of Care Planned Activity Planned Date Details Comments Source Future Scheduled 2022-10-21 Influenza Vaccine (#1) [facility] 00:00:00 [code = Influenza Medical Ce nter Vaccine (#1)] Future Scheduled 2022-10-12 COVID-19 VACCINE (#1) [facility] Test 11:39:28 [code = COVID-19 VACCINE (#1)] Future Scheduled 2022-10-12 65+ [address] [facility] [facility] Test 11:39:28 VACCINE (1 - PCV) [code = 65+ PNEUMOCOCCAL VACCINE (1 - PCV)] Future Scheduled 2022-10-12 DIABETIC FOOT EXAM [facility] Hospital Test 11:39:28 [code = DIABETIC FOOT EXAM] Future Scheduled 2022-10-12 SHINGLES VACCINES (1 [facility] Hospital Test 11:39:28 of 2) [code = SHINGLES VACCINES (1 of 2)] Future Scheduled 2022-10-12 HEPATITIS B VACCINES [facility] Test 11:39:28 (1 of 3 - Risk 3-dose series) [code = HEPATITIS B VACCINES (1 of 3 - Risk 3-dose series)] Future Scheduled 2022-10-12 INFLUENZA VACCINE [facility] Test 11:39:28 [code = INFLUENZA VACCINE] Future Scheduled 2022-10-12 DIABETES: RETINAL EYE [facility] Test 11:39:28 EXAM [code = DIABETES: RETINAL EYE EXAM] Future Scheduled 2022-04-27 COVID-19 VACCINE (#1) [facility] Test 02:31:21 [code = COVID-19 VACCINE (#1)] Future Scheduled 2022-04-27 65+ PNEUMOCOCCAL [facility] Test 02:31:21 VACCINE (1 - PCV) [code = 65+ PNEUMOCOCCAL VACCINE (1 - PCV)] Future Scheduled 2022-04-27 DIABETIC FOOT EXAM [facility] Test 02:31:21 [code = DIABETIC FOOT EXAM] Future Scheduled 2022-04-27 SHINGLES VACCINES (1 [facility] Hospital Test 02:31:21 of 2) [code = SHINGLES VACCINES (1 of 2)] Future Scheduled 2022-04-27 DIABETES: RETINAL EYE [facility] Test 02:31:21 EXAM [code = DIABETES: RETINAL EYE EXAM] Future Scheduled 2022-02-[address] [facility] Test 00:00:00 (12+) [code = Medical Center DEPRESSION SCREENING (12+)] Future Scheduled 2022-02-20 FALLS RISK SCREENING [facility] Test 00:00:00 [code = FALLS RISK Medical C enter SCREENING] Future Scheduled 2022-02-[address] [...] Future Scheduled 2021-03-30 COVID-19 VACCINE (1) [facility] Hospital Test 11:09:22 [code = COVID-19 VACCINE (1)] Future Scheduled 2021-03-30 65+ PNEUMOCOCCAL [facility] Test 11:09:22 VACCINE (1 of 2 - PPSV23) [code = 65+ PNEUMOCOCCAL VACCINE (1 of 2 - PPSV23)] Future Scheduled 2021-03-30 Hepatitis C screening [facility] Test 11:09:22 (procedure) [code = 147746266] Future Scheduled 2021-03-30 SHINGLES VACCINES (#1) [facility] Test 11:09:22 [code = SHINGLES VACCINES (#1)] Future Scheduled 2021-03-30 INFLUENZA VACCINE [facility] Test 11:09:22 [code = INFLUENZA VACCINE] Future Scheduled 2021-03-23 COVID-19 VACCINE (1) [facility] Test 14:18:58 [code = COVID-19 VACCINE (1)] Future Scheduled 2021-03-23 65+ PNEUMOCOCCAL [facility] Test 14:18:58 VACCINE (1 of 2 - PPSV23) [code = 65+ PNEUMOCOCCAL VACCINE (1 of 2 - PPSV23)] Future Scheduled 2021-03-23 Hepatitis C screening [facility] Test 14:18:58 (procedure) [code = [id number]] Future Scheduled 2021-03-23 SHINGLES VACCINES (#1) [facility] Hospital Test 14:18:58 [code = SHINGLES VACCINES (#1)] Future Scheduled 2021-03-23 INFLUENZA VACCINE [facility] Test 14:18:58 [code = INFLUENZA VACCINE] [...] [facility] Test 00:00:00 (1 of 1 - Medical Center [id number]_Vpjxcsb PCV13) [code = PNEUMOCOCCAL 65+ YRS (1 of 1 - EJKV70_Dmiusqo PCV13)] Future Scheduled 2008-02-19 PNEUMOCOCCAL 65+ YRS [facility] Test 00:00:00 (1 of 1 - [facility] ZMID15_Jpxmwan PCV13) [code = PNEUMOCOCCAL 65+ YRS (1 of 1 - YKHN93_Zlrefym PCV13)] Future Scheduled 1993 SHINGLES VACCINES (1 [...] Guillaume ter VACCINE (1)] Future Scheduled [address] [facility] Test 00:00:00 Counseling and Medical Cente r Screening (12+) [code = Tobacco Cessation Counseling and Screening (12+)] Future Scheduled 1949 PNEUMOCOCCAL 65+ YRS [facility] Test 00:00:00 (1 - PCV) [code = Medical Ce nter PNEUMOCOCCAL 65+ YRS (1 - PCV)] Future Scheduled 1949 PNEUMOCOCCAL 65+ YRS [facility] Test 00:00:00 (1 - PCV) [code = Medical Ce nter PNEUMOCOCCAL 65+ YRS (1 - PCV)] Future Scheduled 1943 COVID-19 VACCINE (#1) [facility] 00:[facility]:00 [code = COVID-[address] VACCINE (#1)] Future Scheduled 1943 COVID-19 VACCINE (#1) [facility] 00:00:00 [code = COVID-[address] VACCINE (#1)] Encounters Start End Encounter Admission Attending Care Care Encounter Source Date/Time Date/Time Type Type Clinicians Facility Department ID 2020-11-29 Inpatient ER [facility] [id number] [facility] 12:26:40 Med 2022-10-12 2022-10-12 Office Howard 1.2.840.7 [id number] Methodi 11:30:00 13:06:46 Visit Kamala Wilson 15135.1.1 388 s t 3.430.2.7 Hospit a .3.837766 l .8 2022-10-12 2022-10-12 Outpatient [facility] [id number] [place] 00:00:00 00:00:00 KAMALA [address] 2022-10-10 2022-10-10 Patient Kahlil, 1.2.840.1 [id number] 7774 Methodi 00:00:00 00:00:00 Outreach Sara 60806.1.[address] 3.430.2.7 Hospit a .3.402266 l .8 2022-10-10 2022-10-10 Patient Ramiro, 1.2.840.1 [id number] 03545 Methodi 00:00:00 00:00:00 Outreach Stefanie 67892.1.[address] 3.430.2.7 Hospit a .3.317205 l .8 2022-10-07 2022-10-07 Patient Ramiro, 1.2.840.1 [id number] Methodi 00:00:00 00:00:00 Outreach Stefanie 51293.1.[address] 3.430.2.7 Hospit a .3.432044 l .8 2022-10-05 2022-10-05 Patient Ramiro, 1.2.840.1 [id number] Methodi 00:00:00 00:00:00 Outreach Stefanie 95974.1.[address] 3.430.2.7 Hospit a .3.354988 l .8 2022-10-03 2022-10-03 Orders Martha Gutierrez 1.2.840.9 [id number] Methodi 00:00:00 00:00:00 Only C 70701.1.[address] 3.430.2.7 Hospit a .3.523210 l .8 2022-10-03 2022-10-03 Patient Kahlil, 1.2.840.1 [id number] 0855 Methodi 00:00:00 00:00:00 Outreach Sara 00276.1.[address] 3.430.2.7 Hospit a .3.975367 l .8 2022-08-31 2022-09-30 Hospital Turner Brown 1.2.840. 1 [id number] Methodi 17:37:00 13:38:00 Encounter Daniel Walters 85428.1.[address] Fida, Maria Del Rosario 3.430.2.7 Ho spita .3.493083 l .8 2022-09-30 2022-09-30 Patient Jin Felder 1.2.840.1 [id number] Methodi 00:00:00 00:00:[address] 3.430.2.7 Hospit a .3.312285 l .8 2022-09-30 2022-09-30 Patient Jin Felder 1.2.840.1 [id number] 21 [id number] Methodi 00:00:00 00:00:[address] 3.430.2.7 Hospit a .3.220394 l .8 2022-09-30 2022-09-30 Nurse Only Yolanda, 1.2.840.1 [id number] 21 [id number] Methodi 00:00:00 00:00:[address] 3.430.2.7 Hospit a .3.926646 l .8 2022-09-30 2022-09-30 Patient Kahlil, 1.2.840.1 [id number] 3471 Methodi 00:00:00 00:00:00 Outreach Sara 51980.1.[address] 3.430.2.7 Hospit a .3.471744 l .8 2022-08-31 2022-09-30 Inpatient [place] [id number] 6429 [place] 00:00:00 00:00:00 DANIEL [address] 2022-09-08 2022-09-08 Anesthesia Farshad, 1.2.840.1 [id number] 21 [id number] Methodi 13:38:00 14:03:00 Event Yumiko 39382.1.[address] Ahmad 3.430.2.7 Hospit a .3.219826 l .8 2022-08-31 2022-08-31 Emergency X SINGER [facility] ERT [id number] Univers 12:05:00 16:45:00 JILLIAN de la o of [facility] 2022-08-31 2022-08-31 Emergency Singer [facility] 1.2.888.490 [id number] [id number] Univers 12:05:00 16:45:00 Jillian MENG 350.1.13.10 i ty [facility] 4.2.7.2.686 [facility] [id number] [place] [address] [place] 2022-08-30 2022-08-30 Outpatient R RADIOLOGY [facility] [id number] Univers 15:19:50 23:59:00 ity of [facility] 2022-08-30 2022-08-30 Hospital Radiology [facility] 1.2.840.114 [id number] Univers 15:19:50 23:59:00 Encounter YUSRA 350.1.13.10 ity [facility] 4.2.7.2.686 [facility] [id number] [place] [address] [place] 2022-08-10 2022-08-10 Hospital [facility] 1.2.840.114 [id number] Univers 10:12:16 23:59:00 Encounter Kimmy MENG 350.1.13.10 ity of [facility] 4.2.7.2.686 [place] [facility] [id number] [address] 2022-08-10 2022-08-10 Outpatient R [facility] 00315 [id number] Univers 10:12:16 23:59:00 KIMMY de la o [facility] 2022-08-10 2022-08-10 Switchboard Installer Manny, [facility] Main [facility] 1.2.8 40.114 [id number] Univers 10:00:00 10:15:00 Visit Kimmy Lorenzana 350.1.13.10 ity of [place] 4.2.7.2.686 [facility] PROFESSIO [phone] [address] 2022-07-05 2022-07-05 Patient Kahlil, 1.2.840.1 [id number] 8957 Methodi 00:00:00 00:00:00 Outreach Sara 56744.1.[address] 3.430.2.7 Hospit a .3.893710 l .8 2022-06-28 2022-06-28 Patient Kahlil, 1.2.840.1 [id number] 2084 Methodi 00:00:00 00:00:00 Outreach Sara 96326.1.[address] 3.430.2.7 Hospit a .3.103688 l .8 2022-06-14 2022-06-14 Patient Kahlil, 1.2.840.1 [id number] 5854 Methodi 00:00:00 00:00:00 Outreach Sara 62138.1.[address] 3.430.2.7 Hospit a .3.257832 l .8 2022-05-31 2022-05-31 Patient Kahlil, 1.2.840.1 [id number] 2093 Methodi 00:00:00 00:00:00 Outreach Sara 70753.1.[address] 3.430.2.7 Hospit a .3.512455 l .8 2022-05-24 2022-05-24 Patient Kahlil, 1.2.840.1 [id number] 9330 Methodi 00:00:00 00:00:00 Outreach Sara 34980.1.[address] 3.430.2.7 Hospit a .3.616424 l .8 2022-05-19 2022-05-19 Patient Kahlil, 1.2.840.1 [id number] 6391 Methodi 00:00:00 00:00:00 Outreach Sara 64354.1.[address] 3.430.2.7 Hospit a .3.643193 l .8 2022-05-17 2022-05-17 Patient Kahlil, 1.2.840.1 [id number] 7847 Methodi 00:00:00 00:00:00 Outreach Sara 71147.1.[address] 3.430.2.7 Hospit a .3.133247 l .8 2022-05-11 2022-05-11 Office Howard, 1.2.840.2 [id number] 2100 [id number] Methodi 11:00:00 15:57:51 Visit Kamala Steve 95501.1.1 673 s t 3.430.2.7 Hospit a .3.862993 l .8 2022-05-11 2022-05-11 Patient Kahlil, 1.2.840.1 [id number] 0997 Methodi 00:00:00 00:00:00 Outreach Sara 47232.1.[address] 3.430.2.7 Hospit a .3.538332 l .8 2022-05-11 2022-05-11 [facility] [id number] 7598 [place] 00:00:00 00:00:00 KAMALA [address] 2022-04-27 2022-04-27 Patient Kahlil, 1.2.840.1 [id number] 9701 Methodi 00:00:00 00:00:00 Outreach Sara 34549.1.[address] 3.430.2.7 Hospit a .3.346444 l .8 2022-04-27 2022-04-27 Patient Kahlil, 1.2.840.1 [id number] 3875 Methodi 00:00:00 00:00:00 Outreach Sara 10734.1.[address] 3.430.2.7 Hospit a .3.521254 l .8 2022-04-22 2022-04-22 Orders Mar, Martha 1.2.840.3 [id number] Methodi 00:00:00 00:00:00 Only C 06587.1.[address] 3.430.2.7 Hospit a .3.364418 l .8 2022-04-22 2022-04-22 Orders Mar, Martha 1.2.840.8 [id number] Methodi 00:00:00 00:00:00 Only C [address]304.1.[address] 3.430.2.7 Hospit a .3.412610 l .8 2022-04-21 2022-04-21 Patient Kahlil, 1.2.840.1 [id number] 9169 Methodi 00:00:00 00:00:00 Outreach Sara 23060.1.[address] 3.430.2.7 Hospit a .3.745012 l .8 2022-04-21 2022-04-21 Patient Kahlil, 1.2.840.1 [id number] 4021 Methodi 00:00:00 00:00:00 Outreach Sara 51460.1.[address] 3.430.2.7 Hospit a .3.677101 l .8 2022-04-14 2022-04-14 Patient Kahlil, 1.2.840.1 [id number] 1562 Methodi 00:00:00 00:00:00 Outreach Sara 50941.1.[address] 3.430.2.7 Hospit a .3.700662 l .8 2022-04-14 2022-04-14 Patient Kahlil, 1.2.840.1 [id number] 8275 Methodi 00:00:00 00:00:00 Outreach Sara [address]383.1.[address] 3.430.2.7 Hospit a .3.837447 l .8 2022-04-12 2022-04-12 Patient Andrew, 1.2.840.1 [id number] 2751 Methodi 00:00:00 00:00:00 Outreach Hieu 35953.1.[address] 3.430.2.7 Hospit a .3.999017 l .8 2022-04-12 2022-04-12 Patient Andrew, 1.2.840.1 [id number] 8797 Methodi 00:00:00 00:00:00 Outreach Hieu 12814.1.[address] 3.430.2.7 Hospit a .3.945829 l .8 2022-04-07 2022-04-07 Patient Ramiro, 1.2.840.1 [id number] 59979 Methodi 00:00:00 00:00:00 Outreach Stefanie 67867.1.[address] 3.430.2.7 Hospit a .3.382621 l .8 2022-04-07 2022-04-07 Patient Ramiro, 1.2.840.1 [id number] Methodi 00:00:00 00:00:00 Outreach Stefanie 11484.1.[address] 3.430.2.7 Hospit a .3.245429 l .8 2022-04-06 2022-04-06 Telemedici Daniel Walters 1.2.840.1 1 [id number] Methodi 09:00:00 09:30:00 [address]ha [address] 3.430.2.7 Hospit a .3.896811 l .8 2022-04-06 2022-04-06 Telemedici Daniel Walters Bala 1.2.840.1 1 [id number] Methodi 09:00:00 09:30:00 ne Elaina Palafox 15357.1.[address] 3.430.2.7 Hospit a .3.841022 l .8 2022-04-06 2022-04-06 Patient Kahlil, 1.2.840.1 [id number] 2220 Methodi 00:00:00 00:00:00 Outreach Sara 58548.1.[address] 3.430.2.7 Hospit a .3.607219 l .8 2022-04-06 2022-04-06 Telephone [facility]- 1.2.840.1 [id number] Methodi 00:00:00 00:00:00 jason, 73578.1.[address] Elaina 3.430.2.7 Hospit a .3.659894 l .8 2022-04-06 2022-04-06 Patient Kahlil, 1.2.840.1 [id number] 4931 Methodi 00:00:00 00:00:00 Outreach Sara 02502.1.[address] 3.430.2.7 Hospit a .3.767140 l .8 2022-04-06 2022-04-06 Telephone [facility]- 1.2.840.1 [id number] Methodi 00:00:00 00:00:00 jason, 09764.1.[address] Elaina 3.430.2.7 Hospit a .3.885223 l .8 2022-04-05 2022-04-05 Patient Kahlil, 1.2.840.1 [id number] 1476 Methodi 00:00:00 00:00:00 Outreach Sara 66371.1.[address] 3.430.2.7 Hospit a .3.781587 l .8 2022-04-05 2022-04-05 Patient Kahlil, 1.2.840.1 [id number] 8225 Methodi 00:00:00 00:00:00 Outreach Sara [address]201.1.[address] 3.430.2.7 Hospit a .3.783500 l .8 2022-04-01 2022-04-01 Patient Jin Felder 1.2.840.1 [id number] Methodi 00:00:00 00:00:[address] 3.430.2.7 Hospit a .3.635963 l .8 2022-04-01 2022-04-01 Patient Jin Felder 1.2.840.1 [id number] Methodi 00:00:00 00:00:[address] 3.430.2.7 Hospit a .3.258205 l .8 2022-03-25 2022-03-31 [facility] Romeo, 1.2.840.1 [id number] Method 23:59:00 14:48:00 Encounter Daniel Mckenna 46461.1.[address] 3.430.2.7 Hospit a .3.057014 l .8 2022-03-25 2022-03-31 [facility] ROMEO, 1.2.840.1 [id number] [place] 00:00:00 00:00:00 Encounter DANIEL 67433.1.1 [address] .3.133940 .8 2022-03-25 2022-03-25 [facility] [id number] Univers 13:55:00 22:59:00 ANNAMARIA de la o [facility] 2022-03-25 2022-03-25 Emergency Romeo [facility] 1.2.840.114 10 [id number] Univers 13:55:00 22:59:00 Annamaria MENG 350.1.13.10 jaylyn [facility] 4.2.7.2.686 [facility] [id number] [place] [address] [place] 2022-01-25 2022-01-25 Hospital Radiology [facility] 1.2.840.114 [id number] [id number] Univers 15:43:34 23:59:00 Encounter [place] 350.1.13.10 [facility] 4.2.7.2.686 [facility] [id number] [place] [address] [place] 2022-01-25 2022-01-25 Outpatient R RADIOLOGY [facility] [id number] Univers 15:38:14 15:42:00 ity of [facility] 2022-01-25 2022-01-25 Hospital Radiology [facility] 1.2.840.114 [id number] [id number] Univers 15:38:14 15:42:00 Encounter [place] 350.1.13.10 ity of [facility] 4.2.7.2.686 [facility] [id number] [address] 2022-01-25 2022-01-25 [facility] Radiology [facility] 1.2.840.114 [id number] Univers 15:30:00 15:37:00 Encounter [place] 350.1.13.10 ity of [place] 4.2.7.2.686 [facility] [id number] [address] 2021-12-27 2021-12-27 Orders Gilberto Mercedes 1.2.840.1 [id number] 21 [id number] Methodi 00:00:00 00:00:[address] S. 28611.1.[address] 3.430.2.7 Hospit a .3.892660 l .8 2021-12-27 2021-12-27 Orders Sera Mercedessh 1.2.840.1 [id number] 21 [id number] Methodi 00:00:00 00:00:[address] S. 40916.1.[address] 3.430.2.7 Hospit a .3.518523 l .8 2021-12-10 2021-12-10 Lab Nabor, 1.2.840.1 [id number] 1342 Methodi 13:30:00 13:35:[address] Jaquan 3.430.2.7 Hospit a Bravo .3.335676 l .8 2021-12-10 2021-12-10 Lab Nabor 1.2.840.1 [id number] 8274 Methodi 13:30:00 13:35:[address] Jaquan 3.430.2.7 Hospit a Bravo .3.831626 l .8 2021-12-10 2021-12-10 Multidisci Nabor, 1.2.840.1 [id number] 195 [id number] Methodi 11:30:00 12:04:59 plinary Eric 56099.1.[address] Visit Jaquan 3.430.2.7 Hospit a Bravo .3.643553 l .8 2021-12-10 2021-12-10 Multidisci Nabor, 1.2.840.1 [id number] 087 [id number] Methodi 11:30:00 12:04:59 plinary Eric [address]308.1.[address] Visit Jaquan 3.430.2.7 Hospit a Bravo .3.428460 l .8 2021-12-10 2021-12-10 Travel 1.2.840.1 1.2.625.293 8579 280520 Methodi 00:00:00 00:00:[address] 3.430.2.7 0.2.7.3.698 Ho spita .3.275352 084.8 l .8 2021-12-10 2021-12-10 [facility] [id number] 363 [place] 00:00:00 00:00:[address] ERIC [address] 2021-12-10 2021-12-10 Travel 1.2.840.1 1.2.435.966 5907 230472 Methodi 00:00:00 00:00:[address] 3.430.2.7 0.2.7.3.698 Ho spita .3.878787 084.8 l .8 2021-12-08 2021-12-08 Travel 1.2.840.1 1.2.455.247 3755 673623 Methodi 00:00:00 00:00:[address] 3.430.2.7 0.2.7.3.698 Ho spita .3.657521 084.8 l .8 2021-12-08 2021-12-08 Travel 1.2.840.1 1.2.656.815 7546 648015 Methodi 00:00:00 00:00:[address] 3.430.2.7 0.2.7.3.698 Ho spita .3.791060 084.8 l .8 2021-11-29 2021-11-29 Telephone Agustin, 1.2.840.1 [id number] 641 [id number] Methodi 00:00:00 00:00:[address] Jodie 3.430.2.7 Hospit a .3.211235 l .8 2021-11-29 2021-11-29 Telephone Agustin, 1.2.840.1 [id number] 599 [id number] Methodi 00:00:00 00:00:[address] Jodie 3.430.2.7 Hospit a .3.578930 l .8 2021-11-19 2021-11-19 Travel 1.2.840.1 1.2.212.588 8860 143967 Methodi 00:00:00 00:00:[address] 3.430.2.7 0.2.7.3.698 Ho spita .3.561794 084.8 l .8 2021-11-19 2021-11-19 Travel 1.2.840.1 1.2.685.805 8462 623780 Methodi 00:00:00 00:00:[address] 3.430.2.7 0.2.7.3.698 Ho spita .3.135076 084.8 l .8 2021-11-18 2021-11-18 TelemedicEamon Simms 1.2.840.1 1040 75029 [id number] Methodi 09:00:00 09:30:00 ne Saritha Vallejo 43550.1.[address] 3.430.2.7 Hospit a .3.125226 l .8 2021-11-18 2021-11-18 Telemedici Christine Eamon 1.2.840.1 1040 33546 [id number] Methodi 09:00:00 09:30:00 ne Saritha Vallejo 99574.1.[address] 3.430.2.7 Hospit a .3.803549 l .8 2021-11-17 2021-11-17 Office Howard, 1.2.840.4 [id number] 2099 577380 Methodi 12:00:00 17:25:53 Visit Kamala Santiagoge 01128.1.1 183 [address] t 3.430.2.7 Hospit a .3.665894 l .8 2021-11-17 2021-11-17 Office Howard, 1.2.840.4 [id number] 2099 998553 Methodi 12:00:00 17:25:53 Visit Kamala Santiagoge 68579.1.1 183 s t 3.430.2.7 Hospit a .3.845380 l .8 2021-11-17 2021-11-17 Orders Diana, 1.2.840.1 [id number] 36730 30234 Methodi 00:00:00 00:00:00 Only Lilliana 50094.1.[address] 3.430.2.7 Hospit a .3.860459 l .8 2021-11-17 2021-11-17 Orders Diana, 1.2.840.1 [id number] 25965 48384 Methodi 00:00:00 00:00:00 Only Lilliana [address]014.1.[address] 3.430.2.7 Hospit a .3.500335 l .8 2021-11-15 2021-11-15 Travel 1.2.840.1 1.2.175.955 3949 859543 Methodi 00:00:00 00:00:[address] 3.430.2.7 0.2.7.3.698 Ho spita .3.056603 084.8 l .8 2021-11-15 2021-11-15 Travel 1.2.840.1 1.2.064.640 3274 856780 Methodi 00:00:00 00:00:[address] 3.430.2.7 0.2.7.3.698 Ho spita .3.115115 084.8 l .8 2021-11-04 2021-11-12 [facility] 1.2.840.1 [id number] 0 [id number] Methodi 15:15:00 15:05:00 Encounter Daniel Walters O. 74754.1.[address] 3.430.2.7 Hospit a .3.035827 l .8 2021-11-04 2021-11-12 [facility] 1.2.840.1 [id number] 0 [id number] Methodi 15:15:00 15:05:00 Encounter [place]. [address].1.[address] 3.430.2.7 Hospit a .3.049477 l .8 2021-11-09 2021-11-09 Anesthesia Domenic Palomares 1.2.840.1 [id number] Methodi 09:49:00 12:44:00 Event Avi Monreal Vinnie 80371.1.[address] 3.430.2.7 Hospit a .3.726428 l .8 2021-11-09 2021-11-09 Anesthesia JelaniDomenicm 1.2.840.1 [id number] Methodi 09:49:00 12:44:00 Event Avi Monreal Vinnie 83841.1.[address] 3.430.2.7 Hospit a .3.587586 l .8 2021-11-09 2021-11-09 Surgery Nabor, 1.2.840.1 [id number] 655163 0453 Methodi 09:30:00 11:35:[address] Jaquan 3.430.2.7 Hospit a Bravo .3.072168 l .8 2021-11-09 2021-11-09 Surgery Nabor, 1.2.840.1 [id number] 417876 9476 Methodi 09:30:00 11:35:[address] Jaquan 3.430.2.7 Hospit a Bravo .3.953644 l .8 2021-11-05 2021-11-05 Surgery Ruth Fontaine 1.2.840.1 [id number] 010219 0502 Methodi 08:35:00 09:30:[address] 3.430.2.7 Hospit a .3.979459 l .8 2021-11-05 2021-11-05 Surgery Ruth Fontaine 1.2.840.1 [id number] 962489 5710 Methodi 08:35:00 09:30:[address] 3.430.2.7 Hospit a .3.139533 l .8 2021-11-04 [facility], 1.2.840.1 [id number] 669 [id number] Methodi 13:00:00 13:59:21 plinary Eric 40786.1.[address] Visit Jaquan 3.430.2.7 Hospit a Bravo .3.169120 l .8 2021-11-04 2021-11-04 [facility], 1.2.840.1 [id number] 730 [id number] Methodi 13:00:00 13:59:21 plinary Eric [address]295.1.[address] Visit Jaquan 3.430.2.7 Hospit a Bravo .3.576346 l .8 2021-11-04 2021-11-04 Travel 1.2.840.1 1.2.864.426 6725 138105 Methodi 00:00:00 00:00:[address] 3.430.2.7 0.2.7.3.698 Ho spita .3.893858 084.8 l .8 2021-11-04 2021-11-04 Travel 1.2.840.1 1.2.077.102 2795 768017 Methodi 00:00:00 00:00:[address] 3.430.2.7 0.2.7.3.698 Ho spita .3.758770 084.8 l .8 2021-11-03 2021-11-03 Telephone Nabor, 1.2.840.1 [id number] 2099 186497 Methodi 00:00:00 00:00:[address] Jaquan 3.430.2.7 Hospit a Bravo .3.339481 l .8 2021-11-03 2021-11-03 Travel 1.2.840.1 1.2.295.962 8504 851111 Methodi 00:00:00 00:00:[address] 3.430.2.7 0.2.7.3.698 Ho spita .3.436195 084.8 l .8 2021-11-03 2021-11-03 Orders [place]abor, 1.2.840.1 [id number] 315692 3740 Methodi 00:00:00 00:00:00 Only Eric 38398.1.[address] Jaquan 3.430.2.7 Hospit a Bravo .3.542860 l .8 2021-11-03 2021-11-03 Telephone [place]abor, 1.2.840.1 [id number] 2099 098798 Methodi 00:00:00 00:00:[address] Jaquan 3.430.2.7 Hospit a Bravo .3.652790 l .8 2021-11-03 2021-11-03 Travel 1.2.840.1 1.2.241.448 4545 879347 Methodi 00:00:00 00:00:[address] 3.430.2.7 0.2.7.3.698 Ho spita .3.942109 084.8 l .8 2021-11-03 2021-11-03 Orders Nabor, 1.2.840.1 [id number] 006817 1330 Methodi 00:00:00 00:00:00 Only Eric 94047.1.[address] Jaquan 3.430.2.7 Hospit a Bravo .3.574151 l .8 2021-11-01 2021-11-01 Lab [facility], 1.2.840.1 [id number] 27433 Methodi 12:15:00 12:20:00 Kamala Wilson 44537.1.1 828 s t 3.430.2.7 Hospit a .3.458012 l .8 2021-11-01 2021-11-01 Lab Howard, 1.2.840.1 [id number] Methodi 12:15:00 12:20:00 Kamala Wilson 91106.1.1 828 s t 3.430.2.7 Hospit a .3.437330 l .8 2021-11-01 2021-11-01 [facility] [place], 1.2.840.1 [id number] 2 [id number] Methodi 10:15:00 11:02:15 plinary Stefanie 01533.1.[address] Visit [place] 3.430.2.7 Hospit a .3.643737 l .8 2021-11-01 2021-11-01 [facility] Irvin, 1.2.840.1 [id number] 2 [id number] Methodi 10:15:00 11:02:15 plinary Stefanie 10061.1.[address] Visit [place] 3.430.2.7 Hospit a .3.143079 l .8 2021-11-01 2021-11-01 Travel 1.2.840.1 1.2.519.607 3084 077892 Methodi 00:00:00 00:00:[address] 3.430.2.7 0.2.7.3.698 Ho spita .3.257953 084.8 l .8 2021-11-01 2021-11-01 Travel 1.2.840.1 1.2.503.217 7977 887858 Methodi 00:00:00 00:00:[address] 3.430.2.7 0.2.7.3.698 Ho spita .3.349382 084.8 l .8 2021-11-01 2021-11-01 Outpatient [facility] [id number] 003 [place] 00:00:00 00:00:[address] 2021-10-29 2021-10-29 Travel 1.2.840.1 1.2.651.875 7083 653732 Methodi 00:00:00 00:00:[address] 3.430.2.7 0.2.7.3.698 Ho spita .3.371236 084.8 l .8 2021-10-29 2021-10-29 Travel 1.2.840.1 1.2.046.883 9945 904322 Methodi 00:00:00 00:00:[address] 3.430.2.7 0.2.7.3.698 Ho spita .3.440642 084.8 l .8 2021-10-26 2021-10-26 Orders Mar, Martha 1.2.840.4 [id number] Methodi 00:00:00 00:00:00 Only C 75982.1.[address] 3.430.2.7 Hospit a .3.633923 l .8 2021-10-26 2021-10-26 Orders Mar, Martha 1.2.840.4 [id number] Methodi 00:00:00 00:00:00 Only C 30163.1.[address] 3.430.2.7 Hospit a .3.828029 l .8 2021-10-15 2021-10-15 Multidisci Nabor, 1.2.840.1 [id number] 336 [id number] Methodi 10:30:00 11:43:40 plinary Eric 91122.1.[address] Visit Jaquan 3.430.2.7 Hospit a Bravo .3.190296 l .8 2021-10-15 2021-10-15 Multidisci Nabor, 1.2.840.1 [id number] 684 [id number] Methodi 10:30:00 11:43:40 plinary Eric 78488.1.[address] Visit Jaquan 3.430.2.7 Hospit a Bravo .3.267767 l .8 2021-10-15 2021-10-15 Travel 1.2.840.1 1.2.537.443 2079 283810 Methodi 00:00:00 00:00:[address] 3.430.2.7 0.2.7.3.698 Ho spita .3.711774 084.8 l .8 2021-10-15 2021-10-15 Travel 1.2.840.1 1.2.424.742 5030 262609 Methodi 00:00:00 00:00:[address] 3.430.2.7 0.2.7.3.698 Ho spita .3.216018 084.8 l .8 2021-10-13 2021-10-13 Orders Diana, 1.2.840.1 [id number] Methodi 00:00:00 00:00:00 Only Lilliana 37277.1.[address] 3.430.2.7 Hospit a .3.239826 l .8 2021-10-13 2021-10-13 Orders Diana, 1.2.840.1 [id number] Methodi 00:00:00 00:00:00 Only Lilliana 34191.1.[address] 3.430.2.7 Hospit a .3.771521 l .8 2021-10-12 2021-10-12 Telephone Flores, 1.2.840.1 [id number] 2100 583021 Methodi 00:00:00 00:00:[address] 3.430.2.7 Hospit a .3.221843 l .8 2021-10-12 2021-10-12 Telephone Mark, 1.2.840.1 [id number] 2099 162365 Methodi 00:00:00 00:00:[address] 3.430.2.7 Hospit a .3.563173 l .8 2021-10-11 2021-10-11 Patient Anjali, 1.2.840.1 [id number] 19147 06601 Methodi 00:00:00 00:00:00 Outreach Priscilla Sheltoncia 64294.1.[address] 3.430.2.7 Hospit a .3.343927 l .8 2021-10-11 2021-10-11 Telephone Gilberto Mercedes 1.2.840.1 [id number] Methodi 00:00:00 00:00:[address] 3.430.2.7 Hospit a .3.403396 l .8 2021-09-27 2021-10-08 [facility] 1.2.840.1 10 [id number] Methodi 16:56:00 14:46:00 Encounter Daniel Walters 53658.1.[address] 3.430.2.7 Hospit a .3.487241 l .8 2021-10-07 2021-10-07 Surgery Gilberto Mercedes 1.2.840.1 [id number] 21 [id number] Methodi 16:05:00 18:25:[address] 3.430.2.7 Hospit a .3.026029 l .8 2021-10-05 2021-10-05 Anesthesia Moo You 1.2.840.1 [id number] Methodi 13:57:00 16:31:00 Event Elizabeth Cope 45089.1.[address] 3.430.2.7 Hospit a .3.870928 l .8 2021-10-05 2021-10-05 Surgery Dina, 1.2.840.1 [id number] 76760 50855 Methodi 13:35:00 15:55:[address] Jacob 3.430.2.7 Hospit a .3.671675 l .8 2021-09-28 2021-09-28 Orders Skip, 1.2.840.1 [id number] 2099 173118 Methodi 00:00:00 00:00:00 Only Latoya 97244.1.[address] 3.430.2.7 Hospit a .3.617184 l .8 2021-09-27 2021-09-27 Travel 1.2.840.1 1.2.267.254 6408 081185 Methodi 00:00:00 00:00:[address] 3.430.2.7 0.2.7.3.698 Ho spita .3.337940 084.8 l .8 2021-09-27 2021-09-27 Telephone Grace, 1.2.840.1 [id number] 027 [id number] Methodi 00:00:00 00:00:[address] 3.430.2.7 Hospit a .3.144600 l .8 2021-09-24 2021-09-24 Hospital [facility], 1.2.840.1 [id number] 80378 66659 Methodi 06:31:00 12:25:00 Encounter Eric 51389.1.[address] Jaquan 3.430.2.7 Hospit a Bravo .3.320637 l .8 2021-09-24 2021-09-24 Anesthesia Pal Mcmanus 1.2.840.1 [id number] Methodi 10:30:00 11:33:00 Event Dione Carr 57492.1.[address] 3.430.2.7 Hospit a .3.646141 l .8 2021-09-24 2021-09-24 Outpatient LOLA ANDUJAR [facility] 10 [id number] Univers 11:00:00 11:00:00 LOLA CABRERA i [facility] 2021-09-21 2021-09-21 Travel 1.2.840.1 1.2.769.791 8853 156416 Methodi 00:00:00 00:00:[address] 3.430.2.7 0.2.7.3.698 Ho spita .3.884933 084.8 l .8 2021-09-20 2021-09-20 Outpatient Dawood LORENZANA [facility] 07623 80422 Univers 15:15:00 15:15:00 KIMMY de la o [facility] 2021-09-15 2021-09-15 Travel 1.2.840.1 1.2.700.892 9689 045695 Methodi 00:00:00 00:00:[address] 3.430.2.7 0.2.7.3.698 Ho spita .3.672570 084.8 l .8 2021-09-15 2021-09-15 Orders Grace, 1.2.840.1 [id number] 55208 06453 Methodi 00:00:00 00:00:00 Only Susan 04533.1.[address] 3.430.2.7 Hospit a .3.098578 l .8 2021-09-14 2021-09-14 Orders Grace, 1.2.840.1 [id number] 21515 43754 Methodi 00:00:00 00:00:00 Only Susan 44738.1.[address] 3.430.2.7 Hospit a .3.320961 l .8 2021-09-10 2021-09-10 [facility], 1.2.840.1 [id number] 09582 36006 Methodi 12:56:34 23:59:00 Encounter Eric 18745.1.[address] Jaquan 3.430.2.7 Hospit a Bravo .3.489324 l .8 2021-09-10 2021-09-10 Lab Nabor, 1.2.840.1 [id number] 046219 7232 Methodi 12:20:00 12:25:[address] Jaquan 3.430.2.7 Hospit a Bravo .3.172492 l .8 2021-09-10 2021-09-10 [facility], 1.2.840.1 [id number] 161 [id number] Methodi 09:30:00 11:50:20 plinary Eric [address]183.1.[address] Visit Jaquan 3.430.2.7 Hospit a Bravo .3.350591 l .8 2021-09-10 2021-09-10 [facility] [id number] 942 [place] 00:00:00 00:00:[address] ERIC [address] 2021-09-09 2021-09-09 Travel 1.2.840.1 1.2.600.009 8123 999975 Methodi 00:00:00 00:00:[address] 3.430.2.7 0.2.7.3.698 Ho spita .3.998901 084.8 l .8 2021-08-30 2021-08-30 Telephone Tru, 1.2.840.1 [id number] 2099 622287 Methodi 00:00:00 00:00:[address] 3.430.2.7 Hospit a .3.469743 l .8 2021-05-25 2021-05-25 Telephone Sanjay, 1.2.840.1 [id number] 021 [id number] Methodi 00:00:00 00:00:[address] 3.430.2.7 Hospit a .3.470848 l .8 2021-01-29 2021-01-29 [facility], 1.2.840.1 [id number] 598 [id number] Methodi 08:15:08 09:15:09 plinary Eric 30148.1.[address] Visit Jaquan 3.430.2.7 Hospit a Bravo .3.188147 l .8 2021-01-29 2021-01-29 Travel 1.2.840.1 1.2.511.196 4743 223132 Methodi 00:00:00 00:00:[address] 3.430.2.7 0.2.7.3.698 Ho spita .3.053937 084.8 l .8 2021-01-27 2021-01-27 [facility] 1.2.840.1 [id number] 24947 43663 Methodi 09:27:49 23:59:00 Encounter Eric 19888.1.[address] Jaquan 3.430.2.7 Hospit a Bravo .3.803801 l .8 2021-01-27 2021-01-27 [facility], 1.2.840.1 [id number] 2099 060408 Methodi 00:00:00 00:00:[address] 3.430.2.7 Hospit a .3.970609 l .8 2021-01-27 2021-01-27 Travel 1.2.840.1 1.2.313.443 1466 362904 Methodi 00:00:00 00:00:[address] 3.430.2.7 0.2.7.3.698 Ho spita .3.526406 084.8 l .8 2021-01-25 2021-01-25 [facility] 1.2.840.1 [id number] 79104 Methodi 09:21:06 23:59:00 Encounter Eric 65463.1.[address] Jaquan 3.430.2.7 Hospit a Bravo .3.941921 l .8 2021-01-25 2021-01-25 Travel 1.2.840.1 1.2.502.470 1268 013507 Methodi 00:00:00 00:00:[address] 3.430.2.7 0.2.7.3.698 Ho spita .3.608104 084.8 l .8 2021-01-22 2021-01-22 Travel 1.2.840.1 1.2.618.956 5813 621155 Methodi 00:00:00 00:00:[address] 3.430.2.7 0.2.7.3.698 Ho spita .3.066088 084.8 l .8 2021-01-20 2021-01-20 Onesimo Pineda 1.2.840.1 [id number] 2099 456963 Methodi 00:00:00 00:00:[address] Jaquan 3.430.2.7 Hospit a Bravo .3.880492 l .8 2021-01-20 2021-01-20 Travel 1.2.840.1 1.2.036.583 1994 343780 Methodi 00:00:00 00:00:[address] 3.430.2.7 0.2.7.3.698 Ho spita .3.965879 084.8 l .8 2020-12-28 2020-12-28 Patient Jin Felder 1.2.840.1 [id number] 21 [id number] Methodi 00:00:00 00:00:[address] 3.430.2.7 Hospit a .3.775790 l .8 2020-12-08 2020-12-25 Danni Walters 1.2.840.1 [id number] 030 [id number] Methodi 21:49:00 20:02:[address] M[address]955.1.[address] 3.430.2.7 Hospit a .3.007967 l .8 2020-12-25 2020-12-25 Maria Eugenia Matthews, 1.2.840.1 [id number] 641114 4751 Methodi 00:00:00 00:00:00 Only Onelia Martinez 10834.1.[address] 3.430.2.7 Hospit a .3.870567 l .8 2020-12-14 2020-12-14 Surgery Norman, 1.2.840.1 [id number] 39371 40972 Methodi 12:45:00 14:15:[address] Dylan 3.430.2.7 Hospi ta .3.683677 l .8 2020-12-14 2020-12-14 Anesthesia Christal Muller 1.2.840.1 [id number] Methodi 12:45:00 13:26:00 Event MarleyAvi ortiz 79059.1.[address] 3.430.2.7 Hospit a .3.591938 l .8 2020-12-11 2020-12-11 Surgery John Theodore 1.2.840.1 [id number] 602 [id number] Methodi 12:35:00 14:00:[address] 3.430.2.7 Hospit a .3.096258 l .8 2020-12-11 2020-12-11 Anesthesia Estrada, 1.2.840.1 [id number] 2 [id number] Methodi 12:35:00 12:35:[address] Event Tawanna 74323.1.[address] 3.430.2.7 Hospit a .3.406541 l .8 2020-11-03 2020-11-09 [facility] LEN Yandy Agustín Mary [facility] [id number] [facility] St 17:50:00 18:33:00 [facility]counter [facility], [facility]as 2020-11-03 2020-11-03 Travel [facility] [id number] [facility] 00[facility]00 [facility] Results Test Description Test Time Test Comments Results Result Comments Source Basic metabolic panel 2022-10-11 00:41:00 Test Item Value Reference Range Interpretation Comme nts Glucose (test code = 167 mg/dL 65-99 H Fastin g reference 2345-7) interval For so meone without known d iabetes, a glucosevalue >125 mg/dL indicates that they may havedi abetes and this should be confirmed with afollow-up test . BUN (test code = 3094-0) 58 mg/dL 7-25 H Creatinine (test code = 1.26 mg/dL 0.70-1.28 2160-0) eGFR (test code = 58 See_Comment L [Automate d message] 10643-6) The system [employer] h generated this result transmitted ref erence range: > OR = 6 0 mL/min/1.73m2. The reference range was not used to interpr et this result as normal/abnormal . BUN/creatinine ratio 46 See_Comment H [Autom ated message] (test code = 3097-3) The sys tem which generated this result transmitted ref erence range: 6 - 22 ( calc). The reference r fausto was not used to int erpret this result as normal/abnormal . Sodium (test code = 132 mmol/L 135-146 L 2951-2) Potassium (test code = 3.0 mmol/L 3.5-5.3 L 2823-3) Chloride (test code = 87 mmol/L 98-110 L 2075-0) CO2 (test code = 8-9) 34 mmol/L 20-32 H Calcium (test code = 9.4 mg/dL 8.6-10.3 36723-0) PROSPER (test code = PROSPER) FASTING:UNKNOWN FASTING: UNKNOWN RAC (test code = RAC) Performing Organization Information: Site ID: RGA Name: [facility] Lab Address: [address] [place] [id number] Director: Yenni Franoc Lab Interpretation (test Abnormal code = 68912-3) [facility] with platelet and [id number] 00:41:00 Test Item Value Reference Range Interpretation Comments WBC (test code = 15.5 See_Comment H [Automated 7769-2) message] The system which generated this result transmitted reference range : 3.8 - 10.8 Thousand/uL. Th e reference range was not used to interpret this result as normal/abnormal . RBC (test code = 4.79 See_Comment [Automated 789-8) message] The system which generated this result transmitted reference range : 4.20 - 5.80 Million/uL. The reference range was not used to interpret this result as normal/abnormal . HGB (test code = 15.8 g/dL 13.2-17.1 718-7) HCT (test code = 45.9 % 38.5-50.0 4544-3) MCV (test code = 95.8 fL 80.0-100.0 787-2) MCH (test code = 33.0 pg 27.0-33.0 785-6) MCHC (test code = 34.4 g/dL 32.0-36.0 786-4) RDW (test code = 15.1 % 11.0-15.0 H 788-0) Platelet count (test 243 See_Comment [Autom ated code = 777-3) message] The system which generated this result transmitted reference range : 140 - 400 Thousand/uL. Th e reference range was not used to interpret this result as normal/abnormal . MPV (test code = 8.9 fL 7.5-12.5 776-5) Neutrophils, [address] See_Comment H [Automated absolute (test code message] The = 751-8) system which generated this result transmitted reference range : 1,500 - 7,800 cells/uL. The reference range was not used to interpret this result as normal/abnormal . Lymphocytes, 744 See_Comment L [Automated absolute (test code message] The = 731-0) system which generated this result transmitted reference range : 850 - 3,900 cells/uL. The reference range was not used to interpret this result as normal/abnormal . Monocytes, absolute 1070 See_Comment H [Automa alejandra (test code = 742-7) message] The system which generated this result transmitted reference range : 200 - 950 cells/uL. The reference range was not used to interpret this result as normal/abnormal . Eosinophils, 78 See_Comment [Automated absolute (test code message] The = 711-2) system which generated this result transmitted reference range : 15 - 500 cells/uL. The reference range was not used to interpret this result as normal/abnormal . Basophils, absolute 31 See_Comment [Automa alejandra (test code = 704-7) message] The system which generated this result transmitted reference range : 0 - 200 cells/u L. The reference range was not used to interpr et this result as normal/abnormal . Neutrophils (test 87.6 % code = 770-8) Lymphocytes (test 4.8 % code = 736-9) Monocytes (test code 6.9 % = 5905-5) Eosinophils (test 0.5 % code = 713-8) Basophils + RC (test 0.2 % code = 706-2) PROSPER (test code = FASTING:UNKNOWN PROSPER) FASTING: UNKNOWN RAC (test code = Performing RAC) Organization Information: Site ID: RGA Name: [employer] [facility] Lab Address: [address] [place] [id number] Director: Yenni Franco Lab Interpretation Abnormal (test code = 69811-4) [facility] [id number] 13:08:00 Test Item Value Reference Range Interpretation Comments POC glucose (test code = 108 mg/dL 65-99 H Ope rator Name: [id number]) Romy FisherSumi evice ID: [id number] able: [facility] Notified joint sealer Interpretation (test Abnormal code = 10518-3) [facility] 12 [id number] 03:01:03 Test Item Value Reference Range Interpretation Comments Ventricular rate 80 (test code = 253) Atrial rate (test 37 code = 255) QRSD interval (test 184 code = 260) QT interval (test 480 code = 264) QTC interval (test 553 code = 265) QRS axis 1 (test 258 code = 268) T wave axis (test 56 code = 270) EKG impression (test Atrial fibrillation with code = 273) frequent ventricular-paced complexes-Right superior axis deviation-Nonspecific intraventricular block-Anterolateral infarct , age undetermined-Abnormal ECG[facility] [id number] 20:40:23 Test Item Value Reference Range Interpretation Comments Case number (test code = [id number]) Cytology See link below for (non-gynecological) PDF Lab Report report (test code = 1178) Result status (test code This is Final Report = [id number]) for [id number] [facility] [id number] 17:13:28 Test Item Value Reference Range Interpretation Comments Case number (test code = [id number]) Flow cytometry evaluation See link below for PDF (test code = 8053358) PDF Lab Report [facility] [id number] 11:02:00 Test Item Value Reference Range Interpretation Comments Urine culture (test SEE COMMENT Bacteriu rossana screen code = 2437066) negative. [facility]th[facility] Time / [id number] 21:32:14 Test Item Value Reference Range Interpretation Comments PROTIME PATIENT (test 23.4 See_Comment H [Auto mated message] code = 5964-2) The system [employer] generated this result transmitted ref erence range: 12.0 - 1 4.7 Seconds. The reference range was not used to int erpret this result as normal/abnormal . INR (test code = 6301-6) 2.1 Nor mal INR <1.1; Warfarin Therap eutic range 2.0 to 3. 0 or 2.5 to 3.5, dep ending upon the indica tions. Lab Interpretation (test Abnormal code = 80245-9) [facility] [id number] 18:50:06 Test Item Value Reference Range Interpretation Comments TROPONIN I (test code = 0.256 ng/mL <=0.034 H 6173939328) PROSPER (test code = PROSPER) Reference (Normal) [...] to patient's use of biotin. Lab Interpretation Abnormal (test code = 87487-2) [facility] Temple[facility]-TERMINAL [id number] 18:48:39 Test Item Value Reference Range Interpretation Comments NT-proBNP (test code = 40572 pg/mL <=450 H 1077700720) PROSPER (test code = PROSPER) Biotin has been reported to cause a negative bias, interpret results relative to patient's use of biotin. Lab Interpretation (test Abnormal code = 28429-1) [facility]2023-07-12 18:40:00 Test Item Value Reference Range Interpretation Comments MAGNESIUM (test code = 1162565497) 2.1 mg/dL 1.7-2.4 Lab Interpretation (test code = Normal 83258-0) [facility] METABOLIC PANEL (04835)2022-08-31 18:39:44 Test Item Value Reference Range Interpretation Comments NA (test code = 132 mmol/L 135-145 L 9061315845) K (test code = 4.2 mmol/L 3.5-5.0 2794940168) CL (test code = 92 mmol/L 98-108 L 5598420768) CO2 TOTAL (test code = 25 mmol/L 23-31 7692365775) AGAP (test code = 15 2-16 9984326212) BUN (test code = 44 mg/dL 7-23 H 2568224219) GLUCOSE (test code = 158 mg/dL 70-110 H 7041188543) CREATININE (test code = 1.65 mg/dL 0.60-1.25 H 0470612961) TOTAL BILI (test code = 4.7 mg/dL 0.1-1.1 H 8069868247) CALCIUM (test code = 9.7 mg/dL 8.6-10.6 7874999153) T PROTEIN (test code = 8.4 g/dL 6.3-8.2 H 3666216792) ALBUMIN (test code = 4.4 g/dL 3.5-5.0 8613562435) ALK PHOS (test code = 117 U/L 34-122 1752318534) ALTv (test code = 26 U/L 5-50 1742-6) AST(SGOT) (test code = 51 U/L 13-40 H 5645045904) eGFR (test code = 40.4 mL/min/1.73m2 2321662822) PROSPER (test code = PROSPER) Association of [...] tests). Lab Interpretation Abnormal (test code = 15193-6) [facility]2023-07-12 18:39:28 Test Item Value Reference Range Interpretation Comments LIPASE (test code = 4719949580) 218 U/L 0-220 Lab Interpretation (test code = Normal 89938-8) [facility] WITH [id number] 18:26:00 Test Item Value Reference Range Interpretation Comments WBC (test code = 11.01 See_Comment H [Automated 3856-2) message] The sy stem which generated this result transmitted reference range : 4.20 - 10.70 10*3/?L. The reference range was not used to interpret this result as normal/abnormal . RBC (test code = 5.78 See_Comment H [Automated 359-8) message] The sy stem which generated this result transmitted reference range : 4.26 - 5.52 10*6/?L. The reference range was not used to interpret this result as normal/abnormal . HGB (test code = 19.6 g/dL 12.2-16.4 H 718-7) HCT (test code = 56.1 % 38.4-49.3 H 4544-3) MCV (test code = 97.1 fL 81.7-95.6 H 787-2) MCH (test code = 33.9 pg 26.1-32.7 H 785-6) MCHC (test code = 34.9 g/dL 31.2-35.0 786-4) RDW-SD (test code = 56.8 fL 38.5-51.6 H 31326-6) RDW-CV (test code = 16.6 % 12.1-15.4 H 788-0) PLT (test code = 240 See_Comment [Automated 777-3) message] The sy stem which generated this result transmitted reference range : 150 - 328 10*3/ ?L. The reference r fausto was not used to interpret this result as normal/abnormal . MPV (test code = 9.1 fL 9.8-13.0 L 03835-0) NRBC/100 WBC (test 0.0 See_Comment [Automat ed code = 1250097417) message] The system which generated this result transmitted reference range : 0.0 - 10.0 /100 WBCs. The refer ence range was not u sed to interpret th is result as normal/abnormal . NRBC x10^3 (test code See_Comment [Auto mated = 5104776902) message] The s ystem which generated this result transmitted reference range : 10*3/?L. The reference range was not used to interpret this result as normal/abnormal . GRAN MAT (NEUT) % 74.1 % (test code = 770-8) IMM GRAN % (test code 0.60 % = 0962969780) LYMPH % (test code = 15.8 % 736-9) MONO % (test code = 8.7 % 5905-5) EOS % (test code = 0.4 % 713-8) BASO % (test code = 0.4 % 706-2) GRAN MAT x10^3(ANC) 8.16 10*3/uL 1.99-6.95 H (test code = 0079192075) IMM GRAN x10^3 (test 0.07 10*3/uL 0.00-0.06 H code = 6532939798) LYMPH x10^3 (test code 1.74 10*3/uL 1.09-3.23 = 731-0) MONO x10^3 (test code 0.96 10*3/uL 0.36-1.02 = 742-7) EOS x10^3 (test code = 0.04 10*3/uL 0.06-0.53 L 711-2) BASO x10^3 (test code 0.04 10*3/uL 0.01-0.09 = 704-7) Lab Interpretation Abnormal (test code = 62835-1) [facility] [id number] 18:18:00 Test Item Value Reference Range Interpretation Comments POC glucose (test code = 143 mg/dL 65-99 H Ope rator Name: Tru [id number]) Jamilah Richard e ID: [id number] able : [facility] Notified RNChartable: No Action Needed Lab Interpretation (test Abnormal code = 78147-1) [facility] 12 [id number] 16:43:34 Test Item Value Reference Range Interpretation [...] 11:56,-Vent. rate has increased BY 4 BPM- [facility] WITH [id number] 21:54:57 Test Item Value Reference Range Interpretation Comments WBC (test code = 9.66 See_Comment [Automated 3190-2) message] The sy stem which generated this result transmitted reference range : 4.20 - 10.70 10*3/?L. The reference range was not used to interpret this result as normal/abnormal . RBC (test code = 5.93 See_Comment H [Automated 789-8) message] The sy stem which generated this [...] RDW-SD (test code = Not Gaurav ured 30307-7) RDW-CV (test code = Not Gaurav ured 788-0) PLT (test code = 308 See_Comment [Automated 777-3) message] The sy stem which generated this result transmitted reference range : 150 - 328 10*3/ ?L. The reference r fausto was not used to interpret this result as normal/abnormal . MPV (test code = 8.6 fL 9.8-13.0 L 48171-6) NRBC/100 WBC (test 0.2 See_Comment [Automat ed code = 6549647553) message] The system which generated this result transmitted reference range : 0.0 - 10.0 /100 WBCs. The refer ence range was not u sed to interpret th is result as normal/abnormal . NRBC x10^3 (test code 0.02 See_Comment [Auto mated = 3389643815) message] The s ystem which generated this result transmitted reference range : 10*3/?L. The reference range was not used to interpret this result as normal/abnormal . GRAN MAT (NEUT) % 71.2 % (test code = 770-8) IMM GRAN % (test code 0.60 % = 0215247730) LYMPH % (test code = 19.3 % 736-9) MONO % (test code = 8.5 % 5905-5) EOS % (test code = 0.1 % 713-8) BASO % (test code = 0.3 % 706-2) GRAN MAT x10^3(ANC) 6.88 10*3/uL 1.99-6.95 (test code = 9600748746) IMM GRAN x10^3 (test 0.06 10*3/uL 0.00-0.06 code = 9787960503) LYMPH x10^3 (test code 1.86 10*3/uL 1.09-3.23 = 731-0) MONO x10^3 (test code 0.82 10*3/uL 0.36-1.02 = 742-7) EOS x10^3 (test code = 0.06-0.53 L 711-2) BASO x10^3 (test code 0.03 10*3/uL 0.01-0.09 = 704-7) BASO STIPPLING (test Present A code = 703-9) POLYCHROMASIA (test 2+ See_Comment [Automa alejandra code = 69856-3) message] The system which generated this result [...] . Lab Interpretation Abnormal (test code = 44197-1) [id number]00 Test Item Value Reference Range Interpretation Comments TROPONIN I (test code = 0.026 ng/mL <=0.034 8100425699) PROSPER (test code = PROSPER) Reference (Normal) [...] biotin. Lab Interpretation Normal (test code = 78128-1) [facility] [id number] 21:24:00 Test Item Value Reference Range Interpretation Comments NT-proBNP (test code = 11609 pg/mL <=450 H 0767921328) PROSPER (test code = PROSPER) Biotin has been reported to cause a negative bias, interpret results relative to patient's use of biotin. Lab Interpretation (test Abnormal code = 73509-9) [facility]. METABOLIC PANEL (74211)2022-03-25 21:17:37 Test Item Value Reference Range Interpretation Comments NA (test code = 134 mmol/L 135-145 L 3022946699) K (test code = 5.3 mmol/L 3.5-5.0 H 8670405828) CL (test code = 97 mmol/L 98-108 L 1288734131) CO2 TOTAL (test code = 25 mmol/L 23-31 7499124644) AGAP (test code = 12 2-16 4398351585) BUN (test code = 44 mg/dL 7-23 H 4439969679) GLUCOSE (test code = 136 mg/dL 70-110 H 2928402031) CREATININE (test code = 2.29 mg/dL 0.60-1.25 H 6411080212) TOTAL BILI (test code = 2.1 mg/dL 0.1-1.1 H 1660405724) CALCIUM (test code = 9.2 mg/dL 8.6-10.6 0801627907) T PROTEIN (test code = 6.7 g/dL 6.3-8.2 1511730939) ALBUMIN (test code = 4.1 g/dL 3.5-5.0 8311724850) ALK PHOS (test code = 171 U/L 34-122 H 8119813269) ALTv (test code = 327 U/L 5-50 H 1742-6) AST(SGOT) (test code = 611 U/L 13-40 H [id number]) eGFR (test code = 27.7 mL/min/1.73m2 1165565036) PROSPER (test code = PROSPER) Association of [...] tests). Lab Interpretation Abnormal (test code = 52897-0) [facility] 21:17:37 Test Item Value Reference Range Interpretation Comments MAGNESIUM (test code = 8674623519) 2.2 mg/dL 1.7-2.4 Lab Interpretation (test code = Normal 02285-1) [facility] TemplePROTHROMBIN TIME / [id number] 21:17:01 Test Item Value Reference Range Interpretation Comments PROTIME PATIENT (test 33.8 See_Comment H [Auto mated message] code = 5964-2) The system Secoo generated this result transmitted ref erence range: 12.0 - 1 4.7 Seconds. The reference range was not used to int erpret this result as normal/abnormal . INR (test code = 6301-6) 3.5 Nor mal INR <1.1; Warfarin Therap eutic range 2.0 to 3. 0 or 2.5 to 3.5, dep ending upon the indica tions. Lab Interpretation (test Abnormal code = 59984-8) [facility] TempleParathyroid fvporgb4415-49-84 16:56:00 Test Item Value Reference Interpretation Comments [...] = Performing RAC) Organization Information: Site ID: A [facility] Address: [address] [place] [phone] Director: Eliazar Srtange Lab Abnormal Interpretation (test code = 30743-2) [facility]osph[facility] elskl1644-77-59 16:56:00 Test Item Value Reference Range Interpretation Comments Phosphorus (test code 3.3 mg/dL 2.1-4.3 = 2777-1) PROSPER (test code = PROSPER) FASTING:UNKNOWN FASTING: UNKNOWN RAC (test code = RAC) Performing Organization Information: Site ID: A [facility]: [facility] Address: [address] [place] [phone] Director: Eliazar Strange [facility]vineUric acid ugsuk3080-30-09 16:56:00 Test Item Value Reference Range Interpretation Comments Uric acid 8.0 mg/dL 4.0-8.0 Therapeutic tar get (test code = for gout patien ts: 3084-1) <6.0 mg/dL PROSPER (test FASTING:UNKNOWN code = PROSPER) FASTING: UNKNOWN RAC (test Performing code = RAC) Organization Information: Site ID: RGA [facility]: [facility] Address: [address] [place] [phone] Director: Eliazar Strange [facility]vine[facility]athyroid sesdsmc6036-83-45 16:56:00 Test Item Value Reference Interpretation Comments Range PTH (test code = 93 pg/mL 16-77 H Interpreti ve Guide Intact 2731-8) PTH Calcium-------- ---- ---Normal Parathyroid Nor mal NormalHypoparat hyroidism Low or Low Norm al LowHyperparathy roidism Primary Normal or High High Secondary High Normal or Low T ertiary High HighNon-Pa rathyroid Hypercalcemia L ow or Low Normal High PROSPER (test code = FASTING:UNKNOWN PROSPER) FASTING: UNKNOWN RAC (test code = Performing RAC) Organization Information: Site ID: A [facility] Address: [address] [place] [phone] Director: Eliazar Strange Lab Abnormal Interpretation (test code = 73339-2) [facility]vine[facility] acid thfbs6161-01-94 16:56:00 Test Item Value Reference Range Interpretation Comments Uric acid 8.0 mg/dL 4.0-8.0 Therapeutic tar get (test code = for gout patien ts: 3084-1) <6.0 mg/dL PROSPER (test FASTING:UNKNOWN code = PROSPER) FASTING: UNKNOWN RAC (test Performing code = RAC) Organization Information: Site ID: RGA [facility] Address: [address] [place] [phone] Director: Eliazar Lawson ItyjocklCIKZ-IqA-7 (COVID-19) RNA [Presence] in Respiratory specimen by LON with probe wrunwiajf0106-08-79 01:10:17 Test Item Value Reference Range Interpretation Comments SARS-CoV-2 (COVID-19) RNA Not detected [Presence] in Respiratory specimen by LON with probe detection (test code = 31313-4) Whether patient is employed in a Unknown healthcare setting (test code = 28755-1) Whether the patient has symptoms Unknown related to condition of interest (test code = 07551-5) Whether the patient was Unknown hospitalized for condition of interest (test code = 82762-5) Whether the patient was admitted Unknown to intensive care unit (ICU) for condition of interest (test code = 16335-2) Whether patient resides in a Unknown congregate care setting (test code = 75697-9) status (test code = Unknown 08470-8) Date and time of symptom onset Unknown (test code = 70423-6) [facility] WESTPortable Oxygen Concentrator - POC Vfne4208-22-46 23:01:07 Test Item Value Reference Interpretation Comments Range SUPPLIER NAME [employer] [place] (test code = 6415) SUPPLIER PHONE (test code = 6416) ORDER STATUS Delivery (test code = Successful [...] DELIVERY 10/08/2021 DATE (test code = 6422) [facility]/Post [id number] 13:28:21 Test Item Value Reference Range Interpretation [...] conduction-Electronic ally Signed By Ariel Panchal MD ([id number]) on 10/08/2021 8:28:19 AM [facility] [id number] 22:05:00 Test Item Value Reference Range Interpretation Comments Product name (test code Red Blood Cells -1, = 25) Leukored Unit number (test code [id number] = 7034105) Product code (test code W2001L81 = 3092) Dispense status (test Returned to BB not code = 24) transfused Blood expiration date (test code = 302) Blood type code (test 1700 code = 308) Blood type (test code = B NEGATIVE 1314) Compatibility (test Compatible code = 6400) [facility]vineActivated clotting lftm4223-54-33 20:39:00 Test Item Value Reference Range Interpretation Comments Activated clotting 116 See_Comment National Park Ranger Name: Estrada shira (test code = Luciano Valera ID: [id number]) [id number] [Autom ated message] The sy stem which generated this result transmitted ref erence range: 96 - 152 sec. The reference range was not used to interpr et this result as stan l/abnormal. [facility] arterial blood gas, corrected and kuvcx7458-43-47 20:38:00 Test Item Value Reference Range Interpretation Comments pH, arterial (test 7.36 7.35-7.45 code = 2744-1) pCO2, arterial (test 47 See_Comment H [Autom ated code = 2018-09) message] The system which generated this result [...] pH, arterial 7.37 corrected (test code = 90109-9) pCO2, arterial 45 mmHg corrected (test code = 88890-9) pO2, arterial Unable to mmHg National [employer] Ranger ID: corrected (test code report Pretty z = 11692-3) TawannaDenadeeme I D: [id number] Base excess, arterial 0 See_Comment [Auto mated (test code = 1925-7) message ] The system which generated this result transmitted reference range : -2 - 2 mEq/L. The reference range was not used to interpret this result as normal/abnormal . Hemoglobin, syringe 10.3 g/dL 14.0-18.0 L (test code = 718-7) Potassium, syringe 3.9 See_Comment [Automat ed (test code = 2008) message] The system which generated this result [...] 1.23 mmol/L 1.11-1.32 arterial (test code = 85590-8) Glucose, syringe 134 mg/dL 65-99 H (test code = 2345-7) Lactic acid, syringe 1.3 mmol/L 0.5-2.2 (test code = 78116-2) Lab Interpretation Abnormal (test code = 35812-0) [facility] RNA [Presence] in Respiratory specimen by LON with probe bejnxrxyu7790-98-71 22:42:44 Test Item Value Reference Range Interpretation Comments SARS-CoV-2 (COVID-19) RNA Not detected [Presence] in Respiratory specimen by LON with probe detection (test code = 52080-3) Whether patient is employed in a Unknown healthcare setting (test code = 80956-7) Whether the patient has symptoms Unknown related to condition of interest (test code = 87136-9) Whether the patient was Unknown hospitalized for condition of interest (test code = 67563-5) Whether the patient was admitted Unknown to intensive care unit (ICU) for condition of interest (test code = 52871-8) Whether patient resides in a Unknown congregate care setting (test code = 53704-3) status (test code = Unknown 35346-6) Date and time of symptom onset Unknown (test code = 31966-5) [facility] resahlxreg7641-21-35 01:49:04 Test Item Value Reference Range Interpretation [...] Predicted (test code = 85.8 % 5368) [facility] xsschwm8679-40-22 09:30:00 Test Item Value Reference Range Interpretation Comments Urine culture (test SEE COMMENT Bacteriu rossana screen code = 0728546) negative. [facility] ED Preliminary Interpretation - Not an Clpcn0888-61-40 03:22:32 Test Item Value Reference Range Interpretation Comments PROSPER (test code = PROSPER) Mariela Albarado MD 10/01/2021 6:37 [facility] ED Preliminary Interpretation - Not an OrderPerformed by: Mariela Albarado MDAuthorized by: Mariela Albarado MD ECG reviewed by ED Physician in the absence of a deburr technician: yes Interpretation: Interpretation: abnormal Rate: ECG rate: 97 ECG rate assessment: normal Rhythm: Rhythm: sinus rhythm Ectopy: Ectopy: none QRS: QRS axis: Normal QRS intervals: NormalST segments: ST segments: NormalT waves: T waves: normal Other findings: Other findings: prolonged qTc interval Comments: Prolonged qTC interval 502 Lab Interpretation Abnormal (test code = 14787-0) [facility] YwgawqllUCPN-ThP-4 (COVID-19) RNA [Presence] in Respiratory specimen by LON with probe ugronzvix7576-80-32 01:56:53 Test Item Value Reference Range Interpretation Comments SARS-CoV-2 (COVID-19) RNA Not detected [Presence] in Respiratory specimen by LON with probe detection (test code = 23185-5) Whether patient is employed in a Unknown healthcare setting (test code = 18851-8) Whether the patient has symptoms Unknown related to condition of interest (test code = 60781-2) Whether the patient was Unknown hospitalized for condition of interest (test code = 51678-7) Whether the patient was admitted Unknown to intensive care unit (ICU) for condition of interest (test code = 64668-4) Whether patient resides in a Unknown congregate care setting (test code = 00826-9) status (test code = Unknown 91683-2) Date and time of symptom onset Unknown (test code = 10369-9) [address]2021-12-11 01:16:20 Test Item Value Reference Range [...] complexes-Left axis deviation-Incomplete right bundle branch block- [place] [address] ywpw9514-48-85 01:16:20 Test Item Value Reference Range Interpretation [...] complexes-Left axis deviation-Incomplete right bundle branch block- [facility] stress wnts1088-70-60 11:50:28 Test Item Value Reference Range Interpretation Comments Resting HR (test code = 1985505196) Resting BP (test code 174&81 = 1713930653) Peak MET Achieved (test code = 3671446170) Protocol Name (test DOBUTAM/ECHO code = 8766520365) Time in Exercise 00:15:00 Phase (test code = 2639391029) Max Systolic BP (test code = 2361243936) Max Diastolic BP (test code = 0145017034) Max Heart Rate (test code = 4480572532) Max Predicted Heart Rate (test code = 6199806250) Target HR Formula (220 - Age)*100% (test code = 8284168431) Test Indication (test code = 5739111427) Arrhy During Ex (test code = 3572869752) ECG Interp Before EX (test code = 5239504706) ECG Interp During Ex (test code = 5590274418) Ex Summary Comment (test code = 5423431409) Overall HR Response to Exercise (test code = 2936039010) Overall BP Response To Exercise (test code = 7018333838) Reason for Protocol Complete Termination (test code = 7731874403) Stress Test -Waveform interpreted in Impression (test code report associated with = 5301614564) image study. No interpretation is provided as part of this Stress ECG report.-Electronically Signed By Javier Payne MD ([id number]), assistant production editor Huyen Ramos (111) on 01/29/2021 5:50:23 AM [facility] stress gocm3464-27-46 11:50:28 Test Item Value Reference Range Interpretation Comments Resting HR (test code = 1585368948) Resting BP (test code 174&81 = 4512581422) Peak MET Achieved (test code = 9120060944) Protocol Name (test DOBUTAM/ECHO code = 0797184087) Time in Exercise 00:15:00 Phase (test code = 6697485783) Max Systolic BP (test code = 0910391795) Max Diastolic BP (test code = 7913939575) Max Heart Rate (test code = 9668757189) Max Predicted Heart Rate (test code = 5729434696) Target HR Formula (220 - Age)*100% (test code = 3788260889) Test Indication (test code = 4552744085) Arrhy During Ex (test code = 4257636399) ECG Interp Before EX (test code = 2186088253) ECG Interp During Ex (test code = 9280999536) Ex Summary Comment (test code = 9714364557) Overall HR Response to Exercise (test code = 7734517467) Overall BP Response To Exercise (test code = 2041106538) Reason for Protocol Complete Termination (test code = 6826681059) Stress Test -Waveform interpreted in Impression (test code report associated with = 9545634859) image study. No interpretation is provided as part of this Stress ECG report.-Electronically Signed By Kerry WONG, Javier Beltran ([id number]), assistant production editor Huyen Ramos (111) on 01/29/2021 5:50:23 AM [facility] referral zqtk1478-63-36 22:14:17 Test Item Value Reference Range Interpretation Comments Misc test BCR-ABL1, name (test Qualitative with code = 2566) Reflex to BCR Misc test see comment BCR-ABL1, Quali tative result (test with Reflex to code = 1730) BCR-ABL1 Quanti tative [facility] test code 9020982 BCR-ABL1 Source Whole Blood - - - [...] or bone marrow and reve rse transcribed. e resulting cDNA is subjected to mu ltiplex PCR amplificati on with primers designe d to amplify p190, p 210 or p230 BCR-ABL1 f usion transcripts. e ABL1 reference gene is also amplified for s pecimen senior supplier quality engineer and to ensure the inte grity of [...] and its performance characteristics determined by [facility]. I t has not been cleare d or approved by the [place] Food and Drug Administration. This test was perfor med in a CLIA certifie d laboratory and is intended for cl inical purposes.Test performed by:[facility] [address] [place] [address] 84 8 PROSPER (test BCR-ABL1, code = PROSPER) Qualitative with Reflex to BCR-ABL1 Quantitative [facility] specimen: peripheral whole blood in [facility] referral lnqo8025-96-16 22:14:17 Test Item Value Reference Range Interpretation Comments Misc test BCR-ABL1, name (test Qualitative with code = 2566) Reflex to BCR Misc test see comment BCR-ABL1, Quali tative result (test with Reflex to code = 1730) BCR-ABL1 Quanti tative [facility] test code BCR-ABL1 Source Whole Blood - - - [...] gene is also amplified for s pecimen senior supplier quality engineer and to ensure the inte grity of [...] and its performance characteristics determined by [facility]. I t has not been cleare d or approved by the [place] Food and Drug Administration. This test was perfor med in a CLIA certifie d laboratory and is intended for cl inical purposes.Test performed by:[place] [id number] PROSPER (test BCR-ABL1, code = PROSPER) Qualitative with Reflex to BCR-ABL1 Quantitative [facility] specimen: peripheral [facility] kramgtj2765-95-70 19:31:58 Test Item Value Reference Range Interpretation Comments POC glucose (test 92 mg/dL 65-99 National [place] Ranger N juwan: Guila code = 07088-7) TeresaDevice ID: [id number] able: [facility] Notified RN [facility] hguhhgy8189-19-13 19:31:58 Test Item Value Reference Range Interpretation Comments POC glucose (test 92 mg/dL 65-99 [place] Ranger N juwan: Guila code = 77298-9) TeresaDevice ID: [id number] able: [facility] RNA [Presence] in Respiratory specimen by LON with probe gftfrohcd8744-19-78 10:36:06 Test Item Value Reference Range Interpretation Comments SARS-CoV-2 (COVID-19) RNA Not detected Not-Detected [Presence] in Respiratory specimen by LON with probe detection (test code = 12241-2) Whether patient is employed in a healthcare setting (test code = 57425-1) Whether the patient has symptoms related to condition of interest (test code = 13744-3) Patient was hospitalized because of this condition (test code = 54318-8) Whether the patient was admitted to intensive care unit (ICU) for condition of interest (test code = 12792-4) Whether patient resides in a congregate care setting (test code = 13025-3) [facility] and msglgh1630-33-06 07:19:00 Test Item Value Reference Range Interpretation Comments ABO grouping (test code = 883-9) AB Rh type (test code = 10141-7) NEG Antibody screen (gel) (test code = NEG 890-4) [facility] and conzha3483-49-16 07:19:00 Test Item Value Reference Range Interpretation Comments ABO grouping (test code = 883-9) AB Rh type (test code = 96265-0) NEG Antibody screen (gel) (test code = NEG 890-4) [facility] fresh frozen plasma, 1 Tuiok9592-97-74 01:08:00 Test Item Value Reference Range Interpretation Comments Product name (test code Thawed Plasma = 25) Pheresis Pt 3 Unit number (test code = [id number] 8503359) Product code (test code P6694F33 = 3092) Dispense status (test Transfused code = 24) Blood expiration date (test code = 302) Blood type code (test code = 308) Blood type (test code = AB POSITIVE 1314) Compatibility (test code Not required = 6400) [facility] platelet pheresis, 1 Ugwtq3591-59-25 01:08:00 Test Item Value Reference Range Interpretation Comments Product name (test code Platelets, Aph LR IRR = 25) BM cont1 Unit number (test code = [id number] 2419768) Product code (test code A5937F32 = 3092) Dispense status (test Transfused code = 24) Blood expiration date (test code = 302) Blood type code (test code = 308) Blood type (test code = O POSITIVE 1314) Compatibility (test code Not required = 6400) [facility] 1 Adlpi4410-01-11 01:08:00 Test Item Value Reference Range Interpretation Comments Product name (test code Thawed Plasma = 25) Pheresis Pt 3 Unit number (test code = [id number] 3050273) Product code (test code V1216Y30 = 3092) Dispense status (test Transfused code = 24) Blood expiration date (test code = 302) Blood type code (test code = 308) Blood type (test code = AB POSITIVE 1314) Compatibility (test code Not required = 6400) [facility] platelet pheresis, 1 Zirmz9099-52-19 01:08:00 Test Item Value Reference Range Interpretation Comments Product name (test code Platelets, Aph LR IRR = 25) BM cont1 Unit number (test code = [id number] 4839695) Product code (test code F9224L07 = 3092) Dispense status (test Transfused code = 24) Blood expiration date (test code = 302) Blood type code (test code = 308) Blood type (test code = O POSITIVE 1314) Compatibility (test code Not required = 6400) [facility] RBC, 1 Kawno5616-47-09 00:16:00 Test Item Value Reference Range Interpretation Comments Product name (test code Red Blood Cells -1, = 25) Leukored Unit number (test code = [id number] 7012967) Product code (test code A3916C46 = 3092) Dispense status (test Transfused code = 24) Blood expiration date (test code = 302) Blood type code (test code = 308) Blood type (test code = A NEGATIVE 1314) Compatibility (test code Compatible = 6400) [facility] RBC, 1 Gyhny1860-25-40 00:16:00 Test Item Value Reference Range Interpretation Comments Product name (test code Red Blood Cells -1, = 25) Leukored Unit number (test code = [id number] 5733965) Product code (test code D7995H92 = 3092) Dispense status (test Transfused code = 24) Blood expiration date (test code = 302) Blood type code (test code = 308) Blood type (test code = A NEGATIVE 1314) Compatibility (test code Compatible = 6400) [facility] and Rh vsdtvrbmwmzc2969-92-62 04:27:00 Test Item Value Reference Range Interpretation Comments ABO grouping (test code = 883-9) AB Rh type (test code = 52951-2) NEG [facility] and Rh irffepnevted4512-38-68 04:27:00 Test Item Value Reference Range Interpretation Comments ABO grouping (test code = 883-9) AB Rh type (test code = 89113-5) NEG [facility] blood gas, arterial and lactic ylzm0784-94-68 15:08:42 Test Item Value Reference Range Interpretation Comments pH, arterial, POC (test 7.35-7.45 H code = 2744-1) pCO2, arterial, POC See_Comment L [Automa alejandra (test code = 2019-8) message ] The system which generated this [...] 24.8 mmol/L 21.0-28.0 POC (test code = 1959-) CO2 calculated, 26 mmol/L 24-31 arterial, POC (test code = 2025-) O2 saturation, 97 % 95-100 arterial, POC (test code = 8-6) Lactic acid, I-Stat, 5.77 mmol/L 0.36-1.25 Operato r Name: arterial (test code = [facility] 76958-0) ID: [id number] Lab Interpretation Abnormal (test code = 46021-4) [facility] blood gas, arterial and lactic ctfe8779-02-15 15:08:42 Test Item Value Reference Range Interpretation [...] See_Comment L [Automat ed (test code = 270-7) message ] The system which generated this result transmitted reference range : 80 - 90 mm Hg. The reference range was not used to interpret this result as normal/abnormal . Base excess, arterial, 3 mmol/L -2-2 H POC (test code = 5-7) Bicarbonate, arterial, 24.8 mmol/L 21.0-28.0 POC (test code = 1959-) CO2 calculated, 26 mmol/L 24-31 arterial, POC (test code = 2025-3) O2 saturation, 97 % 95-100 arterial, POC (test code = 8-6) Lactic acid, I-Stat, 5.77 mmol/L 0.36-1.25 Operato r Name: arterial (test code = [facility] 75633-9) ID: [id number] Lab Interpretation Abnormal (test code = 04818-0) [facility] RNA [Presence] in Respiratory specimen by LON with probe xcpqrwcan4267-85-03 01:01:33 Test Item Value Reference Range Interpretation Comments SARS-CoV-2 (COVID-19) RNA Not detected Not-Detected [Presence] in Respiratory specimen by LON with probe detection (test code = 50991-7) Whether patient is employed in a healthcare setting (test code = 61347-2) Whether the patient has symptoms related to condition of interest (test code = 17556-3) Patient was hospitalized because of this condition (test code = 52505-3) Whether the patient was admitted to intensive care unit (ICU) for condition of interest (test code = 30173-4) Whether patient resides in a congregate care setting (test code = 00550-6) [facility] pjawf0730-31-34 08:57:40 Test Item Value Reference Range Interpretation Comments POC-Glucose Meter (test 103 mg/dL 70-110 : TE STED AT [facility] code = 1538) [address] [facility], [address]: National [place] Ranger/Techni chitra ID = [id number] for JADYN ANITANIC A Lab Interpretation (test Normal code = 26893-8) [facility] wcbpu1430-39-06 08:57:40 Test Item Value Reference Range Interpretation Comments POC-Glucose Meter (test 103 mg/dL 70-110 : TE STED AT [facility] code = 1538) [address] [facility], [address]: [place] Ranger/Techni chitra ID = [id number] for JADYN ANITANIC A Lab Interpretation (test Normal code = 04620-3) [facility]SE JUFFW8805-22-93 08:57:40 Test Item Value Reference Range Interpretation Comments POC-GLUCOSE METER 103 mg/dL 70-110 : TESTED A T [facility] 6720 (BEAKER) (test code = [facility], 1538) [address]: [place] Ranger/Techni chitra ID = [id number] for ESA GILES Qfcytnkqy1372-13-06 07:07:38 Test Item Value Reference Range Interpretation Comments Magnesium (test code = 2.1 mg/dL 1.6-2.6 48952-7) PROSPER (test code = PROSPER) [employer] Ranger ID - ALFONSO Beltran Lab Interpretation (test Normal code = 10180-8) [facility]2021-[facility]-20 07:07:38 Test Item Value Reference Range Interpretation Comments Magnesium (test code = 2.1 mg/dL 1.6-2.6 77754-1) PROSPER (test code = PROSPER) [place] Ranger DEEPAK [facility] Interpretation (test Normal code = 05413-0) [facility] 07:07:38 Test Item Value Reference Range Interpretation Comments MAGNESIUM (BEAKER) (test code = 2.1 mg/dL 1.6-2.6 627) [employer] [place] Ranger DEEPAK MOTTAasic Metabolic [id number] 07:07:37 Test Item Value Reference Range Interpretation Comments Sodium (test code = 133 meq/L 136-145 L 2951-2) Potassium (test code = 4.3 meq/L 3.5-5.1 2823-3) Chloride (test code = 104 meq/L 98-107 2075-0) CO2 (test code = 22 meq/L 22-29 2027-9) BUN (test code = 23 mg/dL 7-21 H 3094-0) Creatinine (test code 0.85 mg/dL 0.57-1.25 = 2160-0) Glucose (test code = 106 mg/dL 70-105 H 2345-7) Calcium (test code = 8.8 mg/dL 8.4-10.2 82062-0) EGFR (test code = 87 mL/min/1.73 sq m [facility] [place] [address]-9) NOT ACCURATE CREATININE CLEARANCE IN PREDICTING GLOMERULAR FILTRATION RATE . ESTIMATED GFR I S NOT APPLICABLE FOR DIALYSIS PATIENTS. PROSPER (test code = PROSPER) [employer] Ranger DEEPAK [facility] Interpretation Abnormal (test code = 89426-6) [facility] [id number] 07:07:37 Test Item Value Reference Range Interpretation Comments Sodium (test code = 133 meq/L 136-145 L 2951-2) Potassium (test code = 4.3 meq/L 3.5-5.1 2823-3) Chloride (test code = 104 meq/L 98-107 5-0) CO2 (test code = 22 meq/L 22-29 2027-9) BUN (test code = 23 mg/dL 7-21 H 3094-0) Creatinine (test code 0.85 mg/dL 0.57-1.25 = 2160-0) Glucose (test code = 106 mg/dL 70-105 H 2345-7) Calcium (test code = 8.8 mg/dL 8.4-10.2 48008-0) EGFR (test code = 87 mL/min/1.73 [place] [address]-4) NOT ACCURATE CREATININE CLEARANCE IN PREDICTING GLOMERULAR FILTRATION RATE . ESTIMATED GFR I S NOT APPLICABLE FOR DIALYSIS PATIENTS. PROSPER (test code = PROSPER) National [employer] Ranger ID - ALFONSO F Lab Interpretation Abnormal (test code = 77784-0) [facility] METABOLIC [id number] 07:07:37 Test Item Value Reference Range Interpretation [...] S NOT APPLICABLE FOR DIALYSIS PATIEN TS. National [employer] Ranger ID - ALFONSO FCBC with platelet count + automated [id number] 06:45:56 Test Item Value Reference Range Interpretation Comments WBC (test code = 6690-2) 14.8 See_Comment H [A utomated message] The system M.Setek generated this result transmitted ref erence range: 3.5 - 10 .5 K/L. The refe rence range was not u sed to interpret this result as normal/abnor mal. RBC (test code = 789-8) 4.98 See_Comment [Au tomated message] The system M.Setek generated this result transmitted ref erence range: 4.63 - 6 .08 M/L. The refe rence range was not u sed to interpret this result as normal/abnor mal. MCHC (test code = 786-4) 34.1 See_Comment [A utomated message] The system M.Setek generated this result transmitted ref erence range: [...] See_Comment [Aut omated message] 777-3) The system M.Setek generated this result transmitted ref erence range: 150 - 45 0 K/CU MM. The referen ce range was not u sed to interpret this result as normal/abnor mal. MPV (test code = 8.6 fL 9.4-12.4 L 29192-2) nRBC (test code = 413) 0 See_Comment [Aut omated message] The system M.Setek generated this result transmitted ref erence range: [...] H [Aut omated message] 670) The system M.Setek generated this result transmitted ref erence range: 1.78 - 5 .38 K/L. The refe rence range was not u sed to interpret this result as normal/abnor mal. # Lymphs (test code = 1.53 See_Comment [Auto mated message] 414) The system M.Setek generated this result transmitted ref erence range: 1.32 - 3 .57 K/L. The refe rence range was not u sed to interpret this result as normal/abnor mal. # Monos (test code = 0.76 See_Comment [Autom ated message] 415) The system M.Setek generated this result transmitted ref erence range: 0.30 - 0 .82 K/L. The refe rence range was not u sed to interpret this result as normal/abnor mal. # Eos (test code = 416) 0.00 See_Comment L [Au tomated message] The system M.Setek generated this result transmitted ref erence range: 0.04 - 0 .54 K/L. The refe rence range was not u sed to interpret this result as normal/abnor mal. # Baso (test code = 417) 0.03 See_Comment [A utomated message] The system M.Setek generated this result transmitted ref erence range: 0.01 - 0 .08 K/L. The refe rence range was not u sed to interpret this result as normal/abnor mal. Immature 1 % 0-1 Granulocytes-Relative (test code = 2801) Lab Interpretation (test Abnormal code = 50385-8) [facility] with platelet count + automated [id number] 06:45:56 Test Item Value Reference Range Interpretation Comments WBC (test code = 6690-2) 14.8 See_Comment H [A utomated message] The system M.Setek generated this result transmitted ref erence range: 3.5 - 10 .5 K/L. The refe rence range was not u sed to interpret this result as normal/abnor mal. RBC (test code = 789-8) 4.98 See_Comment [Au tomated message] The system M.Setek generated this result transmitted ref erence range: 4.63 - 6 .08 M/L. The refe rence range was not u sed to interpret this result as normal/abnor mal. MCHC (test code = 786-4) 34.1 See_Comment [A utomated message] The system M.Setek generated this result transmitted ref erence range: [...] See_Comment [Aut omated message] 777-3) The system M.Setek generated this result transmitted ref erence range: 150 - 45 0 K/CU MM. The referen ce range was not u sed to interpret this result as normal/abnor mal. MPV (test code = 8.6 fL 9.4-12.4 L 71945-3) nRBC (test code = 413) 0 See_Comment [Aut omated message] The system M.Setek generated this result transmitted ref erence range: [...] H [Aut omated message] 670) The system M.Setek generated this result transmitted ref erence range: 1.78 - 5 .38 K/L. The refe rence range was not u sed to interpret this result as normal/abnor mal. # Lymphs (test code = 1.53 See_Comment [Auto mated message] 414) The system M.Setek generated this result transmitted ref erence range: 1.32 - 3 .57 K/L. The refe rence range was not u sed to interpret this result as normal/abnor mal. # Monos (test code = 0.76 See_Comment [Autom ated message] 415) The system M.Setek generated this result transmitted ref erence range: 0.30 - 0 .82 K/L. The refe rence range was not u sed to interpret this result as normal/abnor mal. # Eos (test code = 416) 0.00 See_Comment L [Au tomated message] The system M.Setek generated this result transmitted ref erence range: 0.04 - 0 .54 K/L. The refe rence range was not u sed to interpret this result as normal/abnor mal. # Baso (test code = 417) 0.03 See_Comment [A utomated message] The system M.Setek generated this result transmitted ref erence range: 0.01 - 0 .08 K/L. The refe rence range was not u sed to interpret this result as normal/abnor mal. Immature 1 % 0-1 Granulocytes-Relative (test code = 2801) Lab Interpretation (test Abnormal code = 86344-8) [facility] W/PLT COUNT & AUTO [id number] 06:45:56 Test Item Value Reference Range Interpretation [...] = 2801) CBC W/PLT COUNT & AUTO [id number] 06:42:34 Test Item Value Reference Range Interpretation [...] (BEAKER) (test code = 2801) BASIC METABOLIC [id number] 06:06:50 Test Item Value Reference Range Interpretation [...] S NOT APPLICABLE FOR DIALYSIS PATIEN TS. [employer] Ranger ID - LORIE ELENWGNOVE8453-22-50 06:06:50 Test Item Value Reference Range Interpretation Comments MAGNESIUM (BEAKER) (test code = 2.2 mg/dL 1.6-2.6 627) [employer] Ranger ID - LORIE GPOCT-GLUCOSE [id number] 16:57:17 Test Item Value Reference Range Interpretation Comments POC-GLUCOSE METER 140 mg/dL 70-110 H : TESTED A T [facility] 6720 (BEAKER) (test code = [facility], 1538) [address]: [place] Ranger/Techni chitra ID = [id number] for Chad stokesmiri (contract), Kathy eulalio POCT-GLUCOSE [id number] 11:05:54 Test Item Value Reference Range Interpretation Comments POC-GLUCOSE METER 125 mg/dL 70-110 H : TESTED A T [facility] 6720 (BEAKER) (test code = [facility], 1538) 44160: [employer] [place] Ranger/Techni chitra ID = [id number] for Juan josh (agency), Matute ra POCT-GLUCOSE [id number] 08:26:43 Test Item Value Reference Range Interpretation Comments POC-GLUCOSE METER 123 mg/dL 70-110 H : TESTED A T [facility] 6720 (BEAKER) (test code = [facility], 1538) 25587: [employer] [place] Ranger/Techni chitra ID = [id number] for Chad nicolas (contract), Kathy eulalio Calcium, Zzhlhok2942-47-96 06:33:03 Test Item Value Reference Range Interpretation Comments Calcium, Ion (test code = 1993-04) 1.22 mmol/L 1.12-1.27 pH, Blood (test code = 02742-2) 7.42 [facility], Llqptsv7727-99-09 06:33:03 Test Item Value Reference Range Interpretation Comments Calcium, Ion (test code = 1993-04) 1.22 mmol/L 1.12-1.27 pH, Blood (test code = 65245-5) 7.42 [facility] Hospital[facility]CIUM, [id number] 06:33:03 Test Item Value Reference Range Interpretation Comments CALCIUM IONIZED (BEAKER) (test 1.22 mmol/L 1.12-1.27 code = 698) PH, BLOOD (BEAKER) (test code = 7.42 1810) [id number] 05:35:29 Test Item Value Reference Range Interpretation Comments MAGNESIUM (BEAKER) (test code = 2.3 mg/dL 1.6-2.6 627) [employer] Ranger ID - LORIE GComprehensive metabolic zrqsk7307-23-06 05:35:28 Test Item Value Reference Range Interpretation Comments Protein, Total (test 5.7 See_Comment L [Autom ated code = 2885-2) message] The system which generated this result transmit alejandra reference range : 6.0 - 8.3 gm/dL . The reference range was not u sed to interpret th is result as normal/abnormal . Albumin (test code = 3.2 g/dL 3.5-5.0 L 82243-4) Alkaline Phosphatase 44 U/L 40-150 (test code = 6768-6) Total Bilirubin (test 0.8 mg/dL 0.2-1.2 code = 1975-2) Sodium (test code = 137 meq/L 999-270 9851-2) Potassium (test code 4.6 meq/L 3.5-5.1 = 2823-3) Chloride (test code = 107 meq/L 98-107 2075-0) CO2 (test code = 21 meq/L 22-29 L 2028-9) BUN (test code = 31 mg/dL 7-21 H 3094-0) Creatinine (test code 0.97 mg/dL 0.57-1.25 = 2160-0) Glucose (test code = 123 mg/dL 70-105 H 2345-7) Calcium (test code = 9.0 mg/dL 8.4-10.2 53482-9) AST (test code = 19 U/L 5-34 1920-8) ALT (test code = 54 U/L 6-55 1742-6) EGFR (test code = 75 mL/min/1.73 [place] [address]-4) NOT ACCURATE CREATININE CLEARANCE IN PREDICTING GLOMERULAR FILTRATION RATE . ESTIMATED GFR I S NOT APPLICABLE FOR DIALYSIS PATIEN TS. PROSPER (test code = PROSPER) [employer] Ranger ID - LORIE G Lab Interpretation Abnormal (test code = 83185-3) [facility] HospitalCom[facility] metabolic [id number] 05:35:28 Test Item Value Reference Range Interpretation Comments Protein, Total (test 5.7 See_Comment L [Autom ated code = 2885-2) message] The system which generated this result transmit alejandra reference range : 6.0 - 8.3 gm/dL . The reference range was not u sed to interpret th is result as normal/abnormal . Albumin (test code = 3.2 g/dL 3.5-5.0 L 35747-7) Alkaline Phosphatase 44 U/L 40-150 (test code = 6768-6) Total Bilirubin (test 0.8 mg/dL 0.2-1.2 code = 1974-2) Sodium (test code = 137 meq/L 257-078 1762-2) Potassium (test code 4.6 meq/L 3.5-5.1 = 2823-3) Chloride (test code = 107 meq/L 98-107 2075-0) CO2 (test code = 21 meq/L 22-29 L 8-9) BUN (test code = 31 mg/dL 7-21 H 3094-0) Creatinine (test code 0.97 mg/dL 0.57-1.25 = 2160-0) Glucose (test code = 123 mg/dL 70-105 H 2345-7) Calcium (test code = 9.0 mg/dL 8.4-10.2 72904-6) AST (test code = 19 U/L 5-34 1920-8) ALT (test code = 54 U/L 6-55 1742-6) EGFR (test code = 75 mL/min/1.73 [place] [address]-6) NOT ACCURATE CREATININE CLEARANCE IN PREDICTING GLOMERULAR FILTRATION RATE . ESTIMATED GFR I S NOT APPLICABLE FOR DIALYSIS PATIEN TSAlisha PROSPER (test code = PROSPER) [employer] Ranger ID - LORIE G Lab Interpretation Abnormal (test code = 38097-9) [facility] METABOLIC [id number] 05:35:28 Test Item Value Reference Range Interpretation [...] S NOT APPLICABLE FOR DIALYSIS PATIEN TS. [employer] Ranger ID - LORIE GCBC W/PLT COUNT & AUTO [id number] 05:04:55 Test Item Value Reference Range Interpretation [...] (BEAKER) (test code = 2801) Sodium, random hhzke7611-85-84 22:03:04 Test Item Value Reference Range Interpretation Comments Sodium Urine (test 55 meq/L code = 2955-3) PROSPER (test code = Reference Range: No PROSPER) NormalsOperator ID - BS [facility] ckomz8345-90-06 22:03:04 Test Item Value Reference Range Interpretation Comments Sodium Urine (test 55 meq/L code = 2955-3) PROSPER (test code = Reference Range: No PROSPER) NormalsOperator ID - BS [facility] HospitalODIUM, RANDOM [id number] 22:03:04 Test Item Value Reference Range Interpretation Comments SODIUM URINE (BEAKER) (test code = 55 meq/L 243) Reference Range: No NormalsOperator ID - BSPOCT-GLUCOSE [id number] 20:55:06 Test Item Value Reference Range Interpretation Comments POC-GLUCOSE METER 141 mg/dL 70-110 H : TESTED A T [facility] 6720 (BEAKER) (test code = [facility], 1538) [address]: [employer] [place] Ranger/Techni chitra ID = [id number] for Ray soto (contract), Arleen salamanca POCT-GLUCOSE [id number] 17:10:12 Test Item Value Reference Range Interpretation Comments POC-GLUCOSE METER 148 mg/dL 70-110 H : TESTED A T [facility] 6720 (BEAKER) (test code = [facility], 1538) [address]: [employer] [place] Ranger/Techni chitra ID = [id number] for Batool jamal (contract), Familia craig Eosinophil ttfwe6296-17-03 13:18:39 Test Item Value Reference Range Interpretation Comments Eosinophil Smear (test code = No EOS seen No EOS seen 94814-9) Lab Interpretation (test code = Normal 57437-4) [facility] HospitalEosinophil kpkhs9866-65-44 13:18:39 Test Item Value Reference Range Interpretation Comments Eosinophil Smear (test code = No EOS seen No EOS seen 78048-4) Lab Interpretation (test code = Normal 40793-6) [facility] HospitalEOSINOPHIL SMEAR, [id number] 13:18:39 Test Item Value Reference Range Interpretation Comments EOSINOPHIL SMEAR, URINE (BEAKER) No EOS seen No EOS seen (test code = 1851) Osmolality, iaboh3315-34-97 11:37:51 Test Item Value Reference Range Interpretation Comments Osmolality, Ur (test code 523 See_Comment [ Automated message] = 2695-5) The system M.Setek generated this result transmitted ref erence range: 50-1,200 mOsm/kg mOsm/kg . The reference range was not used to int erpret this result as normal/abnormal . Lab Interpretation (test Normal code = 18401-9) [facility] HospitalOsmolality, rrfyc9198-28-13 11:37:51 Test Item Value Reference Range Interpretation Comments Osmolality, Ur (test code 523 See_Comment [ Automated message] = 2695-5) The system M.Setek generated this result transmitted ref erence range: 50-1,200 mOsm/kg mOsm/kg . The reference range was not used to int erpret this result as normal/abnormal . Lab Interpretation (test Normal code = 11946-1) [facility] HospitalOSMOLALITY, [id number] 11:37:51 Test Item Value Reference Range Interpretation Comments OSMOLALITY URINE 523 mOsm/kg See_Comment [Automated message] (BEAKER) (test code = The sy stem which 614) generated this result transmitted ref erence range: 50-1,200 mOsm/kg. The reference range was not used to int erpret this result as normal/abnormal . Urinalysis w/Pfjkahqopme6067-48-13 10:53:25 Test Item Value Reference Range Interpretation Comments Color, UA (test Light Yellow code = 5778-6) Clarity, UA (test Clear code = 5767-9) Specific [place], 1.016 1.001-1.035 UA (test code = 5811-5) pH, UA (test code 6.5 5.0-8.0 = 5803-2) Protein, UA (test Negative Negative code = 48829-8) Glucose, UA (test Negative Negative code = 365) Ketones, UA (test Negative Negative code = 2514-8) Bilirubin, UA Negative Negative (test code = 09487-9) Blood, UA (test Negative Negative code = 20286-9) Nitrite, UA (test Negative Negative code = 5802-4) Leukocytes, UA Negative Negative (test code = 5799-2) Urobilinogen, UA 0.2 mg/dL 0.2-1.0 (test code = 23070-9) RBC, UA (test 1 See_Comment [Automated me ssage] code = 22840-4) The system w [facility] generated this result transmit alejandra reference range : /HPF. The refer ence range was not u sed to interpret th is result as normal/abnormal . WBC, UA (test 1 See_Comment [Automated me ssage] code = 5821-4) The system [facility] generated this result transmit alejandra reference range : /HPF. The refer ence range was not u sed to interpret th is result as normal/abnormal . Bacteria, UA None Seen (test code = 32819-0) Mucus (test code Rare = 8247-9) Crystals, Urine None Seen (test code = 90829-8) Specimen Source (test code = 2795) PROSPER (test code = National Park Ranger ID - PROSPER) [auto]National Park Ranger ID - tech [facility] HospitalUrinalysis w/Xzhvlsxiviy4071-13-70 10:53:25 Test Item Value Reference Range Interpretation Comments Color, UA (test Light Yellow code = 5778-6) Clarity, UA (test Clear code = 5767-9) Specific [place], 1.016 1.001-1.035 UA (test code = 5811-5) pH, UA (test code 6.5 5.0-8.0 = 5803-2) Protein, UA (test Negative Negative code = 79940-5) Glucose, UA (test Negative Negative code = 365) Ketones, UA (test Negative Negative code = 2514-8) Bilirubin, UA Negative Negative (test code = 64808-4) Blood, UA (test Negative Negative code = 02055-8) Nitrite, UA (test Negative Negative code = 5802-4) Leukocytes, UA Negative Negative (test code = 5799-2) Urobilinogen, UA 0.2 mg/dL 0.2-1.0 (test code = 72811-6) RBC, UA (test 1 See_Comment [Automated me ssage] code = 50766-0) The system [facility] generated this result transmit alejandra reference range : /HPF. The refer ence range was not u sed to interpret th is result as normal/abnormal . WBC, UA (test 1 See_Comment [Automated me ssage] code = 5821-4) The system [facility] generated this result transmit alejandra reference range : /HPF. The refer ence range was not u sed to interpret th is result as normal/abnormal . Bacteria, UA None Seen (test code = 08530-1) Mucus (test code Rare = 8247-9) Crystals, Urine None Seen (test code = 48513-2) Specimen Source (test code = 2795) PROSPER (test code = National Park Ranger ID - PROSPER) [auto]National Park Ranger ID - Fundability [facility] HospitalURINALYSIS W/ [id number] 10:53:25 Test Item Value Reference Range Interpretation [...] = 1521) SOURCE(BEAKER) (test code = 2795) [employer] Park Ranger ID - [auto]National Park Ranger ID - techUrea Nitrogen, random qriyn4110-10-43 10:49:41 Test Item Value Reference Range Interpretation Comments Urea Nitrogen, Ur 923 mg/dL (test code = 3095-7) PROSPER (test code = Reference Range: No PROSPER) NormalsOperator ID - [facility] Nitrogen, random zwvii3815-21-75 10:49:41 Test Item Value Reference Range Interpretation Comments Urea Nitrogen, Ur 923 mg/dL (test code = 3095-7) PROSPER (test code = Reference Range: No PROSPER) NormalsOperator ID - [facility] HospitalUREA NITROGEN, RANDOM [id number] 10:49:41 Test Item Value Reference Range Interpretation Comments UREA NITROGEN URINE (BEAKER) (test 923 mg/dL code = 538) Reference Range: No NormalsOperator ID - [facility] CCreatinine, random jtcta4651-60-46 10:49:40 Test Item Value Reference Range Interpretation Comments Creatinine, Ur 73.8 mg/dL (test code = 2161-8) PROSPER (test code = Reference Range: No PROSPER) NormalsOperator ID - SHARRON C [facility], random afshg6447-20-05 10:49:40 Test Item Value Reference Range Interpretation Comments Creatinine, Ur 73.8 mg/dL (test code = 2161-8) PROSPER (test code = Reference Range: No PROSPER) NormalsOperator ID - SHARRON C [facility] HospitalCREPHO[facility], RANDOM [id number] 10:49:40 Test Item Value Reference Range Interpretation Comments CREATININE URINE (BEAKER) (test 73.8 mg/dL code = 375) Reference Range: No NormalsOperator ID - SHARRON CPOCT-GLUCOSE [id number] 07:38:12 Test Item Value Reference Range Interpretation Comments POC-GLUCOSE METER 126 mg/dL 70-110 H : TESTED A T [facility] 6720 (BEAKER) (test code = [facility] [place] [place], 1538) [address]: National Park Ranger/Techni chitra ID = [id number] for Batool paigechacorta (contract)Familia Vgwwpvwlsv4514-40-80 03:54:57 Test Item Value Reference Range Interpretation Comments Phosphorus (test code = 3.0 mg/dL 2.3-4.7 2777-1) PROSPER (test code = PROSPER) National Park Ranger ID - DB Lab Interpretation (test Normal code = 62901-5) [facility] HospitalPhosphorus2021-09-17 03:54:57 Test Item Value Reference Range Interpretation Comments Phosphorus (test code = 3.0 mg/dL 2.3-4.7 2777-1) PROSPER (test code = PROSPER) National Park Ranger ID - DB Lab Interpretation (test Normal code = 04236-0) [facility] HospitalMAGNESIUM2021-09-17 03:54:57 Test Item Value Reference Range Interpretation Comments MAGNESIUM (BEAKER) (test code = 2.4 mg/dL 1.6-2.6 627) [employer] Park Ranger ID - THYYQNJBBPSC8456-49-79 03:54:57 Test Item Value Reference Range Interpretation Comments PHOSPHORUS (BEAKER) (test code = 3.0 mg/dL 2.3-4.7 604) National Park Ranger ID - DBCOMPREHENSIVE METABOLIC [id number] 03:54:56 Test Item Value Reference Range Interpretation [...] S NOT APPLICABLE FOR DIALYSIS PATIEN TS. National Park Ranger ID - DBCBC W/PLT COUNT & AUTO [id number] 03:25:06 Test Item Value Reference Range Interpretation [...] PERCENT (BEAKER) (test code = 2801) CALCIUM, [id number] 03:23:27 Test Item Value Reference Range Interpretation Comments CALCIUM IONIZED (BEAKER) (test 1.21 mmol/L 1.12-1.27 code = 698) PH, BLOOD (BEAKER) (test code = 7.44 1810) POCT-GLUCOSE [id number] 21:02:31 Test Item Value Reference Range Interpretation Comments POC-GLUCOSE METER 163 mg/dL 70-110 H : TESTED A T [facility] 6720 (BEAKER) (test code = [facility], 1538) [address]: National Park Ranger/Techni chitra ID = [id number] for [place] POCT-GLUCOSE [id number] 17:01:31 Test Item Value Reference Range Interpretation Comments POC-GLUCOSE METER 176 mg/dL 70-110 H : TESTED A T [facility] 6720 (BEAKER) (test code = [facility], 1538) 82907: National Park Ranger/Techni chitra ID = [id number] for BLADIMIR GRANADOS POCT-GLUCOSE [id number] 12:59:25 Test Item Value Reference Range Interpretation Comments POC-GLUCOSE METER 195 mg/dL 70-110 H : TESTED A T [facility] 6720 (BEAKER) (test code = [facility], 1538) 89782: [employer] Park Ranger/Techni chitra ID = [id number] for Juan burns (contract)Ainsley CBC W/PLT COUNT & AUTO [id number] 06:34:35 Test Item Value Reference Range Interpretation [...] PERCENT (BEAKER) (test code = 2801) POCT-GLUCOSE [id number] 06:09:48 Test Item Value Reference Range Interpretation Comments POC-GLUCOSE METER 142 mg/dL 70-110 H : TESTED A T [facility] 6720 (BEAKER) (test code [facility], = 1538) [address]: [employer] Park Ranger/Techni chitra ID = [id number] for SUGU , SHEENAMOL Blood gas, pcpiid1723-30-55 05:13:54 Test Item Value Reference Range Interpretation Comments pH, Stanislav (test code = 7.40 7.32-7.42 0346-6) pCO2, Stanislav (test code = 43 See_Comment [Aut omated message] 325) The system whic h generated this result transmit alejandra reference range : 41 - 51 mm Hg. The reference range was not used to interpret this result as normal/abnormal . pO2, Stanislav (test code = 125 See_Comment H [Auto mated message] 8835-2) The system whic h generated this result transmit alejandra reference range : 25 - 40 mm Hg. The reference range was not used to interpret this result as normal/abnormal . O2 Sat, Stanislav (test code 98.5 % 40.0-70.0 H = 2711-0) HCO3, Stanislav (test code = 26 mmol/L 21-29 93575-5) Base Excess, Stanislav (test 1.0 mmol/L -2.0-3.0 code = 1927-3) Patient Temperature 37.0 (test code = 8310-5) FIO2 (test code = 1819) 21 Lab Interpretation Abnormal (test code = 87254-9) [facility] gvzows0806-54-74 05:13:54 Test Item Value Reference Range Interpretation Comments pH, Stanisalv (test code = 7.40 7.32-7.42 2746-6) pCO2, Stanislav (test code = 43 See_Comment [Aut omated message] 755) The system M.Setek generated this result transmit alejandra reference range : 41 - 51 mm Hg. The reference range was not used to interpret this result as normal/abnormal . pO2, Stanislav (test code = 125 See_Comment H [Auto mated message] 4765-2) The system M.Setek generated this result transmit alejandra reference range : 25 - 40 mm Hg. The reference range was not used to interpret this result as normal/abnormal . O2 Sat, Stanislav (test code 98.5 % 40.0-70.0 H = 2711-0) HCO3, Stanislav (test code = 26 mmol/L 21-29 73604-3) Base Excess, Stanislav (test 1.0 mmol/L -2.0-3.0 code = 1927-3) Patient Temperature 37.0 (test code = 8310-5) FIO2 (test code = 1819) 21 Lab Interpretation Abnormal (test code = 98519-1) [facility] GAS, [id number] 05:13:54 Test Item Value Reference Range Interpretation [...] (BEAKER) (test code = 1819) 21.0 CALCIUM, [id number] 05:13:39 Test Item Value Reference Range Interpretation Comments CALCIUM IONIZED (BEAKER) (test 1.14 mmol/L 1.12-1.27 code = 698) PH, BLOOD (BEAKER) (test code = 7.40 1810) C-Reactive [id number] 05:07:30 Test Item Value Reference Range Interpretation Comments CRP (test code = 676) 7.77 mg/dL 0.00-0.50 H PROSPER (test code = PROSPER) [employer] Ranger ID - LORIE G Lab Interpretation (test Abnormal code = 63054-3) [facility] [id number] 05:07:30 Test Item Value Reference Range Interpretation Comments CRP (test code = 676) 7.77 mg/dL 0.00-0.50 H PROSPER (test code = PROSPER) [employer] ID - LORIE G Lab Interpretation (test Abnormal code = 96508-8) [facility]2021-[facility]-16 05:07:30 Test Item Value Reference Range Interpretation Comments PHOSPHORUS (BEAKER) 3.4 mg/dL 2.3-4.7 Specimen slightly (test code = 604) hemolyzed [employer] Ranger ID - LORIE GCOMPREHENSIVE METABOLIC [id number] 05:07:30 Test Item Value Reference Range Interpretation [...] S NOT APPLICABLE FOR DIALYSIS PATIEN TS. [employer] Ranger ID - LORIE GC-REACTIVE [id number] 05:07:30 Test Item Value Reference Range Interpretation Comments C-REACTIVE PROTEIN (BEAKER) (test 7.77 mg/dL 0.00-0.50 H code = 676) [employer] ID - LORIE [id number] 05:07:29 Test Item Value Reference Range Interpretation Comments MAGNESIUM (BEAKER) 2.4 mg/dL 1.6-2.6 Specimen slightly (test code = 627) hemolyzed [employer] ID - LORIE GPOCT-GLUCOSE [id number] 16:42:01 Test Item Value Reference Range Interpretation Comments POC-GLUCOSE METER 206 mg/dL 70-110 H : TESTED A T [facility] 6720 (BEAKER) (test code = [place], 1538) [address]: National Park Ranger/Techni chitra ID = [id number] for Ca stro (agency), [place] 2D Echo W/Doppler(CW/PW/Color)2020-11-04 13:11:57Ejection FractionSLE ECHO HEARTLAB MKCKESSON [facility] W/Doppler(CW/PW/Color)2020-11-04 13:11:57Ejection FractionSLEH ECHO HEARTLAB MKCKESSON CPACSCHI [facility] [id number] 11:51:38 Test Item Value Reference Range Interpretation Comments POC-GLUCOSE METER 190 mg/dL 70-110 H : TESTED A T [facility] 6720 (NIKHIL) (test code = ZACH [place] [facility], 1538) [address]: National Park Ranger/Techni chitra ID = [id number] for Juan moreno (agency), Juju [place] POCT-GLUCOSE [id number] 07:36:06 Test Item Value Reference Range Interpretation Comments POC-GLUCOSE METER 151 mg/dL 70-110 H : Notified RN/MD: (NIKHIL) (test code = TESTED AT [facility] 6720 1538) MEDINA [facility], [address]: National Park Ranger/Techni chitra ID = [id number] for Gerardo edwards (contract), [place] Hemoglobin [id number] 07:12:22 Test Item Value Reference Range Interpretation Comments Hemoglobin A1C (test code = 4548-4) 6.3 % 4.3-6.1 H Lab Interpretation (test code = Abnormal 06673-8) [facility] [id number] 07:12:22 Test Item Value Reference Range Interpretation Comments Hemoglobin A1C (test code = 4548-4) 6.3 % 4.3-6.1 H Lab Interpretation (test code = Abnormal 71705-9) [facility]MO[facility] [id number] 07:12:22 Test Item Value Reference Range Interpretation Comments HEMOGLOBIN A1C (NIKHIL) (test code = 6.3 % 4.3-6.1 H 368) RAD, CHEST, 1 VIEW, NON [id number] 07:12:00Reason for exam:->SOB - [facility] 1945 Sex: MFINAL REPORT RAD, CHEST, 1 VIEW, NON DEPT INDICATION: SOB - COVID COMPARISON: Prior day's exam FINDINGS: Portable frontal view of the chest. IMPRESSION: Support Lines: None Lungs and pleura: Stable air spaces. No new consolidation or effusion. No pneumothorax.Heart and mediastinum:Stable contours. Additional findings: None. Signed: JR Ness Robert MDReport Verified Date/Time: 11/04/2020 07:12:21 Reading Location: [facility] Radiology Reading Room POCT-GLUCOSE [id number] 06:29:06 Test Item Value Reference Range Interpretation Comments POC-GLUCOSE METER 168 mg/dL 70-110 H : TESTED A T [facility] 6720 (BEAKER) (test code [facility], = 1538) [address]: National Park Ranger/Techni chitra ID = [id number] for SUGU , SHERIEENAMOL [id number] 04:21:34 Test Item Value Reference Range Interpretation Comments PHOSPHORUS (BEAKER) (test code = 3.0 mg/dL 2.3-4.7 604) [employer] Ranger ID - JITENDRA MC-REACTIVE [id number] 04:21:34 Test Item Value Reference Range Interpretation Comments C-REACTIVE PROTEIN (BEAKER) (test 18.07 mg/dL 0.00-0.50 H code = 676) [employer] Ranger ID - JITENDRA MCOMPREHENSIVE METABOLIC [id number] 04:21:33 Test Item Value Reference Range Interpretation [...] S NOT APPLICABLE FOR DIALYSIS PATIEN TS. [employer] Ranger ID - JITENDRA [id number] 04:21:33 Test Item Value Reference Range Interpretation Comments MAGNESIUM (BEAKER) (test code = 2.2 mg/dL 1.6-2.6 627) [employer] Ranger ID - JITENDRA [id number] 04:12:53 Test Item Value Reference Range Interpretation Comments D-Dimer, Quant (test 0.89 See_Comment H [Autom ated code = 93891-8) message] The system which generated this result [...] range. Lab Interpretation Abnormal (test code = 44049-2) [facility]-[id number] 04:12:53 Test Item Value Reference Range Interpretation Comments D-Dimer, Quant (test 0.89 See_Comment H [Autom ated code = 85532-2) message] The system which generated this result [...] range. Lab Interpretation Abnormal (test code = 29907-2) [facility]-[id number] 04:12:53 Test Item Value Reference Range Interpretation [...] of thrombosis is within 95-100% range. Prothrombin time/[id number] 04:10:13 Test Item Value Reference Interpretation Comments [...] valves. Lab Interpretation Abnormal (test code = 86550-3) [facility] Hospital[facility]thrombin time/[id number] 04:10:13 Test Item Value Reference Interpretation Comments [...] valves. Lab Interpretation Abnormal (test code = 21441-5) [facility] HospitalPROTHROMBIN TIME/[id number] 04:10:13 Test Item Value Reference Range Interpretation Comments PROTIME (BEAKER) 15.2 seconds 11.9-14.2 H (test code = 759) INR (BEAKER) (test 1.22 See_Comment [Automat ed message] code = 370) The system [employer] h generated this result transmitted ref erence range: <=5.90. The reference range was not used to int erpret this result as normal/abnormal . RECOMMENDED COUMADIN/WARFARIN INR THERAPY RANGESSTANDARD DOSE: 2.0 - 3.0 Includes: PROPHYLAXIS for venous thrombosis, systemic embolization; TREATMENT for venous thrombosis and/or pulmonary embolus.HIGH RISK: Target INR is 2.5-3.5 for patients with mechanical heart valves.BLOOD GAS, [id number] 04:07:03 Test Item Value Reference Range Interpretation [...] = 1818) CBC W/PLT COUNT & AUTO [id number] 04:02:18 Test Item Value Reference Range Interpretation [...] PERCENT (BEAKER) (test code = 2801) CALCIUM, [id number] 04:00:26 Test Item Value Reference Range Interpretation Comments CALCIUM IONIZED (BEAKER) (test 1.16 mmol/L 1.12-1.27 code = 698) PH, BLOOD (BEAKER) (test code = 7.40 1810) [id number] 20:26:13 Test Item Value Reference Range Interpretation Comments Ferritin (test code = 970.79 ng/mL 5.00-275.00 H 2276-4) PROSPER (test code = PROSPER) National [place] Ranger ID - BS Lab Interpretation (test Abnormal code = 46783-6) [facility]ritin2021-[facility]-14 20:26:13 Test Item Value Reference Range Interpretation Comments Ferritin (test code = 970.79 ng/mL 5.00-275.00 H 2276-4) PROSPER (test code = PROSPER) [employer] Ranger ID - BS Lab Interpretation (test Abnormal code = 35168-2) [facility]ERRITIN2021-09-14 20:26:13 Test Item Value Reference Range Interpretation Comments FERRITIN (BEAKER) (test code = 970.79 ng/mL 5.00-275.00 H 361) [employer] Ranger ID - BSB-type Natriuretic Factor (BNP)2020-11-03 20:13:54 Test Item Value Reference Range Interpretation Comments BNP (test code = 64642-2) 498 pg/mL 0-100 H PROSPER (test code = PROSPER) [employer] Ranger ID - BS Lab Interpretation (test Abnormal code = 01201-5) [facility] Natriuretic Factor (BNP)2020-11-03 20:13:54 Test Item Value Reference Range Interpretation Comments BNP (test code = 84421-0) 498 pg/mL 0-100 H PROSPER (test code = PROSPER) [employer] Ranger ID - BS Lab Interpretation (test Abnormal code = 61000-5) [facility] NATRIURETIC FACTOR (BNP)2020-11-03 20:13:54 Test Item Value Reference Range Interpretation Comments B-TYPE NATRIURETIC PEPTIDE (BEAKER) 498 pg/mL 0-100 H (test code = 700) [employer] Ranger ID - BSC-REACTIVE [id number] 20:08:08 Test Item Value Reference Range Interpretation Comments C-REACTIVE PROTEIN (BEAKER) (test 23.69 mg/dL 0.00-0.50 H code = 676) [employer] Ranger ID - BSCOMPREHENSIVE METABOLIC [id number] 20:08:07 Test Item Value Reference Range Interpretation [...] S NOT APPLICABLE FOR DIALYSIS PATIEN TS. [employer] Ranger ID - [id number] 20:04:10 Test Item Value Reference Range Interpretation [...] of thrombosis is within 95-100% range.Lactic acid, [id number] 20:03:46 Test Item Value Reference Range Interpretation Comments Lactate, Venous (test 1.90 mmol/L 0.50-2.20 Specim en code = 2872) slightly hemolyzed PROSPER (test code = PROSPER) [employer] Ranger ID - BS Lab Interpretation Normal (test code = 05264-1) [facility] HospitalL[facility], [id number] 20:03:46 Test Item Value Reference Range Interpretation Comments Lactate, Venous (test 1.90 mmol/L 0.50-2.20 Specim en code = 2872) slightly hemolyzed PROSPER (test code = PROSPER) [employer] Ranger ID - BS Lab Interpretation Normal (test code = 52576-8) [facility] HospitalLACTIC ACID, [id number] 20:03:46 Test Item Value Reference Range Interpretation Comments LACTATE BLOOD VENOUS 1.90 mmol/L 0.50-2.20 Specime n slightly (2) (BEAKER) (test hemolyzed code = 2872) [employer] Ranger ID - BSPROTHROMBIN TIME/[id number] 20:01:29 Test Item Value Reference Range Interpretation Comments PROTIME (BEAKER) 14.8 seconds 11.9-14.2 H (test code = 759) INR (BEAKER) (test 1.18 See_Comment [Automat ed message] code = 370) The system M.Setek generated this result transmitted ref erence range: [...] 10.1 See_Comment [A utomated message] The system M.Setek generated this result transmitted ref erence range: 3.5 - 10 .5 K/L. The refe rence range was not u sed to interpret this result as normal/abnor mal. RBC (test code = 789-8) 5.03 See_Comment [Au tomated message] The system M.Setek generated this result transmitted ref erence range: 4.63 - 6 .08 M/L. The refe rence range was not u sed to interpret this result as normal/abnor mal. MCHC (test code = 786-4) 34.6 See_Comment [A utomated message] The system M.Setek generated this result transmitted ref erence range: [...] code = 362 See_Comment [Aut omated message] 377-3) The system M.Setek generated this result transmitted ref erence range: 150 - 45 0 K/CU MM. The referen ce range was not u sed to interpret this result as normal/abnor mal. MPV (test code = 9.2 fL 9.4-12.4 L 67957-8) nRBC (test code = 413) 0 See_Comment [Aut omated message] The system M.Setek generated this result transmitted ref erence range: 0 - 0 /1 00 WBC. The refere nce range was not u sed to interpret this result as normal/abnor mal. Lab Interpretation (test Abnormal code = 23437-7) [facility] (Hemogram only)2020-11-03 19:50:06 Test Item Value Reference Range Interpretation Comments WBC (test code = 6690-2) 10.1 See_Comment [A utomated message] The system M.Setek generated this result transmitted ref erence range: 3.5 - 10 .5 K/L. The refe rence range was not u sed to interpret this result as normal/abnor mal. RBC (test code = 789-8) 5.03 See_Comment [Au tomated message] The system M.Setek generated this result transmitted ref erence range: 4.63 - 6 .08 M/L. The refe rence range was not u sed to interpret this result as normal/abnor mal. MCHC (test code = 786-4) 34.6 See_Comment [A utomated message] The system M.Setek generated this result transmitted ref erence range: [...] code = 362 See_Comment [Aut omated message] 937-3) The system M.Setek generated this result transmitted ref erence range: 150 - 45 0 K/CU MM. The referen ce range was not u sed to interpret this result as normal/abnor mal. MPV (test code = 9.2 fL 9.4-12.4 L 22153-8) nRBC (test code = 413) 0 See_Comment [Aut omated message] The system M.Setek generated this result transmitted ref erence range: 0 - 0 /1 00 WBC. The refere nce range was not u sed to interpret this result as normal/abnor mal. Lab Interpretation (test Abnormal code = 91669-1) [facility] (HEMOGRAM ONLY)2020-11-03 19:50:06 Test Item Value Reference [...] (BEAKER) (test code = 413) BLOOD GAS, [id number] 19:50:01 Test Item Value Reference Range Interpretation [...] 1819) 100.0 RAD, CHEST, 1 VIEW, NON [id number] 19:04:00Reason for exam:->acute hypoxemic respiratory failureShould this be performed at the bedside?->Yes [facility] : 1945 Sex: MFINAL REPORT AP view of the chest dated 11/03/2020 CLINICAL INFORMATION: acute hypoxemic respiratory failure Comment: Heart is normal in size. Pulmonary vasculature is unremarkable. Lungs are clear. No pulmonary infiltrate or pleural effusion is present. Impression: No active cardiopulmonary disease. Signed: Estephania Valadez Verified Date/Time: 11/03/2020 19:04:46 [facility] Consult Reading Room POCT-GLUCOSE [id number] 18:31:16 Test Item Value Reference Range Interpretation Comments POC-GLUCOSE METER 164 mg/dL 70-110 H : TESTED A T [facility] 6720 ([facility]) (test code = [place], 1538) [address]: National Park Ranger/Techni chitra ID = [id number] for Joanie Garces
[2022-10-12 17:23] LABS: Specific Gravity 1.014 (1.005-1.030); Urine Bacteria <20 /HPF (<20); Urine Bilirubin NEGATIVE (Negative); Urine Blood Negative (Negative); Urine Clarity Turbid (Clear); Urine Color Yellow (Yellow); Urine Glucose NEGATIVE (Negative); Urine Mucus Slight /HPF (None Seen); Urine Protein NEGATIVE (Negative); Urine RBC <5 /HPF (None Seen); Urine Urobilinogen 1+ (Normal); Urine pH 5.5 (5.0-7.0)
[2022-10-12 17:32] LABS: Absolute Lymphocytes (CBC) 0.7 K/uL (0.7-4.9); Hematocrit 45.3 % (39.6-49.0); Lymphocytes % 3.8 % (15.3-44.8); MCV 97.3 fL (80-100); Platelets 212 thou/uL (152-406); RBC Red Blood Cell Count 4.66 M/uL (4.33-5.43)
[2022-10-12 17:33] LABS: Protime INR 3.88
--- NOTE | 2022-10-12 17:37 | RAD REPORT ---
EXAM DESCRIPTION: RAD - Chest Single View - 10/12/2022 5:30 pm CLINICAL HISTORY: near syncope Chest pain. COMPARISON: <Comparisons> FINDINGS: Portable technique limits examination quality. Moderate airspace opacity in the right lung base likely representing pneumonia. The heart is mildly e nlarged with a multi lead pacer device present. Small pleural effusions.Dual lead pacer device presen t. IMPRESSION: Moderate right base pneumonia.
[2022-10-12 17:55] LABS: Bilirubin Direct 1.3 mg/dL (0-0.2); Bilirubin Indirect, Calculated 0.9 mg/dL (0.2-0.8); Bilirubin Total 2.2 mg/dL (0.2-1.0); Magnesium 2.1 mg/dL (1.6-2.4); Protein, Total 6.9 g/dL (6.4-8.2)
[2022-10-12 18:13] LABS: Troponin High Sensitivity 70.3 pg/mL (<58.9)
--- NOTE | 2022-10-12 19:00 | ER ---
Nurse's Notes [facility] Name: Jonatan Yen Jr Age: 77 yrs Sex: Male : 1945 Arrival Date: 10/12/2022 Time: 16:13 Bed 17 Private MD: Diagnosis: Hypo-osmolality and hyponatremia;Pneumonia due to other specified bacteria-RIGHT LOWER LOBE;Acute kidney failure, unspecified-ON CHRONIC;Elevated white blood cell count;Abnormal levels of other serum enzymes-ELEVATED TROPONIN;halfway (current) use of anticoagulants-COUMADIN;Weakness;Pleural effusion, not elsewhere classified-MODERATE RIGHT Presentation: 10/12 16:47 Chief complaint: EMS states: patient was just in [facility] and discharged on me1 09/30/22. Per patient has had dizziness and syncopal episodes since he got home. Called EMS today because patient got dizzy and passed out in the bathroom. is concerned that the medication changes they made in the hospital have caused the dizziness. Coronavirus screen: Vaccine status: Patient reports receiving the 2nd dose of the covid vaccine. At this time, the client does not indicate any symptoms associated with coronavirus-19. Ebola Screen: No symptoms or risks identified at this time. Initial Sepsis Screen: Does the patient meet any 2 criteria? No. Patient's initial sepsis screen is negative. Does the patient have a suspected source of infection? No. Patient's initial sepsis screen is negative. Risk Assessment: Do you want to hurt yourself or someone else? Patient reports no desire to harm self or others. Onset of symptoms was September 30, 2022. 16:47 Method Of Arrival: EMS: [facility] ct1 16:47 Acuity: TOÑO 3 me1 Triage Assessment: 16:51 General: Appears uncomfortable, slender, Behavior is cooperative, appropriate for age, me1 flat. Pain: Denies pain. Neuro: Level of Consciousness is awake, alert, obeys commands, Oriented to person, place, time, situation, Appropriate for age. Cardiovascular: Patient's skin is warm and dry. Respiratory: Airway is patent Respiratory effort is even, unlabored, Respiratory pattern is regular, symmetrical. Historical: - Allergies: 16:51 Ciprofloxacin; me1 16:51 Sulfa (Sulfonamide Antibiotics); me1 16:51 Bactrim; me1 16:51 Lotrel; me1 16:51 benazapril; me1 16:51 TRIMETHOPRIM; me1 16:51 amlodipine; me1 - PMHx: 16:51 Atrial fibrillation; hypotension; me1 - PSHx: 16:51 pacemaker; valve replacement, aortic and mitral; me1 - Immunization history:: Adult Immunizations up to date. - Social history:: Smoking status: Patient/guardian denies using tobacco, but has a distant history of tobacco abuse. - Family history:: not pertinent. Screenin:54 [facility] ED Fall Risk Assessment (Adult) Score/Fall Risk Level 3 or more points = High me1 Risk. [facility] ED Fall Risk Assessment (Adult) History of falling in the last 3 months, including since admission Yes- fall prone (multiple falls) (3 pts) Impaired Gait Mobility Assist Device Used Score/Fall Risk Level 3 or more points = High Risk Educated pt \T\ family on fall prevention, incl call for assistance when getting out of bed, Provided non-skid footwear, Hourly rounding (assess needs \T\ fall precautionary measures) done, Used gait belt as appropriate Implemented a Fall Risk Plan of Care. Abuse screen: Denies threats or abuse. Nutritional screening: No deficits noted. Tuberculosis screening: No symptoms or risk factors identified. Assessment: 16:54 General: See triage assessment. me1 19:35 General: attempted to obtain orthostatic BP but could not complete due to weakness \E\. as6 19:46 Reassessment: Orthostatic vital signs unable to be completed due to patient not being cm10 able to stand. Dr. Giang aware. 20:57 Reassessment: Patient and/or family updated on plan of care and expected duration. Pain cm10 level reassessed. Patient is alert, oriented x 3, equal unlabored respirations, skin warm/dry/pink. Vital Signs: 16:47 BP 126 / 99; Pulse 88; Resp 16; Temp 98.4(O); Pulse Ox 100% on R/A; Weight 57.15 kg; me1 Height 5 ft. 11 in. ; 17:35 BP 101 / 63; Pulse 58; Resp 18; Pulse Ox 96% on R/A; me1 18:00 BP 101 / 65; Pulse 87; Resp 16; Pulse Ox 99% ; cm10 18:30 BP 96 / 58; Pulse 83; Resp 16; Pulse Ox 94% ; cm10 19:00 BP 102 / 62; Pulse 79; Resp 16; Pulse Ox 97% ; cm10 19:30 BP 95 / 59; Pulse 72; Resp 18; Pulse Ox 96% ; cm10 20:00 BP 97 / 61; Pulse 74; Resp 18; Pulse Ox 96% on R/A; cm10 20:30 BP 99 / 54; Pulse 75; Resp 16; Pulse Ox 96% ; cm10 16:47 Body Mass Index 17.57 (57.15 kg, 180.34 cm) me1 ED Course: 16:15 Patient arrived in ED. sb4 16:17 Loki Haskins MD is Attending Physician. rt 16:51 Triage completed. me1 16:51 Arm band placed on Patient placed in an exam room. me1 16:54 Patient has correct armband on for positive identification. Fall risk band placed. me1 Placed in gown. Bed in low position. Call light in reach. Side rails up X2. Provided Education on: POC. Verbalized understanding.. 16:54 No provider procedures requiring assistance completed. me1 17:23 Susan Ocasio, RN is Primary Nurse. me1 17:23 Basic Metabolic Panel Sent. me1 17:23 CBC with Diff Sent. me1 17:23 LFT's Sent. me1 17:24 Magnesium Sent. me1 17:24 NT PRO-BNP Sent. me1 17:24 PT-INR Sent. me1 17:24 Troponin HS Sent. me1 17:24 Missed attempt(s): 22 gauge Bleeding controlled, band aid applied, catheter tip intact. sm8 17:24 Inserted saline lock: 22 gauge in left antecubital area, using aseptic technique. Blood sm8 collected. 17:32 XRAY Chest (1 view) In Process Unspecified. EDMS 17:52 Attending Physician role handed off by Loki Haskins MD bushra 17:52 Stefan Giang MD is Attending Physician. bushra 18:28 Lactate w/ 2H reflex if indic. Sent. me1 18:54 Jacob Gao is Hospitalizing Provider. bushra 19:47 Primary Nurse role handed off by Susan Ocasio, RN cm10 19:47 Heidi Richardson, RODRIGUEZ is Primary Nurse. cm10 19:58 CT Traumagram (Head C Spine CAP wo con) In Process Unspecified. EDMS 20:55 Patient admitted, IV remains in place. 10 Administered Medications: 19:20 CANCELLED (Duplicate Order): NS 0.9% IV 1000 ml IV at 125 ml/hr continuous bushra 19:20 CANCELLED (Duplicate Order): NS 0.9% IV 250 ml IV at bolus once bushra 20:01 Drug: Piperacillin-Tazobactam IVPB 3.375 grams Route: IVPB; Infused Over: 60 mins; cm10 Site: left antecubital; 20:34 Follow up: Response: No adverse reaction; IV Status: Completed infusion; IV Intake: cm10 100ml 20:01 Drug: Famotidine IVP 20 mg Route: IVP; Site: left antecubital; cm10 20:34 Follow up: Response: No adverse reaction cm10 20:01 Drug: NS 0.9% IV 1000 ml Route: IV; Rate: 75 ml/hr; Site: left antecubital; cm10 20:55 Follow up: Response: No adverse reaction; IV Status: Infusion continued upon admission [facility] Medication: 16:54 VIS not applicable for this client. me1 Intake: 20:34 IV: 100ml; Total: 100ml. 10 Outcome: 18:59 Decision to Hospitalize by Provider. bushra 20:56 Admitted to Med/surg accompanied by tech, via stretcher, room 221, Report called to leno Alcocer RN 20:56 Condition: good 21:17 Patient left the ED. as6 Signatures: Dispatcher [employer] Stefan Comer MD MD cha Slawson, Ashby, RN RN as6 Mony Faith PA-Karla PA-C sb4 Loki Haskins MD MD rt Martinez, Clarissa RN RN cm10 Jacquelyn Santacruz sm8 Susan Ocasio, RODRIGUEZ RN me1 Corrections: (The following items were deleted from the chart) 16:53 16:51 Allergies: PENICILLINS; me1 me1 16:53 16:51 PMHx: Atrial fibrillation; me1 me1
--- NOTE | 2022-10-12 19:00 | EDPHYS ---
Physician Documentation [facility] Name: Jonatan Yen Jr Age: 77 yrs Sex: Male : 1945 Arrival Date: 10/12/2022 Time: 16:13 Bed 17 Private MD: ED Physician Stefan Giang HPI: 10/12 17:08 This 77 yrs old Male presents to ER via EMS with complaints of Near syncope. rt 17:08 Patient presents to the ED with near syncope. Of note, last month, the patient was in rt the hospital for a long time at [facility] for congestive heart failure exacerbation. Patient states that he is not currently volume overloaded nor is he short of breath. He states that he does feel very weak and has a decreased appetite. States that he gets very dizzy when he stands up. Denies other acute complaints at this time. Symptoms are moderate in severity, no other aggravating or alleviating factors.. Historical: - Allergies: 16:51 Ciprofloxacin; me1 16:51 Sulfa (Sulfonamide Antibiotics); me1 16:51 Bactrim; me1 16:51 Lotrel; me1 16:51 benazapril; me1 16:51 TRIMETHOPRIM; me1 16:51 amlodipine; me1 - PMHx: 16:51 Atrial fibrillation; hypotension; me1 - PSHx: 16:51 pacemaker; valve replacement, aortic and mitral; me1 - Immunization history:: Adult Immunizations up to date. - Social history:: Smoking status: Patient/guardian denies using tobacco, but has a distant history of tobacco abuse. - Family history:: not pertinent. ROS: 17:08 Constitutional: Negative for fever, chills, and weight loss, Cardiovascular: Negative rt for chest pain, palpitations, and edema, Respiratory: Negative for shortness of breath, cough, wheezing, and pleuritic chest pain, Abdomen/GI: Negative for abdominal pain, nausea, vomiting, diarrhea, and constipation, MS/Extremity: Negative for injury and deformity, Skin: Negative for injury, rash, and discoloration, Neuro: Negative for headache, weakness, numbness, tingling, and seizure, Psych: Negative for depression, anxiety, suicide ideation, homicidal ideation, and hallucinations. 17:08 Neuro: Positive for near syncope, Negative for altered mental status, loss of consciousness. Exam: 17:08 Constitutional: This is a well developed, well nourished patient who is awake, alert, rt and in no acute distress. Head/Face: Normocephalic, atraumatic. Chest/axilla: Normal chest wall appearance and motion. Nontender with no deformity. No lesions are appreciated. Cardiovascular: Regular rate and rhythm with a normal S1 and S2. No gallops, murmurs, or rubs. Normal PMI, no JVD. No pulse deficits. Respiratory: Lungs have equal breath sounds bilaterally, clear to auscultation and percussion. No rales, rhonchi or wheezes noted. No increased work of breathing, no retractions or nasal flaring. Abdomen/GI: Soft, non-tender, with normal bowel sounds. No distension or tympany. No guarding or rebound. No evidence of tenderness throughout. Skin: Warm, dry with normal turgor. Normal color with no rashes, no lesions, and no evidence of cellulitis. MS/ Extremity: Pulses equal, no cyanosis. Neurovascular intact. Full, normal range of motion. Neuro: Awake and alert, GCS 15, oriented to person, place, time, and situation. Cranial nerves II-XII grossly intact. Motor strength 5/5 in all extremities. Sensory grossly intact. Cerebellar exam normal. Normal gait. 17:08 ENT: Dry mucous membranes. 17:58 ECG was reviewed by the Attending Physician. rt Vital Signs: 16:47 BP 126 / 99; Pulse 88; Resp 16; Temp 98.4(O); Pulse Ox 100% on R/A; Weight 57.15 kg; me1 Height 5 ft. 11 in. ; 17:35 BP 101 / 63; Pulse 58; Resp 18; Pulse Ox 96% on R/A; me1 18:00 BP 101 / 65; Pulse 87; Resp 16; Pulse Ox 99% ; cm10 18:30 BP 96 / 58; Pulse 83; Resp 16; Pulse Ox 94% ; cm10 19:00 BP 102 / 62; Pulse 79; Resp 16; Pulse Ox 97% ; cm10 19:30 BP 95 / 59; Pulse 72; Resp 18; Pulse Ox 96% ; cm10 20:00 BP 97 / 61; Pulse 74; Resp 18; Pulse Ox 96% on R/A; cm10 20:30 BP 99 / 54; Pulse 75; Resp 16; Pulse Ox 96% ; cm10 16:47 Body Mass Index 17.57 (57.15 kg, 180.34 cm) me1 MDM: 16:18 Patient medically screened. rt 19:00 Differential Diagnosis altered mental status, sepsis, flu. Data reviewed: vital signs, [facility] nurses notes, EMS record, lab test result(s), EKG, radiologic studies, CT scan, plain films. Consideration of Admission/Observation Patient was admitted/placed on observation. Escalation of care including admission/observation considered. I considered the following discharge prescriptions or medication management in the emergency department Medications were administered in the Emergency Department. See MAR. Independent interpretation of the following test(s) in the Emergency Department EKG: See my EKG interpretation above. Test considered but Not performed: Ultrasound NO ECHO CARDIOGRAM 2 D. Care significantly affected by the following chronic conditions: AFIB , HYPOTENTION. 10/12 16:37 Order name: Basic Metabolic Panel; Complete Time: 18:47 rt 10/12 16:37 Order name: CBC with Diff; Complete Time: 17:40 10/12 16:37 Order name: LFT's; Complete Time: 18:47 10/12 16:37 Order name: Magnesium; Complete Time: 18:47 10/12 16:37 Order name: NT PRO-BNP; Complete Time: 18:47 10/12 16:37 Order name: PT-INR; Complete Time: 17:40 10/12 16:37 Order name: Troponin HS; Complete Time: 18:47 10/12 16:37 Order name: UAM; Complete Time: 17:25 10/12 17:53 Order name: Blood Culture Adult (2) [facility] 10/12 17:53 Order name: Lactate w/ 2H reflex if indic.; Complete Time: 21:15 [facility] 10/12 17:54 Order name: SARS RAPID; Complete Time: 21:15 [facility] 10/12 17:54 Order name: Influenza Screen (a \T\ B); Complete Time: 21:15 [facility] 10/12 18:48 Order name: Osmolality, Serum; Complete Time: 21:15 [facility] 10/12 18:48 Order name: Urine Sodium Random; Complete Time: 21:15 [facility] 10/12 18:48 Order name: Urine Osmolality; Complete Time: 21:15 [facility] 10/12 19:55 Order name: Urinalysis w/ reflexes EDMS 10/12 19:55 Order name: CBC with Automated Diff EDMS 10/12 19:55 Order name: CBC with Automated Diff; Complete Time: 07:44 EDMS 10/12 19:55 Order name: CBC with Automated Diff EDMS 10/12 19:55 Order name: CBC with Automated Diff EDMS 10/12 19:55 Order name: Comprehensive Metabolic Panel EDMS 10/12 19:55 Order name: Comprehensive Metabolic Panel; Complete Time: 07:44 EDMS 10/12 19:55 Order name: Comprehensive Metabolic Panel EDMS 10/12 19:55 Order name: Comprehensive Metabolic Panel EDMS 10/12 19:55 Order name: Magnesium EDMS 10/12 19:55 Order name: Magnesium; Complete Time: 07:44 EDMS 10/12 19:55 Order name: Magnesium EDMS 10/12 19:55 Order name: Magnesium EDMS 10/12 19:55 Order name: NT PRO-BNP EDMS 10/12 19:55 Order name: NT PRO-BNP; Complete Time: 07:44 EDMS 10/12 19:55 Order name: NT PRO-BNP EDMS 10/12 19:55 Order name: NT PRO-BNP EDMS 10/12 19:55 Order name: Troponin High Sensitivity EDMS 10/12 19:55 Order name: Troponin High Sensitivity; Complete Time: 07:44 EDMS 10/12 19:55 Order name: Troponin High Sensitivity EDMS 10/12 19:55 Order name: Troponin High Sensitivity EDMS 10/12 16:37 Order name: XRAY Chest (1 view); Complete Time: 17:40 rt 10/12 18:50 Order name: CT Traumagram (Head C Spine CAP wo con); Complete Time: 21:15 bushra 10/12 16:37 Order name: EKG; Complete Time: 16:38 rt 10/12 19:55 Order name: Heart Healthy EDMS 10/12 16:37 Order name: Cardiac monitoring; Complete Time: 17:23 rt 10/12 16:37 Order name: EKG - Nurse/Tech; Complete Time: 17:53 rt 10/12 16:37 Order name: IV Saline Lock; Complete Time: 17:23 rt 10/12 16:37 Order name: Labs collected and sent; Complete Time: 17:23 rt 10/12 16:37 Order name: O2 Per Protocol; Complete Time: 17:23 rt 10/12 16:37 Order name: O2 Sat Monitoring; Complete Time: 17:23 rt 10/12 16:37 Order name: Orthostatics; Complete Time: 19:37 rt EC:58 Rate is 87 beats/min. Rhythm is regular, Paced with No ectopy. Left axis deviation rt noted. No Q waves. Administered Medications: 19:20 CANCELLED (Duplicate Order): NS 0.9% IV 1000 ml IV at 125 ml/hr continuous bushra 19:20 CANCELLED (Duplicate Order): NS 0.9% IV 250 ml IV at bolus once bushra 20:01 Drug: Piperacillin-Tazobactam IVPB 3.375 grams Route: IVPB; Infused Over: 60 mins; cm10 Site: left antecubital; 20:34 Follow up: Response: No adverse reaction; IV Status: Completed infusion; IV Intake: cm10 100ml 20:01 Drug: Famotidine IVP 20 mg Route: IVP; Site: left antecubital; cm10 20:34 Follow up: Response: No adverse reaction cm10 20:01 Drug: NS 0.9% IV 1000 ml Route: IV; Rate: 75 ml/hr; Site: left antecubital; cm10 20:55 Follow up: Response: No adverse reaction; IV Status: Infusion continued upon admission cm10 Disposition Summary: 10/12/22 18:59 Hospitalization Ordered Hospitalization Status: Inpatient Admission bushra Provider: Jacob Gao cha [facility] bushra Condition: Fair bushra Problem: new bushra Symptoms: have improved bushra Bed/Room Type: Standard bushra Room Assignment: 221(10/12/22 20:30) eb1 Diagnosis - Hypo-osmolality and hyponatremia bushra - Pneumonia due to other specified bacteria - RIGHT LOWER LOBE bushra - Acute kidney failure, unspecified - ON CHRONIC bushra - Elevated white blood cell count bushra - Abnormal levels of other serum enzymes - ELEVATED TROPONIN bushra - 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 bushra bushra 19:20 18:49 NS 0.9% IV 250 ml IV at bolus once ordered. bushra bushra 20:30 18:59 bushra eb1
[2022-10-12 19:13] LABS: SARS-CoV-2 Antigen Rapid Res Negative (Negative)
[2022-10-12] MEDS ORDERED: NA CHLORIDE 0.9% 100 ML ONE (19:41)
[2022-10-12] MEDS ORDERED: PIPERACIL/TAZO 3.375 GM VIAL IV ONE (19:41)
[2022-10-12] MEDS ORDERED: FAMOTIDINE 20 MG/2 ML VIAL IV ONE (19:42)
[2022-10-12] MEDS ORDERED: NA CHLORIDE 0.9% 1,000 ML ONE (19:42)
--- NOTE | 2022-10-12 19:47 | P.HP ---
Certification for Inpatient Patient admitted to: Inpatient With expected LOS: <2 Midnights Patient will require the following post-hospital care: Halfway Practitioner: I am a practitioner with admitting privileges, knowledge of patient current condition, hospital course, and medical plan of care. Services: Services provided to patient in accordance with Admission requirements found in Title 42 Section 412.3 of the Code of Federal Regulations Patient History Date of Service: 10/12/22 Reason for admission: Pneumonia, falls, weakness History of Present Illness: 77-year-old male with a past medical history of acute on chronic heart failure, heart valve replacement, permanent pacemaker, presents to the emergency room with syncope, falls. reports moderate generalized weakness, deconditioning, unable to and ambulate independently. She reports he is not eating, poor appetite. She reports was in the hospital from August 31 to September 30 at [facility] for acute on chronic heart failure. She reports he sees Dr. Joshi for cardiology. is primary historian, she denies her has had edema, cough, chest pain, abdominal pain, nausea vomiting diarrhea, fever or chills. Per request full CODE STATUS at this time. She requests snf facility/rehab for strength training after discharge. is primary caregiver is unable to care for patient. 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 ER course laboratory evaluation leukocytosis 19.80, left shift 88.6. Hyponatremia at 124, acute on chronic renal failure BUN 83, creatinine 1.87, estimated GFR 36, elevated lactic at 2.2, elevated troponin at 70.3, proBNP 53,810, UA negative chest x-ray Moderate airspace opacity in the right lung base likely representing pneumonia. The heart is mildly enlarged with a multi lead pacer device present.Small pleural effusions.Dual lead pacer device present.IMPRESSION: Moderate right base pneumonia. Head CT No intracranial hemorrhage, hydrocephalus or extra-axial fluid collection. Moderate diffuse brain atrophy. No areas of brain edema or midline shift. CT of the cervical spine No fracture or subluxation. The prevertebral soft tissues are normal in thickness.Moderate bilateral carotid atherosclerosis. CT of the chest abdomen The lungs are diffusely emphysematous.Pacemaker device is present.Small to moderate right pleural effusion. No evidence of intra-abdominal visceral injury, free fluid or free air is seen within the above detailed limitations. Cholelithiasis. Aortoiliac atherosclerosis, No concerning pelvic findings. Prominent stool is present throughout the colon.Eleventh left posterior rib is fractured, age indeterminate.IMPRESSION: Eleventh posterior rib on the left demonstrates nondisplaced fracture. This is age indeterminate. Advise correlation with clinical tenderness in this region.Small to moderate right pleural effusion. Allergies amlodipine [From Lotrel] Allergy (Verified 12/06/20 08:33) Anaphylaxis benazepril [From Lotrel] Allergy (Verified 12/06/20 08:33) Anaphylaxis ciprofloxacin [From Cipro] Allergy (Verified 12/06/20 08:33) Anaphylaxis Sulfa (Sulfonamide Antibiotics) Allergy (Verified 12/06/20 08:33) Anaphylaxis sulfamethoxazole [From Bactrim] Allergy (Verified 12/06/20 08:33) Anaphylaxis trimethoprim [From Bactrim] Allergy (Verified 12/06/20 08:33) Anaphylaxis Home Medications: Furosemide [Lasix] 20 mg PO DAILY 12/05/20 Hydralazine [Apresoline*] 1 tab BID 12/05/20 - Past Medical/Surgical History Diabetic: No -: HTN -: Small biopsy on neck "lum" Psychosocial/ Personal History: Retired. Patient lives at home with . - Family History Father -: Heart disease Mother -: Heart disease - Social History Alcohol use: No CD- Drugs: No Caffeine use: No Review of Systems 10-point ROS is otherwise unremarkable Physical Examination - Physical Exam General: Alert, In no apparent distress, Oriented x3, Other (Moderate generalized weakness,) HEENT: Atraumatic, Normocephalic, PERRLA Neck: Supple, 2+ carotid pulse no bruit, JVD not distended Respiratory: Clear to auscultation bilaterally, Normal air movement, Diminished (Lung sounds diminished in the bases), Other Cardiovascular: No edema, Normal pulses, Irregular heart rate/rhythm Capillary refill: <2 Seconds Gastrointestinal: Normal bowel sounds, Soft and benign Musculoskeletal: No clubbing, No swelling, Other (Moderate to max assist with transfers due to deconditioning) Integumentary: No rashes, No breakdown - Studies Laboratory Data (last 24 hrs) 10/12/22 10/12/22 10/12/22 17:21 17: 17: WBC 19.80 H Hgb 15.5 Hct 45.3 Plt Count 212 PT 42.7 H INR 3.88 Sodium 124 L Potassium 4.0 BUN 83 H Creatinine 1.87 H Glucose 172 H Magnesium 2.1 Total Bilirubin 2.2 H AST 44 H ALT 45 Alkaline Phosphatase 95 Microbiology Data (last 24 hrs): 10/12/22 18:35 Nasopharnyx Influenza Type A Antigen Screen - Final 10/12/22 18:35 Nasopharnyx Influenza Type B Antigen Screen - Final Assessment and Plan - Plan Assessment plan Critical illness myopathy Right lower lobe pneumonia with leukocytosis Acute on chronic renal failure likely due to prerenal CHF Falls Nondisplaced left rib fracture Acute on chronic heart failure Elevated troponin A-fib on chronic anticoagulation History of permanent pacemaker History of valve replacement DVT prophylaxis Assessment plan Critical illness myopathy Falls Nondisplaced left rib fracture PT OT, fall precautions Will need snf for rehab after discharge Head CT No intracranial hemorrhage, hydrocephalus or extra-axial fluid collection. Moderate diffuse brain atrophy. No areas of brain edema or midline shift. CT of the cervical spine No fracture or subluxation. The prevertebral soft tissues are normal in thickness.Moderate bilateral carotid atherosclerosis. Right lower lobe pneumonia with leukocytosis IV Zosyn, trend WBCs leukocytosis 19.80, left shift 88.6. elevated lactic at 2.2, , UA negative chest x-ray Moderate airspace opacity in the right lung base likely representing pneumonia. The heart is mildly enlarged with a multi lead pacer device present. Small pleural effusions.Dual lead pacer device present.IMPRESSION: Moderate right base pneumonia. Acute on chronic renal failure likely due to prerenal CHF Trend kidney function Nephrology consult acute on chronic renal failure BUN 83, creatinine 1.87, estimated GFR 36, elevated lactic at 2.2, , UA negative Acute on chronic heart failure Elevated troponin A-fib on chronic anticoagulation History of permanent pacemaker History of valve replacement Cardiology, consult, telemetry, Trend BNP, troponin, elevated troponin at 70.3, proBNP 53,810 EKG rate is 87 beats/min. Rhythm is regular, Paced with No ectopy. Left axis deviation rt noted. No Q waves. CT of the chest abdomen The lungs are diffusely emphysematous.Pacemaker device is present.Small to moderate right pleural effusion. No evidence of intra- abdominal visceral injury, free fluid or free air is seen within the above detailed limitations. Cholelithiasis. Aortoiliac atherosclerosis, No concerning pelvic findings. Prominent stool is present throughout the colon.Eleventh left posterior rib is fractured, age indeterminate.IMPRESSION: Eleventh posterior rib on the left demonstrates nondisplaced fracture. This is age indeterminate. Advise correlation with clinical tenderness in this region.Small to moderate right pleural effusion Diet cardiac Full code DVT heparin Discharge Plan: Other ([facility] for rehab) Plan to discharge in: 48 Hours - Advance Directives Does patient have a Living Will: No Does patient have a Durable POA for Healthcare: No - Code Status/Comfort Care Code Status: Full Code Physician Review: Patient Assessed, Agree with Above Assessment and Plan Critical Care: No Time Spent Managing Pts Care (In Minutes): 50
[2022-10-12] MEDS ORDERED: ACETAMINOPHEN 500 MG TAB PO PRN (19:53)
[2022-10-12] MEDS ORDERED: ONDANSETRON 4 MG/2 ML VIAL IV PRN (19:53)
--- NOTE | 2022-10-12 20:14 | RAD REPORT ---
EXAM DESCRIPTION: CT - Head C Spine Cap Wo Con - 10/12/2022 7:57 pm CLINICAL HISTORY: Trauma, head and neck injury. Chest, abdomen and pelvis pain. WEAKNESS COMPARISON: No comparisons TECHNIQUE: CT head without contrast. CT cervical spine without contrast with coronal and sagittal reformatted images. CT chest, abdomen and pelvis without contrast with coronal and sagittal reformatted images of the [facility]. All CT scans are performed using dose optimization technique as appropriate and may include automated exposure control or mA/KV adjustment according to patient size. FINDINGS: CT HEAD WITHOUT CONTRAST: No intracranial hemorrhage, hydrocephalus or extra-axial fluid collection. Moderate diffuse brain atr ophy. No areas of brain edema or midline shift. The paranasal sinuses and mastoids are clear. The calvarium is intact. CT CERVICAL SPINE WITHOUT CONTRAST: No fracture or subluxation. The prevertebral soft tissues are normal in thickness.Moderate bilateral carotid atherosclerosis. CT CHEST, ABDOMEN, PELVIS WITHOUT CONTRAST: NOTE: Lack of contrast is a significant limitation in the assessment of trauma related findings. Spec ifically, solid organ, vascular and bowel evaluation is significantly limited. The lungs are diffusely emphysematous.Pacemaker device is present.Small to moderate right pleural eff usion. No evidence of intra-abdominal visceral injury, free fluid or free air is seen within the above detai led limitations. Cholelithiasis. Aortoiliac atherosclerosis. No concerning pelvic findings. Prominent stool is present throughout the colon. Eleventh left posterior rib is fractured, age indeterminate. IMPRESSION: Eleventh posterior rib on the left demonstrates nondisplaced fracture. This is age indet erminate. Advise correlation with clinical tenderness in this region. Small to moderate right pleural effusion. Cholelithiasis.
[2022-10-12 22:09] VITALS: BMI 13.0
[2022-10-13] MEDS: HEPARIN 5000 UNIT/ML 1 ML VIAL SQ SCH ×2 (01:00→08:42)
[2022-10-13 03:39] LABS: Lymphocytes % 5.6 % (15.3-44.8); MCV 96.3 fL (80-100); MPV 7.4 fL (7.6-11.3); Platelets 201 thou/uL (152-406); RBC Red Blood Cell Count 4.16 M/uL (4.33-5.43)
[2022-10-13 04:26] LABS: Albumin 2.7 g/dL (3.4-5.0); Magnesium 2.2 mg/dL (1.6-2.4); Potassium 2.8 mEq/L (3.5-5.1); Protein, Total 6.1 g/dL (6.4-8.2); Troponin High Sensitivity 57.8 pg/mL (<58.9)
[2022-10-13] MEDS ORDERED: KCL 20 MEQ/100 mL IVPB 20 MEQ/100 ML BAG IV SCH (06:00)
[2022-10-13] MEDS ORDERED: BISACODYL 10 MG RECTAL SUPP PR PRN (07:00)
[2022-10-13] MEDS: FUROSEMIDE 40 MG TABLET PO SCH ×2 (08:48→16:38)
[2022-10-13] MEDS: KCL 20 MEQ/100 mL IVPB 20 MEQ/100 ML BAG IV SCH ×2 (08:56→11:31)
--- NOTE | 2022-10-13 12:38 | EKG ---
Test Date: 2022-10-12 Test Time: 17:50:22 Family Intervention Specialist: MEASUREMENT RESULTS: Intervals: Rate: 87 WA: 206 QRSD: 104 QT: 382 QTc: 459 [place]: P: WA: 206 QRS: -61 T: 122 INTERPRETIVE STATEMENTS: Atrial-sensed ventricular-paced rhythm Abnormal ECG Compared to ECG 12/07/2020 11:44:04 Sinus rhythm no longer present Atrial premature complex(es) no longer present Aberrant conduction of supraventricular beat(s) no longer present Right bundle-branch block no longer present T-wave abnormality no longer present Possible ischemia no longer present Electronically Signed On 10-13-22 12:36:55 CDT by Nigel Pereyra
[2022-10-13] MEDS ORDERED: METOLAZONE 5 MG TABLET PO SCH (13:00)
[2022-10-13] MEDS ORDERED: FUROSEMIDE 40 MG TABLET PO ONE (13:32)
--- NOTE | 2022-10-13 14:27 | P.PN ---
Subjective Date of Service: 10/13/22 Chief Complaint: Pneumonia, falls, weakness Patient reports feeling better today compared to yesterday. He was seen sitting in a chair. He reports poor appetite. He denies shortness of breath or chest pain. His blood pressure has been soft. reports patient blood pressure is low at baseline. Physical Examination - Vital Signs Temperature: 97.7 F Blood Pressure: 93/59 Pulse: 70 Respirations: 14 Pulse Ox (%): 96 - Studies Laboratory Data (last 24 hrs) 10/12/22 10/12/22 10/12/22 17:21 17:21 17:21 WBC 19.80 H Hgb 15.5 Hct 45.3 Plt Count 212 PT 42.7 H INR 3.88 Sodium 124 L Potassium 4.0 BUN 83 H Creatinine 1.87 H Glucose 172 H Magnesium 2.1 Total Bilirubin 2.2 H AST 44 H ALT 45 Alkaline Phosphatase 95 Microbiology Data (last 24 hrs): 10/12/22 19:15 Blood - Blood Blood Culture Gram Stain - Final 10/12/22 19:15 Blood - Blood Gram Stain - Final 10/12/22 18:45 Blood - Blood Blood Culture Gram Stain - Final 10/12/22 18:45 Blood - Blood Gram Stain - Final 10/12/22 18:35 Nasopharnyx Influenza Type A Antigen Screen - Final 10/12/22 18:35 Nasopharnyx Influenza Type B Antigen Screen - Final Assessment And Plan - Plan Physical Exam General: Alert, In no apparent distress, Oriented x3, HEENT: Atraumatic, Normocephalic, PERRLA Neck: Supple, JVD not distended Respiratory: Clear to auscultation bilaterally, Normal air movement. Cardiovascular: No edema, Normal pulses, Irregular heart rate/rhythm Gastrointestinal: Normal bowel sounds, Soft and benign Musculoskeletal: No clubbing, No swelling, Integumentary: No rashes, No breakdown Diagnosis Critical illness myopathy Right lower lobe pneumonia Leukocytosis Acute on chronic renal failure likely due to prerenal CHF Falls Chronic systolic heart failure. Nondisplaced left rib fracture Elevated troponin A-fib on chronic anticoagulation History of permanent pacemaker History of valve replacement Plan Critical illness myopathy Falls Nondisplaced left rib fracture Continue supportive measures PT OT, fall precautions Social service consulted for evaluation for inpatient rehab. Right lower lobe pneumonia with leukocytosis Blood culture Gram stain x2: GPC Continue IV Zosyn, added IV vancomycin trend WBCs Acute on chronic renal failure likely due to prerenal CHF/hyponatremia Patient is on Lasix and metolazone. Hyponatremia and MARYJANE likely secondary to diuretic use and poor running Nephrology consulted Continue Lasix Monitor renal function. Oral intake as tolerated. Chronic systolic heart failure Elevated troponin A-fib on chronic anticoagulation History of permanent pacemaker History of valve replacement/nonsustained V. tach. Patient appears to be at baseline. Continue home medications. Pharmacy to dose warfarin. Monitor PT/INR daily. Troponin is mildly elevated and stable. This is likely secondary to demand ischemia. Diet: cardiac Full code DVT: On warfarin.
[2022-10-13] MEDS ORDERED: VANCOMYCIN 1.5 GM in NA CHLORIDE 0.9% 500 ML IVPB ONE (15:00)
--- NOTE | 2022-10-13 18:12 | CON ---
Date of Consultation: 10/13/2022 Reason For Consultation: Congestive heart failure. History Of Present Illness: A 77-year-old with past medical history of congestive heart failure, sta tus post pacemaker implantation and valve replacement, hypertension, presented to emergency room with falls and generalized weakness. His claimed that he has been having generalized weakness and u nable to ambulate independently. I saw him by bedside. He does have history of chronic congestive h eart failure; however, he does not have any significant shortness of breath or orthopnea and no fever . Past Medical History: As outlined above in the HPI. Medications: Refer to reconciliation sheet for detailed list. Allergies: AMLODIPINE, BENAZEPRIL, AND CIPROFLOXACIN. Family History: No premature coronary artery disease or cancer. Social History: Does not smoke or drink. Does not use any drugs. Review of Systems: All systems reviewed and they were negative except what mentioned in HPI. Physical Examination: Vital Signs: Reviewed. Head and Neck: Pupils are equal, reactive to light. Intact eye movements. No JVD. No cervical lym phadenopathy. Neck is supple. Thyroid is not enlarged. Lungs: Clear to auscultation bilaterally. No rhonchi, wheezing, or crackles. No accessory muscle u se. Heart: Irregular. No extra sounds. Abdomen: Soft, nontender. Bowel sounds positive. No organomegaly. No masses or hernia. No rigidi ty or rebound. Extremities: No edema, clubbing, or cyanosis. Intact pulses. Skin: No rash. Neurologic: Alert, awake, oriented. No acute focal deficits appreciated. Lymph Nodes: No cervical or axillary lymphadenopathy. Investigations: His INR was 3.88, hemoglobin is 13.8, white blood cell count is 18,000, and sodium 1 28, BUN 77, creatinine 1.55, and NT-proBNP is 42,586. Assessment And Recommendations: 1.Chronic congestive heart failure. He does not appear to be in acute heart failure condition at th is moment. So at this point, I recommend to obtain an echo to evaluate the heart functionality and f illing pressures and to determine treatment plan accordingly. I will stop the Lasix as I do not see a fluid overload condition and the patient is hypotensive. 2.Atrial fibrillation. This is controlled and he is on anticoagulation and therapeutic INR. Contin ue current management and monitor. 3.Falls and syncope likely due to hypotension. The patient is definitely having low blood pressure. His lactic acid was slightly elevated earlier. I recommend to avoid diuresis and maybe gentle hydr ation and treat the pneumonia. 4.Pneumonia, on IV antibiotics. Again, I do not believe this patient is in acute heart failure. Pl ease obtain an echo to further evaluate. SR/MODL Voice ID: [id number] Report ID: [id number]
[2022-10-13] MEDS: ENSURE ENLIVE 237 ML CAN PO SCH (21:00)
[2022-10-13] MEDS ORDERED: MIRTAZAPINE 15 MG TAB PO SCH (21:00)
[2022-10-14 03:57] LABS: Absolute Lymphocytes (CBC) 1.2 K/uL (0.7-4.9); MPV 7.2 fL (7.6-11.3); Platelets 189 thou/uL (152-406); RBC Red Blood Cell Count 4.13 M/uL (4.33-5.43)
[2022-10-14] MEDS ORDERED: NA CHLORIDE 0.9% 250 ML ONE (04:01)
[2022-10-14 04:29] LABS: Albumin 2.4 g/dL (3.4-5.0); Bilirubin Total 1.9 mg/dL (0.2-1.0); Magnesium 1.9 mg/dL (1.6-2.4); Potassium 2.9 mEq/L (3.5-5.1); Protein, Total 5.6 g/dL (6.4-8.2)
[2022-10-14 08:32] VITALS: O2SAT 94
[2022-10-14] MEDS: ENSURE ENLIVE 237 ML CAN PO SCH (08:32)
[2022-10-14 08:49] VITALS: BP 102/61; TEMP 97.3
[2022-10-14] MEDS ORDERED: POTASSIUM CL SA 10 MEQ TAB PO SCH (09:00)
[2022-10-14] MEDS ORDERED: AMIODARONE HCL 200 MG TAB PO SCH (09:00)
[2022-10-14] MEDS ORDERED: CEFTRIAXONE 2,000 MG in NA CHLORIDE 0.9% 100 ML IV SCH (14:00)
[2022-10-14] MEDS ORDERED: VANCOMYCIN 1 GM in NA CHLORIDE 0.9% 250 ML IVPB SCH (15:00)
--- NOTE | 2022-10-14 15:55 | P.DS ---
Discharge Date: 10/14/22 Disposition: TRANSFER TO INPATIENT REHAB Discharge Condition: FAIR Reason for Admission: Pneumonia, falls, weakness Brief History of Present Illness: 77-year-old male with a past medical history of acute on chronic heart failure, heart valve replacement, permanent pacemaker, presented to the emergency room for syncope and falls. reports moderate generalized weakness, deconditioning, unable to and ambulate independently. She reported poor appetite. She reports was in the hospital from August 31 to September [address] [facility] for acute on chronic heart failure. She reports he sees Dr. Joshi for cardiology. She requested custodial facility/rehab for strength training after discharge. ER course laboratory evaluation leukocytosis 19.80, left shift 88.6. Hyponatremia at 124, acute on chronic renal failure BUN 83, creatinine 1.87, estimated GFR 36, elevated lactic at 2.2, elevated troponin at 70.3, proBNP 53,810, UA negative chest x-ray Moderate airspace opacity in the right lung base likely representing pneumonia. The heart is mildly enlarged with a multi lead pacer device present.Small pleural effusions.Dual lead pacer device present.IMPRESSION: Moderate right base pneumonia. CT of the chest abdomen The lungs are diffusely emphysematous.Pacemaker device is present.Small to moderate right pleural effusion. No evidence of intra-abdominal visceral injury, free fluid or free air is seen within the above detailed limitations. Cholelithiasis. Aortoiliac atherosclerosis, No concerning pelvic findings. Prominent stool is present throughout the colon.Eleventh left posterior rib is fractured, age indeterminate.IMPRESSION: Eleventh posterior rib on the left demonstrates nondisplaced fracture. This is age indeterminate. Advise correlation with clinical tenderness in this region. Small to moderate right pleural effusion. Patient was hospitalized for further management. Hospital Course: Diagnosis Critical illness myopathy Right lower lobe pneumonia Leukocytosis Acute on chronic renal failure likely due to prerenal CHF Falls Chronic systolic heart failure. Nondisplaced left rib fracture Elevated troponin A-fib on chronic anticoagulation History of permanent pacemaker History of valve replacement Plan Critical illness myopathy Falls Nondisplaced left rib fracture Patient treated with supportive measures He was seen and evaluated by PT and OT. Patient functional status is improving. He has been accepted to inpatient rehab. Right lower lobe pneumonia with leukocytosis Blood culture Gram stain x2: Group B strep Antibiotics changed to IV Rocephin. Obtain echocardiogram. Patient will need about 2 weeks of IV Rocephin. WBC count trended down significantly. Acute on chronic renal failure likely due to prerenal CHF/hyponatremia Patient is on Lasix and metolazone. Hyponatremia and MARYJANE likely secondary to diuretic use and poor running Lasix was held briefly and resumed on discharge. He was given intermittent doses of oral Lasix during the hospital stay Renal function improved. Oral intake is improving. Chronic systolic heart failure Elevated troponin A-fib on chronic anticoagulation History of permanent pacemaker History of valve replacement/nonsustained V. tach. Patient appears to be at baseline. Continue home medications. Continue with warfarin He will need PT/INR checked from tomorrow 10/15 for Coumadin dose adjust Troponin is mildly elevated and stable. This is likely secondary to demand ischemia. Vital Signs/Physical Exam: Temp Pulse Resp BP Pulse Ox 97.3 F 74 16 102/61 95 10/14/22 11:52 10/14/22 11:52 10/14/22 11:52 10/14/22 11:52 10/14/22 11:52 General: Alert, In no apparent distress, Oriented x3 HEENT: Mucous membr. moist/pink Neck: JVD not distended Respiratory: Clear to auscultation bilaterally, Normal air movement Cardiovascular: No edema, Normal S1 S2, Irregular heart rate/rhythm Gastrointestinal: Soft and benign, Non-distended Musculoskeletal: No swelling Integumentary: No rashes, No cyanosis Neurological: Normal strength at 5/5 x4 extr Laboratory Data at Discharge: WBC 13.10 thou/uL (4.3-10.9) H 10/14/22 03:26 Hgb 13.7 g/dL (13.6-17.9) 10/14/22 03:26 Hct 40.0 % (39.6-49.0) 10/14/22 03:26 Plt Count 189 thou/uL (152-406) 10/14/22 03:26 PT 42.7 SECONDS (9.5-12.5) H 10/12/22 17:21 INR 3.88 10/12/22 17:21 Sodium 132 mEq/L (136-145) L D 10/14/22 03:26 Potassium 2.9 mEq/L (3.5-5.1) L D 10/14/22 03:26 BUN 54 mg/dL (7-18) H 10/14/22 03:26 Creatinine 1.17 mg/dL (0.70-1.30) 10/14/22 03:26 Glucose 92 mg/dL (74-106) 10/14/22 03:26 Magnesium 1.9 mg/dL (1.6-2.4) 10/14/22 03:26 Total Bilirubin 1.9 mg/dL (0.2-1.0) H 10/14/22 03:26 AST 43 U/L (15-37) H 10/14/22 03:26 ALT 41 U/L (16-61) 10/14/22 03:26 Alkaline Phosphatase 64 U/L (45-117) D 10/14/22 03:26 Home Medications: Furosemide [Lasix] 40 mg PO BID 12/05/20 Amiodarone HCl [Cordarone*] 200 mg PO DAILY 10/12/22 Potassium Chloride [K-Tab ER] 30 meq PO DAILY 10/12/22 Warfarin Sodium [Coumadin*] 4 mg PO DAILY 10/12/22 metOLazone [Metolazone] 2.5 mg PO Q3D 10/12/22 Bisacodyl [Dulcolax*] 10 mg MN DAILY PRN supp 10/14/22 Ensure Enlive 237 ml PO BID can 10/14/22 Mirtazapine [Remeron*] 7.5 mg PO BEDTIME tab 10/14/22 Diet: AHA Activity: Fall precautions Followup: Kayden Torres MD [Primary Care Provider] - Time spent managing pt's care (in minutes): 37
[2022-10-14] MEDS ORDERED: FUROSEMIDE 40 MG TABLET PO ONE (16:15)
[2022-10-14] MEDS ORDERED: WARFARIN SODIUM 4 MG TAB PO SCH (17:00)
[2022-10-15] MEDS ORDERED: VANCOMYCIN 1 GM in NA CHLORIDE 0.9% 250 ML IVPB SCH (03:00)
[2022-10-15] MEDS ORDERED: WARFARIN SODIUM 4 MG TAB PO SCH (17:00)
[2022-10-16] MEDS ORDERED: WARFARIN SODIUM 3 MG TAB PO SCH (17:00)
== END 2022-10-14 16:51 | DRG 871 ==
LOC: ER 16:13 → ERHOLD 19:47 → 2ND 20:56
PROVIDERS: ADMIT Internal Medicine; ATTEND Internal Medicine
DX: A41.9 Sepsis, unspecified organism (principal); J18.9 Pneumonia, unspecified organism; S22.32XA Fracture of one rib, left side, initial encounter for closed fracture; N17.9 Acute kidney failure, unspecified; E87.1 Hypo-osmolality and hyponatremia; G72.81 Critical illness myopathy; I50.22 Chronic systolic (congestive) heart failure; I47.20 Ventricular tachycardia, unspecified; I24.8 Other forms of acute ischemic heart disease; R65.20 Severe sepsis without septic shock; I65.23 Occlusion and stenosis of bilateral carotid arteries; I48.91 Unspecified atrial fibrillation; R74.9 Abnormal serum enzyme level, unspecified; R77.8 Other specified abnormalities of plasma proteins; Z88.1 Allergy status to other antibiotic agents; Z88.2 Allergy status to sulfonamides; Z88.8 Allergy status to other drugs, medicaments and biological substances; Z95.0 Presence of cardiac pacemaker; Z95.2 Presence of prosthetic heart valve; Z79.01 Long term (current) use of anticoagulants; Z87.891 Personal history of nicotine dependence; Z20.822 Contact with and (suspected) exposure to COVID-19; W18.30XA Fall on same level, unspecified, initial encounter; Y92.9 Unspecified place or not applicable; Y99.9 Unspecified external cause status
CPT/HCPCS: 36415; 70450; 71045; 71250; 72125; 80048; 80053; 80076; 81001; 83605; 83735; 83880; 83930; 83935; 84132; 84300; 84484; 85025; 85610; 87040; 87077; 87186; 87205; 87804; 87811; 92610; 93005; 94760; 96365; 96375; 97116; 97161; 97530; 99285; J0696; J1644; J2543; J3480; J7030; J7040; J7050